=== PATIENT | female | born 1940 | race Caucasian/White ===

== ENCOUNTER → 2022-08-17 | Outpatient (CLI) | payer MEDICARE, OTHER, SELFPAY ==
--- NOTE | 2022-08-17 06:42 | CDU_ITS ---
Reason For Study: Carotid artery bruit Rt. Velocities/BP Lt. Velocities/BP Prox CCA 40/11.6 cm/sec. Prox CCA 50.7/10.2 cm/sec. Mid CCA 31.7/10.7 cm/sec. Mid CCA 56.9/10.2 cm/sec. Dist CCA 36/9.9 cm/sec. Dist CCA 63/11.4 cm/sec. Prox ICA 302.8/61.7 cm/sec. Prox ICA 130.2/38 cm/sec. Mid ICA 103.8/33.6 cm/sec. Mid ICA 101.6/24.8 cm/sec. Dist ICA 88.5/33.6 cm/sec. Dist ICA 79.7/24.8 cm/sec. Rt. ICA/CCA = 8.41. Lt. ICA/CCA = 2.29. Prox ECA 139.4/2.4 cm/sec. Prox ECA 102.3 cm/sec. Rt. Vert. 55.3/11.3 cm/sec. Lt. Vert. 40.4/13.3 cm/sec. Right Extracranial There is intimal thickening but no significant atherosclerotic plaque noted in the right common carotid artery. There is heterogeneous, irregular atherosclerotic plaque noted in the right internal carotid artery. There is heterogeneous, irregular atherosclerotic plaque noted in the right external carotid artery. Antegrade flow is noted in the right vertebral artery. Left Extracranial There is homogeneous, smooth atherosclerotic plaque noted in the left common carotid artery. There is heterogeneous, irregular atherosclerotic plaque noted in the left internal carotid artery. The atherosclerotic plaque causes acoustic shadowing. There is heterogeneous, irregular atherosclerotic plaque noted in the left external carotid artery. Antegrade flow is noted in the left vertebral artery. There is heterogeneous, irregular atherosclerotic plaque noted in the left bulb. Procedure Carotid Duplex 23674. This is a Carotid Duplex examination using B-mode, color flow and specral Doppler. Exam performed in department. 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 Moderate (50-69%) stenosis left extracranial internal carotid. Patent and antegrade vertebrals bilaterally. Calcific shadowing bilateral, additional imaging may be beneficial Ordering Physician: Min Montaño Referring Physician: Meseret Katz Performed By: Sonia Schmitt RVT
--- NOTE | 2022-08-17 08:32 | STRESSREP_ITS ---
Stress Test Report Date: 08-17-2022 Procedure: Pharmacologic stress nuclear imaging study Indications: Cardiac ectopy/PACs/PVCs/PSVT/NSVT; cardiomyopathy; mitral valve regurgitation; shortness of breath/dyspnea on exertion Consent: Per the patient Procedure: The patient underwent pharmacologic (Regadenoson 0.4mg ) evaluation with a peak heart rate of 91 beats per minute (65%predicted maximal heart rate) and a resting blood pressure of 150/84 mmHg and a peak blood pressure of 150/84 mmHg. The baseline ECG demonstrated normal sinus rhythm; nonspecific T wave abnormality. The peak pharmacologic ECG demonstrated no obvious ECG changes. There was an occasional PVC pretest and during recovery and an isolated ventricular couplet in recovery. There was no complaint of chest discomfort during pharmacologic infusion or recovery. The examination was discontinued secondary to completion of protocol. Impression: 1. Pharmacologic (Regadenoson) evaluation 2. Peak pharmacologic ECG with continued nonspecific T wave abnormality with no obvious ECG changes. 3. There was an occasional PVC pretest and during recovery and an isolated ventricular couplet in recovery. 4. Nuclear images pending Myocardial perfusion imaging study: Technique: The patient was injected with 10.6 millicuries of technetium 99m Cardiolite and subsequently rest SPECT Cardiolite nuclear imaging was obtained in the horizontal long, vertical long, and short axis views. The patient underwent pharmacologic (Regadenoson) evaluation with a peak heart rate of 91 beats per minute (65% percent predicted maximal heart rate) and a resting blood pressure of 150/84 mmHg and a peak blood pressure of 150/84 mmHg. The patient was injected with 31.9 millicuries of technetium 99m Cardiolite and subsequently stress SPECT Cardiolite nuclear imaging was obtained in the horizontal long, vertical long, and short axis views. A gated Cardiolite study at peak stress was obtained. Interpretation: Rest and stress SPECT Cardiolite nuclear imaging status post realignment, normalization, and attenuation correction demonstrate. There is end systolic thickening and brightening. The gated Cardiolite study demonstrates myocardial thickening and inward wall motion. The reported LVEF is 55%. Impression: 1. Rest and stress SPECT Cardiolite nuclear imaging demonstrate relative un iform tracer uptake and myocardial perfusion appearing within normal limits. 2. The gated Cardiolite study reports an LVEF of 55%. This note was generated with [employer] software. It may contain incorrect words, spelling, and punctuation that were not noted in checking the note before signing.
== END | disposition home or self-care (01) ==
LOC: CVS 06:40
PROVIDERS: PCP Internal Medicine; Visit Provider Internal Medicine Cardiovascular Disease
DX: I47.29 Other ventricular tachycardia (principal); I65.23 Occlusion and stenosis of bilateral carotid arteries; R06.00 Dyspnea, unspecified; I34.0 Nonrheumatic mitral (valve) insufficiency
CPT/HCPCS: 78452; 93017; 93880; A9500; A4216; J2785

== ENCOUNTER → 2022-08-19 | Outpatient (CLI) | payer MEDICARE, OTHER, SELFPAY ==
--- NOTE | 2022-08-23 06:44 | PFT ---
INTRODUCTION: The patient is a 82-year-old female that presents for pulmonary function studies secondary to a diagnosis of shortness of breath. Respiratory therapy reported good patient effort. Bronchodilators were used during testing. INTERPRETATION: Forced expiration spirometry demonstrates no evidence of a large airways obstructive ventilatory defect. There was no significant response to aerosolized bronchodilators. Spirograms are of good quality and plateau normally. Body plethysmography was performed and reveals lung volumes to be within normal limits. Diffusing capacity by single breath CO is also within normal limits. IMPRESSION: Grossly normal pulmonary function studies.
== END | disposition home or self-care (01) ==
LOC: PSN 10:32
PROVIDERS: PCP Internal Medicine; Referring Provider Internal Medicine Cardiovascular Disease; Visit Provider Internal Medicine Cardiovascular Disease
DX: I47.29 Other ventricular tachycardia (principal); I42.9 Cardiomyopathy, unspecified; I47.1 Supraventricular tachycardia; N18.30 Chronic kidney disease, stage 3 unspecified; I12.9 Hypertensive chronic kidney disease with stage 1 through stage 4 chronic kidney disease, or unspecified chronic kidney disease; I49.49 Other premature depolarization; I34.0 Nonrheumatic mitral (valve) insufficiency; E78.2 Mixed hyperlipidemia; R00.2 Palpitations; R06.09 Other forms of dyspnea
CPT/HCPCS: 94060; 94726; 94729

== ENCOUNTER → 2022-09-08 | Outpatient (CLI) | payer MEDICARE, OTHER, SELFPAY ==
[2022-09-08 14:10] LABS: Creatinine, Serum 1.81 mg/dL (0.55-1.02); EST Glomerular Filtration Rate 29 mL/min (>60); Est Glom Filt Rate - Afr Amer 35 mL/min (>60)
== END | disposition home or self-care (01) ==
PROVIDERS: PCP Internal Medicine; Visit Provider Physician Assistant
DX: N18.30 Chronic kidney disease, stage 3 unspecified (principal)
CPT/HCPCS: 36415; 82565

== ENCOUNTER → 2023-01-10 | Outpatient (CLI) | payer MEDICARE, OTHER, SELFPAY ==
[2023-01-10 17:39] LABS: Anion Gap 7 (5-15); BUN 50 mg/dL (7-18); BUN/Creat Ratio 28.1 RATIO (10-20); Calcium,Total 8.7 mg/dL (8.5-10.1); Chloride 117 mmol/L (98-107); Creatinine, Serum 1.78 mg/dL (0.55-1.02); EST Glomerular Filtration Rate 29 mL/min (>60); Est Glom Filt Rate - Afr Amer 35 mL/min (>60); Glucose 113 mg/dL (74-106); Potassium 4.9 mmol/L (3.5-5.1); Sodium Level 143 mmol/L (136-145)
== END | disposition home or self-care (01) ==
LOC: POLAB3 13:57
PROVIDERS: PCP Nurse Practitioner; Visit Provider Internal Medicine Nephrology
DX: E87.5 Hyperkalemia (principal)
CPT/HCPCS: 36415; 80048

== ENCOUNTER → 2023-05-31 | Outpatient (CLI) | payer MEDICARE, OTHER, SELFPAY ==
[2023-05-31 17:35] LABS: Albumin, Serum 3.9 g/dL (3.2-5.0); BUN 46 mg/dL (7-18); Calcium,Total 8.8 mg/dL (8.5-10.1); Chloride 115 mmol/L (98-107); EST Glomerular Filtration Rate 25 mL/min (>60); Est Glom Filt Rate - Afr Amer 31 mL/min (>60); Glucose 103 mg/dL (74-106); Phosphorus 3.9 mg/dL (2.5-4.9); Potassium 4.8 mmol/L (3.5-5.1); Sodium Level 143 mmol/L (136-145)
== END | disposition home or self-care (01) ==
LOC: LAB 15:59
PROVIDERS: PCP Nurse Practitioner; Visit Provider Internal Medicine Nephrology
DX: N17.9 Acute kidney failure, unspecified (principal)
CPT/HCPCS: 36415; 80069

== ENCOUNTER → 2023-06-05 | Outpatient (CLI) | payer MEDICARE, OTHER, SELFPAY | END | disposition home or self-care (01) | LOC: LAB 16:04 | PROVIDERS: PCP Nurse Practitioner; Referring Provider Nurse Practitioner Gerontology; Visit Provider Nurse Practitioner Gerontology | DX: R06.09 Other forms of dyspnea (principal); I42.9 Cardiomyopathy, unspecified | CPT/HCPCS: 36415; 83880 ==

== ENCOUNTER → 2023-06-15 | Outpatient (CLI) | payer MEDICARE, OTHER, SELFPAY ==
[2023-06-15 16:21] LABS: Anion Gap 8 (5-15); BUN 72 mg/dL (7-18); BUN/Creat Ratio 31.9 RATIO (10-20); Chloride 112 mmol/L (98-107); Creatinine, Serum 2.26 mg/dL (0.55-1.02); EST Glomerular Filtration Rate 22 mL/min (>60); Est Glom Filt Rate - Afr Amer 27 mL/min (>60); Glucose 117 mg/dL (74-106); Potassium 4.7 mmol/L (3.5-5.1); Sodium Level 141 mmol/L (136-145)
== END | disposition home or self-care (01) ==
LOC: LAB 15:06
PROVIDERS: PCP Nurse Practitioner; Referring Provider Nurse Practitioner Gerontology; Visit Provider Nurse Practitioner Gerontology
DX: R06.09 Other forms of dyspnea (principal)
CPT/HCPCS: 36415; 80048

== ENCOUNTER → 2023-07-06 | Outpatient (CLI) | payer MEDICARE, OTHER, SELFPAY ==
[2023-07-06 14:22] LABS: BUN 46 mg/dL (7-18); BUN/Creat Ratio 26.4 RATIO (10-20); Calcium,Total 9.2 mg/dL (8.5-10.1); Chloride 115 mmol/L (98-107); Creatinine, Serum 1.74 mg/dL (0.55-1.02); EST Glomerular Filtration Rate 30 mL/min (>60); Est Glom Filt Rate - Afr Amer 36 mL/min (>60); Glucose 116 mg/dL (74-106); Phosphorus 3.3 mg/dL (2.5-4.9); Potassium 5.2 mmol/L (3.5-5.1); Sodium Level 143 mmol/L (136-145)
== END | disposition home or self-care (01) ==
LOC: LAB.FUTURE 12:29 → LAB 13:22
PROVIDERS: PCP Nurse Practitioner; Referring Provider Internal Medicine Nephrology; Visit Provider Internal Medicine Nephrology
DX: N18.32 Chronic kidney disease, stage 3b (principal); N17.9 Acute kidney failure, unspecified
CPT/HCPCS: 36415; 80069

== ENCOUNTER → 2023-08-03 | Outpatient (CLI) | payer MEDICARE, OTHER, SELFPAY ==
--- NOTE | 2023-08-03 13:53 | ECHOD_ITS ---
Reason For Study: AMEZCUA Procedure This was a 2D Doppler, Color Flow transthoracic echocardiogram. Exam performed in department. Left Ventricle Normal LV size. The estimated ejection fraction is 50-55 %. Unable to assess diastolic dysfunction. No regional wall motion abnormalities noted. Right Ventricle Normal RV size. Normal systolic function. Atria The left atrium is mildly enlarged. Normal right atrium. No doppler evidence for ASD. Mitral Valve There is moderate mitral annular calcification. There is no mitral valve stenosis. Trivial mitral valve insufficiency. Tricuspid Valve There is no tricuspid stenosis. Trivial tricuspid valve insufficiency. Pulmonary artery systolic pressure is 30 mmHg. Aortic Valve Trisinus/trileaflet aortic valve. Aortic sclerosis, no stenosis. There is no aortic stenosis. Trivial aortic valve insufficiency. Pulmonic Valve There is no pulmonic valvular stenosis. No pulmonic valve insufficiency. Great Vessels Normal aortic root. Pericardium/Pleural No pericardial effusion. MMode/2D Measurements & Calculations LVIDd: 4.3 cm IVSd: 1.3 cm Ao root diam: 3.6 cm LVIDs: 3.5 cm LVPWd: 1.4 cm FS: 19.5 % LAV(MOD-sp4): 86.1 ml LVAd ap4: 28.8 cm2 SV(MOD-sp4): 38.0 ml LVLd ap4: 7.7 cm EDV(MOD-sp4): 89.4 ml EDV(sp4-el): 91.8 ml LVAs ap4: 20.2 cm2 LVLs ap4: 6.6 cm ESV(MOD-sp4): 51.5 ml ESV(sp4-el): 52.6 ml EF(MOD-sp4): 42.5 % EF(sp4-el): 42.7 % SV(sp4-el): 39.2 ml LA A4 area: 25.6 cm2 LA dimension(2D): 4.1 cm RA A4 area: 21.0 cm2 TAPSE: 2.5 cm Time Measurements MV dec time: 0.13 sec Doppler Measurements & Calculations MV E max beau: 70.3 cm/sec Lat Peak E' Beau: 6.6 cm/sec Med Peak E' Beau: 3.4 cm/sec MV A max beau: 91.1 cm/sec E/E' lat: 10.7 E/E' med: 20.9 MV E/A: 0.77 MV V2 max: 83.0 cm/sec Ao V2 max: 145.4 cm/sec MV max P.8 mmHg MV dec slope: 653.2 cm/sec2 Ao max P.5 mmHg MV V2 mean: 55.9 cm/sec Ao V2 mean: 101.8 cm/sec MV mean P.4 mmHg Ao mean P.8 mmHg MV V2 VTI: 27.0 cm Ao V2 VTI: 29.9 cm AV (velocity ratio): 0.57 LV V1 max: 77.5 cm/sec PA V2 max: 89.5 cm/sec TR max beau: 263.5 cm/sec LV V1 max P.4 mmHg PA V2 mean: 69.0 cm/sec TR max P.8 mmHg LV V1 mean P.4 mmHg LV V1 mean: 55.2 cm/sec LV V1 VTI: 16.9 cm ECHO/Echo Complete Interpretation Summary The estimated ejection fraction is 50-55 %. Unable to assess diastolic dysfunction. The left atrium is mildly enlarged. Trivial mitral valve insufficiency. Trivial aortic valve insufficiency. Ordering Physician: Patricia Cruz Referring Physician: Patricia Cruz Performed By: Marie Leslie RCS
== END | disposition home or self-care (01) ==
LOC: CVS 13:51
PROVIDERS: PCP Nurse Practitioner; Referring Provider Nurse Practitioner Gerontology; Visit Provider Nurse Practitioner Gerontology
DX: R06.09 Other forms of dyspnea (principal)
CPT/HCPCS: 93306

== ENCOUNTER → 2023-09-04 | Outpatient (CLI) | payer MEDICARE, OTHER, SELFPAY ==
--- OUTSIDE RECORDS SUMMARY | 2023-09-04 12:36 | XMS RPT_ITS | CCD ---
Author Name Unknown Address [id number] [place] [address] Organization [facility] Care Team Providers Care Relay Operator Name Role Phone Sylvie Katz MD Primary Care Provider GANTA, SYLVIE Primary Care Unavailable PREBISH, TABBY Attending Unavailable GANTA, SYLVIE Primary Care Unavailable CROWE, LIDIA Attending Unavailable CROWE, LIDIA Referring Unavailable GANTA, SYLVIE Primary Care Unavailable CROWE, LIDIA Attending Unavailable OLDER, ARPITA Referring Unavailable PREBISH, TABBY Attending Unavailable GANTA, SYLVIE Primary Care Unavailable PREBISH, TABBY Attending Unavailable GANTA, SYLVIE Primary Care Unavailable CROWE, LIDIA Attending Unavailable CROWE, LIDIA Referring Unavailable GANTA, SYLVIE Primary Care Unavailable Sylvie Katz MD Primary Care Provider [phone] GANTA, SYLVIE Primary Care Unavailable OLDER, ARPITA Referring Unavailable GANTA, SYLVIE Primary Care Unavailable OLDER, ARPITA Referring Unavailable GANTA, SYLVIE Primary Care Unavailable OLDER, ARPITA Attending Unavailable GANTA, SYLVIE Primary Care Unavailable OLDER, ARPITA Referring Unavailable GANTA, SYLVIE Primary Care Unavailable OLDER, ARPITA Attending Unavailable GANTA, SYLVIE Primary Care Unavailable GANTA, SYLVIE Primary Care Unavailable MOER, SHAILEY Referring Unavailable GANTA, SYLVIE Primary Care Unavailable GROEVR BANKS Attending Unavailable OLDER, ARPITA Referring Unavailable GANTA, SYLVIE Primary Care Unavailable OLDER, ARPITA Referring Unavailable GANTA, SYLVIE Primary Care Unavailable OMER, SHAILEY Referring Unavailable GANTA, SYLVIE Primary Care Unavailable CHERRI ESPINAL Attending Unavailable GANTA, SYLVIE Primary Care Unavailable OLDER, ARPITA Referring Unavailable GANTA, SYLVIE Primary Care Unavailable OLDER, ARPITA Referring Unavailable GANTA, SYLVIE Primary Care Unavailable DEVAN DOBSON Referring Unavailable GANTA, SYLVIE Primary Care Unavailable OMER, SHAILEY Referring Unavailable GANTA, SYLVIE Primary Care Unavailable OLDER, ARPITA Attending Unavailable GANTA, SYLVIE Primary Care Unavailable OLDER, ARPITA Referring Unavailable GANTA, SYLVIE Primary Care Unavailable GANTA, SYLVIE Primary Care Unavailable DOBSON, DEVAN Attending Unavailable GANTA, SYLVIE Primary Care Unavailable OLDER, ARPITA Attending Unavailable GANTA, SYLVIE Primary Care Unavailable DOBSON, DEVAN Referring Unavailable GANTA, SYLVIE Primary Care Unavailable DOBSONMILADN Referring Unavailable GANTA, SYLVIE Primary Care Unavailable GANTA, SYLVIE Primary Care Unavailable OLDER, ARPITA Attending Unavailable GANTA, SYLVIE Primary Care Unavailable OLDER, ARPITA Referring Unavailable GANTA, SYLVIE Primary Care Unavailable OLDER, ARPITA Attending Unavailable GANTA, SYLVIE Primary Care Unavailable OLDER, ARPITA Referring Unavailable GANTA, SYLVIE Primary Care Unavailable GANTA, SYLVIE Primary Care Unavailable DESTINIDENIS Referring Unavailable GANTA, SYLVIE Primary Care Unavailable OLDER, ARPITA Attending Unavailable GANTA, SYLVIE Primary Care Unavailable OLDER, ARPITA Referring Unavailable GANTA, SYLVIE Primary Care Unavailable OMER, ANDRZEJILEY Attending Unavailable GANTA, SYLVIE Primary Care Unavailable OLDER, ARPITA Referring Unavailable GANTA, SYLVIE Primary Care Unavailable OLDER, ARPITA Referring Unavailable GANTA, SYLVIE Primary Care Unavailable Allergies Allergy Classification Reported Allergen(s) Allergy Type Date of Onset Reaction(s) Facility (20 sources) Famotidine; Translations: [FAMOTIDINE (PF)] Drug Allergy 11-26-2012 Diarrhea [facility] (20 sources) guaiFENesin; Translations: [GUAIFENESIN] Drug Allergy 09-16-2013 Diarrhea [facility] Work Phone: (20 sources) meloxicam; Translations: [MELOXICAM] Drug Allergy 11-26-2012 GI Upset [facility] (20 sources) pantoprazole; Translations: [PANTOPRAZOLE] Drug Allergy 05-14-2012 Diarrhea [facility] (20 sources) Sucralfate; Translations: [SUCRALFATE] Drug Allergy 04-08-2013 Diarrhea [facility] Medications Current Medications Medication Drug Class(es) Dates Sig (Normalized) Sig (Original) ALPRAZolam 0.5 mg disintegrating oral tablet (10 sources) Benzodiazepine Start: 04-13-2023 End: 04-24-2023 ALPRAZolam 0.5 mg dissolvable tablet Indications: Lumbar spondylosis Bring to office for procedure. Do not take until instructed by clinical staff 2 tablet 0 04/13/2023 04/24/2023 Active Completed/Discontinued Medications Medication Drug Class(es) Dates Sig (Normalized) Sig (Original) 8 hr acetaminophen 650 mg extended release oral tablet (20 sources) take 1 tablet by mouth every eight hours as needed acetaminophen 650 mg CR tablet Indications: Age-related osteoporosis without current pathological fracture , Idiopathic chronic gout of multiple sites with tophus , Primary osteoarthritis involving multiple joints , Medication monitoring encounter , Psoriasis Take 650 mg by mouth every 8 hours as needed. 0 Active Problems Active Problems Problem Classification Problem Date Documented Da te Episodic/Chronic Abdominal hernia (1 source) Hiatal hernia; Translations: [Diaphragmatic hernia without obstruction or gangrene] Episodic Cardiac dysrhythmias (20 sources) Cardiac arrhythmia; Translations: [Cardiac arrhythmia, unspecified] Onset: 3 Chronic Cardiac dysrhythmias (1 source) Palpitations; Translations: [Palpitations] Episodic Chronic kidney disease (20 sources) Chronic kidney disease; Translations: [Chronic kidney disease, unspecified] Onset: 6 08-31-2015 Chronic Chronic kidney disease (1 source) Chronic kidney disease; Translations: [Stage 3b chronic kidney disease (HCC)] Onset: 6 Disorders of lipid metabolism (2 sources) Hyperlipidemia; Translations: [Hyperlipidemia, unspecified] Onset: 3 04-27-2023 Chronic Esophageal disorders (20 sources) Gastroesophageal reflux disease; Translations: [Gastro-esophageal reflux disease without esophagitis] Onset: 2 05-14-2012 Chronic Essential hypertension (20 sources) Hypertensive disorder; Translations: [Essential (primary) hypertension] Onset: 3 12-28-2015 Chronic Fluid and electrolyte disorders (1 source) Hyperkalemia; Translations: [Hyperkalemia] Onset: 3 Episodic Genitourinary symptoms and ill-defined conditions (3 sources) Urinary incontinence; Translations: [Unspecified urinary incontinence] Onset: 3 Chronic Genitourinary symptoms and ill-defined conditions (14 sources) Dysuria; Translations: [Dysuria] Onset: 3 Episodic Glaucoma (20 sources) Glaucoma; Translations: [Unspecified glaucoma] 2015 Chronic Gout and other crystal arthropathies (20 sources) Chronic primary gouty arthritis; Translations: [Idiopathic chronic gout, multiple sites, with tophus (tophi)] Onset: 8 Chronic Nausea and vomiting (2 sources) Nausea and vomiting; Translations: [Nausea with vomiting, unspecified] Episodic Nonmalignant breast conditions (9 sources) Breast tenderness; Translations: [Mastodynia] Episodic Osteoarthritis (20 sources) Degenerative joint disease involving multiple joints; Translations: [Polyosteoarthritis, unspecified] Onset: 8 12-11-2017 Chronic Osteoporosis (20 sources) Osteoporosis; Translations: [Age-related osteoporosis without current pathological fracture] Onset: 4 01-27-2014 Chronic Other aftercare (9 sources) Patient encounter status; Translations: [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] Episodic Other and ill-defined heart disease (1 source) Diastolic dysfunction; Translations: [Other ill-defined heart diseases] Chronic Other circulatory disease (20 sources) Disorder of carotid artery; Translations: [Disorder of arteries and arterioles, unspecified] Onset: 3 01-11-2023 Chronic Other circulatory disease (1 source) Disorder of arteries and arterioles, unspecified; Translations: [Disorder of carotid artery (HCC)] Onset: 3 Chronic Other connective tissue disease (1 source) Cramp; Translations: [Cramp and spasm] 07-27-2023 Episodic Other connective tissue disease (1 source) Cramp and spasm; Translations: [Muscle cramping] Onset: 3 Episodic Other diseases of kidney and ureters (4 sources) Abnormal renal function; Translations: [Disorder of kidney and ureter, unspecified] Episodic Other gastrointestinal disorders (1 source) Diarrhea; Translations: [Diarrhea, unspecified] Episodic Other lower respiratory disease (2 sources) Dyspnea on exertion; Translations: [Other forms of dyspnea] Episodic Other lower respiratory disease (3 sources) Dyspnea; Translations: [Shortness of breath] Episodic Other lower respiratory disease (1 source) Cough; Translations: [Acute cough] Episodic Other lower respiratory disease (1 source) Wheezing; Translations: [Wheezing] Episodic Other nervous system disorders (2 sources) Other chronic pain; Translations: [Chronic midline low back pain without sciatica] Onset: 3 Chronic Other nutritional; endocrine; and metabolic disorders (20 sources) Hypercalcemia; Translations: [Hypercalcemia] Onset: 4 02-15-2014 Chronic Other nutritional; endocrine; and metabolic disorders (20 sources) Hypocalciuria; Translations: [Other disorders of calcium metabolism] Onset: 5 09-23-2014 Chronic Other nutritional; endocrine; and metabolic disorders (2 sources) Hypomagnesemia; Translations: [Hypomagnesemia] Chronic Other nutritional; endocrine; and metabolic disorders (1 source) Hypervitaminosis D; Translations: [Hypervitaminosis D] Chronic Other nutritional; endocrine; and metabolic disorders (1 source) Hypomagnesemia; Translations: [Hypomagnesemia] Onset: 3 Chronic Other nutritional; endocrine; and metabolic disorders (1 source) Hypervitaminosis D; Translations: [High vitamin D level] Onset: 3 Chronic Other screening for suspected conditions (not mental disorders or infectious disease) (3 sources) Electrocardiogram abnormal; Translations: [Abnormal electrocardiogram [ECG] [EKG]] Onset: 3 Episodic Other upper respiratory infections (1 source) Acute sinusitis; Translations: [Acute sinusitis, unspecified] Episodic Namita-; endo-; and myocarditis; cardiomyopathy (except that caused by tuberculosis or sexually transmitted disease) (20 sources) Cardiomyopathy; Translations: [Cardiomyopathy, unspecified] Onset: 3 01-11-2023 Chronic Residual codes; unclassified (1 source) Colon cancer screening declined; Translations: [Procedure and treatment not carried out because of patient's decision for unspecified reasons] Episodic Residual codes; unclassified (1 source) Generally unwell; Translations: [Other general symptoms and signs] 04-27-2023 Episodic Spondylosis; intervertebral disc disorders; other back problems (20 sources) Degeneration of lumbar intervertebral disc; Translations: [Other intervertebral disc degeneration, lumbar region] Onset: 3 05-06-2013 Chronic Unclassified (2 sources) Chronic midline low back pain without sciatica; Translations: [Chronic midline low back pain without sciatica] Onset: 3 Unclassified (1 source) Other ventricular tachycardia (HCC); Translations: [Other ventricular tachycardia (HCC)] Onset: 3 Unclassified (1 source) Acute cough; Translations: [Acute cough] Onset: 3 Urinary tract infections (10 sources) Urinary tract infectious disease; Translations: [Urinary tract infection, site not specified] Onset: 3 Episodic Viral infection (1 source) Disease caused by 2019-nCoV; Translations: [COVID-19] Episodic Past or Other Problems Problem Classification Problem Date Documented Da te Episodic/Chronic Abdominal pain (20 sources) Indigestion; Translations: [Epigastric pain] Onset: 09-23-2014 09-23-2014 Episodic Acute and unspecified renal failure (1 source) Acute kidney failure, unspecified; Translations: [Acute renal failure, unspecified acute renal failure type (HCC)] Onset: 01-02-2023 Episodic Allergic reactions (20 sources) Eczema; Translations: [Dermatitis, unspecified] Onset: 05-14-2012 05-14-2012 Episodic Malaise and fatigue (3 sources) Fatigue; Translations: [Other fatigue] Onset: 05-04-2023 Episodic Other aftercare (1 source) Other mcc (current) drug therapy; Translations: [Encounter for long-term (current) use of medications] Onset: 03-22-2023 Episodic Other circulatory disease (20 sources) Elevated blood-pressure reading without diagnosis of hypertension; Translations: [Elevated blood-pressure reading, without diagnosis of hypertension] Onset: 04-15-2019 04-15-2019 Episodic Other diseases of kidney and ureters (1 source) Disorder of kidney and ureter, unspecified; Translations: [Function kidney decreased] Onset: 10-20-2022 Episodic Other gastrointestinal disorders (20 sources) Diarrhea due to drug; Translations: [Toxic gastroenteritis and colitis] Onset: 11-26-2012 11-26-2012 Episodic Other gastrointestinal disorders (1 source) Diarrhea, unspecified; Translations: [Diarrhea, unspecified type] Onset: 10-13-2022 Episodic Other lower respiratory disease (1 source) Shortness of breath; Translations: [Shortness of breath] Onset: 05-04-2023 Episodic Other lower respiratory disease (1 source) Wheezing; Translations: [Wheezing] Onset: 09-29-2022 Episodic Residual codes; unclassified (20 sources) Insomnia; Translations: [Insomnia, unspecified] Onset: 07-02-2013 07-02-2013 Episodic Residual codes; unclassified (1 source) Other general symptoms and signs; Translations: [Generally unwell] Onset: 05-04-2023 Episodic Spondylosis; intervertebral disc disorders; other back problems (20 sources) Spinal stenosis of lumbar region; Translations: [Spinal stenosis, lumbar region with neurogenic claudication] Onset: 03-11-2015 03-11-2015 Episodic Results Test Name Value Interpretation Reference Range Facil ity Vital Signs Date Time Vital Sign Value Performing Clinician Yousuf gupta 07-27-2023 11:06-0500 Body weight 82.56 kg PILOT PLANT OPERATOR.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 Work Phone: [facility] 07-27-2023 11:06-0500 Diastolic blood pressure 60 mm[Hg] PILOT PLANT OPERATOR.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 Work Phone: [facility] 07-27-2023 11:06-0500 Heart rate 72 /min PILOT PLANT OPERATOR.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 Work Phone: [facility] 07-27-2023 11:06-0500 Respiratory rate 16 /min PILOT PLANT OPERATOR.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 Work Phone: [facility] 07-27-2023 11:06-0500 Systolic blood pressure 132 mm[Hg] PILOT PLANT OPERATOR.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 Work Phone: [facility] 07-20-2023 10:37-0500 Heart rate 84 /min Tabby Prebish PILOT PLANT OPERATOR.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 Work Phone: [facility] 07-20-2023 10:37-0500 Respiratory rate 14 /min Tabby Prebish PILOT PLANT OPERATOR.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 Work Phone: [facility] 07-20-2023 10:37-0500 SaO2% (BldA) [Mass fraction] 98 % Tabby Prebish PILOT PLANT OPERATOR.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 Work Phone: [facility] 06-12-2023 12:58-0400 Body height 160 cm Grover Banks PILOT PLANT OPERATOR.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, DNP Work Phone: [facility] 06-12-2023 12:58-0400 Body temperature 97 [degF] Grover Banks PILOT PLANT OPERATOR.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, DNP Work Phone: [facility] 06-12-2023 12:58-0400 Body weight 82.19 kg Grover Banks APRN.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, DNP Work Phone: [facility] 06-12-2023 12:58-0400 Diastolic blood pressure 60 mm[Hg] Grover Banks PILOT PLANT OPERATOR.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, DNP Work Phone: [facility] 06-12-2023 12:58-0400 Heart rate 74 /min Grover Banks PILOT PLANT OPERATOR.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, DNP Work Phone: [facility] 06-12-2023 12:58-0400 Respiratory rate 14 /min Grover Banks PILOT PLANT OPERATOR.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, DNP Work Phone: [facility] 06-12-2023 12:58-0400 SaO2% (BldA) [Mass fraction] 98 % Grover Banks PILOT PLANT OPERATOR.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, DNP Work Phone: [facility] 06-12-2023 12:58-0400 Systolic blood pressure 104 mm[Hg] Grover Banks PILOT PLANT OPERATOR.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, DNP Work Phone: [facility] 04-27-2023 11:02-0400 Body temperature 97.7 [degF] Arpita Older PILOT PLANT OPERATOR.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 Work Phone: [facility] 04-27-2023 11:02-0400 Body weight 80.74 kg Arpita Older PILOT PLANT OPERATOR.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 Work Phone: [facility] 04-27-2023 11:02-0400 Diastolic blood pressure 70 mm[Hg] Arpita Older PILOT PLANT OPERATOR.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 Work Phone: [facility] 04-27-2023 11:02-0400 Heart rate 94 /min Arpita Older PILOT PLANT OPERATOR.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 Work Phone: [facility] 04-27-2023 11:02-0400 Respiratory rate 16 /min Arpita Older PILOT PLANT OPERATOR.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 Work Phone: [facility] 04-27-2023 11:02-0400 SaO2% (BldA) [Mass fraction] 100 % Arpita Connelly PILOT PLANT OPERATOR.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 Work Phone: [facility] 04-27-2023 11:02-0400 Systolic blood pressure 122 mm[Hg] Arpita Connelly PILOT PLANT OPERATOR.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 Work Phone: [facility] 04-21-2023 15:07-0400 Body height 160 cm Devan Dobson PILOT PLANT OPERATOR.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 Work Phone: [facility] 04-21-2023 15:07-0400 Body temperature 97.3 [degF] Devan Dobson PILOT PLANT OPERATOR.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 Work Phone: [facility] 04-21-2023 15:07-0400 Body weight 80.74 kg Devan Dobson PILOT PLANT OPERATOR.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 Work Phone: [facility] 04-21-2023 15:07-0400 Diastolic blood pressure 72 mm[Hg] Devan Dobson PILOT PLANT OPERATOR.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 Work Phone: [facility] 04-21-2023 15:07-0400 Heart rate 85 /min Dvean Dobson PILOT PLANT OPERATOR.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 Work Phone: [facility] 04-21-2023 15:07-0400 SaO2% (BldA) [Mass fraction] 100 % Devan Dobsno PILOT PLANT OPERATOR.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 Work Phone: [facility] 04-21-2023 15:07-0400 Systolic blood pressure 142 mm[Hg] Devan Dobson PILOT PLANT OPERATOR.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 Work Phone: [facility] 04-10-2023 14:40-0400 Diastolic blood pressure 67 mm[Hg] Lidia Crowe MD Work Phone: [facility] 04-10-2023 14:40-0400 Heart rate 91 /min Lidia Crowe MD Work Phone: [facility] 04-10-2023 14:40-0400 Respiratory rate 18 /min Lidia Crowe MD Work Phone: [facility] 04-10-2023 14:40-0400 SaO2% (BldA) [Mass fraction] 96 % Lidia Crowe MD Work Phone: [facility] 04-10-2023 14:40-0400 Systolic blood pressure 119 mm[Hg] Lidia Crowe MD Work Phone: [facility] 04-01-2023 10:31-0400 Body temperature 97.59 [degF] Sadaf Andino PILOT PLANT OPERATOR.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 Work Phone: [facility] 04-01-2023 10:31-0400 Body weight 81.47 kg Sadaf Andino PILOT PLANT OPERATOR.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 Work Phone: [facility] 04-01-2023 10:31-0400 Diastolic blood pressure 93 mm[Hg] Sadaf Andino PILOT PLANT OPERATOR.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 Work Phone: [facility] 04-01-2023 10:31-0400 Heart rate 101 /min Sadaf Andino PILOT PLANT OPERATOR.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 Work Phone: [facility] 04-01-2023 10:31-0400 Respiratory rate 18 /min Sadaf Andino PILOT PLANT OPERATOR.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 Work Phone: [facility] 04-01-2023 10:31-0400 SaO2% (BldA) [Mass fraction] 96 % Sadaf Andino PILOT PLANT OPERATOR.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 Work Phone: [facility] 04-01-2023 10:31-0400 Systolic blood pressure 163 mm[Hg] Sadaf Andino PILOT PLANT OPERATOR.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 Work Phone: [facility] 03-27-2023 16:00-0400 Diastolic blood pressure 67 mm[Hg] Lidia Crowe MD Work Phone: [facility] 03-27-2023 16:00-0400 Heart rate 70 /min Lidia Crowe MD Work Phone: [facility] 03-27-2023 16:00-0400 Respiratory rate 18 /min Lidia Crowe MD Work Phone: [facility] 03-27-2023 16:00-0400 SaO2% (BldA) [Mass fraction] 100 % Lidia Corwe MD Work Phone: [facility] 03-27-2023 16:00-0400 Systolic blood pressure 136 mm[Hg] Lidia Crowe MD Work Phone: [facility] 03-04-2023 12:42-0400 Body temperature 98.29 [degF] [facility] P[facility] [facility]ANT OPERATOR.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 Work Phone: [facility] 03-04-2023 12:42-0400 Body weight 80.74 kg [facility] PILOT PLANT OPERATOR.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 Work Phone: [facility] 03-04-2023 12:42-0400 Diastolic blood pressure 90 mm[Hg] [facility] PILOT PLANT OPERATOR.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 Work Phone: [facility] 03-04-2023 12:42-0400 Heart rate 81 /min [facility] PILOT PLANT OPERATOR.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 Work Phone: [facility] 03-04-2023 12:42-0400 Respiratory rate 16 /min [facility] PILOT PLANT OPERATOR.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 Work Phone: [facility] 03-04-2023 12:42-0400 SaO2% (BldA) [Mass fraction] 97 % [facility] PILOT PLANT OPERATOR.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 Work Phone: [facility] 03-04-2023 12:42-0400 Systolic blood pressure 128 mm[Hg] [facility] PILOT PLANT OPERATOR.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 Work Phone: [facility] 02-09-2023 13:49-0400 Heart rate 82 /min Lidia Crowe MD Work Phone: [facility] 02-09-2023 13:49-0400 Respiratory rate 16 /min Lidia Crowe MD Work Phone: [facility] 02-09-2023 13:49-0400 SaO2% (BldA) [Mass fraction] 98 % Lidia Crowe MD Work Phone: [facility] 01-25-2023 11:34-0400 Body weight 82.1 kg Arpita Older PILOT PLANT OPERATOR.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 Work Phone: [facility] 01-25-2023 11:34-0400 Diastolic blood pressure 82 mm[Hg] Arpita Older PILOT PLANT OPERATOR.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 Work Phone: [facility] 01-25-2023 11:34-0400 Heart rate 84 /min Arpita Older PILOT PLANT OPERATOR.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 Work Phone: [facility] 01-25-2023 11:34-0400 Respiratory rate 16 /min Arpita Older PILOT PLANT OPERATOR.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 Work Phone: [facility] 01-25-2023 11:34-0400 Systolic blood pressure 138 mm[Hg] Arpita Older PILOT PLANT OPERATOR.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 Work Phone: [facility] 11-11-2022 13:35-0400 Body temperature 97.3 [degF] Arpita Older PILOT PLANT OPERATOR.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 Work Phone: [facility] 11-11-2022 13:35-0400 Body weight 80.29 kg Arpita Older PILOT PLANT OPERATOR.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 Work Phone: [facility] 11-11-2022 13:35-0400 Diastolic blood pressure 84 mm[Hg] Arpita Older PILOT PLANT OPERATOR.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 Work Phone: [facility] 11-11-2022 13:35-0400 Heart rate 90 /min Arpita Older PILOT PLANT OPERATOR.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 Work Phone: [facility] 11-11-2022 13:35-0400 Respiratory rate 16 /min Arpita Older PILOT PLANT OPERATOR.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 Work Phone: [facility] 11-11-2022 13:35-0400 SaO2% (BldA) [Mass fraction] 99 % Arpita Older PILOT PLANT OPERATOR.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 Work Phone: [facility] 11-11-2022 13:35-0400 Systolic blood pressure 136 mm[Hg] Arpita Older PILOT PLANT OPERATOR.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 Work Phone: [facility] 10-19-2022 14:04-0500 Diastolic blood pressure 86 mm[Hg] Dionisio Omer MD Work Phone: [facility] 10-19-2022 14:04-0500 Heart rate 88 /min Dionisio Omer MD Work Phone: [facility] 10-19-2022 14:04-0500 Systolic blood pressure 159 mm[Hg] Dionisio Omer MD Work Phone: [facility] 10-19-2022 13:53-0500 Body height 160 cm Dionisio Omer MD Work Phone: [facility] 10-19-2022 13:53-0500 Body temperature 97.5 [degF] Dionisio Omer MD Work Phone: [facility] 10-19-2022 13:53-0500 Body weight 78.47 kg Dionisio Omer MD Work Phone: [facility] 10-13-2022 12:54-0500 Body temperature 97.39 [degF] Arpita Older PILOT PLANT OPERATOR.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 Work Phone: [facility] 10-13-2022 12:54-0500 Body weight 79.38 kg Arpita Older PILOT PLANT OPERATOR.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 Work Phone: [facility] 10-13-2022 12:54-0500 Diastolic blood pressure 78 mm[Hg] Arpita Older PILOT PLANT OPERATOR.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 Work Phone: [facility] 10-13-2022 12:54-0500 Heart rate 56 /min Arpita Older PILOT PLANT OPERATOR.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 Work Phone: [facility] 10-13-2022 12:54-0500 Respiratory rate 16 /min Arpita Older PILOT PLANT OPERATOR.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 Work Phone: [facility] 10-13-2022 12:54-0500 SaO2% (BldA) [Mass fraction] 97 % Arpita Older PILOT PLANT OPERATOR.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 Work Phone: [facility] 10-13-2022 12:54-0500 Systolic blood pressure 122 mm[Hg] Arpita Older PILOT PLANT OPERATOR.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 Work Phone: [facility] 09-29-2022 13:09-0500 Body temperature 96.91 [degF] Arpita Older PILOT PLANT OPERATOR.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 Work Phone: [facility] 09-29-2022 13:09-0500 Body weight 79.38 kg Arpita Older PILOT PLANT OPERATOR.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 Work Phone: [facility] 09-29-2022 13:09-0500 Diastolic blood pressure 82 mm[Hg] Arpita Older PILOT PLANT OPERATOR.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 Work Phone: [facility] 09-29-2022 13:09-0500 Heart rate 91 /min Arpita Older PILOT PLANT OPERATOR.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 Work Phone: [facility] 09-29-2022 13:09-0500 Respiratory rate 16 /min Arpita Older PILOT PLANT OPERATOR.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 Work Phone: [facility] 09-29-2022 13:09-0500 SaO2% (BldA) [Mass fraction] 97 % Arpita Older PILOT PLANT OPERATOR.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 Work Phone: [facility] 09-29-2022 13:09-0500 Systolic blood pressure 138 mm[Hg] Arpita Older PILOT PLANT OPERATOR.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 Work Phone: [facility] 08-08-2022 13:25-0500 Body height 160 cm Arpita Older PILOT PLANT OPERATOR.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 Work Phone: [facility] 08-08-2022 13:25-0500 Body temperature 97.81 [degF] Arpita Older PILOT PLANT OPERATOR.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 Work Phone: [facility] 08-08-2022 13:25-0500 Body weight 81.65 kg Arpita Older PILOT PLANT OPERATOR.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 Work Phone: [facility] 08-08-2022 13:25-0500 Diastolic blood pressure 90 mm[Hg] Arpita Older PILOT PLANT OPERATOR.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 Work Phone: [facility] 08-08-2022 13:25-0500 Heart rate 77 /min Arpita Older PILOT PLANT OPERATOR.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 Work Phone: [facility] 08-08-2022 13:25-0500 Respiratory rate 16 /min Arpita Older PILOT PLANT OPERATOR.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 Work Phone: [facility] 08-08-2022 13:25-0500 SaO2% (BldA) [Mass fraction] 98 % Arpita Older PILOT PLANT OPERATOR.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 Work Phone: [facility] 08-08-2022 13:25-0500 Systolic blood pressure 140 mm[Hg] Arpita Older PILOT PLANT OPERATOR.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 Work Phone: [facility] 2022 14:41-0400 Body weight 82.56 kg Arpita Older PILOT PLANT OPERATOR.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 Work Phone: [facility] 2022 14:41-0400 Diastolic blood pressure 80 mm[Hg] Arpita Older PILOT PLANT OPERATOR.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 Work Phone: [facility] 2022 14:41-0400 Heart rate 88 /min Arpita Older PILOT PLANT OPERATOR.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 Work Phone: [facility] 2022 14:41-0400 Respiratory rate 16 /min Arpita Older PILOT PLANT OPERATOR.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 Work Phone: [facility] 2022 14:41-0400 Systolic blood pressure 138 mm[Hg] Arpita Older PILOT PLANT OPERATOR.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 Work Phone: [facility] 05-05-2022 12:39-0400 Diastolic blood pressure 80 mm[Hg] Arpita Older PILOT PLANT OPERATOR.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 Work Phone: [facility] 05-05-2022 12:39-0400 Heart rate 88 /min Arpita Older PILOT PLANT OPERATOR.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 Work Phone: [facility] 05-05-2022 12:39-0400 Systolic blood pressure 130 mm[Hg] Arpita Older PILOT PLANT OPERATOR.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 Work Phone: [facility] 05-05-2022 11:48-0400 Body weight 82.1 kg Arpita Older PILOT PLANT OPERATOR.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 Work Phone: [facility] 05-05-2022 11:48-0400 Respiratory rate 16 /min Arpita Older PILOT PLANT OPERATOR.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 Work Phone: [facility] 05-05-2022 11:48-0400 SaO2% (BldA) [Mass fraction] 98 % Arpita Older PILOT PLANT OPERATOR.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 Work Phone: [facility] 04-20-2022 12:38-0400 Body weight 83.01 kg Arpita Older PILOT PLANT OPERATOR.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 Work Phone: [facility] 04-20-2022 12:38-0400 Diastolic blood pressure 72 mm[Hg] Arpita Older PILOT PLANT OPERATOR.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 Work Phone: [facility] 04-20-2022 12:38-0400 Heart rate 87 /min Arpita Older PILOT PLANT OPERATOR.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 Work Phone: [facility] 04-20-2022 12:38-0400 Respiratory rate 16 /min Arpita Older PILOT PLANT OPERATOR.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 Work Phone: [facility] 04-20-2022 12:38-0400 SaO2% (BldA) [Mass fraction] 98 % Arpita Older PILOT PLANT OPERATOR.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 Work Phone: [facility] 04-20-2022 12:38-0400 Systolic blood pressure 144 mm[Hg] Arpita Older PILOT PLANT OPERATOR.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 Work Phone: [facility] 04-18-2022 12:57-0400 Diastolic blood pressure 77 mm[Hg] Devan Dobson PILOT PLANT OPERATOR.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 Work Phone: [facility] 04-18-2022 12:57-0400 Heart rate 83 /min Devan Dobson PILOT PLANT OPERATOR.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 Work Phone: [facility] 04-18-2022 12:57-0400 Systolic blood pressure 148 mm[Hg] Devan Dobson PILOT PLANT OPERATOR.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 Work Phone: [facility] 04-18-2022 12:40-0400 Body height 160 cm Devan Dobson PILOT PLANT OPERATOR.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 Work Phone: [facility] 04-18-2022 12:40-0400 Body temperature 97.81 [degF] Devan Dobson PILOT PLANT OPERATOR.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 Work Phone: [facility] 04-18-2022 12:40-0400 Body weight 83.01 kg Devan Dobson PILOT PLANT OPERATOR.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 Work Phone: [facility] Encounters Encounter Date Encounter Type Care Provider Facility Start: 09-03-2023 Telephone encounter Cindy jones PA-C Work Phone: [facility] Procedures Date Procedure Procedure Detail Performing Clinician Start: 07-27-2023 Urnls dip stick/tabl et rgnt auto w/o microscopy Arpita Older PILOT PLANT OPERATOR.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 Work Phone: Start: 06-12-2023 Urnls dip stick/tabl et rgnt auto w/o microscopy Grover Traci PILOT PLANT OPERATOR.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, DNP Work Phone: Start: 04-01-2023 Urnls dip stick/tabl et rgnt auto w/o microscopy Valentina Manzanaresk PILOT PLANT OPERATOR.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 Work Phone: Start: 03-04-2023 Urnls dip stick/tabl et rgnt auto w/o microscopy Andrea BA Work Phone: Start: 11-11-2022 Urnls dip stick/tabl et rgnt auto w/o microscopy Arpita Older PILOT PLANT OPERATOR.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 Work Phone: Start: 10-31-2022 Dxa bone density simeon dy 1/> sites axial katlyn Dobson PILOT PLANT OPERATOR.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 Work Phone: Start: 10-27-2022 Us retroperitoneal r eal time w/image complete Arpita Older PILOT PLANT OPERATOR.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 Work Phone: Start: 2022 Urnls dip stick/tabl et rgnt auto w/o microscopy Arpita Older PILOT PLANT OPERATOR.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 Work Phone: Start: 05-17-2022 Us breast uni real t jackie with image limited Arpita Older PILOT PLANT OPERATOR.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 Work Phone: Start: 05-17-2022 Diagnostic mammograp hy computer-aided detcj bi Arpita Older PILOT PLANT OPERATOR.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 Work Phone: Start: 05-05-2022 INFLUENZA SEASONAL QUADRIVALENT HIGH DOSE AGE 65+ Arpita Older PILOT PLANT OPERATOR.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 Work Phone: Start: 04-13-2022 Adult depression scr eening assessment Devan Dobson PILOT PLANT OPERATOR.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 Work Phone: Start: 10-12-2020 Adult depression scr eening assessment Dionisio Omer MD Work Phone: Plan of Treatment Date Care Activity Detail Author Start: 08-17-2026 Diabetes Screening Diabetes Screenin [facility] Start: 05-03-2026 Diabetes Screening Diabetes Screenin [facility] Start: 10-13-2025 DIABETES SCREEN DIABETES SCREEN [facility] Start: 10-13-2025 Diabetes Screening Diabetes Screenin [facility] Start: 04-21-2025 DIABETES SCREEN DIABETES SCREEN [facility] Start: 10-01-2024 DIABETES SCREEN DIABETES SCREEN [facility] Start: 07-27-2024 RSV Vaccine (1 - 1-d ose 60+ series) RSV Vaccine (1 - 1-dose 60+ series) [facility] Immunizations Immunization Date Immunization Notes Care Provider Fa luis a 06-24-2023 influenza (HD-IIV4) vaccine, age 65+ yr, high dose, quadrivalent, PF (FLUZONE HIGH-DOSE) Screen [facility]str [facility] 06-24-2023 influenza virus vacc ine, unspecified formulation [facility] Work Phone: [facility] 05-05-2022 influenza, high-dose , quadrivalent vaccine (FLUZONE HIGH DOSE QUADRIVALENT) Arpita Connelly PILOT PLANT OPERATOR.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 Work Phone: [facility] 05-05-2022 influenza virus vacc ine, unspecified formulation Arpita Connelly PILOT PLANT OPERATOR.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 Work Phone: [facility] 06-22-2021 influenza virus vacc ine, unspecified formulation Dionisio Omer MD Work Phone: [facility] 10-14-2020 COVID-19 vaccine, fu ll dose (MODERNA) Dionisio Omer MD Work Phone: [facility] Work Phone: 09-11-2020 COVID-19 vaccine, fu ll dose (MODERNA) Dionisio Omer MD Work Phone: [facility] Work Phone: 06-13-2020 influenza, high-dose , quadrivalent vaccine (FLUZONE HIGH DOSE QUADRIVALENT) Dionisio Omer MD Work Phone: [facility] Work Phone: 06-17-2019 influenza, high dose seasonal, preservative-free Dionisio Omer MD Work Phone: [facility] Work Phone: 07-23-2018 influenza, high dose seasonal, preservative-free Dionisio Omer MD Work Phone: [facility] Work Phone: 06-26-2017 influenza, high dose seasonal, preservative-free Dionisio Omer MD Work Phone: [facility] Work Phone: 06-06-2016 influenza, high dose seasonal, preservative-free Dionisio Omer MD Work Phone: [facility] 06-15-2015 influenza, high dose seasonal, preservative-free Dionisio Omer MD Work Phone: [facility] Work Phone: 09-23-2014 pneumococcal conjuga te vaccine, 13 valent Dionisio Omer MD Work Phone: [facility] 06-23-2014 influenza, seasonal, injectable Dionisio Omer MD Work Phone: [facility] 07-22-2013 influenza virus vacc ine, unspecified formulation Dionisio Omer MD Work Phone: [facility] 07-24-2012 influenza virus vacc ine, unspecified formulation Dionisio Omer MD Work Phone: [facility] 08-26-2009 tetanus and diphther ia toxoids, adsorbed, preservative free, for adult use (2 Lf of tetanus toxoid and 2 Lf of diphtheria toxoid) Dionisio Omer MD Work Phone: [facility] Work Phone: 08-19-2008 pneumococcal polysaccharide vaccine, 23 valent Dionisio Omer MD Work Phone: [facility] Work Phone: Payers Date Payer Category Payer Private Health Insurance [employer]IC[employer] SUPPLEMENT [id number] 2019-Present [phone] [address] [place] [address] Indemnity [id number] 2007 Medicare [id number] 2007 Private Health Insurance [id number] 2007 Medicare MEDICARE MEDICAR E A AND B [id number] 2007-Present [phone] [address] [address] [place] [address] Medicare [id number] 2007 Medicare MEDICARE MEDICAR E A AND B [id number] 2007-Present [phone] [place] [address] Medicare [id number] 2007 Medicare [id number] Social History Date Type Detail Facility Start: 09-04-2017 End: 08-08-2022 Tobacco smoking status NHIS Ex-smoker [facility] End: 08-21-1997 History of tobacco use Current smoker [facility] End: 08-21-1997 History of tobacco use Cigarette Smoker [facility] Start: 10-11-2021 Alcohol intake Current drinke r of alcohol (finding) [facility] Start: 10-08-2021 End: 08-07-2022 History SDOH Alcohol Frequency 1 [facility] Start: 09-28-2019 End: 08-07-2022 History SDOH Alcohol Std Drinks 98 [facility] Start: 05-18-2015 History SDOH Alcohol Comment rarely [facility] Start: 10-08-2021 End: 08-07-2022 History SDOH Social Connections Phone 5 [facility] Start: 10-08-2021 History SDOH Social Connections Membership 2 [facility] Start: 10-08-2021 End: 08-07-2022 History SDOH Social Connections Living 3 [facility] Start: 05-25-2020 Education 9 [facility] Start: 1940 Sex Assigned At Female C [facility] Start: 09-04-2017 End: 01-11-2023 Cigarettes smoked current (pack per day) - Reported 0.5 [facility] Start: 09-04-2017 End: 08-08-2022 Tobacco use and exposure Smokeless tobacco non-user [facility] Work Phone: Start: 04-08-2022 End: 05-05-2022 Exposure to SARS-CoV-2 (event) Not sure [facility] Start: 04-10-2022 End: 04-20-2022 Exposure to SARS-CoV-2 (event) Unable to assess [facility] Start: 08-08-2022 End: 09-01-2023 Alcohol intake Ex-drinker (finding) [facility] Start: 08-07-2022 History [facility] Alcohol Std Drinks 0 [facility] Start: 08-08-2022 Alcohol Comment pt has not had ETOH in years [facility] Start: 08-06-2022 End: 01-11-2023 Social connection and isolation panel [facility] How often do you get together with friends or relatives? Patient refused [facility] Are you now , , , , never or living with a partner? [facility] How often to you hav e a drink containing alcohol? Never [facility] (I/We) worried yaima er (my/our) food would run out before (I/we) got money to buy more. DK or Refused [facility] Start: 01-02-2022 Gender identity Identifies as female gender (finding) [facility] Start: 01-02-2022 Sexual orientation Heterosexual (sue brown) [facility] Clinical Notes 05-06-2013 to 09-03-2023 Telephone Encounter - Yareli Madrigal LPN - 09/03/2023 1:03 PM ESTTelephone Encounter - Millie Cheung - 09/03/2023 11:51 AM ESTTelephone Encounter - Cindy Liang PA-C - 09/03/2023 11:08 AM EST Note Date & Type Note Facility 09-03-2023 Miscellaneous Notes Patient calling with return call/Message from office: Patient called back and given message from office note dated 09/03/22. Pt verbalized understanding of message given. . Patient denies any new or worsening symptoms of which a provider is not aware:Yes. Yareli Madrigal LPN Left message for patient to return call. Millie Cheung Please call and let patient know her urine culture showed that she was resistant to the Keflex that she is taking. Cipro was sent in to treat the infection. Did stop the Keflex and start Cipro. ( Epic had calculated her creatinine clearance at 24 so recommended dose was once daily. Cipro was sent 500 mg daily for 5 days.) documented in this encounter [facility] 09-01-2023 Note [facility] 08-24-2023 Note HNO ID: [id number] Author: TABBY CAREY APRN.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 Service: ? Author Type: Nurse Practitioner Type: Progress Notes Filed: 08/24/2023 15:08 Note Text: [facility] Today's Date: 08/24/2023 Last Visit: 05/19/2023 Name: Kailee Sam : 1940 Purpose: Follow-up Patient Evaluation - This is an established patient, returning today for continued evaluation and management of the chief complaint noted below Chief complaint: low back pain Pertinent Past Medical History: HTN, Cardiomyopathy, GERD, CKD Stage 4, Hypercalcemia, Glaucoma, Plan at last visit: Will cancel MBNB as the pt has not had PT for at least 2-3 years Ordered PT to eval and treat for axial back pain Follow up in 2 months after PT Interval History: Overall pain and functional disability since last visit: Unchanged New Complaints since last visit: No Pain Description: Timing: constant Character: aching Primary Location: axial low back Radiation: none Exacerbating factors: armature varnisher, standing and walking Relieving factors: sitting and lying down Interferes with: physical activity and walking The patient denies difficulty with bowel or bladder control, unintentional weight loss, and fevers, chills, or night sweats. Patient states she finished physical therapy with not little or no relief from the therapy. States if anything she feels stronger than she did but the pain is still there. Patient had 2 medial branch new nerve blocks with 80% relief with and above with both of them for therapeutic amount of time. Patient states her insurance did not pay for an RFA until after she had physical therapy done. She did complete the therapy we do have the notes from an outside provider these were reviewed and patient did not receive the relief that she was hoping for. Patient is here today to schedule for a radiofrequency ablation of the lumbar spine. Current Pain Medications: Neuropathics: NSAIDS:pt can not take nsaids due to kidney disease Muscle Relaxants: Topicals: lidocaine patches Other Prescription or OTC Pain Medications: tylenol Opioids (when applicable): Tolerating Medication: Yes Medications helping improve ADL's and Self-care: Yes Current Therapies Attended: Physical TherapyTreatment dates: Between 05/24/2023 and 06/30/2023. Twice weekly, pt states certain aspects helped for a little while is continuing a HEP directed PT Studies Obtained (when obtained, relevant findings reported below): None Notable Events During Course of Treatment: 02/09/2023 - Initial HPI: Referred by Arpita Connelly, for evaluation AND management of low back pain Duration: years Sudden onset? no, Trauma? no Prior Treatments: Medications (See below), Injections (See below), Modalities (eg. Heat, Ice), Physical Therapy , Home Exercise Program , and Activity Modification Dr. Perez did left SI Joint injection in 2014, made pain worse Dr. Gary did an L4-5 Epidural Steroid Injection in 2015, worked briefly Data Reviewed: PAIN PROCEDURES: DATE PROCEDURE IMPROVEMENT 04/10/23 B/L MBB L4-S1 >80% 03/27/23 B/L MBB L4-S1 >80% MEDICATIONS Taken TO DATE (for the chief complaint(s)): Membrane Stabilizers: none NSAIDS: Naprosyn (Naproxen) and Mobic (Meloxicam) - Stage 4 Kidney Disease Opioids: none Muscle Relaxants: Flexeril (Cyclobenzaprine) and Zanaflex (Tizanidine) Topicals: Lidoderm Patch Other Prescription or OTC Pain Medications: Tylenol (Acetaminophen) - helps a little bit Anti-depressants: Lexapro and Prozac Non-Pain Meds of Note: none SOCIAL HISTORY No social history on file. Allergies: ALLERGIES Allergen Reactions Carafate [Sucralfat* Diarrhea Meloxicam GI Upset Cri w rise creatinine, flare reflux dyspepsia Mucinex [Guaifenesi* Diarrhea Pantoprazole Diarrhea Pepcid [Famotidine * Diarrhea INTAKE PAIN ASSESSMENT 07/27/2023 08/22/2023 Are you having pain associated with your visit today? No Yes, Provider notified Pain Scales - - Pain Level - 10 Pain Location - - Description - Aching;Burning;Radiating;Sharp;So re;Stabbing;Stabbing/Not Incision;Stiffness;Tightness Duration Amount of Time - - Duration Units - Months Frequency - Continuous Intervention/Comfort measure - Medication;Relaxation;Exercise;He at;Other: See comment Comments - Because of stage, four kidney level cannot take any pain medication other than Tylenol Pain Assessment - - AG SPINE PAIN OSWESTRY QUESTIONAIRE Pain Intensity 4 - The pain is very severe at the moment Personal Care (Washing/Dressing) 3 - I need some help but manage most of my personal care L (more content not included)... [facility] 08-24-2023 Note HNO ID: [id number] Author: MARCK LIMA LPN Service: ? Author Type: LICENSED NURSE Type: Progress Notes Filed: 08/24/2023 15:08 Note Text: Review of Systems Constitutional: Positive for activity change. Negative for chills, fever and unexpected weight change. Gastrointestinal: Negative for bowel retention or incontinence Genitourinary: Negative for difficulty urinating. Negative for bladder retention or incontinence Musculoskeletal: Positive for arthralgias, back pain and joint swelling. Negative for gait problem, myalgias, neck pain and neck stiffness. Neurological: Positive for weakness and numbness. Negative for headaches. Psychiatric/Behavioral: Positive for sleep disturbance. Negative for dysphoric mood and suicidal ideas. The patient is not nervous/anxious. [facility] 08-08-2023 Note HNO ID: [id number] Author: Lidia Crowe MD Service: Pain Management Author Type: Physician Type: Operative Report Filed: 08/23/2023 11:45 AM Note Text: Procedure cancelled or rescheduled. [facility] 08-08-2023 Note HNO ID: [id number] Author: Lidia Crowe MD Service: Pain Management Author Type: Physician Type: HANDP Filed: 08/23/2023 11:45 AM Note Text: Procedure cancelled or rescheduled. [facility] 07-27-2023 Note [facility] 07-27-2023 History of Present illness Narrative CC: Patient presents with: 3 month follow up HPI Kailee Sam is a 83 year old female who presents today for routine follow up but has a few concerns. Recent UTI and was treated. Has low backpain still but has chronic back pain as well and sees pain mgmt for so unsure if its new or different pain. Has had multiple recurrent UTIs over the past year and sees urology. No other change in her urination, fever, chills, or abdominal pain. HTN/Cardiomyopathy: Sees [facility] and has upcoming echocardiogram scheduled. Has chronic shortness of breath so getting an updated ECHO. Sees technology officer in August. Patient denies headache, chest pain, palpitations, dyspnea, and peripheral edema. Patient denies any side effects of her medication(s) and is compliant with their regimen. She does not check BP's generally. Kailee works out regularly 7 times per week with seated exercises and stretches. She watches her diet for sodium, low fat and low cholesterol some of the time. Last 3 Encounter BP Readings: Date: BP: 07/27/2023 132/60 06/12/2023 104/60 04/27/2023 122/70 Also concerned that with the past few months she has noticed her hands cramping and will appear deformed when holding the newspaper for a while. When she sets down the paper they relax and go back to normal and then can read the paper without issue. Has also noticed her right ring finger will look purple as well. Does not always occur. REVIEW OF SYSTEMS General: no fevers, no chills, no night sweats, no recurrent infections, no change in appetite, no change in energy, and no significant changes in weight Respiratory: no cough, no wheezing, no hemoptysis Cardiovascular: no chest pain, no chest pressure, no palpitations, and no swelling Neurologic: No headache, weakness, dizziness, memory loss, syncope. PAST MEDICAL HISTORY Diagnosis Date Disorder of bone and cartilage 06/16/2008 Glaucoma Unspecified essential hypertension Unspecified glaucoma(365.9) Glaucoma PAST SURGICAL HISTORY Procedure Laterality Date LIG/TRNSXJ FLP TUBE ABDL/VAG APPR UNI/BI Tubal ligation PAST SURGICAL HISTORY OF Left 03/13/2023 xen shunt RMVL SEC MEMBRANOUS CTRC CORNEO-SCLL SCTJ 08/21/2005 Cataract removal b/l ALLERGIES Carafate [Sucralfate], Meloxicam, Mucinex [Guaifenesin], Pantoprazole, and Pepcid [Famotidine (Pf)] MEDICATIONS CRANBERRY Bifidobacterium infantis (ALIGN ORAL) Take by mouth. cholecalciferol (VITAMIN D-3) 50 mcg (2,000 unit) tablet Take 2,000 Units by mouth once daily. estradiol (ESTRACE) 0.01 % (0.1 mg/gram) vaginal cream Use 1 g vaginally two times a week. losartan (COZAAR) 50 mg tablet Take 1 tablet by mouth once daily. allopurinol (ZYLOPRIM) 100 mg tablet Take 2.5 tablets by mouth once daily. omeprazole (PRILOSEC) 20 mg capsule Take 1 capsule by mouth daily before breakfast. 1/2 hr before meal. atorvastatin (LIPITOR) 80 mg tablet Take 80 mg by mouth once daily. metoprolol succinate ER (TOPROL XL) 100 mg Take 1 tablet by mouth once daily. Ascorbic Acid 1,000 mg tablet Take 1 tablet by mouth once daily. aspirin, enteric coated (ASPIRIN, ENTERIC COATED) 81 mg EC tablet Take 1 tablet by mouth once daily. Magnesium Gluconate 30 mg (550 mg) tab Take 550 tablets by mouth once daily. MSM-Aloe Lzzu-Hbmewo52-Hul Oil gel Apply 1 application to affected area once daily. acetaminophen 650 mg CR tablet Take 650 mg by mouth every 8 hours as needed. Czqqtcpkv-Jje-CT-Lut-Zeaxanth (ICAPS MV) 100-1.66-0.83 mcg-mg-mg TbEC Take 2 tablets by mouth once daily. COMPOUNDED PRESCRIPTION Green Neri Tea one half tablet twice daily prednisoLONE acetate (PRED MILD) 0.12 % ophthalmic suspension Use 1 Drop in both eyes four times daily. prednisoLONE acetate (PRED FORTE) 1 % ophthalmic suspension USE 1 DROP IN THE LEFT EYE 4 TIMES A DAY START AFTER SURGERY lidocaine (LIDODERM) 5 % Apply 1 Patch as directed every [address]. [address] patch to lower back for 12 hours. Remove for 12 hours prior to placing a new patch. TIMOLOL OPHTHALMIC Use in eyes. latanoprost, PF, 0.005 % drop Use in eyes. dorzolamide-timolol, PF, (COSOPT) 2-0.5 % ophthalmic drops 1 Drop every 12 hours. FAMILY HISTORY Problem Relation Age of Onset Heart Mother Asthma Father Cervical Cancer Sister Colon Cancer Daughter Adenocarcinoma Breast Cancer Daughter Social History Tobacco Use Smoking status: Former Packs/day: 0.50 Years: 15.00 Additional pack years: 0.00 Total pack years: 7.50 Types: Cigarettes Quit date: 08/21/1997 Years since quittin.9 Smokeless tobacco: Never Vaping Use Vaping Use: Never used Substance Use Topics Alcohol use: Not Currently Comment: pt has not had ETOH in years Drug use: Never PHYSICAL EXAM BP 132/60 Pulse 72 Resp 16 Wt 82.6 kg (182 lb) BMI 32.24 kg/m General Appearance: well appearing, in no acute distress, alert Pysch: mood and affect broad and appropriate Head: normocephalic, atraumatic Eyes: conjunctiva pink and moist, no icterus, sclera white, non-injected Lungs: Lungs clear to auscultation. No wheezing, rhonchi, rales. Heart: RRR without murmur, gallop, or rubs. No ectopy Abdomen: Abdomen soft, non-tender. Bowel sounds normal. No masses, organomegaly BUE Extremities: No edema, skin discoloration, clubbing or cyanosis. Good capillary refill. Pulses palpable. Strength 5/5 and full ROM. Arthritic changes noted to Pips and Dips. Health maintenance reviewed with patient: Shingrix Vaccine(1 of 2) Never done RSV Vaccine(1 - 1-dose 60+ series) Never done DTaP,Tdap,Td Vaccine(1 - Tdap) due on 08/27/2009 Diabetes Screening due on 05/03/2026 Bone Density Screening Completed Influenza Vaccine Completed Advance Directive Discussion Completed Depression Assessment Completed Covid-19 Vaccine Completed Pneumococcal Vaccine: 65+ Completed Colorectal Cancer Screening Discontinued DATA REVIEWED: Outside chart from [facility] labs reviewed. ASSESSMENT/PLAN: 1. Hypertension, unspecified type - ICD9: 401.9, ICD10: I10 (primary diagnosis) - Controlled - Continue current medications - Recommend home blood pressure monitoring, to bring results to next visit - Encouraged sodium restriction, DASH or Mediterranean diet - Recommend regular aerobic exercise 2. Cardiomyopathy, unspecified type (HCC) - ICD9: 425.4, ICD10: I42.9 Stable - continue with current medications and recommendations by cardiology. 3. Muscle cramping - ICD9: 729.82, ICD10: R25.2 - assessment over negative outside of arthritic changes, only occurs with a specific activity and not every time - discussed hand stretching and exercises. - if no improvement can xrays. - COMP METABOLIC PANEL - MAGNESIUM BLD - CBC + DIFF 4. Recent urinary tract infection - ICD9: V13.02, ICD10: Z87.440 - small amount of Leuks. Not enough to send for culture so order placed for patient to come back for urine culture. Will treat with antibiotic if indicated - UA DIP, URINE (POC) - COMP METABOLIC PANEL - CBC + DIFF - URINE CULTURE 5. Chronic kidney disease, stage 4, severely decreased GFR (HCC) - ICD9: 585.4, ICD10: N18.4 - eGFR: 36 Stable - Counseled on avoiding NSAIDs, adequate hydration - Follow up with kidney medicine - COMP METABOLIC PANEL - CBC + DIFF 6. Recurrent UTI - ICD9: 599.0, ICD10: N39.0 See #4 - URINE CULTURE Prescription instructions reviewed with patient as applicable. Potential red flag symptoms discussed with the patient. Reviewed appropriate action plan to take if red flag symptoms occur. Patient agreeable to treatment plan. Arpita Connelly APRN.DORENE documented in this encounter [facility] 07-20-2023 Note HNO ID: [id number] Author: Tabby Carey APRN.DORENE Service: ? Author Type: Nurse Practitioner Type: Progress Notes Filed: 07/20/2023 12:55 PM Note Text: [facility] Today's Date: 07/20/2023 Last Visit: 05/19/2023 Name: Kailee Mclaughlin Cecy : 1940 Purpose: Follow-up Patient Evaluation - This is an established patient, returning today for continued evaluation and management of the chief complaint noted below Chief complaint: low back pain Pertinent Past Medical History: HTN, Cardiomyopathy, GERD, CKD Stage 4, Hypercalcemia, Glaucoma, Plan at last visit: Will cancel MBNB as the pt has not had PT for at least 2-3 years Ordered PT to eval and treat for axial back pain Follow up in 2 months after PT Interval History: Overall pain and functional disability since last visit: Unchanged New Complaints since last visit: No Pain Description: Timing: constant Character: aching Primary Location: axial low back Radiation: none Exacerbating factors: armature varnisher, standing and walking Relieving factors: sitting and lying down Interferes with: physical activity and walking The patient denies difficulty with bowel or bladder control, unintentional weight loss, and fevers, chills, or night sweats. Patient states she finished physical therapy with not little or no relief from the therapy. States if anything she feels stronger than she did but the pain is still there. Patient had 2 medial branch new nerve blocks with 80% relief with and above with both of them for therapeutic amount of time. Patient states her insurance did not pay for an RFA until after she had physical therapy done. She did complete the therapy we do have the notes from an outside provider these were reviewed and patient did not receive the relief that she was hoping for. Patient is here today to schedule for a radiofrequency ablation of the lumbar spine. Current Pain Medications: Neuropathics: NSAIDS:pt can not take nsaids due to kidney disease Muscle Relaxants: Topicals: lidocaine patches Other Prescription or OTC Pain Medications: tylenol Opioids (when applicable): Tolerating Medication: Yes Medications helping improve ADL's and Self-care: Yes Current Therapies Attended: Physical TherapyTreatment dates: Between 05/24/2023 and 06/30/2023. Twice weekly, pt states certain aspects helped for a little while is continuing a HEP directed PT Studies Obtained (when obtained, relevant findings reported below): None Notable Events During Course of Treatment: 02/09/2023 - Initial HPI: Referred by Arpita Connelly, for evaluation AND management of low back pain Duration: years Sudden onset? no, Trauma? no Prior Treatments: Medications (See below), Injections (See below), Modalities (eg. Heat, Ice), Physical Therapy , Home Exercise Program , and Activity Modification Dr. Perez did left SI Joint injection in 2014, made pain worse Dr. Gary did an L4-5 Epidural Steroid Injection in 2016, worked briefly Data Reviewed: PAIN PROCEDURES: DATE PROCEDURE IMPROVEMENT 04/10/23 B/L MBB L4-S1 >80% 03/27/23 B/L MBB L4-S1 >80% MEDICATIONS Taken TO DATE (for the chief complaint(s)): Membrane Stabilizers: none NSAIDS: Naprosyn (Naproxen) and Mobic (Meloxicam) - Stage 4 Kidney Disease Opioids: none Muscle Relaxants: Flexeril (Cyclobenzaprine) and Zanaflex (Tizanidine) Topicals: Lidoderm Patch Other Prescription or OTC Pain Medications: Tylenol (Acetaminophen) - helps a little bit Anti-depressants: Lexapro and Prozac Non-Pain Meds of Note: none SOCIAL HISTORY No social history on file. Allergies: ALLERGIES Allergen Reactions Carafate [Sucralfat* Diarrhea Meloxicam GI Upset Cri w rise creatinine, flare reflux dyspepsia Mucinex [Guaifenesi* Diarrhea Pantoprazole Diarrhea Pepcid [Famotidine * Diarrhea INTAKE PAIN ASSESSMENT 07/16/2023 07/20/2023 Are you having pain associated with your visit today? Yes, Provider notified Yes, Provider notified Pain Scales - Verbal (Numeric Rating or Visual Analog Scale) Pain Level 8 8 Pain Location Back-Lower Back-Lower Description Aching;Sharp;Sore;Stiffness;Throb amanda;Tightness - Duration Amount of Time - - Duration Units Months Years Frequency Continuous Continuous Intervention/Comfort measure Medication;Relaxation;Exercise;He at - Comments - - Pain Assessment - - AG SPINE PAIN OSWESTRY QUESTIONAIRE Pain Intensity 4 - The pain is very severe at the moment Personal Care (Washing/Dressing) 3 - I need some help but manage most of my personal care Lifting 1 - I can lift heavy weights but it g (more content not included)... [facility] 07-20-2023 Note HNO ID: [id number] Author: Leona Joyce MA Service: ? Author Type: Filler Block Inserter Remover Type: Progress Notes Filed: 07/20/2023 12:55 PM Note Text: Review of Systems Constitutional: Negative for activity change, chills, fever and unexpected weight change. Gastrointestinal: Negative for bowel retention or incontinence Genitourinary: Negative for difficulty urinating. Negative for bladder retention or incontinence Musculoskeletal: Positive for back pain, joint swelling and myalgias. Negative for arthralgias, gait problem, neck pain and neck stiffness. Neurological: Negative for weakness, numbness and headaches. Psychiatric/Behavioral: Positive for sleep disturbance. Negative for dysphoric mood and suicidal ideas. The patient is not nervous/anxious. [facility] 07-20-2023 Miscellaneous Notes Procedure(s) being scheduled: 1.Are you diabetic No 2. Are you on any blood thinners? No If yes, does it require a hold? No If yes, was approval letter sent? No 3. Are you taking any aspirin? Yes. Please list the current medications being prescribed 81mg. 4. Are you currently taking any antibiotics? No If yes, is it prophylactic or for treatment of an infection? NA 5. Do you have any allergies to latex? No 6. Do you have any allergies to seafood or shellfish? No 7. Do you have any allergies to x-ray dye? Yes - contrast 8. Did the physician instruct you to take any medication prior to your procedure? No 9. Does this procedure require a emergency detail driver? Yes If yes, has patient been notified that a emergency detail driver is needed and must be present at check in? Yes 10. Were the pre-procedure instructions explained and provided to the patient? Yes 11. Do you have a pacemaker? No 12. Do you have an internal stimulator of any kind? No If yes, please bring the remote with you to your procedure visit. 13. Have you received the COVID-19 Vaccine? Yes. If yes, date(s) received: 05/2023 (Patient should not receive a procedure including steroids 14 days prior to their first dose of the COVID vaccine. They should not receive any procedure containing steroids in the time frame between their 1st and 2nd doses of the COVID vaccine. They should not receive a procedure containing steroids 14 days after their 2nd dose of the COVID vaccine.) Sirena Izquierdo documented in this encounter [facility] 07-20-2023 History of Present illness Narrative [facility] Today's Date: 07/20/2023 Last Visit: 05/19/2023 Name: Kailee Sam : 1940 Purpose: Follow-up Patient Evaluation - This is an established patient, returning today for continued evaluation and management of the chief complaint noted below Chief complaint: low back pain Pertinent Past Medical History: HTN, Cardiomyopathy, GERD, CKD Stage 4, Hypercalcemia, Glaucoma, Plan at last visit: Will cancel MBNB as the pt has not had PT for at least 2-3 years Ordered PT to eval and treat for axial back pain Follow up in 2 months after PT Interval History: Overall pain and functional disability since last visit: Unchanged New Complaints since last visit: No Pain Description: Timing: constant Character: aching Primary Location: axial low back Radiation: none Exacerbating factors: armature varnisher, standing and walking Relieving factors: sitting and lying down Interferes with: physical activity and walking The patient denies difficulty with bowel or bladder control, unintentional weight loss, and fevers, chills, or night sweats. Patient states she finished physical therapy with not little or no relief from the therapy. States if anything she feels stronger than she did but the pain is still there. Patient had 2 medial branch new nerve blocks with 80% relief with and above with both of them for therapeutic amount of time. Patient states her insurance did not pay for an RFA until after she had physical therapy done. She did complete the therapy we do have the notes from an outside provider these were reviewed and patient did not receive the relief that she was hoping for. Patient is here today to schedule for a radiofrequency ablation of the lumbar spine. Current Pain Medications: Neuropathics: NSAIDS:pt can not take nsaids due to kidney disease Muscle Relaxants: Topicals: lidocaine patches Other Prescription or OTC Pain Medications: tylenol Opioids (when applicable): Tolerating Medication: Yes Medications helping improve ADL's and Self-care: Yes Current Therapies Attended: Physical TherapyTreatment dates: Between 05/24/2023 and 06/30/2023. Twice weekly, pt states certain aspects helped for a little while is continuing a HEP directed PT Studies Obtained (when obtained, relevant findings reported below): None Notable Events During Course of Treatment: 02/09/2023 - Initial HPI: Referred by Arpita Connelly, for evaluation & management of low back pain Duration: years Sudden onset? no, Trauma? no Prior Treatments: Medications (See below), Injections (See below), Modalities (eg. Heat, Ice), Physical Therapy , Home Exercise Program , and Activity Modification Dr. Perez did left SI Joint injection in 2014, made pain worse Dr. Gary did an L4-5 Epidural Steroid Injection in 2016, worked briefly Data Reviewed: PAIN PROCEDURES: DATE PROCEDURE IMPROVEMENT 04/10/23 B/L MBB L4-S1 >80% 03/27/23 B/L MBB L4-S1 >80% MEDICATIONS Taken TO DATE (for the chief complaint(s)): Membrane Stabilizers: none NSAIDS: Naprosyn (Naproxen) and Mobic (Meloxicam) - Stage 4 Kidney Disease Opioids: none Muscle Relaxants: Flexeril (Cyclobenzaprine) and Zanaflex (Tizanidine) Topicals: Lidoderm Patch Other Prescription or OTC Pain Medications: Tylenol (Acetaminophen) - helps a little bit Anti-depressants: Lexapro and Prozac Non-Pain Meds of Note: none SOCIAL HISTORY No social history on file. Allergies: ALLERGIES Allergen Reactions Carafate [Sucralfat* Diarrhea Meloxicam GI Upset Cri w rise creatinine, flare reflux dyspepsia Mucinex [Guaifenesi* Diarrhea Pantoprazole Diarrhea Pepcid [Famotidine * Diarrhea INTAKE PAIN ASSESSMENT 07/16/2023 07/20/2023 Are you having pain associated with your visit today? Yes, Provider notified Yes, Provider notified Pain Scales - Verbal (Numeric Rating or Visual Analog Scale) Pain Level 8 8 Pain Location Back-Lower Back-Lower Description Aching;Sharp;Sore;Stiffness;Throb amanda;Tightness - Duration Amount of Time - - Duration Units Months Years Frequency Continuous Continuous Intervention/Comfort measure Medication;Relaxation;Exercise;He at - Comments - - Pain Assessment - - AG SPINE PAIN OSWESTRY QUESTIONAIRE Pain Intensity 4 - The pain is very severe at the moment Personal Care (Washing/Dressing) 3 - I need some help but manage most of my personal care Lifting 1 - I can lift heavy weights but it gives extra pain Walking 4 - Pain prevents me from walking more than 100 yards Sitting 1 - I can sit in my favorite chair as long as I like Standing 4 - Pain prevents me from standing more than 10 minutes Sleeping 4 - Even when I take medciation I have less than 2 hours of sleep Sex Life 5 - Pain prevents any sex life at all Social Life 4 - Pain has restricted my social life to home Traveling 3 - Pain restricts me to journeys of less than 1 hour Total Score 33 Interpretation 61% - 80% - crippled Compliance: PDMP website checked and validated on 07/20/2023 by Tabby Carey APRN.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 All prescriptions have been APPROPRIATELY filled. No suspicious activity was identified. Recent Drug screens: AG SPINE COMBINATION 02/09/2023 Questionnaire GREENLIGHT Completed Date 02/09/2023 Questionnaire Opiod Risk Tool Completed Date 02/09/2023 Comments 0 Pain Intensity 4 - The pain is very severe at the moment Personal Care (Washing/Dressing) 3 - I need some help but manage most of my personal care Lifting 1 - I can lift heavy weights but it gives extra pain Walking 4 - Pain prevents me from walking more than 100 yards Sitting 1 - I can sit in my favorite chair as long as I like Standing 4 - Pain prevents me from standing more than 10 minutes Sleeping 4 - Even when I take medciation I have less than 2 hours of sleep Sex Life 5 - Pain prevents any sex life at all Social Life 4 - Pain has restricted my social life to home Traveling 3 - Pain restricts me to journeys of less than 1 hour Total Score 33 Interpretation 61% - 80% - crippled (All drug screens are appropriate unless indicated otherwise) Risk Assessment: OPAL-7: OPAL - 7 SCORES 10/29/2018 02/09/2023 OPAL-7 Score 12 7 (0-4) minimal anxiety, (5-9) mild anxiety, (10-14) moderate anxiety, (15-21) severe anxiety PHQ-9: PHQ-9 02/23/2015 03/21/2016 02/09/2023 Score 15 4 8 (0-4) minimal depression, (5-9) mild depression, (10-14) moderate depression, (15-19) moderately severe depression, (20-27) severe depression Diagnostic Studies: Relevant Imaging: MRI Spine Report MRI LUMBAR SPINE WO CONTRAST Collected: 03/09/2015 2:34 PM (Final result) Narrative: * * *Final Report* * * DATE OF EXAM: Mar 09 2015 2:34PM [facility] [id number] - MRI LUMBAR SPINE WO CONTRAST / PROCEDURE REASON: Lumbosacral spondylosis without myelopathy * * * * Physician Interpretation * * * * MRI LUMBAR SPINE WO CONTRAST HISTORY: Lumbosacral spondylosis. COMPARISON: Lumbosacral radiographs 05/06/13 TECHNIQUE: Routine noncontrast lumbosacral spine MR protocol without gadolinium. RESULT: MR LUMBAR: Counting reference: Lumbosacral junction. For the purposes of this report, L4-5 is considered the level of the iliac crest. Alignment: Curvature convex right centered at L1 and convex left centered at L4-5. Bone marrow signal/fracture: Stable chronic T11 compression fracture. T2/STIR hyperintense and T1 hypointense signal associated with the endplates L1-L4 is likely degenerative in nature. No evidence for acute fracture. Intervertebral disc height is reduced from T11-L5 consistent with degenerative disc disease. There is preserved disc height at L5-S1 with patchy desiccation Conus: The conus is within normal limits of signal intensity and morphology. Paraspinal soft tissues: Fatty replacement of the paraspinal muscles, predominantly on the right, is noted. Lower thoracic spine: Visualized lower thoracic canal and foramina are patent. T10-T11: Prominent posterior superior endplate osteophyte contours the ventral thecal sac. There is a small disc bulge without associated stenosis. T11-T12: Small disc bulge without stenosis. T12-L1: Disc bulge and endplate osteophytes contouring the ventral thecal sac without associated stenosis. L1-L2: Disc bulge contouring the ventral thecal sac, ligamentum flavum thickening, and left-sided hypertrophic facet change contribute to mild to moderate central spinal stenosis. The bilateral neural foramen are patent. L2-L3: Disc bulge, ligamentum flavum thickening, and bilateral hypertrophic facet changes contribute to mild to moderate central spinal stenosis and mild bilateral neural foraminal stenosis. L3-L4: Disc bulge, ligamentum flavum thickening, and hypertrophic facet changes bilaterally contribute to severe central spinal stenosis and moderate bilateral, right greater than left, neural foraminal stenosis. L4-L5: Disc bulge and hypertrophic facet changes cause minimal central spinal stenosis. There is mild to moderate right neural foraminal stenosis. The left neural foramen is patent. L5-S1: No significant disc pathology or stenosis. There are hypertrophic facet changes bilaterally. Sacrum and iliac wings: The visualized sacrum and iliac wings are within normal limits. 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 T11 COMPRESSION FRACTURE UNCHANGED COMPARED TO PRIOR RADIOGRAPHS. Web Marketing Intern: LY Transcribe Date/Time: Mar 09 2015 3:10P Dictated by : NU GEE MD This examination was interpreted and the report reviewed and electronically signed by: GROVER BARAJAS MD On Mar 09 2015 3:48PM Electrodiagnostic Study (EMG): None Recent Labs: Creatinine Date Value Ref Range Status 05/03/2023 1.48 (H) 0.58 - 0.96 mg/dL Final No results found for: EGFR No results found for: PCGLUCOSE WBC Date Value Ref Range Status 05/03/2023 8.32 3.70 - 11.00 k/uL Final Hemoglobin Date Value Ref Range Status 05/03/2023 11.5 11.5 - 15.5 g/dL Final Hematocrit Date Value Ref Range Status 05/03/2023 38.5 36.0 - 46.0 % Final Platelet Count Date Value Ref Range Status 05/03/2023 221 150 - 400 k/uL Final Current Medications, Past Medical History, Past Surgical History, Family History, Social History and Review of Systems: On today's date, noted above, I have confirmed and edited as necessary, the PFSH and ROS obtained by others. Physical Exam: 07/20/23 1037 Pulse: 84 Resp: 14 SpO2: 98% Physical Exam Vitals reviewed. Constitutional: General: She is not in acute distress. Appearance: She is not ill-appearing. HENT: Head: Normocephalic and atraumatic. Eyes: Conjunctiva/sclera: Conjunctivae normal. Cardiovascular: Pulses: Normal pulses. Pulmonary: Effort: Pulmonary effort is normal. No respiratory distress. Musculoskeletal: Thoracic back: No tenderness or bony tenderness. No scoliosis. Lumbar back: Spasms (bilateral lumbar paraspinal regions) and tenderness present. Decreased range of motion. Positive right straight leg raise test and positive left straight leg raise test. No scoliosis. Comments: Special Tests- Facet Loading: Right-Positive; Left Positive SI Compression:Negative CAT:Right-Negative; Left Negative Skin: General: Skin is warm and dry. Neurological: Mental Status: She is alert and oriented to person, place, and time. Gait: Abnormal gait: antalic. Deep Tendon Reflexes: Reflex Scores: Patellar reflexes are 1+ on the right side and 1+ on the left side. Comments: Psychiatric: Mood and Affect: Mood and affect normal. Behavior: Behavior normal. Behavior is cooperative. IMPRESSION: 83 year old female presents with complaint(s) of low back pain. Pain is axial in presentation. Will proceed with the RFA as the pt did not receive pain from conservative measures including PT and medications. Pt also received excellent relief from a MBNB series of 2. Diagnoses: (M47.816) Lumbar spondylosis (primary encounter diagnosis) (M51.36) DDD (degenerative disc disease), lumbar (M47.9) Spondylosis PLAN: Kailee Sam would benefit from the following to reach personal goals for decreasing pain, improving function and work participation, and/or improving quality of life: Medications: Requested Prescriptions No prescriptions requested or ordered in this encounter Interventional Procedures: Radiofrequency Ablation (Thermal RFA) - Lumbar Medial Branches under fluoroscopic guidance BILATERAL SIDES at N/A Anticoagulants: None Relevant Allergies: Contrast (Remote - use as little contrast as possible) Studies: None Functional Methodist: NONE Referrals: No additional considerations at present Follow-up: 3 weeks with Physician or JEANNE Virtual Visit Depending on response to the above plan, consider: TBD Patient Education, Compliance and Clinic Policies Reviewed and/or Discussed Today: None Attribution: In addition to reviewing the information noted above, some elements copied from my most recent clinical note(s), including the physical exam (completed in entirety today), and the impression and plan sections, have been updated where appropriate. All reflect current medical decision making from today's date. Tabby Carey APRN.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 Pain [facility] Review of Systems Constitutional: Negative for activity change, chills, fever and unexpected weight change. Gastrointestinal: Negative for bowel retention or incontinence Genitourinary: Negative for difficulty urinating. Negative for bladder retention or incontinence Musculoskeletal: Positive for back pain, joint swelling and myalgias. Negative for arthralgias, gait problem, neck pain and neck stiffness. Neurological: Negative for weakness, numbness and headaches. Psychiatric/Behavioral: Positive for sleep disturbance. Negative for dysphoric mood and suicidal ideas. The patient is not nervous/anxious. documented in this encounter [facility] 07-04-2023 Miscellaneous Notes Patient is asking for refill of Atorvastatin (lipitor), advised it was last written by [facility], she will need to call their office for a refill. Patient verbalized understanding. Kalpana Bardales LPN documented in this encounter [facility] 07-04-2023 Miscellaneous Notes July 05, 2023 PID: [id number] Kailee Sam [address] [id number] Dear Ms. Sam, We are pleased to inform you that the results of your recent breast imaging exam on 07/03/2023 are normal. Early detection of cancer is very important. We also understand recommendations regarding breast cancer screening are controversial. Please discuss with your primary care provider which strategy is best for you and whether a mammogram is right for you. Your imaging studies and report will be kept on file at [facility] as part of your permanent medical record and are available for your continuing care. Thank you for allowing us to help in meeting your health care needs. Sincerely, Dr. Dailey Interpreting Radiologist [facility] (Normal over 40) documented in this encounter [facility] 07-03-2023 Note [facility] 07-03-2023 History of Present illness Narrative Radiology Service Progress Note PATIENT NAME: Kailee Sam DATE OF SERVICE: July 03, 2023 TIME: 1:27 PM PATIENT IDENTITY VERIFICATION COMPLETED USING TWO (2) IDENTIFIERS: Name and Date of confirmed by patient verbally. FALL SCREENING: Has the patient had 2 falls in the last year or 1 fall with injury or currently using an Ambulatory Assistive Device (Walker, Cane, Wheelchair, Crutches, etc.)? Yes, Patient High Risk for Falls What interventions were put in place to prevent falls during this visit? Increased Observations by Caregivers PATIENT GENDER DATA: Female. status: : No status: NO. PATIENT RELEVANT IMPLANT DATA REVIEWED: Not Applicable RADIOLOGY DEPARTMENT: Mammography PERIPHERAL IV DATA: Not applicable SIGNED BY: Travis Rios July 03, 2023 1:27 PM documented in this encounter [facility] 06-16-2023 Miscellaneous Notes Patient left a voicemail as well about this. I have called and spoke with patient and let her know that she needed to complete 6 weeks of PT prior to her insurance approving of the RFA. I have scheduled her for an appointment with Tabby in [place] to follow up from PT. I have also asked that she have her records faxed from PT to [facility] for us to be able to submit for the authorization for the procedure. Mercedes Aponte documented in this encounter [facility] 06-12-2023 Miscellaneous Notes Called patient. Verified name and date of . Patient requesting follow up- according to Grover Banks APRN, DORENE, RAJNI follow up in three months. Scheduled. Preeti Mendez LPN documented in this encounter [facility] 06-12-2023 Note [facility] 06-12-2023 Instructions Grover Banks APRN.RAJNI CATHERINE - 06/12/2023 1:24 PM EDT Recurrent UTI Step Prevention Program: Takes 6 months before it is fully in effect! This is not a treatment program for each time you may get a breakthrough infection in the future or while you are waiting for the prevention program to take effect over the next 6 months. Your primary care team will treat any breakthrough infections. The following is the recommended treatment to PREVENT recurrent urinary tract infections. 1) Topical estrogen cream for atrophic vaginitis: estrace cream fingertip application every other night - indicated in patients even with a history of breast cancer 2) Probiotics: take any brand once daily: Try the brand Align but change brands every 6 months - probiotics not only prevent constipation but replace multi-drug resistant bacteria residing in the Gut that lead to bladder infection! 3) A good bowel regimen to promote a BM each day or by every 3rd day - your medical team may be of help here 4) For break through infections over the next 6 months, use a 3-5 day course of Macrobid in which you use 1 pill 2 x a day. If symptoms persists and you think you have a UTI, contact your PCP provider. 5) Start a daily cranberry extract (Over the counter) 6) Drink at least 64oz water per day. 7) Toilet every 2 hours to keep bladder empty Patient Information: Topical estrogen cream is recommended to restore the vaginal epithelium to its pre menopausal state. With a decrease in estrogen after menopause, the vaginal environment changes. This can lead to increased itchiness, dryness, and irritation. The environment becomes more basic/alkaline to a pH of 6.0 to 7.5. Normally the pH level is around 3.5 to 4.5. A different bacterial addison then begins to colonize the vagina which can lead to increased urinary tract infections. In order to re-establish the good bacteria addison, it is important to get the vaginal epithelium back to its pre menopausal state. This can be done with topical estrogen cream. A pea sized amount on the tip of the finger used every other night can do this. It takes about six months for the environment to become hospitable to good bacteria. During this time your doctor may or may not also prescribe a low dose daily antibiotic to decrease your chance of infections. Side effects of topical estrogen use include breast tenderness, vaginal bleeding or spotting, nonphysiologic discharge, vaginal irritation, burning and itching. If you have a history of deep vein thrombosis, pulmonary embolism, uterine cancer or estrogen receptor positive breast cancer, you may want to discuss this with your doctor prior to starting topical estrogen use Chronic UTI Plan: Plan: -Continue on Macrobid 100mg by mouth daily to prevent UTI's documented in this encounter [facility] 06-12-2023 History of Present illness Narrative [facility] Urology - [facility] Referring provider: Sylvie Katz MD New patient to Urology 06/12/2023 Chief Complaint Patient presents with: Consult UTI: Recurrent HPI Kailee Sam is a 83 year old female who presents here today for recurrent UTI. This is an established patient of Dr. Sylvie Katz MD. Hx sig for: HTN, GERD, Vit D def, CKD4, Gout, DDD, Osteoporosis, Over the past several years has has a documented 6 UTIs in the past 2 years. Mostly E Coli or Klebsiella pneumoniae. Most recent UTI in Sep. Reports: No blood in the urine. No fever or chills. Denies suprapubic pain or flank pain. Has hx of freq/urgency and NTF. LUTS: Obstructive: Hesitancy: No Intermittency: No Double voiding No Post-void dribbling: No Incomplete emptying: Yes Irritative: Nocturnal Frequency: Yes Urgency: Yes Frequency: Yes Dysuria: Yes Incontinence: No Microscopic Hematuria: No Gross Hematuria: No Past medical history, appointments, medications, allergies reviewed 06/12/2023 Previous Medical History PAST MEDICAL HISTORY Diagnosis Date Disorder of bone and cartilage 06/16/2008 Glaucoma Unspecified essential hypertension Unspecified glaucoma(365.9) Glaucoma Previous Surgical History PAST SURGICAL HISTORY Procedure Laterality Date LIG/TRNSXJ FLP TUBE ABDL/VAG APPR UNI/BI Tubal ligation PAST SURGICAL HISTORY OF Left 03/13/2023 xen shunt RMVL SEC MEMBRANOUS CTRC CORNEO-SCLL SCTJ 08/21/2005 Cataract removal b/l Family History FAMILY HISTORY Problem Relation Age of Onset Heart Mother Asthma Father Cervical Cancer Sister Colon Cancer Daughter Adenocarcinoma Breast Cancer Daughter Patient Allergies ALLERGIES Allergen Reactions Carafate [Sucralfat* Diarrhea Meloxicam GI Upset Cri w rise creatinine, flare reflux dyspepsia Mucinex [Guaifenesi* Diarrhea Pantoprazole Diarrhea Pepcid [Famotidine * Diarrhea Current Medications Current Outpatient Medications on File Prior to Visit Medication Sig losartan (COZAAR) 50 mg tablet Take 1 tablet by mouth once daily. prednisoLONE acetate (PRED MILD) 0.12 % ophthalmic suspension Use 1 Drop in both eyes four times daily. prednisoLONE acetate (PRED FORTE) 1 % ophthalmic suspension USE 1 DROP IN THE LEFT EYE 4 TIMES A DAY START AFTER SURGERY lidocaine (LIDODERM) 5 % Apply 1 Patch as directed every [address] patch to lower back for 12 hours. Remove for 12 hours prior to placing a new patch. allopurinol (ZYLOPRIM) 100 mg tablet Take 2.5 tablets by mouth once daily. omeprazole (PRILOSEC) 20 mg capsule Take 1 capsule by mouth daily before breakfast. 1/2 hr before meal. TIMOLOL OPHTHALMIC Use in eyes. latanoprost, PF, 0.005 % drop Use in eyes. atorvastatin (LIPITOR) 80 mg tablet Take by mouth. metoprolol succinate ER (TOPROL XL) 100 mg Take 1 tablet by mouth once daily. Ascorbic Acid 1,000 mg tablet Take 1 tablet by mouth once daily. aspirin, enteric coated (ASPIRIN, ENTERIC COATED) 81 mg EC tablet Take 1 tablet by mouth once daily. Magnesium Gluconate 30 mg (550 mg) tab Take 550 tablets by mouth. dorzolamide-timolol, PF, (COSOPT) 2-0.5 % ophthalmic drops 1 Drop every 12 hours. MSM-Aloe Zoti-Froyvi23-Ktt Oil gel Apply 1 application to affected area once daily. acetaminophen 650 mg CR tablet Take 650 mg by mouth every 8 hours as needed. Kkovqxqam-Rup-TO-Lut-Zeaxanth (ICAPS MV) 100-1.66-0.83 mcg-mg-mg TbEC Take 2 tablets by mouth once daily. COMPOUNDED PRESCRIPTION Green Neri Tea one half tablet twice daily Current Facility-Administered Medications on File Prior to Visit Medication perflutren lipid microspheres 1.3 mL in NaCl (PF) 0.9% 10 mL injection (DEFINITY) sodium chloride 0.9 % (flush) 10 mL (BD POSIFLUSH) Social History Social History Tobacco Use Smoking status: Former Packs/day: 0.50 Years: 15.00 Additional pack years: 0.00 Total pack years: 7.50 Types: Cigarettes Quit date: 08/21/1997 Years since quittin.8 Smokeless tobacco: Never Vaping Use Vaping Use: Never used Substance Use Topics Alcohol use: Not Currently Comment: pt has not had ETOH in years Drug use: Never LABS: Component Latest Ref Rng & Units 06/12/2023 GLUCOSE UA (POCT) Negative mg/dL Negative BILIRUBIN UA (POCT) Negative Negative KETONE UA (POCT) Negative mg/dL Negative SPECIFIC GRAVITY UA (POCT) 1.005 - 1.030 1.020 HEMOGLOBIN/BLOOD UA (POCT) Negative Negative PH UA (POCT) 4.5 - 8.0 6.0 PROTEIN UA (POCT) Negative mg/dL 30 (A) UROBILINOGEN UA (POCT) Normal E.U./dL 0.2 NITRITE UA (POCT) Negative Negative LEUKOCYTES UA (POCT) Negative Moderate (A) COLOR UA (POCT) Dark yellow CLARITY UA (POCT) Cloudy Component Urine Culture Culture Latest Ref Rng & Units 04/14/2008 [id number] GLENDY: 04/14/08 17:25 REC: 04/15/08 16:39 PHYS: STACY CANO . 05/06/2008 [id number] GLENDY: 05/06/08 15:44 REC: 05/07/08 07:48 PHYS: KRUPA CEDEÑO . . . 2022 >=100,000 CFU/ml Escherichia coli (A) 10/20/2022 >=100,000 CFU/ml Mixed microbiota (A) 11/11/2022 >=100,000 CFU/ml Klebsiella pneumoniae (A) 01/11/2023 >=100,000 CFU/ml Klebsiella pneumoniae (A) 03/04/2023 >=100,000 CFU/ml Klebsiella pneumoniae (A) 04/01/2023 >=100,000 CFU/ml Escherichia coli (A) Component Latest Ref Rng & Units 05/03/2023 Culture >=100,000 CFU/ml Klebsiella pneumoniae (A) Component Latest Ref Rng & Units 2022 10/01/2022 10/20/2022 11/11/2022 12/05/2022 01/30/2023 05/03/2023 Color Yellow Yellow Yellow Light Yellow Light Yellow Light Yellow Light Yellow Yellow Clarity Clear Slightly Cloudy (A) Clear Clear Clear Clear Clear Clear Glucose, Urine Trace, Negative Negative Negative Negative Negative Negative Negative Negative Bilirubin, Urine Negative Negative Negative Negative Negative Negative Negative Negative Ketones, Urine Trace, Negative Negative Negative Negative Negative Negative Negative Negative Specific [place], Ur 1.005 - 1.030 1.020 1.028 1.018 1.021 1.022 1.025 1.028 Hemoglobin/Blood,Ur Negative, Trace Negative Negative Negative Negative Negative Negative Negative pH, Urine 5.0 - 8.0 5.0 6.0 6.0 6.0 6.0 6.0 5.5 Protein, Urine Trace, Negative 1+ (A) 1+ (A) Negative 1+ (A) Trace Trace 1+ (A) Urobilinogen Negative Negative Negative Negative Negative Negative Negative Negative Nitrites Negative Negative Negative Negative Negative Negative Negative Negative Leukest Negative, 25 John Paul/uL 3+ (A) 250 John Paul/uL (A) Negative 250 John Paul/uL (A) Negative Negative 500 John Paul/uL (A) WBC, Urine 0-5 /HPF >25 /HPF (A) 11-25 /HPF (A) 0-5 /HPF >25 /HPF (A) 0-5 /HPF 0-5 /HPF >25 /HPF (A) RBC, Urine 0-3 /HPF 3-5 /HPF (A) 0-3 /HPF 0-3 /HPF 0-3 /HPF 0-3 /HPF 0-3 /HPF 0-3 /HPF Bacteria None Seen /HPF Rare (A) Few (A) Few (A) Epithelial Cells /HPF Few Few Few Few Few Few Few IMAGING: Review of Symptoms GENERAL: No weight loss, malaise fatigue or fevers. GI: No nausea, vomiting, or diarrhea. No abdominal pain : + for burning. No blood in urine MUSCULOSKELETAL: Generalized joint pain or bodyaches - mainly back SKIN: Negative for rash EXAM: BP 104/60 (BP Site: Left Arm, BP Position: Sitting, BP Cuff Size: Regular Adult) Pulse 74 Temp 36.1 C (97 F) (Temporal) Resp 14 Ht 160 cm (5' 3 ) Wt 82.2 kg (181 lb 3.2 oz) SpO2 98% BMI 32.10 kg/m General Appearance: Well appearing, alert, in no acute distress, well-hydrated, well nourished. Obese Skin: Skin color, texture, turgor normal, no suspicious rashes or lesions. Head: Normocephalic, no masses, lesions, or abnormalities. GI: Soft and round. Nontender in epigastric region. No lower quadrant abdominal tenderness. No rebound tenderness. No suprapubic tenderness. No CVA tenderness. Extremities: No deformities, edema, skin discoloration Psych: Attitude - cooperative, easily engaged in conversation Appearance - normal hygiene and grooming appropriate Affect - euthymic, normal mood Mental status: Alert, attentive. Gait/Stance: Posture is normal. Gait is steady Health Maintenance List Shingrix Vaccine(1 of 2) Never done RSV Vaccine(1 - 1-dose 60+ series) Never done DTaP,Tdap,Td Vaccine(1 - Tdap) due on 08/27/2009 Influenza Vaccine(1) due on 02/18/2024 Diabetes Screening due on 05/03/2026 Bone Density Screening Completed Advance Directive Discussion Completed Depression Assessment Completed Covid-19 Vaccine Completed Pneumococcal Vaccine: 65+ Completed Colorectal Cancer Screening Discontinued Data reviewed Last 5 Encounter BP Readings: Date: BP: 04/27/2023 122/70 04/21/2023 142/72 04/10/2023 119/67 04/01/2023 163/93 03/27/2023 136/67 BMI Readings from Last 5 Encounters: 06/12/23 : 32.10 kg/m 04/27/23 : 31.53 kg/m 04/21/23 : 31.53 kg/m 04/01/23 : 31.81 kg/m 03/04/23 : 31.53 kg/m Last 5 Encounter Wt Readings: Date: Wt: 04/27/2023 80.7 kg (178 lb) 04/21/2023 80.7 kg (178 lb) 04/19/2023 80.7 kg (178 lb) 04/01/2023 81.5 kg (179 lb 9.6 oz) 03/04/2023 80.7 kg (178 lb) Medication and allergy list reviewed, reconciled and updated 06/12/2023 ASSESSMENT/PLAN: 1. Recurrent UTI - ICD9: 599.0, ICD10: N39.0 (primary diagnosis) MDM: Chronic - not well controlled. >6 UTIs over the past 18 months. Recently treated last month for UTI. Plan: Trial estrogen topical UC - will call with results. Start preventative regimen below. follow up in 3 months. The following is the recommended treatment to PREVENT recurrent urinary tract infections. 1) Topical estrogen cream for atrophic vaginitis: estrace cream fingertip application every other night - indicated in patients even with a history of breast cancer 2) Probiotics: take any brand once daily: Try the brand Align but change brands every 6 months - probiotics not only prevent constipation but replace multi-drug resistant bacteria residing in the Gut that lead to bladder infection! 3) A good bowel regimen to promote a BM each day or by every 3rd day - your medical team may be of help here 4) For break through infections over the next 6 months, use a 3-5 day course of Macrobid in which you use 1 pill 2 x a day. If symptoms persists and you think you have a UTI, contact your PCP provider. 5) Start a daily cranberry extract (Over the counter) 6) Drink at least 64oz water per day. 7) Toilet every 2 hours to keep bladder empty - UA DIP, URINE (POC) - URINE CULTURE - ESTRADIOL 0.01% (0.1 MG/GRAM) VAGINAL CREAM 2. Screening for genitourinary condition - ICD9: V81.6, ICD10: Z13.89 UA - + LE. Send for UC - UA DIP, URINE (POC) I spent a total of 42 minutes on the date of the service which included preparing to see the patient, [id number] patient care, completing clinical documentation, performing a medically appropriate examination, counseling and educating the patient/family/caregiver and ordering medications, tests, or procedures. Consultation requested by Arpita Connelly NP for an opinion regarding chronic uti and my final recommendations will be communicated back to the requesting physician by way of shared Medical Record or letter via US mail. Grover Banks documented in this encounter [facility] 05-19-2023 Note HNO ID: [id number] Author: Tabby Carey APRN.DORENE Service: ? Author Type: Nurse Practitioner Type: Progress Notes Filed: 05/19/2023 12:15 PM Note Text: VIRTUAL VISIT PROGRESS NOTE This is a virtual visit using Audio Only Visit. It required patient-provider interaction for the medical decision making as documented below. I have communicated my name and active licensure. The patient's identity and physical location were verified at the time of this visit. Either the patient or their legal business services representative has been informed of the risks and benefits of -- and alternatives to -- treatment through a remote evaluation and consents to proceed with the evaluation remotely. Kailee Sam is a 82 year old female seen for low back pain. 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 Pt states her low back pain is interfering with all of her activities at times. Pt states she is calling today as her injection was not approved by her insurance. Pt continues to complain of only axial low back pain. Pt has not has PT in 2-3 years. Pt can not take nsaids due to kidney disease. Pt has had xrays in the last 12 months. HISTORY REVIEWED (electronic chart updated): PAST MEDICAL HISTORY Diagnosis Date Disorder of bone and cartilage 06/16/2008 Glaucoma Unspecified essential hypertension Unspecified glaucoma(365.9) Glaucoma PAST SURGICAL HISTORY Procedure Laterality Date LIG/TRNSXJ FLP TUBE ABDL/VAG APPR UNI/BI Tubal ligation PAST SURGICAL HISTORY OF Left 03/13/2023 xen shunt RMVL SEC MEMBRANOUS CTRC CORNEO-SCLL SCTJ 08/21/2005 Cataract removal b/l FAMILY HISTORY Problem Relation Age of Onset Heart Mother Asthma Father Cervical Cancer Sister Colon Cancer Daughter Adenocarcinoma Breast Cancer Daughter Social History Tobacco Use Smoking status: Former Packs/day: 0.50 Years: 15.00 Additional pack years: 0.00 Total pack years: 7.50 Types: Cigarettes Quit date: 08/21/1997 Years since quittin.7 Smokeless tobacco: Never Vaping Use Vaping Use: Never used Substance Use Topics Alcohol use: Not Currently Comment: pt has not had ETOH in years Drug use: No Current Outpatient Medications Medication Sig betamethasone dipropionate, augmented (DIPROLENE) 0.05 % cream Apply to affected area twice daily. losartan (COZAAR) 50 mg tablet Take 1 tablet by mouth once daily. prednisoLONE acetate (PRED MILD) 0.12 % ophthalmic suspension Use 1 Drop in both eyes four times daily. prednisoLONE acetate (PRED FORTE) 1 % ophthalmic suspension USE 1 DROP IN THE LEFT EYE 4 TIMES A DAY START AFTER SURGERY lidocaine (LIDODERM) 5 % Apply 1 Patch as directed every [address] patch to lower back for 12 hours. Remove for 12 hours prior to placing a new patch. allopurinol (ZYLOPRIM) 100 mg tablet Take 2.5 tablets by mouth once daily. omeprazole (PRILOSEC) 20 mg capsule Take 1 capsule by mouth daily before breakfast. 1/2 hr before meal. TIMOLOL OPHTHALMIC Use in eyes. latanoprost, PF, 0.005 % drop Use in eyes. atorvastatin (LIPITOR) 80 mg tablet Take by mouth. metoprolol succinate ER (TOPROL XL) 100 mg Take 1 tablet by mouth once daily. Ascorbic Acid 1,000 mg tablet Take 1 tablet by mouth once daily. aspirin, enteric coated (ASPIRIN, ENTERIC COATED) 81 mg EC tablet Take 1 tablet by mouth once daily. Magnesium Gluconate 30 mg (550 mg) tab Take 550 tablets by mouth. dorzolamide-timolol, PF, (COSOPT) 2-0.5 % ophthalmic drops 1 Drop every 12 hours. MSM-Aloe Erfr-Lgjxqn27-Xjs Oil gel Apply 1 application to affected area once daily. acetaminophen 650 mg CR tablet Take 650 mg by mouth every 8 hours as needed. Whgpgfepk-Xdh-WZ-Lut-Zeaxanth (ICAPS MV) 100-1.66-0.83 mcg-mg-mg TbEC Take 2 tablets by mouth once daily. COMPOUNDED PRESCRIPTION Green Neri Tea one half tablet twice daily Current Facility-Administered Medications Medication Dose Route Frequency perflutren lipid microspheres 1.3 mL in NaCl (PF) 0.9% 10 mL injection (DEFINITY) INTRAVENOUS DIRECTED PRN sodium chloride 0.9 % (flush) 10 mL (BD POSIFLUSH) 10 mL INTRAVENOUS DIRECTED PRN ALLERGIES Allergen Reactions Carafate [Sucralfat* Diarrhea Meloxicam GI Upset Cri w rise creatinine, flare reflux dyspepsia Mucinex [Guaifenesi* Diarrhea Pantoprazole Diarrhea Pepcid [Famotidine * Diarrhea REVIEW OF SYSTEMS: GENERAL: feeling well without fatigue, increase weight HEENT: denies GRIMM, change in hearing or vision, no other ENT complaints NECK: denies swelling or pain in neck RESPIRATORY: no cough, no wheezing Shortness of breath with walking CARD (more content not included)... [facility] 05-16-2023 Miscellaneous Notes Called and left a detailed voicemail notifying patient of providers message. Hospital phone number was left in case patient had any questions. Radha Nevarez, RN Some types of supplements can increase with usage of antibiotics. I did not see any I'm too concerned with but obviously the pharmacist did so hold supplements until done with antibiotic therapy. Thank you Arpita Connelly APRN.DORENE Patient asking why she is asked to hold supplements? Pharmacist told she should hold supplements while on AIB but patient asking why and if all should be held? Ok to hold supplements while on antibiotic. Thank you Arpita Connelly APRN.CNP I'm not familiar with what they're talking about regarding taking it with supplements? Are you familiar with this Arpita? Aurora Santoro PA-C Patient was routed to mechanism inspector for urology consult patient declined to schedule at this time , however when trying to schedule questionnaire lead this consult to a MD in urology and closest location was [facility] Pt is calling to ask what supplements she needs to stop. Pt reports she is going to stop her vitamins and start atb but would still like to know why [facility] and also the pharmacist had advised not to take supplements while taking atb. What does that involve. Please review and advise. Ingrid Dorsey LPN Patient notified, states [facility] told her to hold supplements she is taking while on AIB, patient asking if she should continue to hold? Please advise. Please start medication as previously prescribed and with how many UTIs she has had this year, needs to see urology. Thank you Arpita Connelly APRN.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 Spoke with patient, she does not have a Urologist, only sees Nephrology. Patient picked up the medication you gave her but never started medication. Spoke with pt and information listed below given. Pt verbalizes understanding. Pt picked up the prescription you prescribed on 04/07/23, but did not take them. She had a procedure and was not allowed to take any medication. She though she was getting better. She had completed the medication given earlier from [facility]. Do you want pt to start on medication? The prescription says to hold supplements, does this mean to hold sodium bicarbonante, magnesium, Arebs, Ascorbic Acid and green tea. Please advise pt. Deana Anthony LPN Please let patient know she does still have a urinary tract infecton. When does she see urology again? Also did she take all the cipro that she had ordered last time? Thank you Arpita Connelly APRN.DORENE documented in this encounter [facility] 05-03-2023 Miscellaneous Notes Patient called in and wanted me to notify you that she was to have a calcium drawn. She did have a CMP drawn today that was ordered by Arpita Connelly. documented in this encounter [facility] 04-27-2023 Note [facility] 04-27-2023 History of Present illness Narrative CC: Patient presents with: Recheck: 3 month follow up HPI Kailee Sam is a 82 year old female who presents today for routine follow up. Glaucoma: Had a xen gel stent placed in left eye 02/22/23 and then right eye 06/2022. Is still on steroid drops. Chronic back pain. Upcoming procedure for nerve burning by pain mgmt next month. Hoping that this will continue to improve her pain and increase her quality of life. Reports over the last month intermittently just not feeling well and is nauseated. Also has recently noticed she gets motion sickness on long drives. Vomited once with the motion sickness. Just feels tired. Has had this since recent back study with needles and a small amount of contrast and is worried this affected her kidneys decreasing the function even more. Does have a history of recurrent UTIs with most recent in March. Denies any falls, fever, chills, abdominal pain, decrease in urination, difficulty urinating, or dark/foul smelling urine. HTN and HLD: Ms. Sam denies any symptoms referable to elevated blood pressure. Specifically denies headache, chest pain, palpitations, and peripheral edema. Patient denies any side effects of her medication(s) and is compliant with their regimen. She does not check BP's generally. Kailee denies regular aerobic exercise. She watches her diet for sodium, low fat and low cholesterol most of the time. Last 3 Encounter BP Readings: Date: BP: 04/27/2023 122/70 04/21/2023 142/72 04/10/2023 119/67 Shortness of breath with exertion is still occurring. Not as bad as before. Has cardiology follow up soon. Had extensive cardiac workup and PFTs done last year. Cardiology wanted CT of carotids completed as they feel this may be part of the SOB, but with patient's kidney function it has never been completed. REVIEW OF SYSTEMS General: no fevers, no chills, no night sweats, no recurrent infections, no change in appetite, and no significant changes in weight Respiratory: no cough, no wheezing, no hemoptysis Cardiovascular: no chest pain, no chest pressure, no palpitations, and no swelling Neurologic: No headache, weakness, syncope. PAST MEDICAL HISTORY Diagnosis Date Disorder of bone and cartilage 06/16/2008 Glaucoma Unspecified essential hypertension Unspecified glaucoma(365.9) Glaucoma PAST SURGICAL HISTORY Procedure Laterality Date LIG/TRNSXJ FLP TUBE ABDL/VAG APPR UNI/BI Tubal ligation PAST SURGICAL HISTORY OF Left 03/13/2023 xen shunt RMVL SEC MEMBRANOUS CTRC CORNEO-SCLL SCTJ 08/21/2005 Cataract removal b/l ALLERGIES Carafate [Sucralfate], Meloxicam, Mucinex [Guaifenesin], Pantoprazole, and Pepcid [Famotidine (Pf)] MEDICATIONS prednisoLONE acetate (PRED MILD) 0.12 % ophthalmic suspension^Use 1 Drop in both eyes four times daily.^Disp: ^Rfl: prednisoLONE acetate (PRED FORTE) 1 % ophthalmic suspension^USE 1 DROP IN THE LEFT EYE 4 TIMES A DAY START AFTER SURGERY^Disp: ^Rfl: lidocaine (LIDODERM) 5 %^Apply 1 Patch as directed every [address] patch to lower back for 12 hours. Remove for 12 hours prior to placing a new patch.^Disp: 14 Patch^Rfl: 0 allopurinol (ZYLOPRIM) 100 mg tablet^Take 2.5 tablets by mouth once daily.^Disp: 225 tablet^Rfl: 3 losartan (COZAAR) 50 mg tablet^Take 1 tablet by mouth once daily.^Disp: 90 tablet^Rfl: 1 omeprazole (PRILOSEC) 20 mg capsule^Take 1 capsule by mouth daily before breakfast. 1/2 hr before meal.^Disp: 90 capsule^Rfl: 3 TIMOLOL OPHTHALMIC^Use in eyes.^Disp: ^Rfl: latanoprost, PF, 0.005 % drop^Use in eyes.^Disp: ^Rfl: atorvastatin (LIPITOR) 80 mg tablet^Take by mouth.^Disp: ^Rfl: metoprolol succinate ER (TOPROL XL) 100 mg^Take 1 tablet by mouth once daily.^Disp: 90 tablet^Rfl: 3 Ascorbic Acid 1,000 mg tablet^Take 1 tablet by mouth once daily.^Disp: ^Rfl: aspirin, enteric coated (ASPIRIN, ENTERIC COATED) 81 mg EC tablet^Take 1 tablet by mouth once daily.^Disp: ^Rfl: Magnesium Gluconate 30 mg (550 mg) tab^Take 550 tablets by mouth.^Disp: ^Rfl: dorzolamide-timolol, PF, (COSOPT) 2-0.5 % ophthalmic drops^1 Drop every 12 hours.^Disp: ^Rfl: MSM-Aloe Kiwf-Dszsbw78-Vpx Oil gel^Apply 1 application to affected area once daily.^Disp: ^Rfl: acetaminophen 650 mg CR tablet^Take 650 mg by mouth every 8 hours as needed.^Disp: ^Rfl: Dzlaqjnwz-Gcw-AZ-Lut-Zeaxanth (ICAPS MV) 100-1.66-0.83 mcg-mg-mg TbEC^Take 2 tablets by mouth once daily.^Disp: ^Rfl: COMPOUNDED PRESCRIPTION^Green Neri Tea one half tablet twice daily^Disp: ^Rfl: 0 FAMILY HISTORY Problem Relation Age of Onset Heart Mother Asthma Father Cervical Cancer Sister Colon Cancer Daughter Adenocarcinoma Breast Cancer Daughter Social History Tobacco Use Smoking status: Former Packs/day: 0.50 Years: 15.00 Additional pack years: 0.00 Total pack years: 7.50 Types: Cigarettes Quit date: 08/21/1997 Years since quittin.6 Smokeless tobacco: Never Vaping Use Vaping Use: Never used Substance Use Topics Alcohol use: Not Currently Comment: pt has not had ETOH in years Drug use: No PHYSICAL EXAM BP 122/70 Pulse 94 Temp 36.5 C (97.7 F) (Temporal) Resp 16 Wt 80.7 kg (178 lb) SpO2 100% BMI 31.53 kg/m General Appearance: well appearing, in no acute distress, alert Skin: Skin color, texture, turgor normal for age; Eyes: conjunctiva pink and moist, no icterus, sclera white, non-injected Neck: Thyroid normal size and symmetric without palpable nodules, No adenopathy Lymph nodes: No cervical lymphadenopathy and No supraclavicular lymphadenopathy Lungs: Lungs clear to auscultation. No wheezing, rhonchi, rales. Heart: RRR without murmur, gallop, or rubs. No ectopy Abdomen: Abdomen soft, non-tender. Bowel sounds normal. No masses, organomegaly Health maintenance reviewed with patient: ADVANCE DIRECTIVE DISCUSSION due on 08/21/2022 COVID-19 VACCINE(5 - Moderna series) due on 10/18/2022 INFLUENZA(1) due on 04/21/2023 DTAP,TDAP,TD(1 - Tdap) due on 05/05/2023 SHINGRIX VACCINE(1 of 2) due on 05/05/2023 HEMOGLOBIN/HEMATOCRIT due on 10/13/2023 SERUM CREATININE due on 03/22/2024 ANNUAL PCP TEAM CHRONIC DISEASE VISIT due on 04/27/2024 BP CONTROLLED (<130/80) due on 04/27/2024 DIABETES SCREEN due on 10/13/2025 BONE DENSITY Completed DEPRESSION ASSESSMENT Completed PNEUMOCOCCAL: 65+ Completed COLORECTAL CANCER SCREENING Discontinued DATA REVIEWED: No new labs ASSESSMENT/PLAN: 1. Hypertension goal BP (blood pressure) < 140/90 - ICD9: 401.9, ICD10: I10 (primary diagnosis) - Controlled - Continue current medications - Recommend home blood pressure monitoring, to bring results to next visit - Encouraged sodium restriction, DASH or Mediterranean diet - Recommend regular aerobic exercise - LOSARTAN 50 MG TABLET - COMP METABOLIC PANEL - CBC 2. Hyperlipidemia, unspecified hyperlipidemia type - ICD9: 272.4, ICD10: E78.5 - Control undetermined, due for labs - Continue current medications - Counseled on healthy diet and regular exercise - Discussed need for and benefit of weight loss. BMI 31.53 kg/(m^2) - LIPID PANEL BASIC - COMP METABOLIC PANEL 3. Chronic kidney disease, stage 4, severely decreased GFR (HCC) - ICD9: 585.4, ICD10: N18.4 - eGFR: 29 Stable - Counseled on avoiding NSAIDs, adequate hydration - Follow up with kidney medicine 4. Shortness of breath - ICD9: 786.05, ICD10: R06.02 - chronic, continue with recommendations by cardiology - TSH BLD - VITAMIN B12 BLOOD 5. Other fatigue - ICD9: 780.79, ICD10: R53.83 - concern is for another UTI causing fatigue, not feeling well and making SOB more pronounced. Wanted to get dip urine in office to evaluate for this but patient declines at this time. States she will get it done with the lab work. - URINALYSIS WITH MICROSCOPIC, REFLEX CULTURE - COMP METABOLIC PANEL - CBC - TSH BLD - VITAMIN B12 BLOOD 6. Generally unwell - ICD9: 780.99, ICD10: R68.89 As above - URINALYSIS WITH MICROSCOPIC, REFLEX CULTURE - COMP METABOLIC PANEL - CBC - TSH BLD - VITAMIN B12 BLOOD 7. Recurrent urinary tract infection - ICD9: 599.0, ICD10: N39.0 See #5 - URINALYSIS WITH MICROSCOPIC, REFLEX CULTURE 8. Breast cancer screening by mammogram - ICD9: V76.12, ICD10: Z12.31 - GAUDENCIO SCREENING Prescription instructions reviewed with patient as applicable. Potential red flag symptoms discussed with the patient. Reviewed appropriate action plan to take if red flag symptoms occur. Patient agreeable to treatment plan. Arpita Connelly APRN.CNP documented in this encounter [facility] 04-21-2023 Note [facility] 04-21-2023 History of Present illness Narrative Follow-up of osteoporosis and tophaceous gout. HPI: To review, Kailee Sam is a 82 year old female - In Jun, received one dose of reclast 5mg IV. - In Jul, presented with pain and swelling of the hands and knees. 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 Started on allopurinol. - On 09/24/18, started prolia. Has received in Sep, Mar, Sep, Mar, Sep and Mar (04/18) - In Mar, reported she was unable to afford otezla with the assistance program. Did not wish to start arava given c/f immunosuppression - Interim covid - at [facility], reports no interim fracture, infection, jaw pain or recent/plans for any invasive dental procedures (has upper/lower dentures) - Was advised last month to hold vit D given high level 100. PAST MEDICAL HISTORY Diagnosis Date Disorder of bone and cartilage 06/16/2008 Glaucoma Unspecified essential hypertension Unspecified glaucoma(365.9) Glaucoma Stage 3 CKD PAST SURGICAL HISTORY Procedure Laterality Date LIG/TRNSXJ FLP TUBE ABDL/VAG APPR UNI/BI Tubal ligation PAST SURGICAL HISTORY OF Left 03/13/2023 xen shunt RMVL SEC MEMBRANOUS CTRC CORNEO-SCLL SCTJ 08/21/2005 Cataract removal b/l ALLERGIES Allergen Reactions Carafate [Sucralfat* Diarrhea Meloxicam GI Upset Cri w rise creatinine, flare reflux dyspepsia Mucinex [Guaifenesi* Diarrhea Pantoprazole Diarrhea Pepcid [Famotidine * Diarrhea INTERVAL HISTORY She is here for follow up and prolia. Last prolia was 10/19/2022, which she tolerated well. No falls or fractures since [facility]. No invasive dental work in the last three months and none planned for the next three months. She wears full dentures. No jaw or thigh pain. She reports recent UTI, s/p antibiotics. She denies any current urinary symptoms. She is not taking Calcium. She is Vitamin D 2,000 units daily. Caffeine: none Alcohol: none Exercise: no routine exercise She denies any gout flares since the [facility]. Sites of pain: low back, pain rated 8/10 Joint swelling: R knee, fingers Tolerating meds. Answers submitted by the patient for this visit: Review of Systems Rheumatology (Submitted on 04/17/2023) Fever : No Recent Unintentional Weight Change: Yes Eye Pain: No Vision Disturbance: Yes Eye Dryness: Yes Nose Bleeds: No Sores in your Mouth: No Trouble Swallowing: No Dry Mouth: No Chest Pain: No A Cough: No Shortness of Breath: Yes Pain with Breathing: No Heartburn: No Abdominal Pain: No Diarrhea: Yes Black Tarry Stools: No Blood in Urine: No Pain or Burning with Urination: No Joint Pain or Stiffness: Yes Muscle Weakness: Yes Muscle Aches: Yes Joint Swelling: Yes Morning Stiffness in Joints: Yes A Rash: No Skin Color Changes: No Hair Loss: No Nail Changes: No Headaches: Yes Numbness: No Memory Loss: No Swollen Glands: No Current Outpatient Medications Medication Sig ALPRAZolam 0.5 mg dissolvable tablet Bring to office for procedure. Do not take until instructed by clinical staff prednisoLONE acetate (PRED MILD) 0.12 % ophthalmic suspension Use 1 Drop in both eyes four times daily. prednisoLONE acetate (PRED FORTE) 1 % ophthalmic suspension USE 1 DROP IN THE LEFT EYE 4 TIMES A DAY START AFTER SURGERY lidocaine (LIDODERM) 5 % Apply 1 Patch as directed every [address] patch to lower back for 12 hours. Remove for 12 hours prior to placing a new patch. allopurinol (ZYLOPRIM) 100 mg tablet Take 2.5 tablets by mouth once daily. losartan (COZAAR) 50 mg tablet Take 1 tablet by mouth once daily. omeprazole (PRILOSEC) 20 mg capsule Take 1 capsule by mouth daily before breakfast. 1/2 hr before meal. TIMOLOL OPHTHALMIC Use in eyes. latanoprost, PF, 0.005 % drop Use in eyes. atorvastatin (LIPITOR) 80 mg tablet Take by mouth. metoprolol succinate ER (TOPROL XL) 100 mg Take 1 tablet by mouth once daily. Ascorbic Acid 1,000 mg tablet Take 1 tablet by mouth once daily. aspirin, enteric coated (ASPIRIN, ENTERIC COATED) 81 mg EC tablet Take 1 tablet by mouth once daily. Magnesium Gluconate 30 mg (550 mg) tab Take 550 tablets by mouth. dorzolamide-timolol, PF, (COSOPT) 2-0.5 % ophthalmic drops 1 Drop every 12 hours. MSM-Aloe Elxt-Enkgrf12-Ebi Oil gel Apply 1 application to affected area once daily. acetaminophen 650 mg CR tablet Take 650 mg by mouth every 8 hours as needed. Xwtucuzfl-Img-WY-Lut-Zeaxanth (ICAPS MV) 100-1.66-0.83 mcg-mg-mg TbEC Take 2 tablets by mouth once daily. COMPOUNDED PRESCRIPTION Green Neri Tea one half tablet twice daily Current Facility-Administered Medications Medication Dose Route Frequency perflutren lipid microspheres 1.3 mL in NaCl (PF) 0.9% 10 mL injection (DEFINITY) INTRAVENOUS DIRECTED PRN sodium chloride 0.9 % (flush) 10 mL (BD POSIFLUSH) 10 mL INTRAVENOUS DIRECTED PRN FAMILY HISTORY Problem Relation Age of Onset Heart Mother Asthma Father Cervical Cancer Sister Colon Cancer Daughter Adenocarcinoma Breast Cancer Daughter M-arthritis SOCIAL HISTORY: Lives in [place] with spouse Tobacco use: None Alcohol use: None PHYSICAL EXAM: BP 142/72 (BP Site: Right Arm, BP Position: Sitting, BP Cuff Size: Regular Adult) Pulse 85 Temp 36.3 C (97.3 F) Ht 160 cm (5' 3 ) Wt 80.7 kg (178 lb) SpO2 100% BMI 31.53 kg/m CONSTITUTIONAL: Well-appearing, in NAD. SKIN: No rash. No alopecia. No sclerodactyly, calcinosis, telangiectasias, digital ulcers, or skin thickening. EYES: No scleral icterus or conjunctivitis ENT and Mouth: External ears normal. Nares normal. RESPIRATORY: Normal breath sounds, clear to auscultation. CARDIOVASCULAR: Regular rate and rhythm, no murmurs or rubs EXTREMITIES/LYMPH: No edema bilaterally NEURO: Awake, alert and oriented MUSCULOSKELETAL: JOINT APPEARANCE: Heberden's and Janae's nodes present bilaterally. No erythema or warmth of any upper or lower extremity joint. RANGE OF MOTION: Able to fully fists bilaterally. SWOLLEN JOINTS/SYNOVITIS: No synovitis of any joint. TENDER JOINTS: None Labs reviewed and discussed with the patient: Component Latest Ref Rng & Units 03/22/2023 Creatinine 0.58 - 0.96 mg/dL 1.78 (H) eGFR >=60 mL/min/1.73m 29 (L) Vitamin D 25 Hydroxy 31.0 - 80.0 ng/mL 41.0 Calcium 8.5 - 10.2 mg/dL 9.4 Component Latest Ref Rng & Units 09/28/2022 09/29/2022 10/13/2022 WBC 3.70 - 11.00 k/uL 8.04 RBC 3.90 - 5.20 m/uL 3.78 (L) Hemoglobin 11.5 - 15.5 g/dL 11.2 (L) Platelet Count 150 - 400 k/uL 219 Creatinine 0.58 - 0.96 mg/dL 1.94 (H) Sodium 136 - 144 mmol/L 140 Potassium 3.7 - 5.1 mmol/L 5.0 Chloride 97 - 105 mmol/L 111 (H) CO2 22 - 30 mmol/L 18 (L) Anion Gap 9 - 18 mmol/L 11 Calcium 8.5 - 10.2 mg/dL 9.5 eGFR >=60 mL/min/1.73m 26 (L) Vitamin D 25 Hydroxy 31.0 - 80.0 ng/mL 100.0 (H) Uric Acid 2.5 - 6.6 mg/dL 5.4 Cross-Link N-telopeptide 5.0 - 65.0 nM BCE/mM Creatinine 14.3 Creatinine, Ur Random (UCRR) 20.0 - 300.0 mg/dL 169.3 STUDIES: 10/2022 DEXA: IMPRESSION: Osteopenia in the right hip and bilateral femoral necks. LUMBAR SPINE: The bone mineral density from L1 through L4 is 1.291 grams per square centimeter which yields a T-score of 2.2. There has been an 11% statistically significant interval increase in bone mineral density. LEFT HIP: The bone mineral density of the total region of the hip is 0.883 grams per square centimeter which yields a T-score of -0.5. There has been a 1.1% interval decrease in bone mineral density. LEFT FEMORAL NECK: The bone mineral density of the femoral neck is 0.729 grams per square centimeter which yields a T-score of -1.1. There has been a 2.1% interval increase in bone mineral density. RIGHT HIP: The bone mineral density of the total region of the hip is 0.807 grams per square centimeter which yields a T-score of -1.1. There has been a 0.9% interval increase in bone mineral density. RIGHT FEMORAL NECK: The bone mineral density of the femoral neck is 0.605 grams per square centimeter which yields a T-score of -2.2. There has been a 1.9% interval increase in bone mineral density. *October DEXA- IMPRESSION: Significant improvement in all areas Osteopenia in the right hip and bilateral femoral necks. LUMBAR SPINE: The bone mineral density from L1 through L4 is 1.163 grams per square centimeter which yields a T-score of 1.1. There has been a statistically significant interval increase in bone mineral density by 5.9%. LEFT HIP: The bone mineral density of the total region of the hip is 0.893 grams per square centimeter which yields a T-score of -0.4. There has been a statistically significant interval increase in bone mineral density of 7.9%. LEFT FEMORAL NECK: The bone mineral density of the femoral neck is 0.714 grams per square centimeter which yields a T-score of -1.2. There has been a statistically significant interval increase in bone mineral density of 9.1%. RIGHT HIP: The bone mineral density of the total region of the hip is 0.799 grams per square centimeter which yields a T-score of -1.2. There has been a statistically significant interval increase in bone mineral density by 6.4%. RIGHT FEMORAL NECK: The bone mineral density of the femoral neck is 0.594 grams per square centimeter which yields a T-score of -2.3. There has been a statistically significant interval increase in bone mineral density by 9%. *Jun DEXA- IMPRESSION: Osteoporosis in the right hip, demonstrating interval worsening. *Aug xray R shoulder- IMPRESSION: Degenerative changes with possible rotator cuff pathology IMPRESSION and PLAN: 1. Osteoporosis: February MRI L-spine with T11 compression fracture. Jun, had one dose of reclast. Bisphosphonates avoided due to CKD. Jun DEXA with significant decline. In Sep, started prolia; has received in Sep, Mar, Sep, Mar, Sep and Mar. October DEXA stable with significant improvement in all areas. 10/2022 DEXA: lowest T-score -2.2, with decrease to L hip and increase to all other areas. - Continue prolia, given by me in office today. No PA needed given Medicare A/B. - Check Ca in 2 weeks post prolia. Verbal reminder provided. Notify of results via [employer] - Check full labs in 5 months. Notify of results via [employer] Verbal and written reminders provided. -next DEXA due in 10/2024. Notify of results via [employer]. 2. Tophaceous gout: Stable - Continue allopurinol 250mg/day for goal UA<5 - Avoid NSAIDs given CKD 3. Previously diagnosed psoriasis: High suspicion for PsA given SI joint pain, inflammatory back pain per history and significant improvement with oral steroids. Unable to use MTX given CKD and otezla due to cost. Declined arava given c/f immunsuppression - Continue monitoring 4. Renal dysfunction: Acute on chronic - Advised further evaluation per PCP - Renally dose medications 5. Generalized osteoarthritis: Shoulders, hands, knees - Tylenol prn 6. General health maintenance: - Completed the covid vaccination series in Sep, Jul moderna - Advised to continue follow-up with PCP for routine health maintenance and malignancy screening Follow-up in 6 months or sooner if needed. Patient was instructed to call if any questions or concerns. Thank you for allowing me to participate in the care of your patient. I spent a total of 10 minutes on the date of the service which included preparing to see the patient, [id number] patient care, completing clinical documentation, performing a medically appropriate examination, ordering medications, tests, or procedures, and communicating results to the patient/family/caregiver. Devan Dobson APRN.DORENE documented in this encounter [facility] 04-19-2023 Instructions Devan Dobson APRN.CNP - 04/19/2023 1:27 PM EDT Please have labs done to check a calcium level around 05/03/2023 Please have labs done around 09/21/2023 documented in this encounter [facility] 04-18-2023 Miscellaneous Notes LVM for patient to call and schedule RFA nad follow up. Sadaf Leonard documented in this encounter [facility] 04-17-2023 Miscellaneous Notes I have attempted to contact this patient by phone, Left brief message on cell voicemail stating to give me a call back at [phone] [phone]. Mercedes Fadi I have attempted to contact this patient by phone, Left brief message on cell voicemail stating to give me a call back at [phone] to get scheduled for the RFA. Mercedes Fadi documented in this encounter [facility] 04-13-2023 Miscellaneous Notes Addended by: TABBY CAREY on: 04/13/2023 03:28 PM Modules accepted: Orders I sent the script to the [facility] in [place]. Can you please cancel the order to the [facility] [facility] in [place]? Thanks Patient called in stating that her insurance will not cover the Xanax that was sent to her pharmacy and she would like it sent to [facility] in [place], [place] , as she will have to pay for this out of pocket. Mercedes Fadi documented in this encounter [facility] 04-13-2023 Note HNO ID: [id number] Author: Tabby Carey APRN.DORENE Service: ? Author Type: Nurse Practitioner Type: Progress Notes Filed: 04/13/2023 12:35 PM Note Text: VIRTUAL VISIT PROGRESS NOTE This is a virtual visit using Audio only. It required patient-provider interaction for the medical decision making as documented below. I have communicated my name and active licensure. The patient's identity and physical location were verified at the time of this visit. Either the patient or their legal business services representative has been informed of the risks and benefits of -- and alternatives to -- treatment through a remote evaluation and consents to proceed with the evaluation remotely. Kailee Sam is a 82 year old female seen for evaluation after second in a series of 2 MBNB reporting 80% relief. Patient reporting she did well after the injection was able to move better and was able to manage her pain better. Patient states at this time the pain level is back to what it was prior to the procedure. States the pain is in the low back and radiating outward. Patient is wanting to move on to do the radiofrequency ablation. Date Procedure Relief 04/10/23 B/L MBB L4-S1 >80% 03/27/23 B/L MBB L4-S1 >80% HISTORY REVIEWED (electronic chart updated): PAST MEDICAL HISTORY Diagnosis Date Disorder of bone and cartilage 06/16/2008 Glaucoma Unspecified essential hypertension Unspecified glaucoma(365.9) Glaucoma PAST SURGICAL HISTORY Procedure Laterality Date LIG/TRNSXJ FLP TUBE ABDL/VAG APPR UNI/BI Tubal ligation PAST SURGICAL HISTORY OF Left 03/13/2023 xen shunt RMVL SEC MEMBRANOUS CTRC CORNEO-SCLL SCTJ 08/21/2005 Cataract removal b/l FAMILY HISTORY Problem Relation Age of Onset Heart Mother Asthma Father Cervical Cancer Sister Colon Cancer Daughter Adenocarcinoma Breast Cancer Daughter Social History Tobacco Use Smoking status: Former Packs/day: 0.50 Years: 15.00 Additional pack years: 0.00 Total pack years: 7.50 Types: Cigarettes Quit date: 08/21/1997 Years since quittin.6 Smokeless tobacco: Never Vaping Use Vaping Use: Never used Substance Use Topics Alcohol use: Not Currently Comment: pt has not had ETOH in years Drug use: No Current Outpatient Medications Medication Sig ALPRAZolam 0.5 mg dissolvable tablet Bring to office for procedure. Do not take until instructed by clinical staff prednisoLONE acetate (PRED MILD) 0.12 % ophthalmic suspension Use 1 Drop in both eyes four times daily. prednisoLONE acetate (PRED FORTE) 1 % ophthalmic suspension USE 1 DROP IN THE LEFT EYE 4 TIMES A DAY START AFTER SURGERY lidocaine (LIDODERM) 5 % Apply 1 Patch as directed every [address] patch to lower back for 12 hours. Remove for 12 hours prior to placing a new patch. allopurinol (ZYLOPRIM) 100 mg tablet Take 2.5 tablets by mouth once daily. losartan (COZAAR) 50 mg tablet Take 1 tablet by mouth once daily. omeprazole (PRILOSEC) 20 mg capsule Take 1 capsule by mouth daily before breakfast. 1/2 hr before meal. TIMOLOL OPHTHALMIC Use in eyes. latanoprost, PF, 0.005 % drop Use in eyes. atorvastatin (LIPITOR) 80 mg tablet Take by mouth. metoprolol succinate ER (TOPROL XL) 100 mg Take 1 tablet by mouth once daily. Ascorbic Acid 1,000 mg tablet Take 1 tablet by mouth once daily. aspirin, enteric coated (ASPIRIN, ENTERIC COATED) 81 mg EC tablet Take 1 tablet by mouth once daily. Magnesium Gluconate 30 mg (550 mg) tab Take 550 tablets by mouth. dorzolamide-timolol, PF, (COSOPT) 2-0.5 % ophthalmic drops 1 Drop every 12 hours. MSM-Aloe Vygb-Geugww55-Pnp Oil gel Apply 1 application to affected area once daily. acetaminophen 650 mg CR tablet Take 650 mg by mouth every 8 hours as needed. Xvdsneyul-Nnu-MI-Lut-Zeaxanth (ICAPS MV) 100-1.66-0.83 mcg-mg-mg TbEC Take 2 tablets by mouth once daily. COMPOUNDED PRESCRIPTION Green Neri Tea one half tablet twice daily Current Facility-Administered Medications Medication Dose Route Frequency perflutren lipid microspheres 1.3 mL in NaCl (PF) 0.9% 10 mL injection (DEFINITY) INTRAVENOUS DIRECTED PRN sodium chloride 0.9 % (flush) 10 mL (BD POSIFLUSH) 10 mL INTRAVENOUS DIRECTED PRN ALLERGIES Allergen Reactions Carafate [Sucralfat* Diarrhea Meloxicam GI Upset Cri w rise creatinine, flare reflux dyspepsia Mucinex [Guaifenesi* Diarrhea Pantoprazole Diarrhea Pepcid [Famotidine * Diarrhea REVIEW OF SYSTEMS: GENERAL: feeling well without fatigue, no recent change in weight HEENT: denies GRIMM, change in hearing or vision, no other ENT complaints NECK: denies swelling or pain in neck RESPIRATORY: no cough, no wheezing or shortness of breath CARDIOVASCULAR: no chest pain, no palpitations MUSCULOSKELETAL: low back pain as noted above SKIN: no rash PSYCH: denies depressed or anxious mood, sleep is normal PHYSICAL EXAMINATION: VIDEO EXAM: (if completed, performed via video enabled technology) (more content not included)... [facility] 04-13-2023 Instructions Tabby Carey APRN.CNP - 04/13/2023 12:28 PM EDT Ice and heat as tolerated Activity as tolerated documented in this encounter [facility] 04-13-2023 History of Present illness Narrative VIRTUAL VISIT PROGRESS NOTE This is a virtual visit using Audio only. It required patient-provider interaction for the medical decision making as documented below. I have communicated my name and active licensure. The patient's identity and physical location were verified at the time of this visit. Either the patient or their legal business services representative has been informed of the risks and benefits of -- and alternatives to -- treatment through a remote evaluation and consents to proceed with the evaluation remotely. Kailee Sam is a 82 year old female seen for evaluation after second in a series of 2 MBNB reporting 80% relief. Patient reporting she did well after the injection was able to move better and was able to manage her pain better. Patient states at this time the pain level is back to what it was prior to the procedure. States the pain is in the low back and radiating outward. Patient is wanting to move on to do the radiofrequency ablation. Date Procedure Relief 04/10/23 B/L MBB L4-S1 >80% 03/27/23 B/L MBB L4-S1 >80% HISTORY REVIEWED (electronic chart updated): PAST MEDICAL HISTORY Diagnosis Date Disorder of bone and cartilage 06/16/2008 Glaucoma Unspecified essential hypertension Unspecified glaucoma(365.9) Glaucoma PAST SURGICAL HISTORY Procedure Laterality Date LIG/TRNSXJ FLP TUBE ABDL/VAG APPR UNI/BI Tubal ligation PAST SURGICAL HISTORY OF Left 03/13/2023 xen shunt RMVL SEC MEMBRANOUS CTRC CORNEO-SCLL SCTJ 08/21/2005 Cataract removal b/l FAMILY HISTORY Problem Relation Age of Onset Heart Mother Asthma Father Cervical Cancer Sister Colon Cancer Daughter Adenocarcinoma Breast Cancer Daughter Social History Tobacco Use Smoking status: Former Packs/day: 0.50 Years: 15.00 Additional pack years: 0.00 Total pack years: 7.50 Types: Cigarettes Quit date: 08/21/1997 Years since quittin.6 Smokeless tobacco: Never Vaping Use Vaping Use: Never used Substance Use Topics Alcohol use: Not Currently Comment: pt has not had ETOH in years Drug use: No Current Outpatient Medications Medication Sig ALPRAZolam 0.5 mg dissolvable tablet Bring to office for procedure. Do not take until instructed by clinical staff prednisoLONE acetate (PRED MILD) 0.12 % ophthalmic suspension Use 1 Drop in both eyes four times daily. prednisoLONE acetate (PRED FORTE) 1 % ophthalmic suspension USE 1 DROP IN THE LEFT EYE 4 TIMES A DAY START AFTER SURGERY lidocaine (LIDODERM) 5 % Apply 1 Patch as directed every [address] patch to lower back for 12 hours. Remove for 12 hours prior to placing a new patch. allopurinol (ZYLOPRIM) 100 mg tablet Take 2.5 tablets by mouth once daily. losartan (COZAAR) 50 mg tablet Take 1 tablet by mouth once daily. omeprazole (PRILOSEC) 20 mg capsule Take 1 capsule by mouth daily before breakfast. 1/2 hr before meal. TIMOLOL OPHTHALMIC Use in eyes. latanoprost, PF, 0.005 % drop Use in eyes. atorvastatin (LIPITOR) 80 mg tablet Take by mouth. metoprolol succinate ER (TOPROL XL) 100 mg Take 1 tablet by mouth once daily. Ascorbic Acid 1,000 mg tablet Take 1 tablet by mouth once daily. aspirin, enteric coated (ASPIRIN, ENTERIC COATED) 81 mg EC tablet Take 1 tablet by mouth once daily. Magnesium Gluconate 30 mg (550 mg) tab Take 550 tablets by mouth. dorzolamide-timolol, PF, (COSOPT) 2-0.5 % ophthalmic drops 1 Drop every 12 hours. MSM-Aloe Mfva-Ipcrqh39-Xml Oil gel Apply 1 application to affected area once daily. acetaminophen 650 mg CR tablet Take 650 mg by mouth every 8 hours as needed. Cnerqhgyy-Vdf-VT-Lut-Zeaxanth (ICAPS MV) 100-1.66-0.83 mcg-mg-mg TbEC Take 2 tablets by mouth once daily. COMPOUNDED PRESCRIPTION Green Neri Tea one half tablet twice daily Current Facility-Administered Medications Medication Dose Route Frequency perflutren lipid microspheres 1.3 mL in NaCl (PF) 0.9% 10 mL injection (DEFINITY) INTRAVENOUS DIRECTED PRN sodium chloride 0.9 % (flush) 10 mL (BD POSIFLUSH) 10 mL INTRAVENOUS DIRECTED PRN ALLERGIES Allergen Reactions Carafate [Sucralfat* Diarrhea Meloxicam GI Upset Cri w rise creatinine, flare reflux dyspepsia Mucinex [Guaifenesi* Diarrhea Pantoprazole Diarrhea Pepcid [Famotidine * Diarrhea REVIEW OF SYSTEMS: GENERAL: feeling well without fatigue, no recent change in weight HEENT: denies GRIMM, change in hearing or vision, no other ENT complaints NECK: denies swelling or pain in neck RESPIRATORY: no cough, no wheezing or shortness of breath CARDIOVASCULAR: no chest pain, no palpitations MUSCULOSKELETAL: low back pain as noted above SKIN: no rash PSYCH: denies depressed or anxious mood, sleep is normal PHYSICAL EXAMINATION: VIDEO EXAM: (if completed, performed via video enabled technology) No exam performed ASSESSMENT: (M47.816) Lumbar spondylosis PLAN: We will schedule the patient for radiofrequency ablation of the lumbar spine L4-L5 L5-S1 under fluoroscopy as the patient did well with the series of 2 medial branch nerve blocks, reporting greater than 80% relief with the both injections. Oral Xanax will be provided to help with anxiety during procedure. This was ordered and the prescription was sent to her pharmacy. Patient is to follow-up in office 3 weeks after the injection to discuss the relief. Patient Instructions Ice and heat as tolerated Activity as tolerated I spent a total of 30 minutes on the date of the service which included preparing to see the patient, completing clinical documentation, and counseling and educating the patient/family/caregiver It was necessary to convert the virtual visit to a telephone encounter due to technical difficulties. Tabby Carey APRN.CNP I have communicated my name and active licensure. The patient's identity and physical location were verified at the time of this visit. Either the patient or their legal business services representative has been informed of the risks and benefits of -- and alternatives to -- treatment through a remote evaluation and consents to proceed with the evaluation remotely. documented in this encounter [facility] 04-12-2023 Miscellaneous Notes Called patient to follow up from procedure, patient stated it went well. Leona Joyce MA documented in this encounter [facility] 04-10-2023 Note HNO ID: [id number] Author: Lidia Crowe MD Service: ? Author Type: Physician Type: Progress Notes Filed: 04/10/2023 3:15 PM Note Text: [facility] Date: 04/10/2023 Patient name: Kailee Sam Physician performing procedure: Lidia Crowe M.D., M.B.A. Procedure: Facets Medial Branch (aka Facet Joint Nerve) Blocks under fluoroscopic guidance Levels Treated: Bilateral Lumbar L4-L5 and L5-S1 Facet Joint Nerves, aka Medial Branch(es) Approach: Bilateral Oblique Injectate: A total of 3cc, consisting of 3cc of 0.75% Bupivacaine Improvement after today's procedure: as per nursing report Diagnosis: (M47.816) Lumbar spondylosis (primary encounter diagnosis) Comments: Dr. Shubham Oliveira assisted in this procedure., HPI: Kailee Sam is an 82 year old FEMALE who presents today, in pain, for the procedure noted above. Review of Systems: Pertinent Positives: MSK: pain in the region being treated Neuro: no weakness or numbness in the region being treated Skin: Negative (No itching) Eyes: Negative (No blurred or double vision) Respiratory: Negative (No Cough, Jdnxriobo-jc-dywrtj, Dyspnea on exertion, wheezing) Cardiovascular: Negative (No Chest Pain, Tightness, Pressure, Palpitations) Gastrointestinal: Negative (No Abdominal pain, Nausea, Vomiting, Constipation, Diarrhea) Genitourinary: Negative (No dysuria) Hematologic: Negative (No bleeding, bruising) OB: is Denied or Not Applicable Endocrine: Negative (No hot/cold intolerance) Psychiatric: Negative (No depression, anxiety or suicidal ideation) PAST MEDICAL HISTORY Diagnosis Date Disorder of bone and cartilage 06/16/2008 Glaucoma Unspecified essential hypertension Unspecified glaucoma(365.9) Glaucoma PAST SURGICAL HISTORY Procedure Laterality Date LIG/TRNSXJ FLP TUBE ABDL/VAG APPR UNI/BI Tubal ligation PAST SURGICAL HISTORY OF Left 03/13/2023 xen shunt RMVL SEC MEMBRANOUS CTRC CORNEO-SCLL SCTJ 08/21/2005 Cataract removal b/l FAMILY HISTORY Problem Relation Age of Onset Heart Mother Asthma Father Cervical Cancer Sister Colon Cancer Daughter Adenocarcinoma Breast Cancer Daughter Social History Tobacco Use Smoking status: Former Packs/day: 0.50 Years: 15.00 Additional pack years: 0.00 Total pack years: 7.50 Types: Cigarettes Quit date: 08/21/1997 Years since quittin.6 Smokeless tobacco: Never Vaping Use Vaping Use: Never used Substance Use Topics Alcohol use: Not Currently Comment: pt has not had ETOH in years Drug use: No Current Outpatient Medications on File Prior to Visit Medication Sig prednisoLONE acetate (PRED MILD) 0.12 % ophthalmic suspension Use 1 Drop in both eyes four times daily. prednisoLONE acetate (PRED FORTE) 1 % ophthalmic suspension USE 1 DROP IN THE LEFT EYE 4 TIMES A DAY START AFTER SURGERY lidocaine (LIDODERM) 5 % Apply 1 Patch as directed every [address] patch to lower back for 12 hours. Remove for 12 hours prior to placing a new patch. allopurinol (ZYLOPRIM) 100 mg tablet Take 2.5 tablets by mouth once daily. losartan (COZAAR) 50 mg tablet Take 1 tablet by mouth once daily. omeprazole (PRILOSEC) 20 mg capsule Take 1 capsule by mouth daily before breakfast. 1/2 hr before meal. TIMOLOL OPHTHALMIC Use in eyes. latanoprost, PF, 0.005 % drop Use in eyes. atorvastatin (LIPITOR) 80 mg tablet Take by mouth. metoprolol succinate ER (TOPROL XL) 100 mg Take 1 tablet by mouth once daily. Ascorbic Acid 1,000 mg tablet Take 1 tablet by mouth once daily. aspirin, enteric coated (ASPIRIN, ENTERIC COATED) 81 mg EC tablet Take 1 tablet by mouth once daily. Magnesium Gluconate 30 mg (550 mg) tab Take 550 tablets by mouth. dorzolamide-timolol, PF, (COSOPT) 2-0.5 % ophthalmic drops 1 Drop every 12 hours. MSM-Aloe Vtkx-Jpikuo88-Ozg Oil gel Apply 1 application to affected area once daily. acetaminophen 650 mg CR tablet Take 650 mg by mouth every 8 hours as needed. Qahzvinei-Efm-XP-Lut-Zeaxanth (ICAPS MV) 100-1.66-0.83 mcg-mg-mg TbEC Take 2 tablets by mouth once daily. COMPOUNDED PRESCRIPTION Green Neri Tea one half tablet twice daily ciprofloxacin HCl (CIPRO) 250 mg tablet Take 1 tablet by mouth twice daily for 4 days. (Patient not taking: Reported on 04/10/2023) ALPRAZolam 0.5 mg dissolvable tablet Bring to office for procedure. Do not take until instructed by clinical staff Current Facility-Administered Medications on File Prior to Visit Medication perflutren lipid microspheres 1.3 mL in NaCl (PF) 0.9% 10 mL injection (DEFINITY) sodium chloride 0.9 % (flush) 10 mL (BD POSIFLUSH) Objective Exam: Vitals: As per nursing documentation Constitutional: Normal Appearance, Oriented to Time, Place and Person Head: No lacerations, no external signs of trauma Eyes: Conjunctiva clear. No discharge from the eyes Cardiovascular: (more content not included)... [facility] 04-10-2023 Note HNO ID: [id number] Author: Leon Ibarra LPN Service: ? Author Type: LICENSED NURSE Type: Progress Notes Filed: 04/10/2023 3:15 PM Note Text: Review of Systems Constitutional: Negative for activity change, chills, fever and unexpected weight change. Genitourinary: Negative for difficulty urinating. Musculoskeletal: Positive for arthralgias, back pain, gait problem, joint swelling and myalgias. Negative for neck pain and neck stiffness. Neurological: Negative for weakness, numbness and headaches. Psychiatric/Behavioral: Positive for dysphoric mood and sleep disturbance. Negative for suicidal ideas. The patient is nervous/anxious. [facility] 04-10-2023 Instructions Marck Lima LPN - 04/10/2023 2:39 PM EDT PROCEDURE DISCHARGE INSTRUCTIONS 04/10/2023 aKilee Sam 1940 Physician: Lidia Crowe MD Procedure: Facet Joint Injection/Medial Branch Block Post Procedure Instructions: Perform activities that typically make you have pain and monitor your pain level during these activities for the next 3-4 hours., Apply cold compresses to injection site if needed., If medically acceptable, take over the counter anti-inflammatories such as ibuprofen or Aleve if needed for post procedure discomfort., No hot baths, hot tubs or hot compresses for 24 hours., and Increased pain the day after the procedure may occur. If you have any of the following signs or symptoms, please call our office at Fever and/or chills Swelling and/or drainage from injection site New pain that is different than your normal pain (other than soreness at the site of the procedure) Stiff neck Shortness of breath Severe increase in pain Motor dysfunctions, such as difficulty walking, bowel or bladder dysfunction and/or incontinence Headache that is severe, light sensitive or develops when changing positions (positional headache) Nausea and/or vomiting accompanied by headache that started 24-48 hours after the procedure If you have any emergent concerns, please call 911 or go to your local emergency room. Please also contact our office to let us know you will be seeking emergency care and why. documented in this encounter [facility] 04-10-2023 Nurse Note Order has been placed in the patient's chart with the following parameters for discharge from the physician: Patient is alert and oriented Vitals: Diastolic/Systolic +/- 20mmHg Respirations: 12-18 Pulse: 60-100 SpO2 is greater than or equal to 90% Patient has no nausea or vomiting Patient has no dizziness Pain level is +/- 2 from initial evaluation Dressing, dry and intact with no evidence of bleeding Criteria has been met, patient is okay to be discharged per the physician. Physician has gone in and evaluated the patient. Dressing dry and intact. No drainage noted. The patient denies nausea, numbness, tingling, weakness, shortness of breath, dizziness, or headache. Pain level 0/10. Vital signs within normal limits. Patient denied needing walked out by clinical staff and denied needing a wheelchair. Patient given discharge instructions and sent to transportation via ambulatory method. Patient left in good condition. Procedure to be performed: L4/5 -L5/S1 Bilateral Medial Branch Block without steroid Patient was wheeled on stretcher from pre op bay to procedure room and assisted onto the procedure tablePatient s procedure was performed in an [facility] Procedure room. Pause completed at each level by provider to verify correct level and laterality placement Pressure was applied to patient s injection site(s) and bleeding was minimal. Patient had no complaint of shortness of breath, dizziness, headache, numbness, tingling, weakness or complications from procedure. Patient was assisted from the procedure table onto the stretcher and wheeled into a post op bay. Patient was advised a clinician will be to obtain another set of vitals. Time Out: 1416 Confirmed patient name, date of , procedure site, laterality, and allergies Procedure Start: 1418 Procedure End: 1431 Cable Wirer's Name: CRYSTAL Are you on a blood thinner: N If yes, is a hold required: N Last dose of blood thinner: N INR Result today: N Do you require a Lovenox bridge:N Are you a diabetic:N Are you/or could you be : N Are you taking Xanax for the procedure: N Are you currently on a steroid? N Are you currently on an antibiotic: N Have you had a COVID-19 vaccine in the last 14 days Or are you scheduled to receive one? N documented in this encounter [facility] 04-10-2023 History of Present illness Narrative [facility] Date: 04/10/2023 Patient name: Kailee Sam Physician performing procedure: Lidia Crowe M.D., M.B.A. Procedure: Facets Medial Branch (aka Facet Joint Nerve) Blocks under fluoroscopic guidance Levels Treated: Bilateral Lumbar L4-L5 and L5-S1 Facet Joint Nerves, aka Medial Branch(es) Approach: Bilateral Oblique Injectate: A total of 3cc, consisting of 3cc of 0.75% Bupivacaine Improvement after today's procedure: as per nursing report Diagnosis: (M47.816) Lumbar spondylosis (primary encounter diagnosis) Comments: Dr. Shubham Oliveira assisted in this procedure., HPI: Kailee Sam is an 82 year old FEMALE who presents today, in pain, for the procedure noted above. Review of Systems: Pertinent Positives: MSK: pain in the region being treated Neuro: no weakness or numbness in the region being treated Skin: Negative (No itching) Eyes: Negative (No blurred or double vision) Respiratory: Negative (No Cough, Mkphyelwz-ng-tvcadh, Dyspnea on exertion, wheezing) Cardiovascular: Negative (No Chest Pain, Tightness, Pressure, Palpitations) Gastrointestinal: Negative (No Abdominal pain, Nausea, Vomiting, Constipation, Diarrhea) Genitourinary: Negative (No dysuria) Hematologic: Negative (No bleeding, bruising) OB: is Denied or Not Applicable Endocrine: Negative (No hot/cold intolerance) Psychiatric: Negative (No depression, anxiety or suicidal ideation) PAST MEDICAL HISTORY Diagnosis Date Disorder of bone and cartilage 06/16/2008 Glaucoma Unspecified essential hypertension Unspecified glaucoma(365.9) Glaucoma PAST SURGICAL HISTORY Procedure Laterality Date LIG/TRNSXJ FLP TUBE ABDL/VAG APPR UNI/BI Tubal ligation PAST SURGICAL HISTORY OF Left 03/13/2023 xen shunt RMVL SEC MEMBRANOUS CTRC CORNEO-SCLL SCTJ 08/21/2005 Cataract removal b/l FAMILY HISTORY Problem Relation Age of Onset Heart Mother Asthma Father Cervical Cancer Sister Colon Cancer Daughter Adenocarcinoma Breast Cancer Daughter Social History Tobacco Use Smoking status: Former Packs/day: 0.50 Years: 15.00 Additional pack years: 0.00 Total pack years: 7.50 Types: Cigarettes Quit date: 08/21/1997 Years since quittin.6 Smokeless tobacco: Never Vaping Use Vaping Use: Never used Substance Use Topics Alcohol use: Not Currently Comment: pt has not had ETOH in years Drug use: No Current Outpatient Medications on File Prior to Visit Medication Sig prednisoLONE acetate (PRED MILD) 0.12 % ophthalmic suspension Use 1 Drop in both eyes four times daily. prednisoLONE acetate (PRED FORTE) 1 % ophthalmic suspension USE 1 DROP IN THE LEFT EYE 4 TIMES A DAY START AFTER SURGERY lidocaine (LIDODERM) 5 % Apply 1 Patch as directed every [address] patch to lower back for 12 hours. Remove for 12 hours prior to placing a new patch. allopurinol (ZYLOPRIM) 100 mg tablet Take 2.5 tablets by mouth once daily. losartan (COZAAR) 50 mg tablet Take 1 tablet by mouth once daily. omeprazole (PRILOSEC) 20 mg capsule Take 1 capsule by mouth daily before breakfast. 1/2 hr before meal. TIMOLOL OPHTHALMIC Use in eyes. latanoprost, PF, 0.005 % drop Use in eyes. atorvastatin (LIPITOR) 80 mg tablet Take by mouth. metoprolol succinate ER (TOPROL XL) 100 mg Take 1 tablet by mouth once daily. Ascorbic Acid 1,000 mg tablet Take 1 tablet by mouth once daily. aspirin, enteric coated (ASPIRIN, ENTERIC COATED) 81 mg EC tablet Take 1 tablet by mouth once daily. Magnesium Gluconate 30 mg (550 mg) tab Take 550 tablets by mouth. dorzolamide-timolol, PF, (COSOPT) 2-0.5 % ophthalmic drops 1 Drop every 12 hours. MSM-Aloe Nzkm-Jsvnrb54-Iaj Oil gel Apply 1 application to affected area once daily. acetaminophen 650 mg CR tablet Take 650 mg by mouth every 8 hours as needed. Theystvrn-Esx-YH-Lut-Zeaxanth (ICAPS MV) 100-1.66-0.83 mcg-mg-mg TbEC Take 2 tablets by mouth once daily. COMPOUNDED PRESCRIPTION Green Neri Tea one half tablet twice daily ciprofloxacin HCl (CIPRO) 250 mg tablet Take 1 tablet by mouth twice daily for 4 days. (Patient not taking: Reported on 04/10/2023) ALPRAZolam 0.5 mg dissolvable tablet Bring to office for procedure. Do not take until instructed by clinical staff Current Facility-Administered Medications on File Prior to Visit Medication perflutren lipid microspheres 1.3 mL in NaCl (PF) 0.9% 10 mL injection (DEFINITY) sodium chloride 0.9 % (flush) 10 mL (BD POSIFLUSH) Objective Exam: Vitals: As per nursing documentation Constitutional: Normal Appearance, Oriented to Time, Place and Person Head: No lacerations, no external signs of trauma Eyes: Conjunctiva clear. No discharge from the eyes Cardiovascular: Appears well-perfused Pulmonary: Non-labored respirations Abdominal: Non-distended Skin: No visible rashes or ecchymosis Psychiatric: Mood appropriate for given condition Neurological: Gross movements are limited by pain, but otherwise unremarkable Data Reviewed: Nursing note and vitals reviewed. Additional imaging reviewed as appropriate Assessment and Plan: As noted above [facility] protocol documentation / Pre-Procedure Checklist: Consent: Obtained in writing prior to procedure I had a nice discussion with the patient today about their current pain and the pathology that could be causing it We discussed different treatment options, including risks, benefits and alternatives. We agreed to proceed as previously discussed, or the plan was modified in accordance with the comments noted above Unless stated otherwise in the procedure note, the risks include but are not limited to infection, allergic reaction, increased pain, lack of therapeutic benefit, steroid reaction, nerve damage, paralysis, stroke, epidural hematoma, syncope, headache, respiratory or cardiac arrest, pneumothorax, and scar formation Once the plan was agreed upon, the patient gave written consent to proceed and was transported into the procedure room Surgical/Procedure pause or Time Out : Time Out was led by the physician in the procedure room, with the patient and all staff present and participating The following information was verified during the Time Out process: Patient name, patient date of , procedure site (marked), laterality, anticoagulants and allergies Procedure: The patient was prepped and draped in a sterile fashion in the prone position after informed consent was signed and all patient questions were answered including the risks, benefits, alternative treatment options, and prognosis. The risks are as mentioned above, with the exception of Pneumothorax. To block the L5 dorsal rami, a spinal needle of the same dimensions as mentioned below was positioned at the junction of the superior articular process of the sacrum and the ala under biplanar fluoroscopic control. A 22 gauge, 5 inch spinal needle was inserted a few centimeters lateral to the pedicles of the remaining lumbar levels mentioned above and advanced ventral and medial through the muscles to the target point. Once the needle contacted periosteum at the superior-most medial edge of the transverse process, the C-arm was obliqued such that the axis of the lumbar facet joints could be fluoroscopically visualized, and the correct position of the needle confirmed. After contact with periosteum and negative aspirate for blood and CSF, correct placement without intravascular or epidural spread was confirmed by injecting 0.2cc of Omnipaque 300. A spot radiograph was obtained of this image. Next, a 0.5cc volume of the injectate noted above was placed. A needle was similarly directed to the other facet joint nerves mentioned above, with completion of the procedure at each level as described above. Please see the nursing note for exact times (time out, procedure start, procedure end). After careful removal of the needle, there was minimal bleeding. The injection site was covered with appropriate sterile dressing. The patient was noted to have tolerated the procedure well and was discharged after an appropriate period of post-procedure observation. The patient was instructed to contact us if there were any complications. The patient was advised to follow-up with the requesting physician within one to two weeks or as per their requested follow-up plan. Post procedure visit summary with written instructions was offered to the patient. Lidia FRANCISA [facility] Review of Systems Constitutional: Negative for activity change, chills, fever and unexpected weight change. Genitourinary: Negative for difficulty urinating. Musculoskeletal: Positive for arthralgias, back pain, gait problem, joint swelling and myalgias. Negative for neck pain and neck stiffness. Neurological: Negative for weakness, numbness and headaches. Psychiatric/Behavioral: Positive for dysphoric mood and sleep disturbance. Negative for suicidal ideas. The patient is nervous/anxious. documented in this encounter [facility] 04-07-2023 Miscellaneous Notes Left detailed message on secure VM. Prescription sent. With the extended dosing, tell her to hold her supplements and atorvastatin until cipro regimen has completed. Then restart as she usually takes them Thank you Arpita Connelly APRN.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 Patient returned call and states yes, that would be good. Please send extension of Cipro to [facility]. Pended. Thank you. This close to treatment a urine would be inaccurate. I would like her to take 4 mor days of cipro to equal a week of treatment in hopes the symptoms subside. Would that be ok for her to have the procedure, meaning if her symptoms have subsided? Thank you Arpita Connelly APRN.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 Patient asking for Arpita Connelly CNP advise. States she was treated for UTI recently by [facility], with Cipro for 3 days (6 doses). Has finished the abx. Reports sx's have improved overall but still has some urgency and a little burning before she urinates, but none when she urinates. Pt states she is to have a back procedure on Monday in [place] and cannot have this procedure if she has a UTI. Pt asking Arpita Connelly if agreeable to place order for urine testing, or other advise, to see if UTI has resolved? Please call patient with reply. Thank you. documented in this encounter [facility] 04-01-2023 Note [facility] 04-01-2023 Instructions Sadaf Andino APRN.DORENE - 04/01/2023 10:45 AM EDT Images from the original note were not included. Urinary Problem-When to Seek Help? Symptoms of a urinary problem may lead to a bladder infection. Women are at greater risk of a urinary tract infection than are men. Most urinary tract infections in women are caused by bacteria and involve the lower urinary tract including the bladder and urethra. Symptoms: Pain or burning when passing urine, urgency, frequency, blood in the urine, difficult emptying your bladder, and lower abdominal fullness or pressure. Common Causes: Sexual intercourse, menopause, constipation, uncontrolled diabetes, dehydration and feminine products such as tampons, and kidney stones. When to Get Help: Seek medical attention if you get frequent bladder infections, urinary concerns such as leakage, blood in the urine or frequent need to urinate. You may be recommended to get help from a specialist, such as a urologist. Diagnosis & Treatment: Lab testing may include: urinalysis, and urine culture that can be collected in the lab or walk-in clinic. Most bladder infections can easily be treated. A physician, nurse practitioner or physician assistant branch operations manager may treat with a short course of an antibiotic. Delaying treatment can lead to worsening symptoms, like a kidney infection. Self-Care: Avoid a full bladder, bubble baths, bath oils, food and beverages that may irritate the bladder such as caffeine. Avoid spermicide foam and diaphragms Void before and after sexual intercourse Wipe front to back after using the bathroom. Stay hydrated Stop Smoking Follow-up Care: Follow up testing is not needed in healthy young women if symptoms resolve. documented in this encounter [facility] 04-01-2023 History of Present illness Narrative This note was created using [employer]. Subjective Kailee Sam is a 82 year old female. 82 year old female with PMH HTN, GERD, CKD, DDD, and recurrent UTI's presents for complaints of UTI. Acute onset 3 days ago +frequency +urgency + burning Denies abdominal pain. Denies changes in back pain (citing she has back pain at baseline) Denies fever or chills Denies recent coitus Denies vaginal bleeding. Denies vaginal discharge. Endorses she had a UTI last month. Get these quite often in fact The history is provided by the patient. No spanish medical interpreter was used. UTI This is a new problem. The current episode started more than 2 days ago. The problem occurs every urination. The problem has been gradually worsening. The quality of the pain is described as burning. The pain is at a severity of 5/10. The pain is moderate. There has been no fever. She is Not sexually active. There is No history of pyelonephritis. Associated symptoms include frequency and urgency. Pertinent negatives include no chills, no sweats, no nausea, no vomiting, no discharge, no hematuria, no hesitancy, no possible and no flank pain. She has tried nothing for the symptoms. Her past medical history is significant for recurrent UTIs. Her past medical history does not include kidney stones, single kidney, urological procedure, urinary stasis or catheterization. PAST MEDICAL HISTORY Diagnosis Date Disorder of bone and cartilage 06/16/2008 Glaucoma Unspecified essential hypertension Unspecified glaucoma(365.9) Glaucoma PAST SURGICAL HISTORY Procedure Laterality Date LIG/TRNSXJ FLP TUBE ABDL/VAG APPR UNI/BI Tubal ligation PAST SURGICAL HISTORY OF Left 03/13/2023 xen shunt RMVL SEC MEMBRANOUS CTRC CORNEO-SCLL SCTJ 08/21/2005 Cataract removal b/l ALLERGIES Carafate [Sucralfate], Meloxicam, Mucinex [Guaifenesin], Pantoprazole, and Pepcid [Famotidine (Pf)] MEDICATIONS prednisoLONE acetate (PRED MILD) 0.12 % ophthalmic suspension^Use 1 Drop in both eyes four times daily.^Disp: ^Rfl: prednisoLONE acetate (PRED FORTE) 1 % ophthalmic suspension^USE 1 DROP IN THE LEFT EYE 4 TIMES A DAY START AFTER SURGERY^Disp: ^Rfl: lidocaine (LIDODERM) 5 %^Apply 1 Patch as directed every [address] patch to lower back for 12 hours. Remove for 12 hours prior to placing a new patch.^Disp: 14 Patch^Rfl: 0 allopurinol (ZYLOPRIM) 100 mg tablet^Take 2.5 tablets by mouth once daily.^Disp: 225 tablet^Rfl: 3 losartan (COZAAR) 50 mg tablet^Take 1 tablet by mouth once daily.^Disp: 90 tablet^Rfl: 1 omeprazole (PRILOSEC) 20 mg capsule^Take 1 capsule by mouth daily before breakfast. 1/2 hr before meal.^Disp: 90 capsule^Rfl: 3 TIMOLOL OPHTHALMIC^Use in eyes.^Disp: ^Rfl: atorvastatin (LIPITOR) 80 mg tablet^Take by mouth.^Disp: ^Rfl: metoprolol succinate ER (TOPROL XL) 100 mg^Take 1 tablet by mouth once daily.^Disp: 90 tablet^Rfl: 3 Ascorbic Acid 1,000 mg tablet^Take 1 tablet by mouth once daily.^Disp: ^Rfl: aspirin, enteric coated (ASPIRIN, ENTERIC COATED) 81 mg EC tablet^Take 1 tablet by mouth once daily.^Disp: ^Rfl: Magnesium Gluconate 30 mg (550 mg) tab^Take 550 tablets by mouth.^Disp: ^Rfl: MSM-Aloe Hnez-Fvgdpp92-Fjk Oil gel^Apply 1 application to affected area once daily.^Disp: ^Rfl: acetaminophen 650 mg CR tablet^Take 650 mg by mouth every 8 hours as needed.^Disp: ^Rfl: Rgzbfuult-Iwv-XW-Lut-Zeaxanth (ICAPS MV) 100-1.66-0.83 mcg-mg-mg TbEC^Take 2 tablets by mouth once daily.^Disp: ^Rfl: COMPOUNDED PRESCRIPTION^Green Neri Tea one half tablet twice daily^Disp: ^Rfl: 0 ciprofloxacin HCl (CIPRO) 250 mg tablet^Take 1 tablet by mouth twice daily for 3 days.^Disp: 6 tablet^Rfl: 0 ALPRAZolam 0.5 mg dissolvable tablet^Bring to office for procedure. Do not take until instructed by clinical staff^Disp: 2 tablet^Rfl: 0 latanoprost, PF, 0.005 % drop^Use in eyes.^Disp: ^Rfl: (Patient not taking: Reported on 03/27/2023) dorzolamide-timolol, PF, (COSOPT) 2-0.5 % ophthalmic drops^1 Drop every 12 hours.^Disp: ^Rfl: (Patient not taking: Reported on 03/27/2023) FAMILY HISTORY Problem Relation Age of Onset Heart Mother Asthma Father Cervical Cancer Sister Colon Cancer Daughter Adenocarcinoma Breast Cancer Daughter Social History Tobacco Use Smoking status: Former Packs/day: 0.50 Years: 15.00 Additional pack years: 0.00 Total pack years: 7.50 Types: Cigarettes Quit date: 08/21/1997 Years since quittin.6 Smokeless tobacco: Never Vaping Use Vaping Use: Never used Substance Use Topics Alcohol use: Not Currently Comment: pt has not had ETOH in years Drug use: No Review of Systems Constitutional: Negative for chills. Eyes: Negative for pain, discharge and itching. Respiratory: Negative for apnea, choking and chest tightness. Cardiovascular: Negative for chest pain, palpitations and leg swelling. Gastrointestinal: Negative for nausea and vomiting. Genitourinary: Positive for dysuria, frequency and urgency. Negative for flank pain, hematuria and hesitancy. Musculoskeletal: Positive for back pain (chronic). Negative for arthralgias. Skin: Negative for color change, pallor, rash and wound. Allergic/Immunologic: Negative for environmental allergies, food allergies and immunocompromised state. Hematological: Negative for adenopathy. Does not bruise/bleed easily. Psychiatric/Behavioral: Negative for agitation and behavioral problems. Objective BP 163/93 Pulse 101 Temp 36.4 C (97.6 F) Resp 18 Wt 81.5 kg (179 lb 9.6 oz) SpO2 96% BMI 31.81 kg/m Physical Exam Vitals and nursing note reviewed. Constitutional: General: She is not in acute distress. Appearance: Normal appearance. She is normal weight. She is not ill-appearing, toxic-appearing or diaphoretic. HENT: Head: Normocephalic and atraumatic. Right Ear: Ear canal and external ear normal. Left Ear: Ear canal and external ear normal. Nose: Nose normal. No congestion or rhinorrhea. Mouth/Throat: Mouth: Mucous membranes are moist. Pharynx: No oropharyngeal exudate or posterior oropharyngeal erythema. Eyes: General: Right eye: No discharge. Left eye: No discharge. Extraocular Movements: Extraocular movements intact. Conjunctiva/sclera: Conjunctivae normal. Pupils: Pupils are equal, round, and reactive to light. Cardiovascular: Rate and Rhythm: Normal rate and regular rhythm. Pulses: Normal pulses. Heart sounds: Normal heart sounds. No murmur heard. No friction rub. Pulmonary: Effort: Pulmonary effort is normal. No respiratory distress. Breath sounds: Normal breath sounds. No stridor. No wheezing, rhonchi or rales. Chest: Chest wall: No tenderness. Abdominal: General: Abdomen is flat. There is no distension. Palpations: Abdomen is soft. There is no mass. Tenderness: There is no abdominal tenderness. There is no right CVA tenderness, left CVA tenderness, guarding or rebound. Hernia: No hernia is present. Musculoskeletal: General: No swelling, tenderness, deformity or signs of injury. Normal range of motion. Cervical back: Normal range of motion and neck supple. No rigidity. Right lower leg: No edema. Left lower leg: No edema. Lymphadenopathy: Cervical: No cervical adenopathy. Skin: General: Skin is warm and dry. Capillary Refill: Capillary refill takes less than 2 seconds. Coloration: Skin is not jaundiced or pale. Findings: No bruising, erythema, lesion or rash. Neurological: General: No focal deficit present. Mental Status: She is alert and oriented to person, place, and time. Cranial Nerves: No cranial nerve deficit. Sensory: No sensory deficit. Motor: No weakness. Coordination: Coordination normal. Gait: Gait normal. Psychiatric: Mood and Affect: Mood normal. Behavior: Behavior normal. Thought Content: Thought content normal. Judgment: Judgment normal. Assessment and Plan ASSESSMENT/PLAN: 1. Dysuria - ICD9: 788.1, ICD10: R30.0 X 3 days acute - UA positive for john paul esterase, hematuria, and proteinuria - Send urine for culture - Begin treatment with Ciprofloxacin 250 mg BID for 3 days Cipro was chosen based on recent urine cultures and recurrent infections. 03/04/23 +klebsiella 01/11/23 +klebsiella Had been prescribed keflex Discussed that Cipro can cause tendon rupture - Patient education for prevention given - UA DIP, URINE (POC) - URINE CULTURE Sadaf Andino APRN.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 documented in this encounter [facility] 03-30-2023 Note HNO ID: [id number] Author: Tabby Carey APRN.DORENE Service: ? Author Type: Nurse Practitioner Type: Progress Notes Filed: 03/30/2023 11:03 AM Note Text: VIRTUAL VISIT PROGRESS NOTE This is a virtual visit using Audio only. It required patient-provider interaction for the medical decision making as documented below. I have communicated my name and active licensure. The patient's identity and physical location were verified at the time of this visit. Either the patient or their legal business services representative has been informed of the risks and benefits of -- and alternatives to -- treatment through a remote evaluation and consents to proceed with the evaluation remotely. Kailee Sam is a 82 year old female seen for evaluation after the first in a series of 2 MBNB. Patient reporting she had excellent relief after the first medial branch nerve block. Patient reporting she had an hour ride home from the procedure and after she got home she walked around and she did her armature varnisher including cooking and cleaning and she felt that she was able to stand up straighter and the pain was less. Patient states currently her pain in her back is a generalized aching pain. Patient states it is worse as the day goes on and by the end of the evening she has a hard time straightening up. Patient would like to continue with the series as scheduled. Date Procedure Relief 8/7/23 B/L MBB L4-S1 >80% HISTORY REVIEWED (electronic chart updated): PAST MEDICAL HISTORY Diagnosis Date Disorder of bone and cartilage 06/16/2008 Glaucoma Unspecified essential hypertension Unspecified glaucoma(365.9) Glaucoma PAST SURGICAL HISTORY Procedure Laterality Date LIG/TRNSXJ FLP TUBE ABDL/VAG APPR UNI/BI Tubal ligation PAST SURGICAL HISTORY OF Left 03/13/2023 xen shunt RMVL SEC MEMBRANOUS CTRC CORNEO-SCLL SCTJ 08/21/2005 Cataract removal b/l FAMILY HISTORY Problem Relation Age of Onset Heart Mother Asthma Father Cervical Cancer Sister Colon Cancer Daughter Adenocarcinoma Breast Cancer Daughter Social History Tobacco Use Smoking status: Former Packs/day: 0.50 Years: 15.00 Total pack years: 7.50 Types: Cigarettes Quit date: 08/21/1997 Years since quittin.6 Smokeless tobacco: Never Vaping Use Vaping Use: Never used Substance Use Topics Alcohol use: Not Currently Comment: pt has not had ETOH in years Drug use: No Current Outpatient Medications Medication Sig ALPRAZolam 0.5 mg dissolvable tablet Bring to office for procedure. Do not take until instructed by clinical staff prednisoLONE acetate (PRED FORTE) 1 % ophthalmic suspension USE 1 DROP IN THE LEFT EYE 4 TIMES A DAY START AFTER SURGERY lidocaine (LIDODERM) 5 % Apply 1 Patch as directed every [address] patch to lower back for 12 hours. Remove for 12 hours prior to placing a new patch. allopurinol (ZYLOPRIM) 100 mg tablet Take 2.5 tablets by mouth once daily. losartan (COZAAR) 50 mg tablet Take 1 tablet by mouth once daily. omeprazole (PRILOSEC) 20 mg capsule Take 1 capsule by mouth daily before breakfast. 1/2 hr before meal. TIMOLOL OPHTHALMIC Use in eyes. latanoprost, PF, 0.005 % drop Use in eyes. (Patient not taking: Reported on 03/27/2023) atorvastatin (LIPITOR) 80 mg tablet Take by mouth. metoprolol succinate ER (TOPROL XL) 100 mg Take 1 tablet by mouth once daily. Ascorbic Acid 1,000 mg tablet Take 1 tablet by mouth once daily. aspirin, enteric coated (ASPIRIN, ENTERIC COATED) 81 mg EC tablet Take 1 tablet by mouth once daily. Magnesium Gluconate 30 mg (550 mg) tab Take 550 tablets by mouth. dorzolamide-timolol, PF, (COSOPT) 2-0.5 % ophthalmic drops 1 Drop every 12 hours. (Patient not taking: Reported on 03/27/2023) MSM-Aloe Pmxo-Nkjmdd81-Zvt Oil gel Apply 1 application to affected area once daily. acetaminophen 650 mg CR tablet Take 650 mg by mouth every 8 hours as needed. Vqagzfyfc-Fmj-FX-Lut-Zeaxanth (ICAPS MV) 100-1.66-0.83 mcg-mg-mg TbEC Take 2 tablets by mouth once daily. COMPOUNDED PRESCRIPTION Green Neri Tea one half tablet twice daily Current Facility-Administered Medications Medication Dose Route Frequency perflutren lipid microspheres 1.3 mL in NaCl (PF) 0.9% 10 mL injection (DEFINITY) INTRAVENOUS DIRECTED PRN sodium chloride 0.9 % (flush) 10 mL (BD POSIFLUSH) 10 mL INTRAVENOUS DIRECTED PRN ALLERGIES Allergen Reactions Carafate [Sucralfat* Diarrhea Meloxicam GI Upset Cri w rise creatinine, flare reflux dyspepsia Mucinex [Guaifenesi* Diarrhea Pantoprazole Diarrhea Pepcid [Famotidine * Diarrhea REVIEW OF SYSTEMS: GENERAL: feeling well without fatigue, no recent change in weight HEENT: denies GRIMM, change in hearing or vision, no other ENT complaints RESPIRATORY: no cough, no wheezing or shortness of breath CARDIOVASCULAR: no chest pain, no palpitations GI: normal appetite, tolerating PO well, BMs normal, and no abdominal pain MUSCULOSKELETA (more content not included)... [facility] 03-27-2023 Note HNO ID: [id number] Author: Leon Ibarra LPN Service: ? Author Type: LICENSED NURSE Type: Progress Notes Filed: 03/28/2023 7:26 AM Note Text: Review of Systems Constitutional: Negative for activity change, chills, fever and unexpected weight change. Genitourinary: Negative for difficulty urinating. Musculoskeletal: Positive for arthralgias, back pain, gait problem and joint swelling. Negative for myalgias, neck pain and neck stiffness. Neurological: Negative for weakness, numbness and headaches. Psychiatric/Behavioral: Positive for sleep disturbance. Negative for dysphoric mood and suicidal ideas. The patient is not nervous/anxious. [facility] 03-27-2023 Note HNO ID: [id number] Author: Lidia Crowe MD Service: ? Author Type: Physician Type: Progress Notes Filed: 03/28/2023 7:26 AM Note Text: [facility] Date: 03/27/2023 Patient name: Kailee Sam Physician performing procedure: Lidia Crowe M.D., M.B.A. Procedure: Facets Medial Branch (aka Facet Joint Nerve) Blocks under fluoroscopic guidance Levels Treated: Bilateral Lumbar L4-L5 and L5-S1 Facet Joint Nerves, aka Medial Branch(es) Approach: Bilateral Oblique Injectate: A total of 3cc, consisting of 3cc of 0.75% Bupivacaine Improvement after today's procedure: as per nursing report Diagnosis: (M47.816) Lumbar spondylosis (primary encounter diagnosis) Comments: None HPI: Kailee Sam is an 82 year old FEMALE who presents today, in pain, for the procedure noted above. Review of Systems: Pertinent Positives: MSK: pain in the region being treated Neuro: no weakness or numbness in the region being treated Skin: Negative (No itching) Eyes: Negative (No blurred or double vision) Respiratory: Negative (No Cough, Kosgxwdfe-ok-pbkwam, Dyspnea on exertion, wheezing) Cardiovascular: Negative (No Chest Pain, Tightness, Pressure, Palpitations) Gastrointestinal: Negative (No Abdominal pain, Nausea, Vomiting, Constipation, Diarrhea) Genitourinary: Negative (No dysuria) Hematologic: Negative (No bleeding, bruising) OB: is Denied or Not Applicable Endocrine: Negative (No hot/cold intolerance) Psychiatric: Negative (No depression, anxiety or suicidal ideation) PAST MEDICAL HISTORY Diagnosis Date Disorder of bone and cartilage 06/16/2008 Glaucoma Unspecified essential hypertension Unspecified glaucoma(365.9) Glaucoma PAST SURGICAL HISTORY Procedure Laterality Date LIG/TRNSXJ FLP TUBE ABDL/VAG APPR UNI/BI Tubal ligation RMVL SEC MEMBRANOUS CTRC CORNEO-SCLL SCTJ 2006 Cataract removal b/l FAMILY HISTORY Problem Relation Age of Onset Heart Mother Asthma Father Cervical Cancer Sister Colon Cancer Daughter Adenocarcinoma Breast Cancer Daughter Social History Tobacco Use Smoking status: Former Packs/day: 0.50 Years: 15.00 Total pack years: 7.50 Types: Cigarettes Quit date: 08/21/1997 Years since quittin.6 Smokeless tobacco: Never Vaping Use Vaping Use: Never used Substance Use Topics Alcohol use: Not Currently Comment: pt has not had ETOH in years Drug use: No Current Outpatient Medications on File Prior to Visit Medication Sig lidocaine (LIDODERM) 5 % Apply 1 Patch as directed every [address] patch to lower back for 12 hours. Remove for 12 hours prior to placing a new patch. allopurinol (ZYLOPRIM) 100 mg tablet Take 2.5 tablets by mouth once daily. losartan (COZAAR) 50 mg tablet Take 1 tablet by mouth once daily. omeprazole (PRILOSEC) 20 mg capsule Take 1 capsule by mouth daily before breakfast. 1/2 hr before meal. TIMOLOL OPHTHALMIC Use in eyes. latanoprost, PF, 0.005 % drop Use in eyes. atorvastatin (LIPITOR) 80 mg tablet Take by mouth. metoprolol succinate ER (TOPROL XL) 100 mg Take 1 tablet by mouth once daily. Ascorbic Acid 1,000 mg tablet Take 1 tablet by mouth once daily. aspirin, enteric coated (ASPIRIN, ENTERIC COATED) 81 mg EC tablet Take 1 tablet by mouth once daily. Magnesium Gluconate 30 mg (550 mg) tab Take 550 tablets by mouth. dorzolamide-timolol, PF, (COSOPT) 2-0.5 % ophthalmic drops 1 Drop every 12 hours. MSM-Aloe Lrho-Tqoiij78-Jcm Oil gel Apply 1 application to affected area once daily. acetaminophen 650 mg CR tablet Take 650 mg by mouth every 8 hours as needed. Paydivjxx-Bvk-HR-Lut-Zeaxanth (ICAPS MV) 100-1.66-0.83 mcg-mg-mg TbEC Take 2 tablets by mouth once daily. COMPOUNDED PRESCRIPTION Green Neri Tea one half tablet twice daily Current Facility-Administered Medications on File Prior to Visit Medication perflutren lipid microspheres 1.3 mL in NaCl (PF) 0.9% 10 mL injection (DEFINITY) sodium chloride 0.9 % (flush) 10 mL (BD POSIFLUSH) Objective Exam: Vitals: As per nursing documentation Constitutional: Normal Appearance, Oriented to Time, Place and Person Head: No lacerations, no external signs of trauma Eyes: Conjunctiva clear. No discharge from the eyes Cardiovascular: Appears well-perfused Pulmonary: Non-labored respirations Abdominal: Non-distended Skin: No visible rashes or ecchymosis Psychiatric: Mood appropriate for given condition Neurological: Gross movements are limited by pain, but otherwise unremarkable Data Reviewed: Nursing note and vitals reviewed. Additional imaging reviewed as appropriate Assessment and Plan: As noted above [facility] protocol documentation / Pre-Procedure Checklist: Consent: Obtained in writing prior to procedure I had a nice discussion with the patient today about their current pain and the pathology that could be causing i (more content not included)... [facility] 03-27-2023 Instructions Marck Lima LPN - 03/27/2023 4:00 PM EDT PROCEDURE DISCHARGE INSTRUCTIONS 03/27/2023 Kailee Sam 1940 Physician: Lidia Crowe MD Procedure: Facet Joint Injection/Medial Branch Block Post Procedure Instructions: If sedation not given, no driving for 3 hours after the procedure., Perform activities that typically make you have pain and monitor your pain level during these activities for the next 3-4 hours., Apply cold compresses to injection site if needed., If medically acceptable, take over the counter anti-inflammatories such as ibuprofen or Aleve if needed for post procedure discomfort., and No hot baths, hot tubs or hot compresses for 24 hours. If you have any of the following signs or symptoms, please call our office at Fever and/or chills Swelling and/or drainage from injection site New pain that is different than your normal pain (other than soreness at the site of the procedure) Stiff neck Shortness of breath Severe increase in pain Motor dysfunctions, such as difficulty walking, bowel or bladder dysfunction and/or incontinence Headache that is severe, light sensitive or develops when changing positions (positional headache) Nausea and/or vomiting accompanied by headache that started 24-48 hours after the procedure If you have any emergent concerns, please call 911 or go to your local emergency room. Please also contact our office to let us know you will be seeking emergency care and why. documented in this encounter [facility] 03-27-2023 Nurse Note Order has been placed in the patient's chart with the following parameters for discharge from the physician: Patient is alert and oriented Vitals: Diastolic/Systolic +/- 20mmHg Respirations: 12-18 Pulse: 60-100 SpO2 is greater than or equal to 90% Patient has no nausea or vomiting Patient has no dizziness Pain level is +/- 2 from initial evaluation Dressing, dry and intact with no evidence of bleeding Criteria has been met, patient is okay to be discharged per the physician. Physician has gone in and evaluated the patient. Dressing dry and intact. No drainage noted. The patient denies nausea, numbness, tingling, weakness, shortness of breath, dizziness, or headache. Pain level 1/10. Vital signs within normal limits. Patient denied needing walked out by clinical staff and denied needing a wheelchair. Patient given discharge instructions and sent to transportation via ambulatory method. Patient left in good condition. Procedure to be performed: L4/5 -L5/S1 Bilateral Medial Branch Block without steroid Patient was wheeled on stretcher from pre op bay to procedure room and assisted onto the procedure tablePatient s procedure was performed in an [facility] Procedure room. Pause completed at each level by provider to verify correct level and laterality placement Pressure was applied to patient s injection site(s) and bleeding was minimal. Patient had no complaint of shortness of breath, dizziness, headache, numbness, tingling, weakness or complications from procedure. Patient was assisted from the procedure table onto the stretcher and wheeled into a post op bay. Patient was advised a clinician will be to obtain another set of vitals. Time Out: 1535 Confirmed patient name, date of , procedure site, laterality, and allergies Procedure Start: 1538 Procedure End: 1551 Cable Wirer's Name: CRYSTAL Are you on a blood thinner: N If yes, is a hold required: N Last dose of blood thinner: N INR Result today: N Do you require a Lovenox bridge:N Are you a diabetic:N Are you/or could you be : N Are you taking Xanax for the procedure: N Are you currently on a steroid? N Are you currently on an antibiotic: N Have you had a COVID-19 vaccine in the last 14 days Or are you scheduled to receive one? N documented in this encounter [facility] 03-27-2023 History of Present illness Narrative Review of Systems Constitutional: Negative for activity change, chills, fever and unexpected weight change. Genitourinary: Negative for difficulty urinating. Musculoskeletal: Positive for arthralgias, back pain, gait problem and joint swelling. Negative for myalgias, neck pain and neck stiffness. Neurological: Negative for weakness, numbness and headaches. Psychiatric/Behavioral: Positive for sleep disturbance. Negative for dysphoric mood and suicidal ideas. The patient is not nervous/anxious. [facility] Date: 03/27/2023 Patient name: Kailee Sam Physician performing procedure: Lidia Crowe M.D., M.B.A. Procedure: Facets Medial Branch (aka Facet Joint Nerve) Blocks under fluoroscopic guidance Levels Treated: Bilateral Lumbar L4-L5 and L5-S1 Facet Joint Nerves, aka Medial Branch(es) Approach: Bilateral Oblique Injectate: A total of 3cc, consisting of 3cc of 0.75% Bupivacaine Improvement after today's procedure: as per nursing report Diagnosis: (M47.816) Lumbar spondylosis (primary encounter diagnosis) Comments: None HPI: Kailee Sam is an 82 year old FEMALE who presents today, in pain, for the procedure noted above. Review of Systems: Pertinent Positives: MSK: pain in the region being treated Neuro: no weakness or numbness in the region being treated Skin: Negative (No itching) Eyes: Negative (No blurred or double vision) Respiratory: Negative (No Cough, Qaakktgdk-cj-enbuil, Dyspnea on exertion, wheezing) Cardiovascular: Negative (No Chest Pain, Tightness, Pressure, Palpitations) Gastrointestinal: Negative (No Abdominal pain, Nausea, Vomiting, Constipation, Diarrhea) Genitourinary: Negative (No dysuria) Hematologic: Negative (No bleeding, bruising) OB: is Denied or Not Applicable Endocrine: Negative (No hot/cold intolerance) Psychiatric: Negative (No depression, anxiety or suicidal ideation) PAST MEDICAL HISTORY Diagnosis Date Disorder of bone and cartilage 06/16/2008 Glaucoma Unspecified essential hypertension Unspecified glaucoma(365.9) Glaucoma PAST SURGICAL HISTORY Procedure Laterality Date LIG/TRNSXJ FLP TUBE ABDL/VAG APPR UNI/BI Tubal ligation RMVL SEC MEMBRANOUS CTRC CORNEO-SCLL SCTJ 2006 Cataract removal b/l FAMILY HISTORY Problem Relation Age of Onset Heart Mother Asthma Father Cervical Cancer Sister Colon Cancer Daughter Adenocarcinoma Breast Cancer Daughter Social History Tobacco Use Smoking status: Former Packs/day: 0.50 Years: 15.00 Total pack years: 7.50 Types: Cigarettes Quit date: 08/21/1997 Years since quittin.6 Smokeless tobacco: Never Vaping Use Vaping Use: Never used Substance Use Topics Alcohol use: Not Currently Comment: pt has not had ETOH in years Drug use: No Current Outpatient Medications on File Prior to Visit Medication Sig lidocaine (LIDODERM) 5 % Apply 1 Patch as directed every [address] patch to lower back for 12 hours. Remove for 12 hours prior to placing a new patch. allopurinol (ZYLOPRIM) 100 mg tablet Take 2.5 tablets by mouth once daily. losartan (COZAAR) 50 mg tablet Take 1 tablet by mouth once daily. omeprazole (PRILOSEC) 20 mg capsule Take 1 capsule by mouth daily before breakfast. 1/2 hr before meal. TIMOLOL OPHTHALMIC Use in eyes. latanoprost, PF, 0.005 % drop Use in eyes. atorvastatin (LIPITOR) 80 mg tablet Take by mouth. metoprolol succinate ER (TOPROL XL) 100 mg Take 1 tablet by mouth once daily. Ascorbic Acid 1,000 mg tablet Take 1 tablet by mouth once daily. aspirin, enteric coated (ASPIRIN, ENTERIC COATED) 81 mg EC tablet Take 1 tablet by mouth once daily. Magnesium Gluconate 30 mg (550 mg) tab Take 550 tablets by mouth. dorzolamide-timolol, PF, (COSOPT) 2-0.5 % ophthalmic drops 1 Drop every 12 hours. MSM-Aloe Xrek-Xswhta32-Arg Oil gel Apply 1 application to affected area once daily. acetaminophen 650 mg CR tablet Take 650 mg by mouth every 8 hours as needed. Atwlakecu-Sly-NX-Lut-Zeaxanth (ICAPS MV) 100-1.66-0.83 mcg-mg-mg TbEC Take 2 tablets by mouth once daily. COMPOUNDED PRESCRIPTION Green Neri Tea one half tablet twice daily Current Facility-Administered Medications on File Prior to Visit Medication perflutren lipid microspheres 1.3 mL in NaCl (PF) 0.9% 10 mL injection (DEFINITY) sodium chloride 0.9 % (flush) 10 mL (BD POSIFLUSH) Objective Exam: Vitals: As per nursing documentation Constitutional: Normal Appearance, Oriented to Time, Place and Person Head: No lacerations, no external signs of trauma Eyes: Conjunctiva clear. No discharge from the eyes Cardiovascular: Appears well-perfused Pulmonary: Non-labored respirations Abdominal: Non-distended Skin: No visible rashes or ecchymosis Psychiatric: Mood appropriate for given condition Neurological: Gross movements are limited by pain, but otherwise unremarkable Data Reviewed: Nursing note and vitals reviewed. Additional imaging reviewed as appropriate Assessment and Plan: As noted above [facility] protocol documentation / Pre-Procedure Checklist: Consent: Obtained in writing prior to procedure I had a nice discussion with the patient today about their current pain and the pathology that could be causing it We discussed different treatment options, including risks, benefits and alternatives. We agreed to proceed as previously discussed, or the plan was modified in accordance with the comments noted above Unless stated otherwise in the procedure note, the risks include but are not limited to infection, allergic reaction, increased pain, lack of therapeutic benefit, steroid reaction, nerve damage, paralysis, stroke, epidural hematoma, syncope, headache, respiratory or cardiac arrest, pneumothorax, and scar formation Once the plan was agreed upon, the patient gave written consent to proceed and was transported into the procedure room Surgical/Procedure pause or Time Out : Time Out was led by the physician in the procedure room, with the patient and all staff present and participating The following information was verified during the Time Out process: Patient name, patient date of , procedure site (marked), laterality, anticoagulants and allergies Procedure: The patient was prepped and draped in a sterile fashion in the prone position after informed consent was signed and all patient questions were answered including the risks, benefits, alternative treatment options, and prognosis. The risks are as mentioned above, with the exception of Pneumothorax. To block the L5 dorsal rami, a spinal needle of the same dimensions as mentioned below was positioned at the junction of the superior articular process of the sacrum and the ala under biplanar fluoroscopic control. A 22 gauge, 5 inch spinal needle was inserted a few centimeters lateral to the pedicles of the remaining lumbar levels mentioned above and advanced ventral and medial through the muscles to the target point. Once the needle contacted periosteum at the superior-most medial edge of the transverse process, the C-arm was obliqued such that the axis of the lumbar facet joints could be fluoroscopically visualized, and the correct position of the needle confirmed. After contact with periosteum and negative aspirate for blood and CSF, correct placement without intravascular or epidural spread was confirmed by injecting 0.2cc of Omnipaque 300. A spot radiograph was obtained of this image. Next, a 0.5cc volume of the injectate noted above was placed. A needle was similarly directed to the other facet joint nerves mentioned above, with completion of the procedure at each level as described above. Please see the nursing note for exact times (time out, procedure start, procedure end). After careful removal of the needle, there was minimal bleeding. The injection site was covered with appropriate sterile dressing. The patient was noted to have tolerated the procedure well and was discharged after an appropriate period of post-procedure observation. The patient was instructed to contact us if there were any complications. The patient was advised to follow-up with the requesting physician within one to two weeks or as per their requested follow-up plan. Post procedure visit summary with written instructions was offered to the patient. Lidia Crowe MD, MBA Pain Management [facility] documented in this encounter [facility] 03-24-2023 Miscellaneous Notes Labs completed and resulted. Donna Cleaning MA Labs completed and in process. Donna Cleaning MA Follow up appointment with 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 and Prolia injection scheduled for 04/21/2023. Primary insurance Medicare A & B, no prior authorization is required. Lab orders have been placed and pending. Attempted to reach patient. No answer. Message left on patient's voicemail to have labs done JENNIFER. Donna Cleaning MA documented in this encounter [facility] 03-04-2023 Note [facility] 03-04-2023 History of Present illness Narrative Subjective HPI A nontoxic appearing female presents to urgent care with chief complaint of possible UTI. Duration of symptoms 2 days. Associated symptoms dysuria, frequency, and urgency. Patient has history of UTIs in past with similar signs and symptoms. Patient denies the use of any suze-mlo-htkxgjf medications or home remedies for symptom management. Patient states pain is a 4/10. Patient denies any fevers, flank pain, abdominal pain, nausea, vomiting, vaginal discharge. Risk factors chronic kidney disease. Past medical history prescription medication use allergies reviewed. .Patient presents with: UTI: Frequency and burning PAST MEDICAL HISTORY Diagnosis Date Disorder of bone and cartilage 06/16/2008 Glaucoma Unspecified essential hypertension Unspecified glaucoma(365.9) Glaucoma PAST SURGICAL HISTORY Procedure Laterality Date LIG/TRNSXJ FLP TUBE ABDL/VAG APPR UNI/BI Tubal ligation RMVL SEC MEMBRANOUS CTRC CORNEO-SCLL SCTJ 2005 Cataract removal b/l ALLERGIES Carafate [Sucralfate], Meloxicam, Mucinex [Guaifenesin], Pantoprazole, and Pepcid [Famotidine (Pf)] MEDICATIONS lidocaine (LIDODERM) 5 %^Apply 1 Patch as directed every [address] patch to lower back for 12 hours. Remove for 12 hours prior to placing a new patch.^Disp: 14 Patch^Rfl: 0 allopurinol (ZYLOPRIM) 100 mg tablet^Take 2.5 tablets by mouth once daily.^Disp: 225 tablet^Rfl: 3 losartan (COZAAR) 50 mg tablet^Take 1 tablet by mouth once daily.^Disp: 90 tablet^Rfl: 1 omeprazole (PRILOSEC) 20 mg capsule^Take 1 capsule by mouth daily before breakfast. 1/2 hr before meal.^Disp: 90 capsule^Rfl: 3 TIMOLOL OPHTHALMIC^Use in eyes.^Disp: ^Rfl: latanoprost, PF, 0.005 % drop^Use in eyes.^Disp: ^Rfl: atorvastatin (LIPITOR) 80 mg tablet^Take by mouth.^Disp: ^Rfl: metoprolol succinate ER (TOPROL XL) 100 mg^Take 1 tablet by mouth once daily.^Disp: 90 tablet^Rfl: 3 Ascorbic Acid 1,000 mg tablet^Take 1 tablet by mouth once daily.^Disp: ^Rfl: aspirin, enteric coated (ASPIRIN, ENTERIC COATED) 81 mg EC tablet^Take 1 tablet by mouth once daily.^Disp: ^Rfl: Magnesium Gluconate 30 mg (550 mg) tab^Take 550 tablets by mouth.^Disp: ^Rfl: dorzolamide-timolol, PF, (COSOPT) 2-0.5 % ophthalmic drops^1 Drop every 12 hours.^Disp: ^Rfl: MSM-Aloe Xekb-Eobcor84-Jqh Oil gel^Apply 1 application to affected area once daily.^Disp: ^Rfl: acetaminophen 650 mg CR tablet^Take 650 mg by mouth every 8 hours as needed.^Disp: ^Rfl: Efbjbygdi-Cwz-HC-Lut-Zeaxanth (ICAPS MV) 100-1.66-0.83 mcg-mg-mg TbEC^Take 2 tablets by mouth once daily.^Disp: ^Rfl: COMPOUNDED PRESCRIPTION^Green Neri Tea one half tablet twice daily^Disp: ^Rfl: 0 FAMILY HISTORY Problem Relation Age of Onset Heart Mother Asthma Father Cervical Cancer Sister Colon Cancer Daughter Adenocarcinoma Breast Cancer Daughter Social History Tobacco Use Smoking status: Former Packs/day: 0.50 Years: 15.00 Total pack years: 7.50 Types: Cigarettes Quit date: 08/21/1997 Years since quittin.5 Smokeless tobacco: Never Vaping Use Vaping Use: Never used Substance Use Topics Alcohol use: Not Currently Comment: pt has not had ETOH in years Drug use: No BP 128/90 Pulse 81 Temp 36.8 C (98.3 F) Resp 16 Wt 80.7 kg (178 lb) SpO2 97% BMI 31.53 kg/m Review of Systems Constitutional: Negative for chills, fever and malaise/fatigue. HENT: Negative for congestion, ear discharge, ear pain, sinus pain and sore throat. Eyes: Negative for blurred vision, pain, discharge and redness. Respiratory: Negative for cough, hemoptysis, sputum production, shortness of breath, wheezing and stridor. Cardiovascular: Negative for chest pain. Gastrointestinal: Negative for abdominal pain, diarrhea, nausea and vomiting. Genitourinary: Positive for dysuria, frequency and urgency. Negative for flank pain and hematuria. Musculoskeletal: Negative for myalgias. Skin: Negative for itching and rash. Neurological: Negative for dizziness and headaches. Objective Physical Exam Constitutional: General: She is not in acute distress. Appearance: She is not diaphoretic. HENT: Head: Normocephalic. Eyes: Conjunctiva/sclera: Conjunctivae normal. Pupils: Pupils are equal, round, and reactive to light. Cardiovascular: Rate and Rhythm: Normal rate and regular rhythm. Heart sounds: Normal heart sounds. Pulmonary: Effort: Pulmonary effort is normal. No tachypnea, accessory muscle usage or respiratory distress. Breath sounds: Normal breath sounds. No stridor. No wheezing, rhonchi or rales. Abdominal: General: There is no distension. Palpations: Abdomen is soft. Tenderness: There is no abdominal tenderness. There is no guarding or rebound. Musculoskeletal: Cervical back: Normal range of motion and neck supple. No edema, erythema, rigidity or tenderness. No pain with movement. Normal range of motion. Lymphadenopathy: Cervical: No cervical adenopathy. Skin: General: Skin is warm and dry. Neurological: Mental Status: She is alert and oriented to person, place, and time. ASSESSMENT/PLAN: 1. Urine frequency - ICD9: 788.41, ICD10: R35.0 - UA DIP, URINE (POC) - URINE CULTURE Leukocytes noted in urine. Positive urine culture in December of this year. Susceptible to cephalosporins. Placed on Keflex. Patient was educated on supportive therapies. Patient will follow up with primary care provider as needed. Patient was instructed to immediately proceed to emergency room for any new, worsening, or symptoms lasting longer than anticipated. The patient's clinical presentation is otherwise unremarkable at this time. Based on exam and clinical finding, the patient is stable for discharge. Plan of care was discussed with patient. Patient verbalizes understanding and agrees to plan of care. This note was generated using Glowpoint software. It may contain errors in wording, punctuation, or spelling. Ant Bates APRN.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 documented in this encounter [facility] 02-09-2023 Note HNO ID: [id number] Author: Yvonne Avendano MA Service: ? Author Type: Filler Block Inserter Remover Type: Progress Notes Filed: 02/09/2023 2:33 PM Note Text: Review of Systems Constitutional: Negative for activity change, chills, fever and unexpected weight change. Gastrointestinal: Negative for bowel retention or incontinence Genitourinary: Positive for difficulty urinating (Stage 4 Kidney disease). Negative for bladder retention or incontinence Musculoskeletal: Positive for arthralgias, back pain, gait problem, joint swelling and myalgias. Negative for neck pain and neck stiffness. Neurological: Positive for weakness. Negative for numbness and headaches. Psychiatric/Behavioral: Positive for sleep disturbance. Negative for dysphoric mood and suicidal ideas. The patient is nervous/anxious. [facility] 02-09-2023 Miscellaneous Notes Procedure(s) being scheduled: 1.Are you diabetic No 2. Are you on any blood thinners? No If yes, does it require a hold? No If yes, was approval letter sent? No 3. Are you taking any aspirin? Yes. Please list the current medications being prescribed 81 mg . 4. Are you currently taking any antibiotics? No If yes, is it prophylactic or for treatment of an infection? 5. Do you have any allergies to latex? No 6. Do you have any allergies to seafood or shellfish? No 7. Do you have any allergies to x-ray dye? No 8. Did the physician instruct you to take any medication prior to your procedure? No 9. Does this procedure require a emergency detail driver? Yes If yes, has patient been notified that a emergency detail driver is needed and must be present at check in? yes 10. Were the pre-procedure instructions explained and provided to the patient? Yes 11. Do you have a pacemaker? No 12. Do you have an internal stimulator of any kind? No If yes, please bring the remote with you to your procedure visit. 13. Have you received the COVID-19 Vaccine? No. If yes, date(s) received: (Patient should not receive a procedure including steroids 14 days prior to their first dose of the COVID vaccine. They should not receive any procedure containing steroids in the time frame between their 1st and 2nd doses of the COVID vaccine. They should not receive a procedure containing steroids 14 days after their 2nd dose of the COVID vaccine.) Kaela Phelan documented in this encounter [facility] 02-09-2023 Instructions Lidia Crowe MD - 02/09/2023 2:32 PM EDT Radiofrequency Ablation (RFA) for low back arthritis pain Start Prednisone 4 days prior to wedding, take with food documented in this encounter [facility] 02-09-2023 History of Present illness Narrative Review of Systems Constitutional: Negative for activity change, chills, fever and unexpected weight change. Gastrointestinal: Negative for bowel retention or incontinence Genitourinary: Positive for difficulty urinating (Stage 4 Kidney disease). Negative for bladder retention or incontinence Musculoskeletal: Positive for arthralgias, back pain, gait problem, joint swelling and myalgias. Negative for neck pain and neck stiffness. Neurological: Positive for weakness. Negative for numbness and headaches. Psychiatric/Behavioral: Positive for sleep disturbance. Negative for dysphoric mood and suicidal ideas. The patient is nervous/anxious. Images from the original note were not included. [facility] Today's Date: 02/09/2023 Last Visit: N/A Name: Kailee Sam : 1940 Purpose: New Patient Consultation Chief complaint: low back pain Pain Description: Timing: intermittant Character: aching Primary Location: axial low back Radiation: none Exacerbating factors: standing and walking Relieving factors: sitting and lying down Interferes with: physical activity and walking The patient denies difficulty with bowel or bladder control, unintentional weight loss, and fevers, chills, or night sweats. Notable Events During Course of Treatment: 02/09/2023 - Initial HPI: Referred by Arpita Connelly, for evaluation & management of low back pain Duration: years Sudden onset? no, Trauma? no Prior Treatments: Medications (See below), Injections (See below), Modalities (eg. Heat, Ice), Physical Therapy , Home Exercise Program , and Activity Modification Dr. Perez did left SI Joint injection in 2015, made pain worse Dr. Gary did an L4-5 Epidural Steroid Injection in 2016, worked briefly INTAKE PAIN ASSESSMENT 02/08/2023 02/09/2023 Are you having pain associated with your visit today? Yes, Provider notified Yes, Provider notified Pain Scales - Verbal (Numeric Rating or Visual Analog Scale) Pain Level - 8 Pain Location Back-Lower Back-Lower Description Aching;Pressure;Sharp;Sore;Stabbi ng/Not Incision;Stiffness Aching;Sore Duration Amount of Time - - Duration Units Months Years Frequency Intermittent Continuous Intervention/Comfort measure Medication;Relaxation;Positioning Reposition;Relaxation;Positioning Comments Mostly when I stand walk Some relief when I sit or lay down on left side - Pain Assessment - - Medications: CURRENT Pain Medications: Lidoderm Patch - no relief Tylenol 1300mg q8h PRN - no relief Pain Medications Taken TO DATE (for the chief complaint(s)): Membrane Stabilizers: none NSAIDS: Naprosyn (Naproxen) and Mobic (Meloxicam) - Stage 4 Kidney Disease Opioids: none Muscle Relaxants: Flexeril (Cyclobenzaprine) and Zanaflex (Tizanidine) Topicals: Lidoderm Patch Other Prescription or OTC Pain Medications: Tylenol (Acetaminophen) - helps a little bit Anti-depressants: Lexapro and Prozac Non-Pain Meds of Note: none Allergies: ALLERGIES Allergen Reactions Carafate [Sucralfat* Diarrhea Meloxicam GI Upset Cri w rise creatinine, flare reflux dyspepsia Mucinex [Guaifenesi* Diarrhea Pantoprazole Diarrhea Pepcid [Famotidine * Diarrhea Compliance: PDMP website checked and validated. All prescriptions have been APPROPRIATELY filled. No suspicious activity was identified. on 02/09/2023 by Lidia Crowe MD Recent Drug screens: No flowsheet data found. Risk Assessment: OPAL-7: OPAL - 7 SCORES 10/29/2018 02/09/2023 OPAL-7 Score 12 7 (0-4) minimal anxiety, (5-9) mild anxiety, (10-14) moderate anxiety, (15-21) severe anxiety PHQ-9: PHQ-9 02/23/2015 03/21/2016 02/09/2023 Score 15 4 8 (0-4) minimal depression, (5-9) mild depression, (10-14) moderate depression, (15-19) moderately severe depression, (20-27) severe depression Opioid Risk Tool: Family History of Substance Abuse: 0 - No Personal History of Substance Abuse: 0 - No Age between 16-45: 0 - No History of Pre-Adolescence Sexual Abuse: 0 - No Psychological Disease: 0 - No Risk Total: 0 Total Score Risk Category: Low Risk 0-3 (0-3, low risk or no risk; 4-7, moderate risk, 8+, high risk) Diagnostic Studies: Relevant Imaging: Reviewed Personally on today's date, noted above MRI Spine Report MRI LUMBAR SPINE WO CONTRAST Collected: 03/09/2015 2:34 PM (Final result) Narrative: * * *Final Report* * * DATE OF EXAM: Mar 09 2015 2:34PM [facility] 0560 - MRI LUMBAR SPINE WO CONTRAST / PROCEDURE REASON: Lumbosacral spondylosis without myelopathy * * * * Physician Interpretation * * * * MRI LUMBAR SPINE WO CONTRAST HISTORY: Lumbosacral spondylosis. COMPARISON: Lumbosacral radiographs 05/06/13 TECHNIQUE: Routine noncontrast lumbosacral spine MR protocol without gadolinium. RESULT: MR LUMBAR: Counting reference: Lumbosacral junction. For the purposes of this report, L4-5 is considered the level of the iliac crest. Alignment: Curvature convex right centered at L1 and convex left centered at L4-5. Bone marrow signal/fracture: Stable chronic T11 compression fracture. T2/STIR hyperintense and T1 hypointense signal associated with the endplates L1-L4 is likely degenerative in nature. No evidence for acute fracture. Intervertebral disc height is reduced from T11-L5 consistent with degenerative disc disease. There is preserved disc height at L5-S1 with patchy desiccation Conus: The conus is within normal limits of signal intensity and morphology. Paraspinal soft tissues: Fatty replacement of the paraspinal muscles, predominantly on the right, is noted. Lower thoracic spine: Visualized lower thoracic canal and foramina are patent. T10-T11: Prominent posterior superior endplate osteophyte contours the ventral thecal sac. There is a small disc bulge without associated stenosis. T11-T12: Small disc bulge without stenosis. T12-L1: Disc bulge and endplate osteophytes contouring the ventral thecal sac without associated stenosis. L1-L2: Disc bulge contouring the ventral thecal sac, ligamentum flavum thickening, and left-sided hypertrophic facet change contribute to mild to moderate central spinal stenosis. The bilateral neural foramen are patent. L2-L3: Disc bulge, ligamentum flavum thickening, and bilateral hypertrophic facet changes contribute to mild to moderate central spinal stenosis and mild bilateral neural foraminal stenosis. L3-L4: Disc bulge, ligamentum flavum thickening, and hypertrophic facet changes bilaterally contribute to severe central spinal stenosis and moderate bilateral, right greater than left, neural foraminal stenosis. L4-L5: Disc bulge and hypertrophic facet changes cause minimal central spinal stenosis. There is mild to moderate right neural foraminal stenosis. The left neural foramen is patent. L5-S1: No significant disc pathology or stenosis. There are hypertrophic facet changes bilaterally. Sacrum and iliac wings: The visualized sacrum and iliac wings are within normal limits. 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 T11 COMPRESSION FRACTURE UNCHANGED COMPARED TO PRIOR RADIOGRAPHS. Web Marketing Intern: [facility] Transcribe Date/Time: Mar 09 2015 3:10P Dictated by : NU GEE MD This examination was interpreted and the report reviewed and electronically signed by: GROVER BARAJAS MD On Mar 09 2015 3:48PM X-ray Lumbar 01/2023: The lowest lumbar type disc space is considered to be L5-S1. There is dextroscoliotic curvature of the lower thoracic and lumbar spine. Straightening of the normal lumbar lordosis on the lateral view. Normal lumbar vertebral body heights. T11 vertebral body compression fracture deformity appears unchanged. There is disc space narrowing eccentrically on the left at T12-L1, L1-2 and L2-3. Disc space narrowing on the right at L3-4 and L4-5. There are endplate osteophytes at all levels of the lumbar spine. There are multilevel facet degenerative changes. Aortic atherosclerotic calcification. Mild sacroiliac joint degenerative change. Electrodiagnostic Study (EMG): None Recent Labs: Creatinine Date Value Ref Range Status 01/02/2023 1.59 (H) 0.58 - 0.96 mg/dL Final No results found for: GFR No results found for: PCGLUCOSE Pain Procedures: DATE PROCEDURE IMPROVEMENT None to date at this practice Current Medications, Past Medical History, Past Surgical History, Family History, Social History and Review of Systems: On today's date, noted above, I have confirmed and edited as necessary, the PFSH and ROS obtained by others. Physical Exam: 02/09/23 1349 Pulse: 82 Resp: 16 SpO2: 98% Constitutional:obese Eyes: Conjunctiva clear. No discharge from eyes Cardiovascular: Appears well perfused Lymphatic: No visible regional lymphadenopathy Skin: No visible rashes or ecchymosis Psychiatric: Full affect, Alert, Pleasant Neuro-Lower: Neural Tension Signs: Negative slump in Bilateral lower limbs Sensation: intact to light touch in the L2-S2 Bilateral lower limb dermatomes Muscle Tone: Normal and symmetric throughout without clonus Strength: Iliopsoas (L2): 5 Left, 5 Right Quadriceps (L3) 5 Left, 5 Right Anterior Tibialis (L4): 5 Left, 5 Right Extensor Hallucis Longus (L5): 5 Left, 5 Right Gastrocnemius (S1): 5 Left, 5 Right Reflexes: Decreased 1+ and symmetric Patellar, Achilles Musculoskeletal-Lower: Inspection: Symmetric without atrophy Palpation: Lumbar Paraspinal Tenderness: Concordant on Bilateral side(s) Paraspinal Spasms: Mild PSIS Tenderness: None on Bilateral side(s) Greater Trochanter Tenderness: Discordant on Bilateral side(s) Spine Range of Motion: Flexion: Decreased 50% With end range pain Extension: Decreased 50% With end range pain Combination extension and rotation pain: Concordant Hip Range of Motion: Right Hip: Internal Rotation: Normal; Pain at end range: None External Rotation: Normal; Pain at end range: None Left Hip: Internal Rotation: Normal; Pain at end range: None External Rotation: Normal; Pain at end range: None Sacroiliac Maneuvers: Deferred Diagnoses: (M54.16) Lumbar radiculopathy (primary encounter diagnosis) (M51.36) DDD (degenerative disc disease), lumbar (M47.9) Spondylosis (M54.50, G89.29) Chronic midline low back pain without sciatica Pertinent Past Medical History: HTN, Cardiomyopathy, GERD, CKD Stage 4, Hypercalcemia, Glaucoma, Gout Impression: 82 year old female presents with complaint(s) of axial low back pain, facet-mediated, there is spinal stenosis on imaging at L3-4 > L4-5, a component of claudication. Plan: Kailee Sam would benefit from the following to reach personal goals for decreasing pain, improving function and work participation, and/or improving quality of life: -Interventional Procedure: Medial branch blocks bilateral L4-5 and L5-S1 under fluoroscopic guidance x2, RFA if positive x2 The risks, benefits, alternative treatment options and prognosis of the procedure were discussed and all of the patient's questions/concerns were addressed to the patient s satisfaction. Patient was advised that they will need a emergency detail driver for after the procedure and that if no emergency detail driver is available and on site at the time of the procedure, the procedure will be cancelled. For any anticoagulants, the patient was advised on whether to continue or hold for this procedure. The patient expressed understanding and gave verbal consent to proceed. Medication(s): Advised no more than 1000mg Tylenol TID Prednisone 50mg x 7 days (start 4 days prior to wedding) Additional Studies: none Referrals: No additional considerations at present [facility]: No changes-continue current regimen Depending on response to the above plan, consider: Neurontin; epidural steroid injection -Follow-up: 3 months Attribution: In addition to reviewing the information noted above, some elements copied from my most recent clinical note(s), including the physical exam (completed in entirety today), and the impression and plan sections, have been updated where appropriate. All reflect current medical decision making from today's date. Lidia Crowe MD Pain Management [facility] documented in this encounter [facility] 02-09-2023 Note HNO ID: [id number] Author: Lidia Crowe MD Service: ? Author Type: Physician Type: Progress Notes Filed: 02/09/2023 2:33 PM Note Text: [facility] Today's Date: 02/09/2023 Last Visit: N/A Name: Kailee Sam : 1940 Purpose: New Patient Consultation Chief complaint: low back pain Pain Description: Timing: intermittant Character: aching Primary Location: axial low back Radiation: none Exacerbating factors: standing and walking Relieving factors: sitting and lying down Interferes with: physical activity and walking The patient denies difficulty with bowel or bladder control, unintentional weight loss, and fevers, chills, or night sweats. Notable Events During Course of Treatment: 02/09/2023 - Initial HPI: Referred by Arpita Connelly, for evaluation AND management of low back pain Duration: years Sudden onset? no, Trauma? no Prior Treatments: Medications (See below), Injections (See below), Modalities (eg. Heat, Ice), Physical Therapy , Home Exercise Program , and Activity Modification Dr. Perez did left SI Joint injection in 2014, made pain worse Dr. Gary did an L4-5 Epidural Steroid Injection in 2015, worked briefly INTAKE PAIN ASSESSMENT 02/08/2023 02/09/2023 Are you having pain associated with your visit today? Yes, Provider notified Yes, Provider notified Pain Scales - Verbal (Numeric Rating or Visual Analog Scale) Pain Level - 8 Pain Location Back-Lower Back-Lower Description Aching;Pressure;Sharp;Sore;Stabbi ng/Not Incision;Stiffness Aching;Sore Duration Amount of Time - - Duration Units Months Years Frequency Intermittent Continuous Intervention/Comfort measure Medication;Relaxation;Positioning Reposition;Relaxation;Positioning Comments Mostly when I stand walk Some relief when I sit or lay down on left side - Pain Assessment - - Medications: CURRENT Pain Medications: Lidoderm Patch - no relief Tylenol 1300mg q8h PRN - no relief Pain Medications Taken TO DATE (for the chief complaint(s)): Membrane Stabilizers: none NSAIDS: Naprosyn (Naproxen) and Mobic (Meloxicam) - Stage 4 Kidney Disease Opioids: none Muscle Relaxants: Flexeril (Cyclobenzaprine) and Zanaflex (Tizanidine) Topicals: Lidoderm Patch Other Prescription or OTC Pain Medications: Tylenol (Acetaminophen) - helps a little bit Anti-depressants: Lexapro and Prozac Non-Pain Meds of Note: none Allergies: ALLERGIES Allergen Reactions Carafate [Sucralfat* Diarrhea Meloxicam GI Upset Cri w rise creatinine, flare reflux dyspepsia Mucinex [Guaifenesi* Diarrhea Pantoprazole Diarrhea Pepcid [Famotidine * Diarrhea Compliance: PDMP website checked and validated. All prescriptions have been APPROPRIATELY filled. No suspicious activity was identified. on 02/09/2023 by Lidia Crowe MD Recent Drug screens: No flowsheet data found. Risk Assessment: OPAL-7: OPAL - 7 SCORES 10/29/2018 02/09/2023 OPAL-7 Score 12 7 (0-4) minimal anxiety, (5-9) mild anxiety, (10-14) moderate anxiety, (15-21) severe anxiety PHQ-9: PHQ-9 02/23/2015 03/21/2016 02/09/2023 Score 15 4 8 (0-4) minimal depression, (5-9) mild depression, (10-14) moderate depression, (15-19) moderately severe depression, (20-27) severe depression Opioid Risk Tool: Family History of Substance Abuse: 0 - No Personal History of Substance Abuse: 0 - No Age between 16-45: 0 - No History of Pre-Adolescence Sexual Abuse: 0 - No Psychological Disease: 0 - No Risk Total: 0 Total Score Risk Category: Low Risk 0-3 (0-3, low risk or no risk; 4-7, moderate risk, 8+, high risk) Diagnostic Studies: Relevant Imaging: Reviewed Personally on today's date, noted above MRI Spine Report MRI LUMBAR SPINE WO CONTRAST Collected: 03/09/2015 2:34 PM (Final result) Narrative: * * *Final Report* * * DATE OF EXAM: Mar 09 2015 2:34PM [facility] 0560 - MRI LUMBAR SPINE WO CONTRAST / PROCEDURE REASON: Lumbosacral spondylosis without myelopathy * * * * Physician Interpretation * * * * MRI LUMBAR SPINE WO CONTRAST HISTORY: Lumbosacral spondylosis. COMPARISON: Lumbosacral radiographs 05/06/13 TECHNIQUE: Routine noncontrast lumbosacral spine MR protocol without gadolinium. RESULT: MR LUMBAR: Counting reference: Lumbosacral junction. For the purposes of this report, L4-5 is considered the level of the iliac crest. Alignment: Curvature convex right centered at L1 and convex left centered at L4-5. Bone marrow signal/fracture: Stable chronic T11 compression fracture. T2/STIR hyperintense and T1 hypointense signal associated with the endplates L1-L4 is likely degenerative in nature. No evidence for acute fracture. Intervertebral disc height is reduced from T11-L5 consistent with degenerative disc disease. There is preserved disc height at L5-S1 with patchy desiccation Conus: The conus is within normal limits of signal intensity and morphology. (more content not included)... [facility] 01-25-2023 Note [facility] 01-25-2023 Note [facility] 01-25-2023 History of Present illness Narrative CC: Patient presents with: Recheck: Discuss back pain HPI Kailee Sam is a 82 year old female who presents with chronic low back pain Chronic pain to entire lower back. Has history of spinal spondylosis and used to get steroid injections which were helpful but has not had this completed in years. Pain has slowly been worsening over the past few years and granddaughter is getting at the end of February and is concerned of not being able to walk down aisle because of pain. Last xray of back was 6 years ago. Had an MRI in 2014 showing a t11 compression fracture from a fall in the bath tub. Does have osteoporosis and gets prolia injections for this. Pain is worsened with walking and standing. Relieved with sitting and laying on side. Pain is described as an ache without any radiation. Denies any new weakness, numbness, tingling, or loss of bowel/bladder control. Has tried pain medicine and muscle relaxers in the past but does not tolerate them. Is unable to take any anti-inflammatories because of her kidney function. REVIEW OF SYSTEMS General: no fevers, no chills, no night sweats, no recurrent infections, no change in appetite, no change in energy, and no significant changes in weight Respiratory: Negative for Cough; , Wheezing, Shortness of breath Cardiovascular: Negative for: no chest pain, no chest pressure, no palpitations, and no swelling GI: No nausea, vomiting, or diarrhea : no current difficulty or pain urinating, denies dark or foul smelling urine Skin: Negative for lesions, rash, and itching PAST MEDICAL HISTORY Diagnosis Date Disorder of bone and cartilage 06/16/2008 Glaucoma Unspecified essential hypertension Unspecified glaucoma(365.9) Glaucoma PAST SURGICAL HISTORY Procedure Laterality Date LIG/TRNSXJ FLP TUBE ABDL/VAG APPR UNI/BI Tubal ligation RMVL SEC MEMBRANOUS CTRC CORNEO-SCLL SCTJ 2006 Cataract removal b/l ALLERGIES Carafate [Sucralfate], Meloxicam, Mucinex [Guaifenesin], Pantoprazole, and Pepcid [Famotidine (Pf)] MEDICATIONS betamethasone dipropionate, augmented (DIPROLENE) 0.05 % cream^Apply to affected area twice daily.^Disp: 15 g^Rfl: 1 allopurinol (ZYLOPRIM) 100 mg tablet^Take 2.5 tablets by mouth once daily.^Disp: 225 tablet^Rfl: 3 losartan (COZAAR) 50 mg tablet^Take 1 tablet by mouth once daily.^Disp: 90 tablet^Rfl: 1 omeprazole (PRILOSEC) 20 mg capsule^Take 1 capsule by mouth daily before breakfast. 1/2 hr before meal.^Disp: 90 capsule^Rfl: 3 TIMOLOL OPHTHALMIC^Use in eyes.^Disp: ^Rfl: latanoprost, PF, 0.005 % drop^Use in eyes.^Disp: ^Rfl: atorvastatin (LIPITOR) 80 mg tablet^Take by mouth.^Disp: ^Rfl: metoprolol succinate ER (TOPROL XL) 100 mg^Take 1 tablet by mouth once daily.^Disp: 90 tablet^Rfl: 3 Ascorbic Acid (VITAMIN C) 1,000 mg tablet^Take 1 tablet by mouth once daily.^Disp: ^Rfl: aspirin, enteric coated (ASPIRIN, ENTERIC COATED) 81 mg EC tablet^Take 1 tablet by mouth once daily.^Disp: ^Rfl: Magnesium Gluconate 30 mg (550 mg) tab^Take 550 tablets by mouth.^Disp: ^Rfl: dorzolamide-timolol, PF, (COSOPT) 2-0.5 % ophthalmic drops^1 Drop every 12 hours.^Disp: ^Rfl: MSM-Aloe Hhwe-Duhnas07-Aph Oil (DEEP BLUE RELIEF) gel^Apply 1 application to affected area once daily.^Disp: ^Rfl: acetaminophen (TYLENOL ARTHRITIS PAIN) 650 mg CR tablet^Take 650 mg by mouth every 8 hours as needed.^Disp: ^Rfl: Qcqbkzzgw-Eje-CJ-Lut-Zeaxanth (ICAPS MV) 100-1.66-0.83 mcg-mg-mg TbEC^Take 2 tablets by mouth once daily.^Disp: ^Rfl: COMPOUNDED PRESCRIPTION^Green Neri Tea one half tablet twice daily^Disp: ^Rfl: 0 FAMILY HISTORY Problem Relation Age of Onset Heart Mother Asthma Father Cervical Cancer Sister Colon Cancer Daughter Adenocarcinoma Breast Cancer Daughter Social History Tobacco Use Smoking status: Former Packs/day: 0.50 Years: 15.00 Pack years: 7.50 Types: Cigarettes Quit date: 08/21/1997 Years since quittin.4 Smokeless tobacco: Never Substance Use Topics Alcohol use: Not Currently Comment: pt has not had ETOH in years Drug use: No PHYSICAL EXAM BP 138/82 Pulse 84 Resp 16 Wt 82.1 kg (181 lb) BMI 32.06 kg/m General Appearance: well appearing, in no acute distress, alert Skin: Skin color, texture, turgor normal for age; Back: slight s curvature to lower spine as a result of known scoliosis noted on inspection. No tenderness with palpation of spine or with palpation of paraspinal muscles. ROM: limited as ROM is painful. Reflexes:2+. Muscle strength: 5/5 lower, bilaterally.. Lungs: Lungs clear to auscultation. No wheezing, rhonchi, rales. Heart: RRR without murmur, gallop, or rubs. No ectopy Abdomen: Abdomen soft, non-tender. Bowel sounds normal. No masses, organomegaly Extremities: No deformities, edema, skin discoloration, clubbing or cyanosis. Good capillary refill. Musculoskeletal: No joint swelling, deformity, or tenderness DATA REVIEWED: No new labs ASSESSMENT/PLAN: 1. Chronic midline low back pain without sciatica - ICD9: 724.2, 338.29, ICD10: M54.50, G89.29 (primary diagnosis) - no new injury or concerns but as pain has steadily been increasing will get updated imaging - no red flag symptoms noted - lidocaine patches as ordered - CONSULT TO PHYSICAL THERAPY - about to have eye surgery so will schedule once able to be active post surgery - CONSULT TO PAIN MGT - XR LUMBAR GENERAL 3V AP/LAT/L5-S1 Follow up in 3 months - go to ER for increased pain,weakness, numbness, loss of control of bowel or bladder, or any other urgent concerns. 2. DDD (degenerative disc disease), lumbar - ICD9: 722.52, ICD10: M51.36 As above - CONSULT TO PHYSICAL THERAPY - CONSULT TO PAIN MGT - XR LUMBAR GENERAL 3V AP/LAT/L5-S1 3. Spondylosis - ICD9: 721.90, ICD10: M47.9 See #1 - CONSULT TO PHYSICAL THERAPY - CONSULT TO PAIN MGT - XR LUMBAR GENERAL 3V AP/LAT/L5-S1 Prescription instructions reviewed with patient as applicable. Potential red flag symptoms discussed with the patient. Reviewed appropriate action plan to take if red flag symptoms occur. Patient agreeable to treatment plan. Arpita Connelly APRN.CNP documented in this encounter [facility] 01-11-2023 Note [facility] 12-12-2022 Miscellaneous Notes Pt called and she is taking 2.5 tablets daily. Patient has been identified by name and date of : Yes, Provider Gianna Chino Date 12/12/22 Time 9:23 am Patient phones for refill(s): Requested Prescriptions Pending Prescriptions Disp Refills allopurinol (ZYLOPRIM) 100 mg tablet 225 tablet 3 Sig: Take 2.5 tablets by mouth once daily. Date of last office visit in primary care: 11/11/22 next apt 01/11/23 Last 2 Encounter Wt Readings: Date: Wt: 11/11/2022 80.3 kg (177 lb) 10/19/2022 78.5 kg (173 lb) Previous labs/tests for medication: Not applicable Deana Anthony LPN documented in this encounter [facility] 11-15-2022 Miscellaneous Notes Patient calling in, given below results/recommendations, verbalized understanding. Kalpana Bardales LPN documented in this encounter [facility] 11-11-2022 Note [facility] 11-11-2022 History of Present illness Narrative CC: Patient presents with: Recheck: Follow up, review results HPI Kailee Sam is a 82 year old female who presents today to review lab work and US. Has had continued decrease in kidney function with most recent GFR 26. Previous to this GFR was variable in the 30s. Has had multiple infections in the last few months with UTI and COVID, but kidney function is not improving. Patient is on large dose of allopurinol but rheumatology requesting not to decrease dose at this time as her Gout becomes so severe. Is also supposed to be having a CT done to check carotid flow ordered by vascular which patient does not want done until her kidney function improves. Renal US completed showing renal cortical scarring. A few days ago had burning with urination and increased urinary frequency but self resolved. Denies any current dysuria, fever, chills, change in energy, or other concern. Even states she is feeling better and breathing has returned to baseline since having COVID. REVIEW OF SYSTEMS General: no fevers, no chills, no night sweats, no recurrent infections, no change in appetite, no change in energy, and no significant changes in weight Respiratory: no cough, no wheezing, no hemoptysis Cardiovascular: no chest pain, no chest pressure, no palpitations, and no swelling GI: No nausea, vomiting, or diarrhea : See HPI Neurologic: No headache, weakness, numbness, tingling, dizziness, memory loss, syncope. PAST MEDICAL HISTORY Diagnosis Date Disorder of bone and cartilage 06/16/2008 Glaucoma Unspecified essential hypertension Unspecified glaucoma(365.9) Glaucoma PAST SURGICAL HISTORY Procedure Laterality Date LIG/TRNSXJ FLP TUBE ABDL/VAG APPR UNI/BI Tubal ligation RMVL SEC MEMBRANOUS CTRC CORNEO-SCLL SCTJ 2006 Cataract removal b/l ALLERGIES Carafate [Sucralfate], Meloxicam, Mucinex [Guaifenesin], Pantoprazole, and Pepcid [Famotidine (Pf)] MEDICATIONS losartan (COZAAR) 50 mg tablet^Take 1 tablet by mouth once daily.^Disp: 90 tablet^Rfl: 1 omeprazole (PRILOSEC) 20 mg capsule^Take 1 capsule by mouth daily before breakfast. 1/2 hr before meal.^Disp: 90 capsule^Rfl: 3 allopurinol (ZYLOPRIM) 100 mg tablet^Take 1 tablet by mouth once daily.^Disp: 90 tablet^Rfl: 3 TIMOLOL OPHTHALMIC^Use in eyes.^Disp: ^Rfl: latanoprost, PF, 0.005 % drop^Use in eyes.^Disp: ^Rfl: atorvastatin (LIPITOR) 80 mg tablet^Take by mouth.^Disp: ^Rfl: metoprolol succinate ER (TOPROL XL) 100 mg^Take 1 tablet by mouth once daily.^Disp: 90 tablet^Rfl: 3 Ascorbic Acid (VITAMIN C) 1,000 mg tablet^Take 1 tablet by mouth once daily.^Disp: ^Rfl: aspirin, enteric coated (ASPIRIN, ENTERIC COATED) 81 mg EC tablet^Take 1 tablet by mouth once daily.^Disp: ^Rfl: Magnesium Gluconate 30 mg (550 mg) tab^Take 550 tablets by mouth.^Disp: ^Rfl: dorzolamide-timolol, PF, (COSOPT) 2-0.5 % ophthalmic drops^1 Drop every 12 hours.^Disp: ^Rfl: MSM-Aloe Cvgo-Xqattx36-Oxb Oil (DEEP BLUE RELIEF) gel^Apply 1 application to affected area once daily.^Disp: ^Rfl: acetaminophen (TYLENOL ARTHRITIS PAIN) 650 mg CR tablet^Take 650 mg by mouth every 8 hours as needed.^Disp: ^Rfl: Gdirrnbas-Wpp-OI-Lut-Zeaxanth (ICAPS MV) 100-1.66-0.83 mcg-mg-mg TbEC^Take 2 tablets by mouth once daily.^Disp: ^Rfl: COMPOUNDED PRESCRIPTION^Green Neri Tea one half tablet twice daily^Disp: ^Rfl: 0 FAMILY HISTORY Problem Relation Age of Onset Heart Mother Asthma Father Cervical Cancer Sister Colon Cancer Daughter Adenocarcinoma Breast Cancer Daughter Social History Tobacco Use Smoking status: Former Packs/day: 0.50 Years: 15.00 Pack years: 7.50 Types: Cigarettes Quit date: 08/21/1997 Years since quittin.2 Smokeless tobacco: Never Substance Use Topics Alcohol use: Not Currently Comment: pt has not had ETOH in years Drug use: No PHYSICAL EXAM BP 136/84 Pulse 90 Temp 36.3 C (97.3 F) (Temporal) Resp 16 Wt 80.3 kg (177 lb) SpO2 99% BMI 31.35 kg/m General Appearance: well appearing, in no acute distress, alert Skin: Skin color, texture, turgor normal for age; Eyes: conjunctiva pink and moist, no icterus, sclera white, non-injected Lungs: Lungs clear to auscultation. No wheezing, rhonchi, rales. Heart: RRR without murmur, gallop, or rubs. No ectopy Abdomen: Abdomen soft, non-tender. Bowel sounds normal. No masses, organomegaly BUE Extremities: No deformities, edema, skin discoloration, clubbing or cyanosis. Good capillary refill. Health maintenance reviewed with patient: BP CONTROLLED (<130/80) Never done ADVANCE DIRECTIVE DISCUSSION due on 08/21/2022 DEPRESSION ASSESSMENT due on 08/21/2022 DTAP,TDAP,TD(1 - Tdap) due on 05/05/2023 SHINGRIX VACCINE(1 of 2) due on 05/05/2023 FECAL OCCULT BLOOD due on 08/08/2023 ANNUAL PCP TEAM CHRONIC DISEASE VISIT due on 10/13/2023 SERUM CREATININE due on 10/13/2023 HEMOGLOBIN/HEMATOCRIT due on 10/13/2023 DIABETES SCREEN due on 10/13/2025 BONE DENSITY Completed INFLUENZA Completed COVID-19 VACCINE Completed PNEUMOCOCCAL: 65+ Completed DATA REVIEWED: Most recent labs and imaging results. ASSESSMENT/PLAN: 1. Function kidney decreased - ICD9: 593.9, ICD10: N28.9 (primary diagnosis) - will have patient see nephrology for further evaluation. Discussed importance of CT scan and discussed that with decreased kidney function, people are typically given fluids before and after contrast to prevent danger to her kidneys. - CONSULT TO NEPHROLOGY 2. Abnormal urine - ICD9: 791.9, ICD10: R82.90 - if patient continues with urinary tract infections, she will need to see urology for further evaluation. Will treat if indicated. - UA positive for small amount of leukocytes and protein will evaluate further. - URINALYSIS, WITH MICROSCOPIC - URINE CULTURE 3. Dysuria - ICD9: 788.1, ICD10: R30.0 As above - UA DIP, URINE (POC) - URINALYSIS, WITH MICROSCOPIC - URINE CULTURE Prescription instructions reviewed with patient as applicable. Potential red flag symptoms discussed with the patient. Reviewed appropriate action plan to take if red flag symptoms occur. Patient agreeable to treatment plan. Arpita Connelly APRN.CNP documented in this encounter [facility] 11-07-2022 Miscellaneous Notes Last seen [facility] 10/13/22. Next appt is 11/11/22. Patient is asking for 90 day supplies of both medications. Patient has been identified by name and date of : Yes Requested Prescriptions Pending Prescriptions Disp Refills losartan (COZAAR) 50 mg tablet Sig: Take 1 tablet by mouth once daily. omeprazole (PRILOSEC) 20 mg capsule 90 capsule 1 Sig: Take 1 capsule by mouth daily before breakfast. 1/2 hr before meal. RX INSTRUCTIONS: Patient aware RX will be sent to pharmacy. No need to notify patient. Leona Patten Pss documented in this encounter [facility] 11-04-2022 Miscellaneous Notes Patient notified of results, verbalizes understanding of instructions. Donna Cleaning MA ----- Message from Dionisio Omer MD sent at 11/03/2022 5:09 PM EDT ----- Please let her know the vitamin D level remains borderline higher than normal. I'd like her to continue holding any extra vitamin D supplementation for now. I'd like that level to be lower before we resume any vit D supplementation. Please have a repeat blood test in 4 weeks to recheck the level, the order is in. No need to be fasting. Thanks. documented in this encounter [facility] 10-31-2022 Note [facility] 10-31-2022 History of Present illness Narrative Radiology Service Progress Note PATIENT NAME: Kailee Sam DATE OF SERVICE: October 31, 2022 TIME: 11:24 AM PATIENT IDENTITY VERIFICATION COMPLETED USING TWO (2) IDENTIFIERS: Name and Date of confirmed by patient verbally. FALL SCREENING: Has the patient had 2 falls in the last year or 1 fall with injury or currently using an Ambulatory Assistive Device (Walker, Cane, Wheelchair, Crutches, etc.)? No PATIENT GENDER DATA: Female. status: : No status: NO. PATIENT RELEVANT IMPLANT DATA REVIEWED: Not Applicable RADIOLOGY DEPARTMENT: Bone Density PERIPHERAL IV DATA: Not applicable SIGNED BY: RT Lizy(R) October 31, 2022 11:24 AM documented in this encounter [facility] 10-27-2022 Miscellaneous Notes Patient has been notified of message below and verbalized understanding. Evita Posada MA Please let her know Dr. Katz agrees with continuing the allopurinol dose 250mg/day unchanged. Thanks. I agree, with Dr Delcid recommendations Regards, Sylvie Katz MD Good Afternoon, Patient returned phone call and relayed message back to patient. She verbalized understanding. Thank You Attempted to reach patient. No answer. LMTCB. It is okay for PSR to relay message as written below. Thanks, Donna Cleaning MA Please let her know that I had sent my 10/19 note with a message to Riana Connelly, but hadn't heard back. Will copy her primary care on to this message to try again. Will update her with what we hear back Dr. Katz or Godwin Hi, I saw her in rheum on 10/19 and read your phone note to her about the results per her inquiry about the renal fcn. I think it would be ok to continue the original dose of allopurinol 200mg/day in this setting rather than reduce the dose. If you still would like to reduce the dose, let me know and we can let her know to do so (I had advise holding off for now until touching base w/you). We typically continue allopurinol unchanged with renal dysfcn. Dionisio Wall Good Morning, Patient was calling in that her Primary Provider Arpita Connelly was telling her to stop the medication Allopurinol, but Dr. Goddard wanted her to stay on. She is taking 2 1/2 tablets a day 100mg. Patient is asking if Dr. Omer can call her Primary that she still wants her to stay on the medication. Can someone please contact Patient once the Provider has been contacted? Thank You documented in this encounter [facility] 10-27-2022 Note [facility] 10-27-2022 History of Present illness Narrative Radiology Service Progress Note PATIENT NAME: Kailee Sam DATE OF SERVICE: October 27, 2022 TIME: 11:53 AM PATIENT IDENTITY VERIFICATION COMPLETED USING TWO (2) IDENTIFIERS: Name and Date of confirmed by patient verbally. FALL SCREENING: Has the patient had 2 falls in the last year or 1 fall with injury or currently using an Ambulatory Assistive Device (Walker, Cane, Wheelchair, Crutches, etc.)? No PATIENT GENDER DATA: Female. status: : No status: NO. PATIENT RELEVANT IMPLANT DATA REVIEWED: Not Applicable RADIOLOGY DEPARTMENT: Ultrasound PERIPHERAL IV DATA: Not applicable SIGNED BY: Sadaf Benson RDMS RVT October 27, 2022 11:53 AM documented in this encounter [facility] 10-20-2022 Miscellaneous Notes Orders Placed. Arpita Connelly APRN.CNP Patient in lobby here to give another urine sample due to not able to give enough urine last time in. Order needs placed again. Please review and advise. documented in this encounter [facility] 10-19-2022 Miscellaneous Notes Noted. Arpita Connelly APRN.CNP Patient notified, was seeing Dr Omer when results came in and Dr Omer does not want her to cut back on Allopurinol at this time. Patient states Dr will be messaging you. Please let patient know there has not been any improvement to her kidney function. This may still be from her recent COVID, UTI, and sinus infection, but I am ordering an US of her kidneys, and would like her to get the urine samples completed to further look into this. I am decreasing her allopurinol to 1 tablet a day until this improves. She needs to stay hydrated and void and anitinflammatory medications. Thank you Arpita Connelly APRN.CNP Pt calling to get results of blood work. Please advise. She is going to get a prolia injection and wanted to know what her results are. Please advise pt. Deana Anthony LPN documented in this encounter [facility] 10-19-2022 Note [facility] 10-19-2022 Instructions Dionisio Omer MD - 10/19/2022 1:55 PM EST Your next set of labs are due around March 2023 in preparation for the April 2023 prolia injection. Lab orders are in the system so please have the blood draw done then. If we don't have the lab results of the blood draw in time, this may affect your ability to receive the prolia injection at the next appointment. You do not need to be fasting for the blood draw. documented in this encounter [facility] 10-19-2022 History of Present illness Narrative On 10/19/2022, I had the pleasure of seeing Kailee Sam at the [facility] for follow-up of osteoporosis and tophaceous gout. HPI: To review, Kailee Sam is a 82 year old female - In Jun, received one dose of reclast 5mg IV. - In Jul, presented with pain and swelling of the hands and knees. 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 Started on allopurinol. - On 09/24/18, started prolia. Has received in Sep, Mar, Sep, Mar, Sep and Mar (04/18) - In Mar, reported she was unable to afford otezla with the assistance program. Did not wish to start arava given c/f immunosuppression - Interim covid - Today, reports no interim fracture, infection, jaw pain or recent/plans for any invasive dental procedures (has upper/lower dentures) - Was advised last month to hold vit D given high level 100. PAST MEDICAL HISTORY Diagnosis Date Disorder of bone and cartilage 06/16/2008 Glaucoma Unspecified essential hypertension Unspecified glaucoma(365.9) Glaucoma Stage 3 CKD PAST SURGICAL HISTORY Procedure Laterality Date LIG/TRNSXJ FLP TUBE ABDL/VAG APPR UNI/BI Tubal ligation RMVL SEC MEMBRANOUS CTRC CORNEO-SCLL SCTJ 2006 Cataract removal b/l ALLERGIES Allergen Reactions Carafate [Sucralfat* Diarrhea Meloxicam GI Upset Cri w rise creatinine, flare reflux dyspepsia Mucinex [Guaifenesi* Diarrhea Pantoprazole Diarrhea Pepcid [Famotidine * Diarrhea MEDICATIONS: Current Outpatient Medications Medication Sig atorvastatin (LIPITOR) 80 mg tablet Take by mouth. metoprolol succinate ER (TOPROL XL) 100 mg Take 1 tablet by mouth once daily. Ascorbic Acid (VITAMIN C) 1,000 mg tablet Take 1 tablet by mouth once daily. aspirin, enteric coated (ASPIRIN, ENTERIC COATED) 81 mg EC tablet Take 1 tablet by mouth once daily. Magnesium Gluconate 30 mg (550 mg) tab Take 550 tablets by mouth. losartan (COZAAR) 50 mg tablet Take 1 tablet by mouth once daily. omeprazole (PRILOSEC) 20 mg capsule Take 1 capsule by mouth daily before breakfast. 1/2 hr before meal. allopurinol (ZYLOPRIM) 100 mg tablet TAKE 2 & 1/2 TABLETS BY MOUTH EVERY DAY dorzolamide-timolol, PF, (COSOPT) 2-0.5 % ophthalmic drops 1 Drop every 12 hours. MSM-Aloe Fids-Olytza48-Ucz Oil (DEEP BLUE RELIEF) gel Apply 1 application to affected area once daily. acetaminophen (TYLENOL ARTHRITIS PAIN) 650 mg CR tablet Take 650 mg by mouth every 8 hours as needed. [place]-Pim-SJ-Lut-Zeaxanth (ICAPS MV) 100-1.66-0.83 mcg-mg-mg TbEC Take 2 tablets by mouth once daily. COMPOUNDED PRESCRIPTION Green Neri Tea one half tablet twice daily Current Facility-Administered Medications Medication Dose Route Frequency perflutren lipid microspheres 1.3 mL in NaCl (PF) 0.9% 10 mL injection (DEFINITY) INTRAVENOUS DIRECTED PRN sodium chloride 0.9 % (flush) 10 mL (BD POSIFLUSH) 10 mL INTRAVENOUS DIRECTED PRN FAMILY HISTORY Problem Relation Age of Onset Heart Mother Asthma Father Cervical Cancer Sister Colon Cancer Daughter Adenocarcinoma Breast Cancer Daughter M-arthritis SOCIAL HISTORY: Lives in [place] with spouse Tobacco use: None Alcohol use: None REVIEW OF SYSTEMS: reviewed 06/03 systems, as above PHYSICAL EXAM: VITALS: Blood pressure 159/86, pulse 88, temperature 36.4 C (97.5 F), temperature source Temporal, height 160 cm (5' 3 ), weight 78.5 kg (173 lb). CONSTITUTIONAL: Well-appearing, in NAD. SKIN: No rash. No alopecia. No sclerodactyly, calcinosis, telangiectasias, digital ulcers, or skin thickening. EYES: No scleral icterus or conjunctivitis ENT and Mouth: External ears normal. Nares normal. RESPIRATORY: Normal breath sounds, clear to auscultation. CARDIOVASCULAR: Regular rate and rhythm, no murmurs or rubs EXTREMITIES/LYMPH: No edema bilaterally NEURO: Awake, alert and oriented MUSCULOSKELETAL: JOINT APPEARANCE: Heberden's and Janae's nodes present bilaterally. No erythema or warmth of any upper or lower extremity joint. RANGE OF MOTION: Able to fully fists bilaterally. SWOLLEN JOINTS/SYNOVITIS: No synovitis of any joint. TENDER JOINTS: None LABORATORY: Component Latest Ref Rng & Units 09/28/2022 09/29/2022 10/13/2022 WBC 3.70 - 11.00 k/uL 8.04 RBC 3.90 - 5.20 m/uL 3.78 (L) Hemoglobin 11.5 - 15.5 g/dL 11.2 (L) Platelet Count 150 - 400 k/uL 219 Creatinine 0.58 - 0.96 mg/dL 1.94 (H) Sodium 136 - 144 mmol/L 140 Potassium 3.7 - 5.1 mmol/L 5.0 Chloride 97 - 105 mmol/L 111 (H) CO2 22 - 30 mmol/L 18 (L) Anion Gap 9 - 18 mmol/L 11 Calcium 8.5 - 10.2 mg/dL 9.5 eGFR >=60 mL/min/1.73m 26 (L) Vitamin D 25 Hydroxy 31.0 - 80.0 ng/mL 100.0 (H) Uric Acid 2.5 - 6.6 mg/dL 5.4 Cross-Link N-telopeptide 5.0 - 65.0 nM BCE/mM Creatinine 14.3 Creatinine, Ur Random (UCRR) 20.0 - 300.0 mg/dL 169.3 STUDIES: *October DEXA- IMPRESSION: Significant improvement in all areas Osteopenia in the right hip and bilateral femoral necks. LUMBAR SPINE: The bone mineral density from L1 through L4 is 1.163 grams per square centimeter which yields a T-score of 1.1. There has been a statistically significant interval increase in bone mineral density by 5.9%. LEFT HIP: The bone mineral density of the total region of the hip is 0.893 grams per square centimeter which yields a T-score of -0.4. There has been a statistically significant interval increase in bone mineral density of 7.9%. LEFT FEMORAL NECK: The bone mineral density of the femoral neck is 0.714 grams per square centimeter which yields a T-score of -1.2. There has been a statistically significant interval increase in bone mineral density of 9.1%. RIGHT HIP: The bone mineral density of the total region of the hip is 0.799 grams per square centimeter which yields a T-score of -1.2. There has been a statistically significant interval increase in bone mineral density by 6.4%. RIGHT FEMORAL NECK: The bone mineral density of the femoral neck is 0.594 grams per square centimeter which yields a T-score of -2.3. There has been a statistically significant interval increase in bone mineral density by 9%. *Jun DEXA- IMPRESSION: Osteoporosis in the right hip, demonstrating interval worsening. *Aug xray R shoulder- IMPRESSION: Degenerative changes with possible rotator cuff pathology IMPRESSION and PLAN: 1. Osteoporosis: February MRI L-spine with T11 compression fracture. Jun, had one dose of reclast. Bisphosphonates avoided due to CKD. Jun DEXA with significant decline. In Sep, started prolia; has received in Sep, Mar, Sep, Mar, Sep and Mar. October DEXA stable with significant improvement in all areas. - Continue prolia, given by me in office today (Lot [id number]/Exp [id number]). No PA needed given Medicare A/B. - Check Ca/vit D in 2 weeks post prolia dose especially in the setting of worsened renal fcn. Verbal reminder provided. Notify of results via [employer] - Check labs in Mar 2023 in preparation for the Apr 2023 prolia dose. Notify of results via [employer] Verbal and written reminders provided. - Continue holding vitamin D supplementation for now given high level, will recheck in 2 weeks - Check DEXA in October. Notify of results via [employer] 2. Tophaceous gout: Stable - Continue allopurinol 250mg/day for goal UA<5 - Avoid NSAIDs given CKD 3. Previously diagnosed psoriasis: High suspicion for PsA given SI joint pain, inflammatory back pain per history and significant improvement with oral steroids. Unable to use MTX given CKD and otezla due to cost. Declined arava given c/f immunsuppression - Continue monitoring 4. Renal dysfunction: Acute on chronic - Advised further evaluation per PCP - Renally dose medications 5. Generalized osteoarthritis: Shoulders, hands, knees - Tylenol prn 6. General health maintenance: - Completed the covid vaccination series in Sep, Jul moderna - Advised to continue follow-up with PCP for routine health maintenance and malignancy screening Follow-up in 6 months with Devan for prolia and 12 months with me for prolia or sooner if needed. Patient was instructed to call if any questions or concerns. Thank you for allowing me to participate in the care of your patient. Dionisio Omer MD documented in this encounter [facility] 10-13-2022 Note [facility] 10-13-2022 History of Present illness Narrative CC: Patient presents with: Recheck: 2 week diarrhea follow up HPI Kailee Sam is a 82 year old female who presents today for follow up. Was seen 2 weeks ago with diarrhea, UTI, and sinusitis post COVID. Recent UTI. Finished cephalexin. Symptoms mostly have resolved but still with a small amount of lower abdominal pain. States she ate a large greasy meal so unsure if this is related to this. Denies pain with urination, fever, chills, dark colored or foul smelling urine. Sinusitis post COVID: Took augmentin and symtpoms have resolved. Denies sinus congestion, fatigue, cough wheezing, chest pain, fever, or increase in chronic shortness of breath. Chronic diarrhea: Had increased with having COVID but had stopped colestipol at the same time. Reports much improvement. Last episode of diarrhea was almost 2 weeks ago. Typically has a soft formed to nonformed every other day. Did have one that was loose this morning but states that is typical for her after she eats greasy fried chicken like she did the evening before. REVIEW OF SYSTEMS General: no fevers, no chills, no night sweats, no recurrent infections, no change in appetite, no change in energy, and no significant changes in weight Respiratory: no cough, no wheezing, no hemoptysis Cardiovascular: no chest pain, no chest pressure, no palpitations, and no swelling GI: No nausea, vomiting, or diarrhea : See HPI Neurologic: No headache, weakness, numbness, tingling, dizziness, memory loss, syncope. PAST MEDICAL HISTORY Diagnosis Date Disorder of bone and cartilage 06/16/2008 Glaucoma Unspecified essential hypertension Unspecified glaucoma(365.9) Glaucoma PAST SURGICAL HISTORY Procedure Laterality Date LIG/TRNSXJ FLP TUBE ABDL/VAG APPR UNI/BI Tubal ligation RMVL SEC MEMBRANOUS CTRC CORNEO-SCLL SCTJ 2006 Cataract removal b/l ALLERGIES Carafate [Sucralfate], Meloxicam, Mucinex [Guaifenesin], Pantoprazole, and Pepcid [Famotidine (Pf)] MEDICATIONS atorvastatin (LIPITOR) 80 mg tablet^Take by mouth.^Disp: ^Rfl: metoprolol succinate ER (TOPROL XL) 100 mg^Take 1 tablet by mouth once daily.^Disp: 90 tablet^Rfl: 3 Ascorbic Acid (VITAMIN C) 1,000 mg tablet^Take 1 tablet by mouth once daily.^Disp: ^Rfl: aspirin, enteric coated (ASPIRIN, ENTERIC COATED) 81 mg EC tablet^Take 1 tablet by mouth once daily.^Disp: ^Rfl: Magnesium Gluconate 30 mg (550 mg) tab^Take 550 tablets by mouth.^Disp: ^Rfl: losartan (COZAAR) 50 mg tablet^Take 1 tablet by mouth once daily.^Disp: 30 tablet^Rfl: 5 omeprazole (PRILOSEC) 20 mg capsule^Take 1 capsule by mouth daily before breakfast. 1/2 hr before meal.^Disp: 90 capsule^Rfl: 1 allopurinol (ZYLOPRIM) 100 mg tablet^TAKE 2 & 1/2 TABLETS BY MOUTH EVERY DAY^Disp: 225 tablet^Rfl: 3 dorzolamide-timolol, PF, (COSOPT) 2-0.5 % ophthalmic drops^1 Drop every 12 hours.^Disp: ^Rfl: MSM-Aloe Zhlb-Zrypzh68-Zyn Oil (DEEP BLUE RELIEF) gel^Apply 1 application to affected area once daily.^Disp: ^Rfl: acetaminophen (TYLENOL ARTHRITIS PAIN) 650 mg CR tablet^Take 650 mg by mouth every 8 hours as needed.^Disp: ^Rfl: Vzqnaojtg-Nhl-SW-Lut-Zeaxanth (ICAPS MV) 100-1.66-0.83 mcg-mg-mg TbEC^Take 2 tablets by mouth once daily.^Disp: ^Rfl: COMPOUNDED PRESCRIPTION^Green Neri Tea one half tablet twice daily^Disp: ^Rfl: 0 FAMILY HISTORY Problem Relation Age of Onset Heart Mother Asthma Father Cervical Cancer Sister Colon Cancer Daughter Adenocarcinoma Breast Cancer Daughter Social History Tobacco Use Smoking status: Former Packs/day: 0.50 Years: 15.00 Pack years: 7.50 Types: Cigarettes Quit date: 08/21/1997 Years since quittin.1 Smokeless tobacco: Never Substance Use Topics Alcohol use: Not Currently Comment: pt has not had ETOH in years Drug use: No PHYSICAL EXAM BP 122/78 Pulse (!) 56 Temp 36.3 C (97.4 F) (Temporal) Resp 16 Wt 79.4 kg (175 lb) SpO2 97% BMI 31.00 kg/m General Appearance: well appearing, in no acute distress, alert Skin: Skin color, texture, turgor normal for age; Eyes: conjunctiva pink and moist, no icterus, sclera white, non-injected Lungs: Lungs clear to auscultation. No wheezing, rhonchi, rales. Heart: RRR without murmur, gallop, or rubs. No ectopy Abdomen: Abdomen soft, non-tender. Bowel sounds normal. No masses, organomegaly Health maintenance reviewed with patient: BP CONTROLLED (<130/80) Never done ADVANCE DIRECTIVE DISCUSSION due on 08/21/2022 DEPRESSION ASSESSMENT due on 08/21/2022 DTAP,TDAP,TD(1 - Tdap) due on 05/05/2023 SHINGRIX VACCINE(1 of 2) due on 05/05/2023 FECAL OCCULT BLOOD due on 08/08/2023 HEMOGLOBIN/HEMATOCRIT due on 04/21/2023 SERUM CREATININE due on 09/28/2023 ANNUAL PCP TEAM CHRONIC DISEASE VISIT due on 09/29/2023 DIABETES SCREEN due on 04/21/2025 BONE DENSITY Completed INFLUENZA Completed COVID-19 VACCINE Completed PNEUMOCOCCAL: 65+ Completed DATA REVIEWED: Most recent labs ASSESSMENT/PLAN: 1. Urinary tract infection without hematuria, site unspecified - ICD9: 599.0, ICD10: N39.0 (primary diagnosis) - symptoms resolved. Will have patient recheck in 2 weeks - URINE CULTURE - URINALYSIS, WITH MICROSCOPIC - follow up for any return of symptoms. 2. Diarrhea, unspecified type - ICD9: 787.91, ICD10: R19.7 Resolved at this time. Probable result of COVID infection. No need to consider restarting colestipol at this time. - follow up for any return of symptoms 3. Stage 3b chronic kidney disease (HCC) - ICD9: 585.3, ICD10: N18.32 - GFR in low 30s consistently over the last 8 years or so. Discussed avoiding any ibuprofen, Advil, aleve, or other anti-inflammatory. - BASIC METABOLIC PNL - CBC + DIFF Prescription instructions reviewed with patient as applicable. Potential red flag symptoms discussed with the patient. Reviewed appropriate action plan to take if red flag symptoms occur. Patient agreeable to treatment plan. Arpita Connelly APRN.CNP documented in this encounter [facility] 10-05-2022 Miscellaneous Notes Detailed message left on an identified voicemail. Yes, these antibiotics are treating 2 different kinds of bacteria. Patient should take an over the counter probiotic to help with diarrhea and we may restart her colestipol at follow up appointment. Thank you Arpita Connelly APRN.CNP Patient phoned to clarify with Jean Palm, if you really want her to take 2 AB's? Reports you prescribed doxycycline for sinus infection and cephalexin for UTI, and she already has problems with diarrhea. Patient agreeable to take the 2 AB's, just wants to be sure this is what you want her to do. Please advise patient. documented in this encounter [facility] 10-05-2022 Miscellaneous Notes Patient calling back and received entire message below. Patient expressed full understanding with no further questions. Thank you Attempted to reach patient. No answer. LMTCB. It is okay for PSR to relay message as written below. Thanks, Donna Cleaning MA Please call and inform the patient that her vit d level is high. Please ask her to stop all vitamin d supplements for now. She can discuss things further at her upcoming visit with Dr. Omer. Her creatinine (measure of kidney function) remains elevated. She should continue to f/u with her pcp for this. The remaining lab results are within acceptable limits. Thanks Devan Dobson APRN.CNP documented in this encounter [facility] 10-05-2022 Miscellaneous Notes Left detailed message on secure VM. Please let patient know her urine does indicate another urinary infection. I have ordered an antibiotic to be taken 1 tablet twice a day for 7 days. I would like to recheck a urine 2 weeks after completion of the antibiotic. We can discuss this further at your follow up appointment. Thank you Arpita Connelly APRN.CNP documented in this encounter [facility] 09-30-2022 Miscellaneous Notes Urine sample not able to be used. Patient needs to have test repeated. Patient called by Mariam Saucedo and message left. Thank you Arpita Connelly APRN.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 documented in this encounter [facility] 09-29-2022 Note [facility] 09-29-2022 Note [facility] 09-29-2022 History of Present illness Narrative CC: Patient presents with: Recheck: Covid 09/12, still coughing, loss of voice HPI Kailee Sam is a 82 year old female who presents today for concerns of coughing and loss of voice since Covid in August. Patient reports persistent cough of yellow or green sputum, wheezing at night, nonproductive cough, voice is hoarse, fatigue, sinus congestion, increase in chronic diarrhea which she is using immodium for. Unsure if her shortness of breath she has chronically is increased or at baseline. Is not taking anything over the counter except for imodium. Has also had an increase in urinary frequency and incontinence. Had Colestipol stopped prior to COVID and put on atorvastatin prior to COVID by vascular. Is seeing vascular for carotid plaque and stenosis. Denies further fever or chills, ear pain, headaches, nausea, vomiting, abdominal pain, pain with urination, dark or foul smelling urine, vision changes, or weakness. REVIEW OF SYSTEMS General: no fevers, no chills, no night sweats, no recurrent infections, and no significant changes in weight HEENT: no frequent or significant headaches, no changes in hearing, no visual changes, no nose bleeds Respiratory: See HPI Cardiovascular: no chest pain, no chest pressure, no palpitations, and no swelling GI: See HPI : See HPI Endocrine: no weight gain, no weight loss, no polyuria, no polyphagia, and no polydipsia Neurologic: No numbness, tingling, neck stiffness, dizziness, memory loss, syncope. PAST MEDICAL HISTORY Diagnosis Date Disorder of bone and cartilage 06/16/2008 Glaucoma Unspecified essential hypertension Unspecified glaucoma(365.9) Glaucoma PAST SURGICAL HISTORY Procedure Laterality Date LIG/TRNSXJ FLP TUBE ABDL/VAG APPR UNI/BI Tubal ligation RMVL SEC MEMBRANOUS CTRC CORNEO-SCLL SCTJ 2006 Cataract removal b/l ALLERGIES Carafate [Sucralfate], Meloxicam, Mucinex [Guaifenesin], Pantoprazole, and Pepcid [Famotidine (Pf)] MEDICATIONS metoprolol succinate ER (TOPROL XL) 100 mg^Take 1 tablet by mouth once daily.^Disp: 90 tablet^Rfl: 3 betamethasone dipropionate, augmented (DIPROLENE) 0.05 % cream^Apply to affected area twice daily.^Disp: 15 g^Rfl: 1 Ascorbic Acid (VITAMIN C) 1,000 mg tablet^Take 1 tablet by mouth once daily.^Disp: ^Rfl: aspirin, enteric coated (ASPIRIN, ENTERIC COATED) 81 mg EC tablet^Take 1 tablet by mouth once daily.^Disp: ^Rfl: Magnesium Gluconate 30 mg (550 mg) tab^Take 550 tablets by mouth.^Disp: ^Rfl: colestipol (COLESTID) 1 gram tablet^Take 1 tablet by mouth twice daily.^Disp: 180 tablet^Rfl: 3 losartan (COZAAR) 50 mg tablet^Take 1 tablet by mouth once daily.^Disp: 30 tablet^Rfl: 5 omeprazole (PRILOSEC) 20 mg capsule^Take 1 capsule by mouth daily before breakfast. 1/2 hr before meal.^Disp: 90 capsule^Rfl: 1 allopurinol (ZYLOPRIM) 100 mg tablet^TAKE 2 & 1/2 TABLETS BY MOUTH EVERY DAY^Disp: 225 tablet^Rfl: 3 dorzolamide-timolol, PF, (COSOPT) 2-0.5 % ophthalmic drops^1 Drop every 12 hours.^Disp: ^Rfl: MSM-Aloe Eusq-Fanckm29-Hws Oil (DEEP BLUE RELIEF) gel^Apply 1 application to affected area once daily.^Disp: ^Rfl: acetaminophen (TYLENOL ARTHRITIS PAIN) 650 mg CR tablet^Take 650 mg by mouth every 8 hours as needed.^Disp: ^Rfl: Tsfadpbst-Wjg-TJ-Lut-Zeaxanth (ICAPS MV) 100-1.66-0.83 mcg-mg-mg TbEC^Take 2 tablets by mouth once daily.^Disp: ^Rfl: COMPOUNDED PRESCRIPTION^Green Neri Tea one half tablet twice daily^Disp: ^Rfl: 0 FAMILY HISTORY Problem Relation Age of Onset Heart Mother Asthma Father Cervical Cancer Sister Colon Cancer Daughter Adenocarcinoma Breast Cancer Daughter Social History Tobacco Use Smoking status: Former Packs/day: 0.50 Years: 15.00 Pack years: 7.50 Types: Cigarettes Quit date: 08/21/1997 Years since quittin.1 Smokeless tobacco: Never Substance Use Topics Alcohol use: Not Currently Comment: pt has not had ETOH in years Drug use: No PHYSICAL EXAM BP 138/82 Pulse 91 Temp 36.1 C (96.9 F) (Temporal) Resp 16 Wt 79.4 kg (175 lb) SpO2 97% BMI 31.00 kg/m General Appearance: well appearing, in no acute distress, alert Skin: Skin color, texture, turgor normal for age; Eyes: PERRLA, EOM's intact, conjunctiva pink and moist, no icterus, sclera white, non-injected Ears: external ears normal to inspection and palpation, canals clear, Left tympanic membrane normal. , Right tympanic membrane normal Nose/sinus: Nares normal. Septum midline. Mucosa normal. No drainage. Positive for sinus tenderness Neck: Thyroid normal size and symmetric without palpable nodules, Neck supple, No adenopathy Oropharynx: tongue midline and normal, soft palate, uvula, and tonsils normal, palpation of salivary glands negative Lymph nodes: No cervical lymphadenopathy, No supraclavicular lymphadenopathy, No axillary lymphadenopathy., and No inguinal lymphadenopathy. Lungs: Lungs clear to auscultation. No wheezing, rhonchi, rales. Heart: RRR without murmur, gallop, or rubs. No ectopy Abdomen: Abdomen soft, non-tender. Bowel sounds normal. No masses, organomegaly Extremities: No deformities, edema, skin discoloration, clubbing or cyanosis. Good capillary refill. Neurological: Gait normal. speech normal, mental status intact Health maintenance reviewed with patient: BP CONTROLLED (<130/80) Never done ADVANCE DIRECTIVE DISCUSSION due on 08/21/2022 DEPRESSION ASSESSMENT due on 08/21/2022 DTAP,TDAP,TD(1 - Tdap) due on 05/05/2023 SHINGRIX VACCINE(1 of 2) due on 05/05/2023 FECAL OCCULT BLOOD due on 08/08/2023 SERUM CREATININE due on 04/21/2023 HEMOGLOBIN/HEMATOCRIT due on 04/21/2023 ANNUAL PCP TEAM CHRONIC DISEASE VISIT due on 09/16/2023 DIABETES SCREEN due on 04/21/2025 BONE DENSITY Completed INFLUENZA Completed COVID-19 VACCINE Completed PNEUMOCOCCAL: 65+ Completed DATA REVIEWED: Most recent labs ASSESSMENT/PLAN: 1. Acute non-recurrent sinusitis, unspecified location - ICD9: 461.9, ICD10: J01.90 (primary diagnosis) - probable secondary infection from recent COVID infection - Will begin treatment with as per antibiotic as written, see orders - Supportive care with plenty of fluids, rest, and analgesia prn. - Follow up in 3-5 days if symptoms persist or worsen. 2. Acute cough - ICD9: 786.2, ICD10: R05.1 - possibly form sinusitis but with the reported wheezing and uncertainty of increase in chronic shortness of breath will do xray for further evaluation - XR CHEST 2V FRONTAL/LAT 3. Wheezing - ICD9: 786.07, ICD10: R06.2 As above - lungs clear on exam, possibly result of sinusitis but will do xray to further evaluate - XR CHEST 2V FRONTAL/LAT 4. Increased urinary frequency - ICD9: 788.41, ICD10: R35.0 - UA and culture in process - will treat if positive 5. Urinary incontinence, unspecified type - ICD9: 788.30, ICD10: R32 As above Will have patient come in for a routine follow up in 2 weeks to review her chronic conditions and medications Prescription instructions reviewed with patient as applicable. Potential red flag symptoms discussed with the patient. Reviewed appropriate action plan to take if red flag symptoms occur. Patient agreeable to treatment plan. Arpita Connelly APRN.CNP documented in this encounter [facility] 09-26-2022 Miscellaneous Notes Last OV: 08/08/22 - Next scheduled appt: 09/29/22 Patient has been identified by name and date of : Yes Requested Prescriptions Pending Prescriptions Disp Refills metoprolol succinate ER (TOPROL XL) 100 mg 90 tablet 3 Sig: Take 1 tablet by mouth once daily. RX INSTRUCTIONS: Patient aware RX will be sent to pharmacy. No need to notify patient. Ingrid Dorsey LPN documented in this encounter [facility] 09-21-2022 Miscellaneous Notes Relayed message to patient Attempted to reach patient. No answer. LMTCB. It is okay for PSR to relay message as written below. Thanks, Donna Cleaning MA Would wait 2 weeks after to get labs. Hope she feels better quickly! Pt has appt on 10/19 and had an appt today to get labs done but she has Covid. She is asking how long should she wait after Covid to get labs done. Please call to let her know. It is okay to leave a message. Thank you! documented in this encounter [facility] 09-16-2022 Note [facility] 09-16-2022 Instructions Cherri Espinal APRN.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 - 09/16/2022 1:49 PM EST FACT SHEET FOR PATIENTS, PARENTS, AND CAREGIVERS EMERGENCY USE AUTHORIZATION (EUA) OF PAXLOVID FOR CORONAVIRUS DISEASE 2019 (COVID-19) You are being given this Fact Sheet because your healthcare provider believes it is necessary to provide you with PAXLOVID for the treatment of wnuw-us-qokpdjrk coronavirus disease (COVID-19) caused by the SARS-CoV-2 virus. This Fact Sheet contains information to help you understand the risks and benefits of taking the PAXLOVID you have received or may receive. The [place]. Food and Drug Administration (FDA) has issued an Emergency Use Authorization (EUA) to make PAXLOVID available during the COVID-19 pandemic (for more details about an EUA please see What is an Emergency Use Authorization? at the end of this document). PAXLOVID is not an FDA-approved medicine in the [place]. Read this Fact Sheet for information about PAXLOVID. Talk to your healthcare provider about your options or if you have any questions. It is your choice to take PAXLOVID. What is COVID-19? COVID-19 is caused by a virus called a coronavirus. You can get COVID-19 through close contact with another person who has the virus. COVID-19 illnesses have ranged from very uutu-gx-cmbnxf, including illness resulting in . While information so far suggests that most COVID-19 illness is mild, serious illness can happen and may cause some of your other medical conditions to become worse. Older people and people of all ages with severe, long lasting (chronic) medical conditions like heart disease, lung disease, and diabetes, for example seem to be at higher risk of being hospitalized for COVID-19. What is PAXLOVID? PAXLOVID is an investigational medicine used to treat vduk-sf-admcezil COVID-19 in adults and children [12 years of age and older weighing at least 88 pounds (40 kg)] with positive results of direct SARS-CoV-2 viral testing, and who are at high risk for progression to severe COVID-19, including hospitalization or . PAXLOVID is investigational because it is still being studied. There is limited information about the safety and effectiveness of using PAXLOVID to treat people with bynt-en-qnvzfnfp COVID-19. The FDA has authorized the emergency use of PAXLOVID for the treatment of cxts-qv-ngctcdkg COVID-19 in adults and children [12 years of age and older weighing at least 88 pounds (40 kg)] with a positive test for the virus that causes COVID-19, and who are at high risk for progression to severe COVID-19, including hospitalization or , under an EUA. 1 Revised: 05 November 2021 What should I tell my healthcare provider before I take PAXLOVID? Tell your healthcare provider if you: Have any allergies Have liver or kidney disease Are or plan to become Are a child Have any serious illnesses Tell your healthcare provider about all the medicines you take, including prescription and xsim-xfy-jdxfjku medicines, vitamins, and herbal supplements. Some medicines may interact with PAXLOVID and may cause serious side effects. Keep a list of your medicines to show your healthcare provider and pharmacist when you get a new medicine. You can ask your healthcare provider or pharmacist for a list of medicines that interact with PAXLOVID. Do not start taking a new medicine without telling your healthcare provider. Your healthcare provider can tell you if it is safe to take PAXLOVID with other medicines. Tell your healthcare provider if you are taking combined hormonal contraceptive. PAXLOVID may affect how your control pills work. Females who are able to become should use another effective alternative form of contraception or an additional barrier method of contraception. Talk to your healthcare provider if you have any questions about contraceptive methods that might be right for you. How do I take PAXLOVID? PAXLOVID consists of 2 medicines: nirmatrelvir and ritonavir. Take 2 pink tablets of nirmatrelvir with 1 white tablet of ritonavir by mouth 2 times each day (in the morning and in the evening) for 5 days. For each dose, take all 3 tablets at the same time. If you have kidney disease, talk to your healthcare provider. You may need a different dose. Swallow the tablets whole. Do not chew, break, or crush the tablets. Take PAXLOVID with or without food. Do not stop taking PAXLOVID without talking to your healthcare provider, even if you feel better. If you miss a dose of PAXLOVID within 8 hours of the time it is usually taken, take it as soon as you remember. If you miss a dose by more than 8 hours, skip the missed dose and take the next dose at your regular time. Do not take 2 doses of PAXLOVID at the same time. If you take too much PAXLOVID, call your healthcare provider or go to the nearest hospital emergency room right away. If you are taking a ritonavir-or cobicistat-containing medicine to treat hepatitis C or Human Immunodeficiency Virus (HIV), you should continue to take your medicine as prescribed by your healthcare provider. Talk to your healthcare provider if you do not feel better or if you feel worse after 5 days. Who should generally not take PAXLOVID? Do not take PAXLOVID if: You are allergic to nirmatrelvir, ritonavir, or any of the ingredients in PAXLOVID You are taking any of the following medicines: Alfuzosin Pethidine, propoxyphene Ranolazine Amiodarone, dronedarone, flecainide, propafenone, quinidine Colchicine Lurasidone, pimozide, clozapine Dihydroergotamine, ergotamine, methylergonovine Lovastatin, simvastatin Sildenafil (Revatio ) for pulmonary arterial hypertension (PAH) Triazolam, oral midazolam Apalutamide Carbamazepine, phenobarbital, phenytoin Rifampin Riccardo s Wort (hypericum perforatum) Taking PAXLOVID with these medicines may cause serious or life-threatening side effects or affect how PAXLOVID works. These are not the only medicines that may cause serious side effects if taken with PAXLOVID. PAXLOVID may increase or decrease the levels of multiple other medicines. It is very important to tell your healthcare provider about all of the medicines you are taking because additional laboratory tests or changes in the dose of your other medicines may be necessary while you are taking PAXLOVID. Your healthcare provider may also tell you about specific symptoms to watch out for that may indicate that you need to stop or decrease the dose of some of your other medicines. What are the important possible side effects of PAXLOVID? Possible side effects of PAXLOVID are: Allergic Reactions. Allergic reactions can happen in people taking PAXLOVID, even after only 1 dose. Stop taking PAXLOVID and call your healthcare provider right away if you get any of the following symptoms of an allergic reaction: hives trouble swallowing or breathing swelling of the mouth, lips, or face throat tightness hoarseness skin rash Liver Problems. Tell your healthcare provider right away if you have any of these signs and symptoms of liver problems: loss of appetite, yellowing of your skin and the whites of eyes (jaundice), dark-colored urine, pale colored stools and itchy skin, stomach area (abdominal) pain. Resistance to HIV Medicines. If you have untreated HIV infection, PAXLOVID may lead to some HIV medicines not working as well in the future. Other possible side effects include: altered sense of taste diarrhea high blood pressure muscle aches These are not all the possible side effects of PAXLOVID. Not many people have taken PAXLOVID. Serious and unexpected side effects may happen. PAXLOVID is still being studied, so it is possible that all of the risks are not known at this time. What other treatment choices are there? Veklury (remdesivir) is FDA-approved for the treatment of lryl-ku-kdrhiibo COVID-19 in certain adults and children. Talk with your doctor to see if Veklury is appropriate for you. Like PAXLOVID, FDA may also allow for the emergency use of other medicines to treat people with COVID-19. Go to https://www.fda.gov/emergency-pre paredness-andresponse/mcm-legal-r ljrohways-srn-gqmxsv-framework/em xuebbke-qjt-rcohzyxmrodwt for information on the emergency use of other medicines that are authorized by FDA to treat people with COVID-19. Your healthcare provider may talk with you about clinical trials for which you may be eligible. It is your choice to be treated or not to be treated with PAXLOVID. Should you decide not to receive it or for your child not to receive it, it will not change your standard medical care. What if I am or ? There is lab technologist treating women or mothers with PAXLOVID. For a mother and unborn baby, the benefit of taking PAXLOVID may be greater than the risk from the treatment. If you are , discuss your options and specific situation with your healthcare provider. It is recommended that you use effective barrier contraception or do not have sexual activity while taking PAXLOVID. If you are , discuss your options and specific situation with your healthcare provider. How do I report side effects with PAXLOVID? Contact your healthcare provider if you have any side effects that bother you or do not go away. Report side effects to FDA MedWatch at www.fda.gov/medwatch or call 0-217-NYI6653 or you can report side effects to [employer]. at the contact information provided below. Website Fax number Telephone number [email or web address] How should I store PAXLOVID? Store PAXLOVID tablets at room temperature, between 68?F to 77?F (20?C to 25?C). How can I learn more about COVID-19? Ask your healthcare provider. Visit https://www.cdc.gov/COVID19. Contact your local or state public health department. What is an Emergency Use Authorization (EUA)? The [place] FDA has made PAXLOVID available under an emergency access mechanism called an Emergency Use Authorization (EUA). The EUA is supported by a Floor Mechanic of Health and Human Service (HHS) declaration that circumstances exist to justify the emergency use of drugs and biological products during the COVID-19 pandemic. PAXLOVID for the treatment of gewd-jt-lhuufegh COVID-19 in adults and children [12 years of age and older weighing at least 88 pounds (40 kg)] with positive results of direct SARS-CoV-2 viral testing, and who are at high risk for progression to severe COVID-19, including hospitalization or , has not undergone the same type of review as an FDA-approved product. In issuing an EUA under the COVID-19 public health emergency, the FDA has determined, among other things, that based on the total amount of scientific evidence available including data from adequate and well-controlled clinical trials, if available, it is reasonable to believe that the product may be effective for diagnosing, treating, or preventing COVID-19, or a serious or life-threatening disease or condition caused by COVID-19; that the known and potential benefits of the product, when used to diagnose, treat, or prevent such disease or condition, outweigh the known and potential risks of such product; and that there are no adequate, approved, and available alternatives. All of these criteria must be met to allow for the product to be used in the treatment of patients during the COVID-19 pandemic. The EUA for PAXLOVID is in effect for the duration of the COVID-19 declaration justifying emergency use of this product, unless terminated or revoked (after which the products may no longer be used under the EUA). Additional Information For general questions, visit the website or call the telephone number provided below. Website Telephone number www.UserZoom (5-516-V15-QLNI) You can also go to [email or web address].AdRocket or call for more information. [employer] Distributed by [employer] [place] [address] [id number] Revised: 05 November 2021 documented in this encounter [facility] 09-16-2022 History of Present illness Narrative AMBULATORY TELEPHONE VISIT Kailee Sam has consented to this telephone encounter. Persons Present: patient Chief Complaint/Reason: Positive covid test HPI: Patient presents for positive covid test at home. Patient reports symptoms started 09/12/2022 and include fever, cough, fatigue, malaise, sneezing, rhinorrhea. Patient states she had diarrhea yesterday and took immodium which helped. Data Reviewed: No new labs ASSESSMENT/PLAN: 1. COVID-19 - ICD9: 079.89, ICD10: U07.1 - NIRMATRELVIR 150 MG-RITONAVIR 100 MG TABLETS IN A DOSE PACK (EUA) Total Time Spent: 12 minutes Nirmatrelvir/Ritonavir (Paxlovid) Eligibility and Patient Discussion [facility] Formulary Restriction Criteria: Adult outpatients 18 years and older with ALL of the following: [x] Patient has positive SARS-COV-2 viral test (PCR or antigen test) during current illness [x] Patient has symptoms for 5 days or less [x] Not requiring hospitalization at any time for management of COVID-19 [x] Not requiring supplemental oxygen or a change in baseline supplemental oxygen [x] Not utilized for pre-exposure or post-exposure prophylaxis for prevention of COVID-19 [x] Patient does not have severe renal impairment (eGFR < 30 mL/min) or severe hepatic impairment (Child-White Class C) [x] Meeting at least one of the criteria for high risk of progression to severe COVID-19: [x] Age over 65 years [] Cancer [] Chronic kidney disease [] Chronic liver disease [] Chronic lung diseases, including cystic fibrosis [] Dementia or other neurological conditions [] Diabetes (type 1 or type 2) [] Disabilities, including Down syndrome and neurodevelopmental disorders [x] Heart conditions [] HIV infection [] Immunocompromised state [] Mental health conditions [] Medical related technological dependence (tracheostomy, gastrostomy, or positive pressure ventilation (not related to COVID) [] Overweight and obesity (BMI greater or equal to 25 for adults) [] Physical inactivity [] [] Sickle cell disease or thalassemia [] Smoking, current or former [] Solid organ or blood stem cell transplant [] Stroke or cerebrovascular disease [] Substance use disorders [] Tuberculosis [] People from racial and ethnic minority groups Criteria above are met: Yes Date of Positive Test:09/16/2022 Date of Symptom Onset: 09/12/2022 Patient received COVID vaccine: Yes Drug-Drug interactions reviewed: Yes. Drug interactions were identified and the following actions were taken weak interactions were noted with metoprolol and omeprazole. I have discussed the use of the investigational therapeutic, nirmatrelvir/ritonavir, for the treatment of mild to moderate COVID-19 and its use under Emergency Use Authorization with the patient. The patient was informed that nirmatrelvir/ritonavir is not an FDA approved drug and that it is authorized for use under this Emergency Use Authorization. The patient was also informed of the significant known benefits and potential risks of nirmatrelvir/ritonavir, and the extent to which such potential risks and benefits are unknown. The patient was informed that there is mandatory reporting of all medication errors and serious adverse events potentially related to nirmatrelvir/ritonavir treatment within 7 calendar days from the onset of the event and that events up to 28 days after completion of therapy need to be reported. The discussion included alternatives to receiving nirmatrelvir/ritonavir, including clinical trials, and potential the risks and benefits of those alternatives. The patient was provided electronically with the Fact Sheet for Patients, Parents and Caregivers . The patient was also instructed that in addition to the treatment with nirmatrelvir/ritonavir, he/she should continue to self-isolate and use infection control measures (e.g., wear mask, isolate, social distance, avoid sharing personal items, clean and disinfect high touch surfaces, and frequent handwashing) according to CDC guidelines. The patient stated understanding and gave verbal consent to proceeding with nirmatrelvir/ritonavir treatment. Cherri Espinal APRN.CNP September 16, 2022 1:43 PM documented in this encounter [facility] 09-14-2022 Miscellaneous Notes left message to notify patient. Indu Colon LPN Urine orders placed. Arpita Connelly APRN.CNP Patient calling asking for lab orders to check her urine, she has appt on 09/19 at 11 am to other labs for Machine Sprayer. Patient has appt scheduled to see WEBBING TACKER on 09/22. Patient is incontinent of urine and wants to do something about it. She wants to have the urine done ahead of her appt with WEBBING TACKER. Pending orders needs diagnosis. Please advise documented in this encounter [facility] 09-08-2022 Miscellaneous Notes Patient has been identified by name and date of : Yes Requested Prescriptions Pending Prescriptions Disp Refills betamethasone dipropionate, augmented (DIPROLENE) 0.05 % cream 15 g 1 Sig: Apply to affected area twice daily. KELLEY-08/08/22 Labs-08/08/22 NOV-11/17/22 med filled 06/08/22 RX INSTRUCTIONS: Patient aware RX will be sent to pharmacy. No need to notify patient. Sloane Kern [facility] documented in this encounter [facility] 08-08-2022 History of Present illness Narrative CC: Patient presents with: F/U HTN 3 Month HPI Kailee Sam is a 82 year old female who presents today for follow up on hypertension HTN: Ms. Sam indicates that she is feeling well and denies any symptoms referable to elevated blood pressure. Specifically denies headache, chest pain, palpitations, and peripheral edema. Patient denies any side effects of her medication(s) and is compliant with their regimen. She does not check BP's generally and states hers is high today because she has not taken her medications yet. Has been seeing cardiology and had recent eye surgery all of which showing a normal or low BP. Kailee denies regular aerobic exercise. She watches her diet for sodium, low fat and low cholesterol most of the time. Last 3 Encounter BP Readings: Date: BP: 08/08/2022 140/90 06/27/2022 132/68 2022 138/[address] Montaño at [facility] for dyspnea. EF is 45% and heart monitor showed bouts of SVT. Is scheduled for PFTs, carotid US, and a stress test. No increase in her chronic shortness of breath and feels it may have slightly improved. Low magnesium level this past April. Taking magensium gluconate over the counter. Level last checked in April. Denies any muscle aches, dizziness, or fatigue. REVIEW OF SYSTEMS General: no fevers, no chills, no night sweats, no recurrent infections, no change in appetite, no change in energy, and no significant changes in weight Respiratory: no cough, no wheezing, no hemoptysis Cardiovascular: no chest pain, no chest pressure, no palpitations, and no swelling Neurologic: No headache, weakness, numbness, dizziness, memory loss, syncope. PAST MEDICAL HISTORY Diagnosis Date Disorder of bone and cartilage 06/16/2008 Glaucoma Unspecified essential hypertension Unspecified glaucoma(365.9) Glaucoma PAST SURGICAL HISTORY Procedure Laterality Date LIG/TRNSXJ FLP TUBE ABDL/VAG APPR UNI/BI Tubal ligation RMVL SEC MEMBRANOUS CTRC CORNEO-SCLL SCTJ 2005 Cataract removal b/l ALLERGIES Carafate [Sucralfate], Meloxicam, Mucinex [Guaifenesin], Pantoprazole, and Pepcid [Famotidine (Pf)] MEDICATIONS Ascorbic Acid (VITAMIN C) 1,000 mg tablet^Take 1 tablet by mouth once daily.^Disp: ^Rfl: aspirin, enteric coated (ASPIRIN, ENTERIC COATED) 81 mg EC tablet^Take 1 tablet by mouth once daily.^Disp: ^Rfl: betamethasone dipropionate, augmented (DIPROLENE) 0.05 % cream^Apply to affected area twice daily.^Disp: 15 g^Rfl: 0 colestipol (COLESTID) 1 gram tablet^Take 1 tablet by mouth twice daily.^Disp: 180 tablet^Rfl: 3 losartan (COZAAR) 50 mg tablet^Take 1 tablet by mouth once daily.^Disp: 30 tablet^Rfl: 5 omeprazole (PRILOSEC) 20 mg capsule^Take 1 capsule by mouth daily before breakfast. 1/2 hr before meal.^Disp: 90 capsule^Rfl: 1 magnesium oxide (MAG-OX) 400 mg (241.3 mg magnesium) tablet^Take 1 tablet by mouth once daily.^Disp: 90 tablet^Rfl: 3 allopurinol (ZYLOPRIM) 100 mg tablet^TAKE 2 & 1/2 TABLETS BY MOUTH EVERY DAY^Disp: 225 tablet^Rfl: 3 dorzolamide-timolol, PF, (COSOPT) 2-0.5 % ophthalmic drops^1 Drop every 12 hours.^Disp: ^Rfl: metoprolol succinate ER (TOPROL XL) 100 mg^Take 1 tablet by mouth once daily.^Disp: 90 tablet^Rfl: 3 cholecalciferol, vitamin D3, (VITAMIN D3 ORAL)^Take 6,000 mg by mouth. Once a day ^Disp: ^Rfl: MSM-Aloe Twlo-Lemczf82-Sdf Oil (DEEP BLUE RELIEF) gel^Apply 1 application to affected area once daily.^Disp: ^Rfl: acetaminophen (TYLENOL ARTHRITIS PAIN) 650 mg CR tablet^Take 650 mg by mouth every 8 hours as needed.^Disp: ^Rfl: Tnmwilgit-Buj-PD-Lut-Zeaxanth (ICAPS MV) 100-1.66-0.83 mcg-mg-mg TbEC^Take 2 tablets by mouth once daily.^Disp: ^Rfl: COMPOUNDED PRESCRIPTION^Green Neri Tea one half tablet twice daily^Disp: ^Rfl: 0 FAMILY HISTORY Problem Relation Age of Onset Heart Mother Asthma Father Cervical Cancer Sister Colon Cancer Daughter Adenocarcinoma Breast Cancer Daughter Social History Tobacco Use Smoking status: Former Packs/day: 0.50 Years: 15.00 Pack years: 7.50 Types: Cigarettes Quit date: 08/21/1997 Years since quittin.9 Smokeless tobacco: Never Substance Use Topics Alcohol use: Not Currently Comment: pt has not had ETOH in years Drug use: No PHYSICAL EXAM BP 140/90 (BP Site: Left Arm, BP Position: Sitting, BP Cuff Size: Large Adult) Pulse 77 Temp 36.6 C (97.8 F) Resp 16 Ht 160 cm (5' 3 ) Wt 81.6 kg (180 lb) SpO2 98% BMI 31.89 kg/m General Appearance: well appearing, in no acute distress, alert Skin: Skin color, texture, turgor normal for age; Eyes: conjunctiva pink and moist, no icterus, sclera white, non-injected Neck: Thyroid normal size and symmetric without palpable nodules, No adenopathy Lymph nodes: No cervical lymphadenopathy and No supraclavicular lymphadenopathy Lungs: Lungs clear to auscultation. No wheezing, rhonchi, rales. Heart: RRR without murmur, gallop, or rubs. No ectopy Health maintenance reviewed with patient: BP CONTROLLED (<130/80) Never done FECAL OCCULT BLOOD due on 12/04/2017 DEPRESSION ASSESSMENT Never done DTAP,TDAP,TD(1 - Tdap) due on 05/05/2023 SHINGRIX VACCINE(1 of 2) due on 05/05/2023 SERUM CREATININE due on 04/21/2023 HEMOGLOBIN/HEMATOCRIT due on 04/21/2023 ANNUAL PCP TEAM CHRONIC DISEASE VISIT due on 06/27/2023 DIABETES SCREEN due on 04/21/2025 BONE DENSITY Completed INFLUENZA Completed ADVANCE DIRECTIVE DISCUSSION Completed COVID-19 VACCINE Completed PNEUMOCOCCAL: 65+ Completed DATA REVIEWED: No new labs ASSESSMENT/PLAN: 1. Primary hypertension - ICD9: 401.9, ICD10: I10 (primary diagnosis) - good control, slightly elevated today because of not taking her BP medications - Continue current medication(s) - Encouraged dietary sodium restriction/DASH diet - Recommended regular aerobic exercise. - Recommend home blood pressure monitoring, to bring results in on next visit - Goal of BP <130/80 2. Shortness of breath - ICD9: 786.05, ICD10: R06.02 Improving but exact cause unknown. Continue with plans for PFT and stress test. 3. Hypomagnesemia - ICD9: 275.2, ICD10: E83.42 - needs re-evaluated to make sure current OTC supplement is therapeutic. - MAGNESIUM BLD Prescription instructions reviewed with patient as applicable. Potential red flag symptoms discussed with the patient. Reviewed appropriate action plan to take if red flag symptoms occur. Patient agreeable to treatment plan. Arpita Connelly APRN.CNP documented in this encounter [facility] 07-25-2022 Miscellaneous Notes Patient is notified of message below and verbalized understanding of instructions. Donna Cleaning MA She's due around 09/19/22, per 04/18/22 lab orders placed by Devan Patient phoned would like to confirm when lab work is needed prior to Prolia 10/19/2022 Please advise patient documented in this encounter [facility] 07-01-2022 Miscellaneous Notes Patient notified. Please let patient know that I spoke with eye office and they are not putting her under so she is ok at this time to have procedure completed, but still needs to see cardiology as planned in July. Thank you Arpita Connelly APRN.CNP ] Pt calling to see if you have found anything out from her eye surgeon Dr. Rai. Pt states she had a preop exam on 06-27-22. Everything was okay but you wanted her to see a technology officer. She has an apt for 08-04-[address] Montaño. Her surgery is 07-19-22. Pt states you were going to call pt's Surgeon to see if she was going to be put under and if so would need to see cardiology sooner. If not going to be put under you were going to okay to have the surgery done. Pt also asking if you were given the exact name of the surgery she is going to have done. Please advise. Deana Anthony LPN documented in this encounter [facility] 06-10-2022 Miscellaneous Notes Order faxed to [facility] as requested. Daughter Mercedes notified. Tricia Arteaga RN Please fax as requested and update patient. Thank you Arpita Connelly APRN.DORENE Patient's daughter Mercedes calling and requesting 3 in 1 commode be ordered for her mother. She states this was discussed at OV yesterday, if provider would be agreeable to sending order. Please fax to [facility] at FAX [phone]. Please call daughter Mercedes with update. PH: [phone]. Thank you. documented in this encounter [facility] 06-10-2022 Miscellaneous Notes Pt called and is notified of providers results and instructions. Pt voices understanding. Radha Nevarez RN Please let patient know I have ordered macrobid to be taken twice daily for 5 days. If the culture indicates this may not be effective, I will update her and switch antibiotics. Thank you Arpita Connelly APRN.DORENE Spoke with pt and information listed below given. Pt verbalizes understanding. Pt states she is having burning and back pain. Please call medication in. Pharmacy updated. Deana Anthony LPN Left message for return call. Please let patient know her urine has white blood cells which may indicate a urinary tract infection. Has she had any further back pain or symptoms of possibly UTI? If so, I will order an antibiotic now prior to getting culture results. If she has no symptoms, I will wait for culture results to verify there is bacterial growth. Thank you Arpita Connelly APRN.DORENE documented in this encounter [facility] 2022 History of Present illness Narrative CC: Patient presents with: Rash: Rash on L elbow comes and goes x 2 weeks HPI Kailee Sam is a 82 year old female who presents today for rash. Duration: 2 weeks. Location: Left elbow and left ear Itching or Pain: YES., itching Ever had a rash like this before: YES. History of skin problems such as psoriasis, eczema, hives: YES. Changes in soaps or detergents: No. New medications or foods: No. Exposure to others with rash: No. Environmental exposures: No Environmental/seasonal allergies: YES Fever, chills, fatigue, joint pain/swelling: YES, some back pain. Treatments: over the counter hydricortisone cream which helped and a prescription medication from dermatology Started very red 2 weeks ago and noticed it when she woke up. States it got scaly and very itchy. Used to see dany abraham for her aug betamethasone cream but has not been there in over a year and requesting a refill. States she has pain on and off with urinating. Currently is not a problem but has been. Does have some incontinence but has had this for years without issue. Denies fever, chills, abdominal pain, change in chronic pain, or any other current concerns. Also woke up her left ear lobe bleeding a small amount. She has had psoriatic patches to ear before and would like it examined. PAST MEDICAL HISTORY Diagnosis Date Disorder of bone and cartilage 06/16/2008 Glaucoma Unspecified essential hypertension Unspecified glaucoma(365.9) Glaucoma PAST SURGICAL HISTORY Procedure Laterality Date LIG/TRNSXJ FLP TUBE ABDL/VAG APPR UNI/BI Tubal ligation RMVL SEC MEMBRANOUS CTRC CORNEO-SCLL SCTJ 2006 Cataract removal b/l ALLERGIES Carafate [Sucralfate], Meloxicam, Mucinex [Guaifenesin], Pantoprazole, and Pepcid [Famotidine (Pf)] MEDICATIONS colestipol (COLESTID) 1 gram tablet^Take 1 tablet by mouth twice daily.^Disp: 180 tablet^Rfl: 3 losartan (COZAAR) 50 mg tablet^Take 1 tablet by mouth once daily.^Disp: 30 tablet^Rfl: 5 omeprazole (PRILOSEC) 20 mg capsule^Take 1 capsule by mouth daily before breakfast. 1/2 hr before meal.^Disp: 90 capsule^Rfl: 1 magnesium oxide (MAG-OX) 400 mg (241.3 mg magnesium) tablet^Take 1 tablet by mouth once daily.^Disp: 90 tablet^Rfl: 3 allopurinol (ZYLOPRIM) 100 mg tablet^TAKE 2 & 1/2 TABLETS BY MOUTH EVERY DAY^Disp: 225 tablet^Rfl: 3 dorzolamide-timolol, PF, (COSOPT) 2-0.5 % ophthalmic drops^1 Drop every 12 hours.^Disp: ^Rfl: metoprolol succinate ER (TOPROL XL) 100 mg^Take 1 tablet by mouth once daily.^Disp: 90 tablet^Rfl: 3 cholecalciferol, vitamin D3, (VITAMIN D3 ORAL)^Take 6,000 mg by mouth. Once a day ^Disp: ^Rfl: MSM-Aloe Mhgi-Fjmvhe82-Tze Oil (DEEP BLUE RELIEF) gel^Apply 1 application to affected area once daily.^Disp: ^Rfl: acetaminophen (TYLENOL ARTHRITIS PAIN) 650 mg CR tablet^Take 650 mg by mouth every 8 hours as needed.^Disp: ^Rfl: Oyjegeusn-Jue-QP-Lut-Zeaxanth (ICAPS MV) 100-1.66-0.83 mcg-mg-mg TbEC^Take 2 tablets by mouth once daily.^Disp: ^Rfl: COMPOUNDED PRESCRIPTION^Green Neri Tea one half tablet twice daily^Disp: ^Rfl: 0 FAMILY HISTORY Problem Relation Age of Onset Heart Mother Asthma Father Cervical Cancer Sister Colon Cancer Daughter Adenocarcinoma Breast Cancer Daughter Social History Tobacco Use Smoking status: Former Packs/day: 0.50 Years: 15.00 Pack years: 7.50 Types: Cigarettes Quit date: 08/21/1997 Years since quittin.8 Smokeless tobacco: Never Substance Use Topics Alcohol use: Yes Comment: rarely Drug use: No REVIEW OF SYSTEMS General: no fevers, no chills, no night sweats, no recurrent infections, no change in appetite, no change in energy, and no significant changes in weight Respiratory: no cough, no wheezing, no new shortness of breath, no hemoptysis Cardiovascular: no chest pain, no chest pressure, no palpitations, and no swelling GI: No nausea, vomiting, or diarrhea : See HPI Skin: See HPI PHYSICAL EXAM BP 138/80 Pulse 88 Resp 16 Wt 82.6 kg (182 lb) BMI 32.24 kg/m General Appearance: well appearing, in no acute distress, alert Eyes: conjunctiva pink and moist, no icterus, sclera white, non-injected Lungs: Lungs clear to auscultation. No wheezing, rhonchi, rales. Heart: RRR without murmur, gallop, or rubs. No ectopy Abdomen: Abdomen soft, non-tender. Bowel sounds normal. No masses, organomegaly Skin: pinkness with small amount of dryness to left elbow flexor . No open areas, tenderness, edema, redness, or increased warmth Left ear lob - tender with scab. No rash redness drainage or increased warmth. DATA REVIEWED: No new labs ASSESSMENT/PLAN: 1. Dysuria - ICD9: 788.1, ICD10: R30.0 (primary diagnosis) - UA with small amount of leukocytes, will send for further evaluation - UA DIP, URINE (POC) - URINALYSIS, WITH MICROSCOPIC - URINE CULTURE 2. Dermatitis - ICD9: 692.9, ICD10: L30.9 - atopical dermatitis versus psoriasis. - difficult to diagnose what is cause as this is healing. - ordering the betamethasone cream for psoriatic patches - ear looking like it was scratched open. No sign of psoriasis or possible atopic dermatitis at this time. - keep area clean and dry - follow up if this changes and does not continue to heal Prescription instructions reviewed with patient as applicable. Potential red flag symptoms discussed with the patient. Reviewed appropriate action plan to take if red flag symptoms occur. Patient agreeable to treatment plan. Arpita Connelly APRN.CNP documented in this encounter [facility] 2022 Miscellaneous Notes Addressed in OV. Please let patient know her heart monitor does show her heart rate increasing a few times but only for short moments along with a few early beats which is probable cause of palpitations but unsure if this is causing her shortness of breath. She needs to continue with plan to see cardiology. I am ordering to have her magnesium level rechecked that it is back in a normal range as well. Thank you Arpita Connelly APRN.CNP documented in this encounter [facility] 06-01-2022 Miscellaneous Notes Noted. Arpita Connelly APRN.CNP Patient calls back to let provider know that she was able to get into [facility] but first available appointment was August 04. Rescheduled 3 month follow up appointment with provider for August 08 which was originally scheduled on the . Gauri Rice RN Patient calling for results of Zio Monitor. She says she has not heard from [facility] regarding scheduling appointment. She states she has tried to contact their office several times and has not received a return call. She is asking if referral has been sent? Linda Hatch RN documented in this encounter [facility] 05-17-2022 History of Present illness Narrative Radiology Service Progress Note PATIENT NAME: Kailee Sam DATE OF SERVICE: May 17, 2022 TIME: 2:30 PM PATIENT IDENTITY VERIFICATION COMPLETED USING TWO (2) IDENTIFIERS: Name and Date of confirmed by patient verbally. FALL SCREENING: Has the patient had 2 falls in the last year or 1 fall with injury or currently using an Ambulatory Assistive Device (Walker, Cane, Wheelchair, Crutches, etc.)? No PATIENT GENDER DATA: Female. status: : No status: NO. PATIENT RELEVANT IMPLANT DATA REVIEWED: Not Applicable RADIOLOGY DEPARTMENT: Ultrasound PERIPHERAL IV DATA: Not applicable SIGNED BY: RT Alison(R) May 17, 2022 2:30 PM documented in this encounter [facility] 05-17-2022 History of Present illness Narrative Radiology Service Progress Note PATIENT NAME: Kailee Sam DATE OF SERVICE: May 17, 2022 TIME: 1:30 PM PATIENT IDENTITY VERIFICATION COMPLETED USING TWO (2) IDENTIFIERS: Name and Date of confirmed by patient verbally. FALL SCREENING: Has the patient had 2 falls in the last year or 1 fall with injury or currently using an Ambulatory Assistive Device (Walker, Cane, Wheelchair, Crutches, etc.)? No PATIENT GENDER DATA: Female. status: : No status: NO. PATIENT RELEVANT IMPLANT DATA REVIEWED: Not Applicable RADIOLOGY DEPARTMENT: Mammography PERIPHERAL IV DATA: Not applicable SIGNED BY: RT Emmanuelle(R) May 17, 2022 1:30 PM documented in this encounter [facility] 05-11-2022 Miscellaneous Notes Orders placed. Thank you Arpita Connelly APRN.CNP May we please have right and left breast ultrasound orders placed. US Breast LTD RT US Breast LTD LT Thank you very much! Natalie Taylor RDMS documented in this encounter [facility] 05-05-2022 History of Present illness Narrative CC: Patient presents with: Recheck: 2 week follow up HPI Kailee Sam is a 81 year old female who presents today for follow up on nausea, shortness of breath, and hypertension. Daughter on facetime for appointment as well. HTN: Ms. Sam indicates that she is feeling well and denies any symptoms referable to elevated blood pressure. Specifically denies headache, chest pain, and peripheral edema. Patient denies any side effects of her medication(s) and is compliant with their regimen. She does check BP's away from this office with average BP's variable ranging from SBP 109-162/70s - 80s range. Last 3 Encounter BP Readings: Date: BP: 05/05/2022 162/94 True BP 130/80 04/20/2022 144/72 04/18/2022 148/77 Shortness of breath without change since last visit. Last visit description; Has had shortness of breath with minimal exertion for the past year. Even working around her house makes her short of breath. Will sometimes get dizzy with this as well especially if walking quickly. States she is very fatigued all the time as well. No difficulty breathing when laying flat, palpitations, or edema. Does now report that she was incorrect and she has palpitations every time she walks and feels her heart is racing. Has to sit down which will eventually relieve her shortness of breath and palpitations. These are not new and only occur with the shortness of breath. Denies chest pain, edema, fever, or any other accompanying symptoms. Lab work not too concerning. Magnesium low so now taking a supplement. Echo showing EF 45% with Grade 1 diastolic dysfunction with mod dilated left atrium and 2+ MVR. Nausea and vomiting with taking all of her over the counter supplements at the same time. Did not want to stop any so started to space them out throughout the morning. This has resolved her nausea and vomiting. Denies any abdominal pain, diarrhea from mag supplement has stopped, and last BM was soft and formed this AM. Family history of colon cancer but has never had a colonoscopy completed. Discussed the importance of this, but patient unsure if she wants to have it done at this time. Discussed with her hiatal hernia these would be the people I would consult her too. Patient to notify us if she changes her mind. REVIEW OF SYSTEMS General: no fevers, no chills, no night sweats, no recurrent infections, no change in appetite, no change in energy, and no significant changes in weight Respiratory: no cough, no wheezing, no hemoptysis Cardiovascular: no chest pain, no chest pressure, and no swelling GI: See HPI PAST MEDICAL HISTORY Diagnosis Date Disorder of bone and cartilage 06/16/2008 Glaucoma Unspecified essential hypertension Unspecified glaucoma(365.9) Glaucoma PAST SURGICAL HISTORY Procedure Laterality Date LIG/TRNSXJ FLP TUBE ABDL/VAG APPR UNI/BI Tubal ligation RMVL SEC MEMBRANOUS CTRC CORNEO-SCLL SCTJ 2006 Cataract removal b/l ALLERGIES Carafate [Sucralfate], Meloxicam, Mucinex [Guaifenesin], Pantoprazole, and Pepcid [Famotidine (Pf)] MEDICATIONS colestipol (COLESTID) 1 gram tablet^Take 1 tablet by mouth twice daily.^Disp: 180 tablet^Rfl: 3 losartan (COZAAR) 50 mg tablet^Take 1 tablet by mouth once daily.^Disp: 30 tablet^Rfl: 5 omeprazole (PRILOSEC) 20 mg capsule^Take 1 capsule by mouth daily before breakfast. 1/2 hr before meal.^Disp: 90 capsule^Rfl: 1 magnesium oxide (MAG-OX) 400 mg (241.3 mg magnesium) tablet^Take 1 tablet by mouth once daily.^Disp: 90 tablet^Rfl: 3 allopurinol (ZYLOPRIM) 100 mg tablet^TAKE 2 & 1/2 TABLETS BY MOUTH EVERY DAY^Disp: 225 tablet^Rfl: 3 dorzolamide-timolol, PF, (COSOPT) 2-0.5 % ophthalmic drops^1 Drop every 12 hours.^Disp: ^Rfl: metoprolol succinate ER (TOPROL XL) 100 mg^Take 1 tablet by mouth once daily.^Disp: 90 tablet^Rfl: 3 cholecalciferol, vitamin D3, (VITAMIN D3 ORAL)^Take 6,000 mg by mouth. Once a day ^Disp: ^Rfl: MSM-Aloe Evgn-Mtilfg37-Mtu Oil (DEEP BLUE RELIEF) gel^Apply 1 application to affected area once daily.^Disp: ^Rfl: acetaminophen (TYLENOL ARTHRITIS PAIN) 650 mg CR tablet^Take 650 mg by mouth every 8 hours as needed.^Disp: ^Rfl: Wkxtahoyo-Cyb-MB-Lut-Zeaxanth (ICAPS MV) 100-1.66-0.83 mcg-mg-mg TbEC^Take 2 tablets by mouth once daily.^Disp: ^Rfl: COMPOUNDED PRESCRIPTION^Green Neri Tea one half tablet twice daily^Disp: ^Rfl: 0 FAMILY HISTORY Problem Relation Age of Onset Heart Mother Asthma Father Cervical Cancer Sister Colon Cancer Daughter Adenocarcinoma Breast Cancer Daughter Social History Tobacco Use Smoking status: Former Packs/day: 0.50 Years: 15.00 Pack years: 7.50 Types: Cigarettes Quit date: 08/21/1997 Years since quittin.7 Smokeless tobacco: Never Substance Use Topics Alcohol use: Yes Comment: rarely Drug use: No PHYSICAL EXAM BP 130/80 Pulse 88 Resp 16 Wt 82.1 kg (181 lb) SpO2 98% BMI 32.06 kg/m General Appearance: well appearing, in no acute distress, alert Skin: Skin color, texture, turgor normal for age; Eyes: conjunctiva pink and moist, no icterus, sclera white, non-injected Lungs: Lungs clear to auscultation. No wheezing, rhonchi, rales. Heart: RRR without murmur, gallop, or rubs. No ectopy BUE Extremities: No deformities, edema, skin discoloration, clubbing or cyanosis. Good capillary refill. Health maintenance reviewed with patient: BP CONTROLLED (<130/80) Never done SHINGRIX VACCINE(1 of 2) Never done DTAP,TDAP,TD(1 - Tdap) due on 08/27/2009 FECAL OCCULT BLOOD due on 12/04/2017 ADVANCE DIRECTIVE DISCUSSION Never done COVID-19 VACCINE(4 - Booster for Moderna series) due on 11/25/2021 INFLUENZA(1) due on 04/21/2022 DEPRESSION SCREENING due on 04/13/2023 ANNUAL PCP TEAM CHRONIC DISEASE VISIT due on 04/20/2023 SERUM CREATININE due on 04/21/2023 HEMOGLOBIN/HEMATOCRIT due on 04/21/2023 DIABETES SCREEN due on 04/21/2025 BONE DENSITY Completed PNEUMOCOCCAL: 65+ Completed DATA REVIEWED: Most recent labs and imaging results. ASSESSMENT/PLAN: 1. Shortness of breath - ICD9: 786.05, ICD10: R06.02 (primary diagnosis) - with abnormal echo results palpitations and shortness of breath with exertion, will need to see cardiology - CONSULT TO CARDIOLOGY - go to ER with increased shortness of breath, palpitations, chest pain, confusion, or any other urgent concern. 2. Palpitations - ICD9: 785.1, ICD10: R00.2 - CONSULT TO CARDIOLOGY - OUTSIDE VENDOR CARDIAC OUTPATIENT EXTENDED RHYTHM RECORDING (WITHOUT TELEMETRY) 3. Diastolic dysfunction - ICD9: 429.9, ICD10: I51.89 - CONSULT TO CARDIOLOGY 4. Encounter for immunization - ICD9: V03.89, ICD10: Z23 - INFLUENZA SEASONAL QUADRIVALENT HIGH DOSE AGE 65+ 5. Colon cancer screening declined - ICD9: V64.2, ICD10: Z53.20 - with family history of colon cancer other screenings are not appropriate and needs a colonoscopy 6. Nausea and vomiting, unspecified vomiting type - ICD9: 787.01, ICD10: R11.2 Resolved with supplement regimen changes 7. Hiatal hernia - ICD9: 553.3, ICD10: K44.9 - eat multiple small meals throughout the day versus large ones. - losing weight would help improve this - avoid tight fitting clothes, Prescription instructions reviewed with patient as applicable. Potential red flag symptoms discussed with the patient. Reviewed appropriate action plan to take if red flag symptoms occur. Patient agreeable to treatment plan. Arpita Connelly APRN.CNP I spent 40 minutes in the visit, with more than 50% of the total jrqr-ee-latl time of the visit in counseling / coordination of care. documented in this encounter [facility] 05-03-2022 Miscellaneous Notes Patient has been identified by name and date of : Yes Patient phones for refill(s): Requested Prescriptions Pending Prescriptions Disp Refills losartan (COZAAR) 50 mg tablet 30 tablet 5 Sig: Take 1 tablet by mouth once daily. omeprazole (PRILOSEC) 20 mg capsule 90 capsule 1 Sig: Take 1 capsule by mouth daily before breakfast. 1/2 hr before meal. Date of last office visit in primary care: 04/20/2022 2 week follow-up: 05/05/2022 Last 2 Encounter Wt Readings: Date: Wt: 04/20/2022 83 kg (183 lb) 04/18/2022 83 kg (183 lb) Previous labs/tests for medication: Blood Pressure: BUN (mg/dL) Date Value 04/21/2022 39 10/01/2021 40 Sodium (mmol/L) Date Value 04/21/2022 140 10/01/2021 141 Last 1 Encounter BP Readings: Date: BP: 04/20/2022 144/72 Please advise. Thank you. Kalpana Bardales LPN Pharmacy verified in [facility] Patient has been identified by name and date of : Yes Patient aware RX will be sent to pharmacy. No need to notify patient. Patient phones for refill(s): Requested Prescriptions Pending Prescriptions Disp Refills losartan (COZAAR) 50 mg tablet 30 tablet 5 Sig: Take 1 tablet by mouth once daily. omeprazole (PRILOSEC) 20 mg capsule 90 capsule 1 Sig: Take 1 capsule by mouth daily before breakfast. 1/2 hr before meal. Date of last office visit : 04/20/2022 Date of next office visit : 05/05/2022 Last 2 Encounter Wt Readings: Date: Wt: 04/20/2022 83 kg (183 lb) 04/18/2022 83 kg (183 lb) Please advise. Cynthia Bae Pss documented in this encounter [facility] 04-27-2022 Miscellaneous Notes Pt will discuss seeing a technology officer with provider at her next apt on 05-05-22. Deana Anthony LPN Patient calling since she received text from Pharmacy about a rx. Went over results, notes from Arpita Connelly WEBBING TACKER with understanding. Aware rx to pharmacy. Please let patient her echo showed some mild valvular changes so I am consulting her to cardiology for further evaluation since she has the shortness of breath. Also chest xray did show a hiatal hernia. Continue with omeprazole and eat small meals throughout the day. Magnesium level was slightly low so magnesium supplement sent to pharmacy. Also cholesterol levels are elevated so diet should be low in fat, healthy portions, and minimal processed foods Thank you Arpita Connelly APRN.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 documented in this encounter [facility] 04-20-2022 History of Present illness Narrative CC: Patient presents with: Recheck: BP follow up HPI Kailee Sam is a 81 year old female who presents today for BP follow up but has multiple concerns as well. HTN: Ms. Sam indicates that she is feeling well and denies any symptoms referable to elevated blood pressure. Specifically denies headache, chest pain, palpitations, and peripheral edema. Patient denies any side effects of her medication(s) and is compliant with their regimen. She does not check BP's generally. Kailee denies regular aerobic exercise. She watches her diet for sodium, low fat and low cholesterol generally not very much. Last 3 Encounter BP Readings: Date: BP: 04/20/2022 144/72 04/18/2022 148/77 10/18/2021 172/84 Has had shortness of breath with minimal exertion for the past year. Even working around her house makes her short of breath. Will sometimes get dizzy with this as well especially if walking quickly. States she is very fatigued all the time as well. No difficulty breathing when laying flat, palpitations, or edema. Gets nauseated. Vomits every day an hour after taking 6 supplemental over the counter medications. Emesis is liquid and sometimes colored from pill colors. No pills noted. Improves if she lays down after taking her medication. Does not occur after eating food or with other medications. 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 Denies constipation, or abdominal pain. Has never had a colonoscopy. Also reports that left breast is larger than the right. Has always been this way but the difference in size is more noticeable over the last few months. Has not had a mammogram since 2017. Denies any breast pain, nipple discharge, or change in skin. REVIEW OF SYSTEMS General: no fevers, no chills, no night sweats, no recurrent infections, no change in appetite, no change in energy, and no significant changes in weight Respiratory: no cough, no wheezing, no hemoptysis Cardiovascular: no chest pain, no chest pressure, no palpitations, and no swelling GI: No nausea, vomiting, or diarrhea Skin: Negative for lesions, rash, and itching Endocrine: no fatigue, no cold intolerance, no heat intolerance, no polyuria, no polyphagia, and no polydipsia Neurologic: No headache, weakness, numbness, tingling, dizziness, syncope. PAST MEDICAL HISTORY Diagnosis Date Disorder of bone and cartilage 06/16/2008 Glaucoma Unspecified essential hypertension Unspecified glaucoma(365.9) Glaucoma PAST SURGICAL HISTORY Procedure Laterality Date LIG/TRNSXJ FLP TUBE ABDL/VAG APPR UNI/BI Tubal ligation RMVL SEC MEMBRANOUS CTRC CORNEO-SCLL SCTJ 2005 Cataract removal b/l ALLERGIES Carafate [Sucralfate], Meloxicam, Mucinex [Guaifenesin], Pantoprazole, and Pepcid [Famotidine (Pf)] MEDICATIONS allopurinol (ZYLOPRIM) 100 mg tablet TAKE 2 & 1/2 TABLETS BY MOUTH EVERY DAY omeprazole (PRILOSEC) 20 mg capsule Take 1 capsule by mouth daily before breakfast. 1/2 hr before meal. dorzolamide-timolol, PF, (COSOPT) 2-0.5 % ophthalmic drops 1 Drop every 12 hours. losartan (COZAAR) 50 mg tablet Take 1 tablet by mouth once daily. metoprolol succinate ER (TOPROL XL) 100 mg Take 1 tablet by mouth once daily. colestipol (COLESTID) 1 gram tablet Take 1 tablet by mouth twice daily. cholecalciferol, vitamin D3, (VITAMIN D3 ORAL) Take 6,000 mg by mouth. Once a day MSM-Aloe Kgbd-Fzyyze34-Qwv Oil (DEEP BLUE RELIEF) gel Apply 1 application to affected area once daily. acetaminophen (TYLENOL ARTHRITIS PAIN) 650 mg CR tablet Take 650 mg by mouth every 8 hours as needed. FISH OIL/BORAGE/FLAX/OM3,6,9#1 (OMEGA 3-6-9 COMPLEX ORAL) Take by mouth. latanaprost (XALATAN) 0.005 % ophthalmic solution Use 1 Drop in both eyes daily at bedtime. TO AFFECTED EYE(S) Blnnkoykm-Mkx-YI-Lut-Zeaxanth (ICAPS MV) 100-1.66-0.83 mcg-mg-mg TbEC Take 2 tablets by mouth once daily. COMPOUNDED PRESCRIPTION Green Neri Tea one half tablet twice daily FAMILY HISTORY Problem Relation Age of Onset Heart Mother Asthma Father Cervical Cancer Sister Colon Cancer Daughter Adenocarcinoma Breast Cancer Daughter Social History Tobacco Use Smoking status: Former Packs/day: 0.50 Years: 15.00 Pack years: 7.50 Types: Cigarettes Quit date: 08/21/1997 Years since quittin.6 Smokeless tobacco: Never Substance Use Topics Alcohol use: Yes Comment: rarely Drug use: No PHYSICAL EXAM BP 144/72 Pulse 87 Resp 16 Wt 83 kg (183 lb) SpO2 98% BMI 32.42 kg/m General Appearance: well appearing, in no acute distress, alert Pysch: mood and affect broad and appropriate Skin: Skin color, texture, turgor normal for age; Eyes: conjunctiva pink and moist, no icterus, sclera white, non-injected Neck: Thyroid normal size and symmetric without palpable nodules, No adenopathy Lymph nodes: No cervical lymphadenopathy and No supraclavicular lymphadenopathy, no axillary lymphadenopathy Lungs: Lungs clear to auscultation. No wheezing, rhonchi, rales. Heart: apical slightly irregular, without murmur, gallop, or rubs. Abdomen: Abdomen soft, non-tender. Bowel sounds normal. No masses, organomegaly Extremities: No deformities, edema, skin discoloration, clubbing or cyanosis. Good capillary refill. Breasts: No lumps or masses noted, left breast larger than right breast. Reported tenderness with palpation of right breast specifically to upper inner area. Health maintenance reviewed with patient: BP CONTROLLED (<130/80) Never done SHINGRIX VACCINE(1 of 2) Never done DTAP,TDAP,TD(1 - Tdap) due on 08/27/2009 FECAL OCCULT BLOOD due on 12/04/2017 ADVANCE DIRECTIVE DISCUSSION Never done COVID-19 VACCINE(4 - Booster for Moderna series) due on 11/25/2021 INFLUENZA(1) due on 04/21/2022 HEMOGLOBIN/HEMATOCRIT due on 09/16/2022 ANNUAL PCP TEAM CHRONIC DISEASE VISIT due on 10/11/2022 SERUM CREATININE due on 03/05/2023 DEPRESSION SCREENING due on 04/13/2023 DIABETES SCREEN due on 10/01/2024 BONE DENSITY Completed PNEUMOCOCCAL: 65+ Completed DATA REVIEWED: No new labs EKG Interpretation: RHYTHM: Normal sinus rhythm at 85 beats per minute and PVCs and PACs INTERVALS: Normal DC interval QRS COMPLEX: Normal ST SEGMENT: Nonspecific ST-T changes QT INTERVAL: Normal COMPARED WITH PRIOR: changed with possible left atrial enlargement and nonspecific St abnormality ASSESSMENT/PLAN: 1. Dyspnea on exertion - ICD9: 786.09, ICD10: R06.09 (primary diagnosis) - unsure on cause - ECG COMPLETE - CBC + DIFF - COMP METABOLIC PANEL - XR CHEST 2V FRONTAL/LAT - ECHO - PERFLUTREN LIPID MICROSPHERES 1.1 MG/ML INJECTION IN NS 10 ML - SODIUM CHLORIDE 0.9 % (FLUSH) INJECTION SYRINGE 2. Abnormal EKG - ICD9: 794.31, ICD10: R94.31 - MAGNESIUM BLD - ECHO - PERFLUTREN LIPID MICROSPHERES 1.1 MG/ML INJECTION IN NS 10 ML - SODIUM CHLORIDE 0.9 % (FLUSH) INJECTION SYRINGE - T3 BLD - T4 FREE/FREE THYROX 3. Cardiac arrhythmia, unspecified cardiac arrhythmia type - ICD9: 427.9, ICD10: I49.9 - the irregular rhythm was due to PACs and PVCs - ECG COMPLETE 4. Fatigue, unspecified type - ICD9: 780.79, ICD10: R53.83-- - - TSH and CBC - T3 BLD - T4 FREE/FREE THYROX 5. Breast tenderness - ICD9: 611.71, ICD10: N64.4 - GAUDENCIO DIAGNOSTIC BILAT 6. Decrease in breast size - ICD9: 611.4, ICD10: N64.2 - GAUDENCIO DIAGNOSTIC BILAT 7. Acute breast pain - ICD9: 611.71, 338.19, ICD10: N64.4 - GAUDENCIO DIAGNOSTIC BILAT 8. Hypertension goal BP (blood pressure) < 140/90 - ICD9: 401.9, ICD10: I10 - suboptimal control - Continue current medication(s) - Recommended regular aerobic exercise. - Recommend home blood pressure monitoring, to bring results in on next visit - Goal of BP <130/80 - follow up in 2 weeks 9. Nausea and vomiting, unspecified vomiting type - ICD9: 787.01, ICD10: R11.2 - Patient does not want to stop any supplements at this time. Discussed spacing them out and not taking all at once to see if a specific supplement is causing the nausea and vomiting. 10. Lipid screening - ICD9: V77.91, ICD10: Z13.220 - COMP METABOLIC PANEL - LIPID PANEL BASIC 11. Idiopathic chronic gout of multiple sites with tophus - ICD9: 274.03, ICD10: M1A.09X1 - ALLOPURINOL 100 MG TABLET - URIC ACID BLOOD Prescription instructions reviewed with patient as applicable. Potential red flag symptoms discussed with the patient. Reviewed appropriate action plan to take if red flag symptoms occur. Patient agreeable to treatment plan. Arpita Connelly APRN.CNP documented in this encounter [facility] 04-18-2022 History of Present illness Narrative Follow-up of osteoporosis and tophaceous gout. HPI: To review, Kailee Sam is a 81 year old female - In Jun, received one dose of reclast 5mg IV. - In Jul, presented with pain and swelling of the hands and knees. 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 Started on allopurinol. - On 09/24/18, started prolia. Has received in Sep, Mar, Sep and Mar - In Mar, reported she was unable to afford otezla with the assistance program. Did not wish to start arava given c/f immunosuppression -at [facility], reports no interim fracture, infection, jaw pain or recent/plans for any invasive dental procedures (has upper/lower dentures) PAST MEDICAL HISTORY Diagnosis Date Disorder of bone and cartilage 06/16/2008 Glaucoma Unspecified essential hypertension Unspecified glaucoma(365.9) Glaucoma Stage 3 CKD PAST SURGICAL HISTORY Procedure Laterality Date LIG/TRNSXJ FLP TUBE ABDL/VAG APPR UNI/BI Tubal ligation RMVL SEC MEMBRANOUS CTRC CORNEO-SCLL SCTJ 2006 Cataract removal b/l ALLERGIES Allergen Reactions Carafate [Sucralfat* Diarrhea Meloxicam GI Upset Cri w rise creatinine, flare reflux dyspepsia Mucinex [Guaifenesi* Diarrhea Pantoprazole Diarrhea Pepcid [Famotidine * Diarrhea INTERVAL HISTORY She is here for follow up and prolia. Last prolia was 10/18/2021, which she tolerated well. No falls or fractures since [facility]. No invasive dental work in the last three months and none planned for the next three months. She wears full dentures. No jaw or thigh pain. No recent infections She is talking Vitamin D, but no calcium. Caffeine: none Alcohol: none Smoking: former smoker, quit years ago (not sure when) Exercise: no routine exercise. She denies any gout flares since the [facility]. Sites of pain: low back with walking, pain rated 10/10 Joint swelling: R knee Answers submitted by the patient for this visit: Review of Systems Rheumatology (Submitted on 04/13/2022) Fever : No Recent Unintentional Weight Change: No Eye Pain: No Eye Redness: No Vision Disturbance: Yes Eye Dryness: Yes Nose Bleeds: Yes Sores in your Mouth: No Trouble Swallowing: Yes Dry Mouth: No Chest Pain: No Leg Swelling: Yes A Cough: No Shortness of Breath: Yes Pain with Breathing: No Diarrhea: Yes Black Tarry Stools: No Blood in Urine: No Joint Pain or Stiffness: Yes Muscle Weakness: Yes Muscle Aches: Yes Joint Swelling: Yes Morning Stiffness in Joints: Yes Skin Color Changes: No Hair Loss: No Nail Changes: No Headaches: No Numbness: Yes Swollen Glands: No Current Outpatient Medications Medication Sig allopurinol (ZYLOPRIM) 100 mg tablet TAKE 2 & 1/2 TABLETS BY MOUTH EVERY DAY omeprazole (PRILOSEC) 20 mg capsule Take 1 capsule by mouth daily before breakfast. 1/2 hr before meal. dorzolamide-timolol, PF, (COSOPT) 2-0.5 % ophthalmic drops 1 Drop every 12 hours. losartan (COZAAR) 50 mg tablet Take 1 tablet by mouth once daily. metoprolol succinate ER (TOPROL XL) 100 mg Take 1 tablet by mouth once daily. colestipol (COLESTID) 1 gram tablet Take 1 tablet by mouth twice daily. cholecalciferol, vitamin D3, (VITAMIN D3 ORAL) Take 6,000 mg by mouth. Once a day MSM-Aloe Zxpw-Nfkxow81-Kzk Oil (DEEP BLUE RELIEF) gel Apply 1 application to affected area once daily. acetaminophen (TYLENOL ARTHRITIS PAIN) 650 mg CR tablet Take 650 mg by mouth every 8 hours as needed. FISH OIL/BORAGE/FLAX/OM3,6,9#1 (OMEGA 3-6-9 COMPLEX ORAL) Take by mouth. latanaprost (XALATAN) 0.005 % ophthalmic solution Use 1 Drop in both eyes daily at bedtime. TO AFFECTED EYE(S) Mopgmgtwx-Igg-LY-Lut-Zeaxanth (ICAPS MV) 100-1.66-0.83 mcg-mg-mg TbEC Take 2 tablets by mouth once daily. COMPOUNDED PRESCRIPTION Green Neri Tea one half tablet twice daily No current facility-administered medications for this visit. FAMILY HISTORY Problem Relation Age of Onset Heart Mother Asthma Father Cervical Cancer Sister Colon Cancer Daughter Adenocarcinoma Breast Cancer Daughter M-arthritis SOCIAL HISTORY: Lives in [place] with spouse Tobacco use: None Alcohol use: None PHYSICAL EXAM: BP 172/85 Pulse 83 Temp 36.6 C (97.8 F) (Temporal) Ht 160 cm (5' 3 ) Wt 83 kg (183 lb) BMI 32.42 kg/m Repeat BP 148/77 HR 83 CONSTITUTIONAL: Well-appearing, in NAD. SKIN: No rash. No alopecia. No sclerodactyly, calcinosis, telangiectasias, digital ulcers, or skin thickening. EYES: No scleral icterus or conjunctivitis ENT and Mouth: External ears normal. Oral exam wnl. RESPIRATORY: Normal breath sounds, clear to auscultation. CARDIOVASCULAR: Regular rate and rhythm, no murmurs or rubs GASTROENTEROLOGY: Normal bowel sounds. Abdomen is soft and non-tender. EXTREMITIES/LYMPH: No edema bilaterally NEURO: Awake, alert and oriented, normal gait MUSCULOSKELETAL: JOINT APPEARANCE: Heberden's and Janae's nodes present bilaterally. No erythema or warmth of any upper or lower extremity joint. RANGE OF MOTION: Able to fully fists bilaterally. SWOLLEN JOINTS/SYNOVITIS: No synovitis of any joint. TENDER JOINTS: None No tenderness to spine or SI joints Labs reviewed and discussed with the patient: Component Latest Ref Rng & Units 03/05/2022 Creatinine 0.58 - 0.96 mg/dL 1.45 (H) eGFR >=60 mL/min/1.73m 37 (L) Vitamin D 25 Hydroxy 31.0 - 80.0 ng/mL 57.4 Calcium 8.5 - 10.2 mg/dL 9.8 STUDIES: *October DEXA- IMPRESSION: Significant improvement in all areas Osteopenia in the right hip and bilateral femoral necks. LUMBAR SPINE: The bone mineral density from L1 through L4 is 1.163 grams per square centimeter which yields a T-score of 1.1. There has been a statistically significant interval increase in bone mineral density by 5.9%. LEFT HIP: The bone mineral density of the total region of the hip is 0.893 grams per square centimeter which yields a T-score of -0.4. There has been a statistically significant interval increase in bone mineral density of 7.9%. LEFT FEMORAL NECK: The bone mineral density of the femoral neck is 0.714 grams per square centimeter which yields a T-score of -1.2. There has been a statistically significant interval increase in bone mineral density of 9.1%. RIGHT HIP: The bone mineral density of the total region of the hip is 0.799 grams per square centimeter which yields a T-score of -1.2. There has been a statistically significant interval increase in bone mineral density by 6.4%. RIGHT FEMORAL NECK: The bone mineral density of the femoral neck is 0.594 grams per square centimeter which yields a T-score of -2.3. There has been a statistically significant interval increase in bone mineral density by 9%. *Jun DEXA- IMPRESSION: Osteoporosis in the right hip, demonstrating interval worsening. *Aug xray R shoulder- IMPRESSION: Degenerative changes with possible rotator cuff pathology IMPRESSION and PLAN: 1. Osteoporosis: February MRI L-spine with T11 compression fracture. Jun, had one dose of reclast. Bisphosphonates avoided due to CKD. Jun DEXA with significant decline. In Sep, started prolia; has received in Sep, Mar, Sep, Mar, Sep. October DEXA stable with significant improvement in all areas. - Continue prolia, given by me in office today. No PA needed given Medicare A/B. - Check labs in 5 months. Notify of results via [email or web address] Verbal and written reminders provided. - Continue vitamin D supplementation, not on extra calcium - Check DEXA in October-order placed and patient was reminded to schedule on the same machine as prior - Reviewed October DEXA results 2. Tophaceous gout: Stable - Continue allopurinol 250mg/day for goal UA<5 -check labs in 5 months - Avoid NSAIDs given CKD 3. Previously diagnosed psoriasis: High suspicion for PsA given SI joint pain, inflammatory back pain per history and significant improvement with oral steroids. Unable to use MTX given CKD and otezla due to cost. Declined arava given c/f immunosuppression. - Continue monitoring 4. Stage 3 CKD: - Renally dose medications 5. Generalized osteoarthritis: Shoulders, hands, knees - Tylenol prn 6. Low back pain -she declined consult to spine. She would like to discuss with her pcp. 7.General health maintenance: - Completed the covid vaccination series in Sep, Jul moderna - Advised to continue follow-up with PCP for routine health maintenance and malignancy screening -she was advised to f/u with her pcp for elevated BP. She denies headaches. Follow-up in [address] Omer for prolia or sooner if needed. Patient was instructed to call if any questions or concerns. Thank you for allowing me to participate in the care of your patient. I spent a total of 15 minutes on the date of the service which included preparing to see the patient, [id number] patient care, completing clinical documentation, performing a medically appropriate examination, ordering medications, tests, or procedures, and communicating results to the patient/family/caregiver. Devan Dobson APRN.DORENE documented in this encounter [facility] 04-15-2022 Instructions Devan Dobson APRN.CNP - 04/15/2022 11:36 AM EDT Please have labs done around 09/19/2022 Please schedule bone density test on the same machine as prior after 10/21/2022 documented in this encounter [facility] 02-03-2022 Miscellaneous Notes The following approved medication requests have been transmitted electronically. Signed Prescriptions Disp Refills allopurinol (ZYLOPRIM) 100 mg tablet 225 tablet 0 Sig: TAKE 2 & 1/2 TABLETS BY MOUTH EVERY DAY OBI: No Authorizing Provider: DEVAN DOBSON APRN.CNP Patient has been identified by name and date of : Yes RX INSTRUCTIONS: Patient aware RX will be sent to pharmacy. No need to notify patient. LAST APPOINTMENT: 10/18/2021 UPCOMING APPOINTMENT: 04/18/2022 LABS: Hemoglobin (g/dL) Date Value 09/16/2021 11.7 Hematocrit (%) Date Value 09/16/2021 39.2 WBC (k/uL) Date Value 09/16/2021 6.50 Platelet Count (k/uL) Date Value 09/16/2021 249 AST Date Value Ref Range Status 09/16/2021 17 13 - 35 U/L Final ALT Date Value Ref Range Status 09/16/2021 14 7 - 38 U/L Final Creatinine Date Value Ref Range Status 10/01/2021 1.58 (H) 0.58 - 0.96 mg/dL Final Uric Acid Date Value Ref Range Status 09/16/2021 5.7 2.5 - 6.6 mg/dL Final Donna Cleaning MA documented in this encounter [facility] documented as of this encounter (statuses as of 02/03/2022) [facility] History of Past illness Narrative* Problem Noted Date Resolved Date Lumbar spondylosis 05/06/2013 03/04/2015 Lumbar scoliosis 05/06/2013 05/02/2016 Osteoarthritis of hand 11/26/2012 8 Overview: Severe OA of the small joints of the hands. 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 Low back pain 04/18/2011 05/02/2016 Lumbar stenosis 04/18/2011 05/02/2016 documented as of this encounter (statuses as of 04/18/2022) [facility] History of Past illness Narrative* Problem Noted Date Resolved Date Lumbar spondylosis 05/06/2013 03/04/2015 Lumbar scoliosis 05/06/2013 05/02/2016 Osteoarthritis of hand 11/26/2012 8 Overview: Severe OA of the small joints of the hands. 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 Low back pain 04/18/2011 05/02/2016 Lumbar stenosis 04/18/2011 05/02/2016 documented as of this encounter (statuses as of 04/20/2022) [facility] History of Past illness Narrative* Problem Noted Date Resolved Date Lumbar spondylosis 05/06/2013 03/04/2015 Lumbar scoliosis 05/06/2013 05/02/2016 Osteoarthritis of hand 11/26/2012 8 Overview: Severe OA of the small joints of the hands. 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 Low back pain 04/18/2011 05/02/2016 Lumbar stenosis 04/18/2011 05/02/2016 documented as of this encounter (statuses as of 04/27/2022) [facility] History of Past illness Narrative* Problem Noted Date Resolved Date Lumbar spondylosis 05/06/2013 03/04/2015 Lumbar scoliosis 05/06/2013 05/02/2016 Osteoarthritis of hand 11/26/2012 8 Overview: Severe OA of the small joints of the hands. 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 Low back pain 04/18/2011 05/02/2016 Lumbar stenosis 04/18/2011 05/02/2016 documented as of this encounter (statuses as of 05/04/2022) [facility] History of Past illness Narrative* Problem Noted Date Resolved Date Lumbar spondylosis 05/06/2013 03/04/2015 Lumbar scoliosis 05/06/2013 05/02/2016 Osteoarthritis of hand 11/26/2012 8 Overview: Severe OA of the small joints of the hands. 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 Low back pain 04/18/2011 05/02/2016 Lumbar stenosis 04/18/2011 05/02/2016 documented as of this encounter (statuses as of 05/05/2022) [facility] History of Past illness Narrative* Problem Noted Date Resolved Date Lumbar spondylosis 05/06/2013 03/04/2015 Lumbar scoliosis 05/06/2013 05/02/2016 Osteoarthritis of hand 11/26/2012 8 Overview: Severe OA of the small joints of the hands. 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 Low back pain 04/18/2011 05/02/2016 Lumbar stenosis 04/18/2011 05/02/2016 documented as of this encounter (statuses as of 05/18/2022) [facility] of Past illness Narrative* Problem Noted Date Resolved Date Lumbar spondylosis 05/06/2013 03/04/2015 Lumbar scoliosis 05/06/2013 05/02/2016 Osteoarthritis of hand 11/26/2012 8 Overview: Severe OA of the small joints of the hands. 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 Low back pain 04/18/2011 05/02/2016 Lumbar stenosis 04/18/2011 05/02/2016 documented as of this encounter (statuses as of 05/18/2022) [facility] History of Past illness Narrative* Problem Noted Date Resolved Date Lumbar spondylosis 05/06/2013 03/04/2015 Lumbar scoliosis 05/06/2013 05/02/2016 Osteoarthritis of hand 11/26/2012 8 Overview: Severe OA of the small joints of the hands. 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 Low back pain 04/18/2011 05/02/2016 Lumbar stenosis 04/18/2011 05/02/2016 documented as of this encounter (statuses as of 06/01/2022) [facility] History of Past illness Narrative* Problem Noted Date Resolved Date Lumbar spondylosis 05/06/2013 03/04/2015 Lumbar scoliosis 05/06/2013 05/02/2016 Osteoarthritis of hand 11/26/2012 8 Overview: Severe OA of the small joints of the hands. 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 Low back pain 04/18/2011 05/02/2016 Lumbar stenosis 04/18/2011 05/02/2016 documented as of this encounter (statuses as of 06/06/2022) [facility] History of Past illness Narrative* Problem Noted Date Resolved Date Lumbar spondylosis 05/06/2013 03/04/2015 Lumbar scoliosis 05/06/2013 05/02/2016 Osteoarthritis of hand 11/26/2012 8 Overview: Severe OA of the small joints of the hands. 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 Eczema 05/14/2012 09/29/2022 Low back pain 04/18/2011 05/02/2016 Lumbar stenosis 04/18/2011 05/02/2016 documented as of this encounter (statuses as of 02/10/2023) [facility] of Past illness Narrative* Problem Noted Date Diagnosed Date Resolved Date Lumbar spondylosis 05/06/2013 5 Lumbar scoliosis 05/06/2013 05/02/2016 Osteoarthritis of hand 11/26/201212/11 Overview: Severe OA of the small joints of the hands. 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 Eczema 05/14/2012 09/29/2022 Low back pain 04/18/2011 05/02/2016 Lumbar stenosis 04/18/2011 05/02/2016 documented as of this encounter (statuses as of 03/04/2023) [facility] of Past illness Narrative* Problem Noted Date Diagnosed Date Resolved Date Lumbar spondylosis 05/06/2013 5 Lumbar scoliosis 05/06/2013 05/02/2016 Osteoarthritis of hand 11/26/201212/11 Overview: Severe OA of the small joints of the hands. 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 Eczema 05/14/2012 09/29/2022 Low back pain 04/18/2011 05/02/2016 Lumbar stenosis 04/18/2011 05/02/2016 documented as of this encounter (statuses as of 03/24/2023) [facility] History of Past illness Narrative* Problem Noted Date Diagnosed Date Resolved Date Lumbar spondylosis 05/06/2013 5 Lumbar scoliosis 05/06/2013 05/02/2016 Osteoarthritis of hand 11/26/201212/11 Overview: Severe OA of the small joints of the hands. 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 Eczema 05/14/2012 09/29/2022 Low back pain 04/18/2011 05/02/2016 Lumbar stenosis 04/18/2011 05/02/2016 documented as of this encounter (statuses as of 03/28/2023) [facility] History of Past illness Narrative* Problem Noted Date Diagnosed Date Resolved Date Lumbar spondylosis 05/06/2013 5 Lumbar scoliosis 05/06/2013 05/02/2016 Osteoarthritis of hand 11/26/201212/11 Overview: Severe OA of the small joints of the hands. 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 Eczema 05/14/2012 09/29/2022 Low back pain 04/18/2011 05/02/2016 Lumbar stenosis 04/18/2011 05/02/2016 documented as of this encounter (statuses as of 04/01/2023) [facility] History of Past illness Narrative* Problem Noted Date Diagnosed Date Resolved Date Lumbar spondylosis 05/06/2013 5 Lumbar scoliosis 05/06/2013 05/02/2016 Osteoarthritis of hand 11/26/201212/11 Overview: Severe OA of the small joints of the hands. 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 Eczema 05/14/2012 09/29/2022 Low back pain 04/18/2011 05/02/2016 Lumbar stenosis 04/18/2011 05/02/2016 documented as of this encounter (statuses as of 04/07/2023) [facility] History of Past illness Narrative* Problem Noted Date Diagnosed Date Resolved Date Lumbar spondylosis 05/06/2013 5 Lumbar scoliosis 05/06/2013 05/02/2016 Osteoarthritis of hand 11/26/201212/11 Overview: Severe OA of the small joints of the hands. 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 Eczema 05/14/2012 09/29/2022 Low back pain 04/18/2011 05/02/2016 Lumbar stenosis 04/18/2011 05/02/2016 documented as of this encounter (statuses as of 04/11/2023) [facility] History of Past illness Narrative* Problem Noted Date Diagnosed Date Resolved Date Lumbar spondylosis 05/06/2013 5 Lumbar scoliosis 05/06/2013 05/02/2016 Osteoarthritis of hand 11/26/201212/11 Overview: Severe OA of the small joints of the hands. 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 Eczema 05/14/2012 09/29/2022 Low back pain 04/18/2011 05/02/2016 Lumbar stenosis 04/18/2011 05/02/2016 documented as of this encounter (statuses as of 04/13/2023) [facility] History of Past illness Narrative* Problem Noted Date Diagnosed Date Resolved Date Lumbar spondylosis 05/06/2013 5 Lumbar scoliosis 05/06/2013 05/02/2016 Osteoarthritis of hand 11/26/201212/11 Overview: Severe OA of the small joints of the hands. 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 Eczema 05/14/2012 09/29/2022 Low back pain 04/18/2011 05/02/2016 Lumbar stenosis 04/18/2011 05/02/2016 documented as of this encounter (statuses as of 04/13/2023) [facility] History of Past illness Narrative* Problem Noted Date Diagnosed Date Resolved Date Lumbar spondylosis 05/06/2013 5 Lumbar scoliosis 05/06/2013 05/02/2016 Osteoarthritis of hand 11/26/201212/11 Overview: Severe OA of the small joints of the hands. 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 Eczema 05/14/2012 09/29/2022 Low back pain 04/18/2011 05/02/2016 Lumbar stenosis 04/18/2011 05/02/2016 documented as of this encounter (statuses as of 04/13/2023) [facility] History of Past illness Narrative* Problem Noted Date Diagnosed Date Resolved Date Lumbar spondylosis 05/06/2013 5 Lumbar scoliosis 05/06/2013 05/02/2016 Osteoarthritis of hand 11/26/201212/11 Overview: Severe OA of the small joints of the hands. 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 Eczema 05/14/2012 09/29/2022 Low back pain 04/18/2011 05/02/2016 Lumbar stenosis 04/18/2011 05/02/2016 documented as of this encounter (statuses as of 04/17/2023) [facility] History of Past illness Narrative* Problem Noted Date Diagnosed Date Resolved Date Lumbar spondylosis 05/06/2013 5 Lumbar scoliosis 05/06/2013 05/02/2016 Osteoarthritis of hand 11/26/201212/11 Overview: Severe OA of the small joints of the hands. 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 Eczema 05/14/2012 09/29/2022 Low back pain 04/18/2011 05/02/2016 Lumbar stenosis 04/18/2011 05/02/2016 documented as of this encounter (statuses as of 04/17/2023) [facility] History of Past illness Narrative* Problem Noted Date Diagnosed Date Resolved Date Lumbar spondylosis 05/06/2013 5 Lumbar scoliosis 05/06/2013 05/02/2016 Osteoarthritis of hand 11/26/201212/11 Overview: Severe OA of the small joints of the hands. 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 Eczema 05/14/2012 09/29/2022 Low back pain 04/18/2011 05/02/2016 Lumbar stenosis 04/18/2011 05/02/2016 documented as of this encounter (statuses as of 04/18/2023) [facility] History of Past illness Narrative* Problem Noted Date Diagnosed Date Resolved Date Lumbar spondylosis 05/06/2013 5 Lumbar scoliosis 05/06/2013 05/02/2016 Osteoarthritis of hand 11/26/201212/11 Overview: Severe OA of the small joints of the hands. 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 Eczema 05/14/2012 09/29/2022 Low back pain 04/18/2011 05/02/2016 Lumbar stenosis 04/18/2011 05/02/2016 documented as of this encounter (statuses as of 04/21/2023) [facility] History of Past illness Narrative* Problem Noted Date Diagnosed Date Resolved Date Lumbar spondylosis 05/06/2013 5 Lumbar scoliosis 05/06/2013 05/02/2016 Osteoarthritis of hand 11/26/201212/11 Overview: Severe OA of the small joints of the hands. 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 Eczema 05/14/2012 09/29/2022 Low back pain 04/18/2011 05/02/2016 Lumbar stenosis 04/18/2011 05/02/2016 documented as of this encounter (statuses as of 05/03/2023) [facility] History of Past illness Narrative* Problem Noted Date Diagnosed Date Resolved Date Lumbar spondylosis 05/06/2013 5 Lumbar scoliosis 05/06/2013 05/02/2016 Osteoarthritis of hand 11/26/201212/11 Overview: Severe OA of the small joints of the hands. 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 Eczema 05/14/2012 09/29/2022 Low back pain 04/18/2011 05/02/2016 Lumbar stenosis 04/18/2011 05/02/2016 documented as of this encounter (statuses as of 05/04/2023) [facility] History of Past illness Narrative* Problem Noted Date Diagnosed Date Resolved Date Lumbar spondylosis 05/06/2013 5 Lumbar scoliosis 05/06/2013 05/02/2016 Osteoarthritis of hand 11/26/201212/11 Overview: Severe OA of the small joints of the hands. 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 Eczema 05/14/2012 09/29/2022 Low back pain 04/18/2011 05/02/2016 Lumbar stenosis 04/18/2011 05/02/2016 documented as of this encounter (statuses as of 05/04/2023) [facility] History of Past illness Narrative* Problem Noted Date Diagnosed Date Resolved Date Lumbar spondylosis 05/06/2013 5 Lumbar scoliosis 05/06/2013 05/02/2016 Osteoarthritis of hand 11/26/201212/11 Overview: Severe OA of the small joints of the hands. 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 Eczema 05/14/2012 09/29/2022 Low back pain 04/18/2011 05/02/2016 Lumbar stenosis 04/18/2011 05/02/2016 documented as of this encounter (statuses as of 05/17/2023) [facility] History of Past illness Narrative* Problem Noted Date Diagnosed Date Resolved Date Lumbar spondylosis 05/06/2013 5 Lumbar scoliosis 05/06/2013 05/02/2016 Osteoarthritis of hand 11/26/201212/11 Overview: Severe OA of the small joints of the hands. 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 Eczema 05/14/2012 09/29/2022 Low back pain 04/18/2011 05/02/2016 Lumbar stenosis 04/18/2011 05/02/2016 documented as of this encounter (statuses as of 06/13/2023) [facility] History of Past illness Narrative* Problem Noted Date Diagnosed Date Resolved Date Lumbar spondylosis 05/06/2013 5 Lumbar scoliosis 05/06/2013 05/02/2016 Osteoarthritis of hand 11/26/201212/11 Overview: Severe OA of the small joints of the hands. 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 Eczema 05/14/2012 09/29/2022 Low back pain 04/18/2011 05/02/2016 Lumbar stenosis 04/18/2011 05/02/2016 documented as of this encounter (statuses as of 06/13/2023) [facility] History of Past illness Narrative* Problem Noted Date Diagnosed Date Resolved Date Lumbar spondylosis 05/06/2013 5 Lumbar scoliosis 05/06/2013 05/02/2016 Osteoarthritis of hand 11/26/201212/11 Overview: Severe OA of the small joints of the hands. 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 Eczema 05/14/2012 09/29/2022 Low back pain 04/18/2011 05/02/2016 Lumbar stenosis 04/18/2011 05/02/2016 documented as of this encounter (statuses as of 06/16/2023) [facility] History of Past illness Narrative* Problem Noted Date Diagnosed Date Resolved Date Lumbar spondylosis 05/06/2013 5 Lumbar scoliosis 05/06/2013 05/02/2016 Osteoarthritis of hand 11/26/201212/11 Overview: Severe OA of the small joints of the hands. 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 Eczema 05/14/2012 09/29/2022 Low back pain 04/18/2011 05/02/2016 Lumbar stenosis 04/18/2011 05/02/2016 documented as of this encounter (statuses as of 06/25/2023) [facility] History of Past illness Narrative* Problem Noted Date Diagnosed Date Resolved Date Lumbar spondylosis 05/06/2013 5 Lumbar scoliosis 05/06/2013 05/02/2016 Osteoarthritis of hand 11/26/201212/11 Overview: Severe OA of the small joints of the hands. 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 Eczema 05/14/2012 09/29/2022 Low back pain 04/18/2011 05/02/2016 Lumbar stenosis 04/18/2011 05/02/2016 documented as of this encounter (statuses as of 06/25/2023) [facility] History of Past illness Narrative* Problem Noted Date Diagnosed Date Resolved Date Lumbar spondylosis 05/06/2013 5 Lumbar scoliosis 05/06/2013 05/02/2016 Osteoarthritis of hand 11/26/201212/11 Overview: Severe OA of the small joints of the hands. 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 Eczema 05/14/2012 09/29/2022 Low back pain 04/18/2011 05/02/2016 Lumbar stenosis 04/18/2011 05/02/2016 documented as of this encounter (statuses as of 07/04/2023) [facility] History of Past illness Narrative* Problem Noted Date Diagnosed Date Resolved Date Lumbar spondylosis 05/06/2013 5 Lumbar scoliosis 05/06/2013 05/02/2016 Osteoarthritis of hand 11/26/201212/11 Overview: Severe OA of the small joints of the hands. 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 Eczema 05/14/2012 09/29/2022 Low back pain 04/18/2011 05/02/2016 Lumbar stenosis 04/18/2011 05/02/2016 documented as of this encounter (statuses as of 07/04/2023) [facility] History of Past illness Narrative* Problem Noted Date Diagnosed Date Resolved Date Lumbar spondylosis 05/06/2013 5 Lumbar scoliosis 05/06/2013 05/02/2016 Osteoarthritis of hand 11/26/201212/11 Overview: Severe OA of the small joints of the hands. 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 Eczema 05/14/2012 09/29/2022 Low back pain 04/18/2011 05/02/2016 Lumbar stenosis 04/18/2011 05/02/2016 documented as of this encounter (statuses as of 07/06/2023) [facility] History of Past illness Narrative* Problem Noted Date Diagnosed Date Resolved Date Lumbar spondylosis 05/06/2013 5 Lumbar scoliosis 05/06/2013 05/02/2016 Osteoarthritis of hand 11/26/201212/11 Overview: Severe OA of the small joints of the hands. 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 Eczema 05/14/2012 09/29/2022 Low back pain 04/18/2011 05/02/2016 Lumbar stenosis 04/18/2011 05/02/2016 documented as of this encounter (statuses as of 07/20/2023) [facility] History of Past illness Narrative* Problem Noted Date Diagnosed Date Resolved Date Lumbar spondylosis 05/06/2013 5 Lumbar scoliosis 05/06/2013 05/02/2016 Osteoarthritis of hand 11/26/201212/11 Overview: Severe OA of the small joints of the hands. 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 Eczema 05/14/2012 09/29/2022 Low back pain 04/18/2011 05/02/2016 Lumbar stenosis 04/18/2011 05/02/2016 documented as of this encounter (statuses as of 07/20/2023) [facility] History of Past illness Narrative* Problem Noted Date Diagnosed Date Resolved Date Lumbar spondylosis 05/06/2013 5 Lumbar scoliosis 05/06/2013 05/02/2016 Osteoarthritis of hand 11/26/201212/11 Overview: Severe OA of the small joints of the hands. 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 Eczema 05/14/2012 09/29/2022 Low back pain 04/18/2011 05/02/2016 Lumbar stenosis 04/18/2011 05/02/2016 documented as of this encounter (statuses as of 07/21/2023) [facility] History of Past illness Narrative* Problem Noted Date Diagnosed Date Resolved Date Lumbar spondylosis 05/06/2013 5 Lumbar scoliosis 05/06/2013 05/02/2016 Osteoarthritis of hand 11/26/201212/11 Overview: Severe OA of the small joints of the hands. 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 Eczema 05/14/2012 09/29/2022 Low back pain 04/18/2011 05/02/2016 Lumbar stenosis 04/18/2011 05/02/2016 documented as of this encounter (statuses as of 07/28/2023) [facility] History of Past illness Narrative* Problem Noted Date Diagnosed Date Resolved Date Lumbar spondylosis 05/06/2013 5 Lumbar scoliosis 05/06/2013 05/02/2016 Osteoarthritis of hand 11/26/201212/11 Overview: Severe OA of the small joints of the hands. 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) Stage 3b chronic kidney disease (HCC) [facility] Diagnosis Dyspnea on exertion- Primary Other dyspnea and respiratory abnormality Abnormal EKG Nonspecific abnormal electrocardiogram (ECG) (EKG) Cardiac arrhythmia, unspecified cardiac arrhythmia type Fatigue, unspecified type Breast tenderness Mastodynia Decrease in breast size Atrophy of breast Acute breast pain Hypertension goal BP (blood pressure) < 140/90 Unspecified essential hypertension Nausea and vomiting, unspecified vomiting type Lipid screening Screening for lipoid disorders 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) [facility] Diagnosis Dyspnea on exertion- Primary Other dyspnea and respiratory abnormality Abnormal echocardiogram Nonspecific (abnormal) findings on radiological and other examination of other intrathoracic organs [facility] Diagnosis Hypertension goal BP (blood pressure) < 140/90 Unspecified essential hypertension Gastroesophageal reflux disease with esophagitis and hemorrhage [facility] Shortness of breath- Primary Palpitations Diastolic dysfunction Heart disease, unspecified Encounter for immunization Need for other specified prophylactic vaccination against single bacterial disease Colon cancer screening declined Nausea and vomiting, unspecified vomiting type Hiatal hernia Diaphragmatic hernia without mention of obstruction or gangrene [facility] Diagnosis Breast tenderness Mastodynia Decrease in breast size Atrophy of breast Acute breast pain [facility] Diagnosis Breast tenderness- Primary Mastodynia Decrease in breast size Atrophy of breast Acute breast pain [facility] Diagnosis Hypomagnesemia- Primary Disorders of magnesium metabolism [facility] Diagnosis Dysuria- Primary Dermatitis Contact dermatitis and other eczema, due to unspecified cause [facility] Diagnosis DDD (degenerative disc disease), lumbar- Primary Degeneration of lumbar or lumbosacral intervertebral disc Generalized osteoarthrosis, involving multiple sites [facility] Diagnosis Primary hypertension- Primary Unspecified essential hypertension Shortness of breath Hypomagnesemia Disorders of magnesium metabolism [facility] Diagnosis Urinary incontinence, unspecified type- Primary Urinary frequency [facility] Diagnosis COVID-19- Primary [facility] Diagnosis Acute non-recurrent sinusitis, unspecified location- Primary Acute cough Wheezing Increased urinary frequency Urinary frequency Urinary incontinence, unspecified type [facility] Diagnosis Dysuria- Primary [facility] Diagnosis Urinary tract infection without hematuria, site unspecified- Primary Diarrhea, unspecified type Stage 3b chronic kidney disease (HCC) [facility] Diagnosis Osteoporosis, post menopausal- Primary Encounter for long-term (current) use of medications Encounter for long-term (current) use of other medications 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) Stage 3b chronic kidney disease (HCC) Generalized osteoarthritis Generalized osteoarthrosis, unspecified site High vitamin D level Hypervitaminosis D [facility] Diagnosis Function kidney decreased- Primary Unspecified disorder of kidney and ureter 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) [facility] Diagnosis Urinary tract infection without hematuria, site unspecified- Primary Function kidney decreased Unspecified disorder of kidney and ureter [facility] Diagnosis Hypertension goal BP (blood pressure) < 140/90 Unspecified essential hypertension Gastroesophageal reflux disease with esophagitis and hemorrhage [facility] Diagnosis Function kidney decreased- Primary Unspecified disorder of kidney and ureter Abnormal urine Other nonspecific finding on examination of urine Dysuria [facility] Diagnosis Recurrent UTI- Primary Urinary tract infection, site not specified [facility] Diagnosis 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) [facility] Diagnosis Chronic midline low back pain without sciatica- Primary DDD (degenerative disc disease), lumbar Degeneration of lumbar or lumbosacral intervertebral disc Spondylosis Spondylosis of unspecified site without mention of myelopathy [facility] Diagnosis Lumbar radiculopathy- Primary Thoracic or lumbosacral neuritis or radiculitis, unspecified DDD (degenerative disc disease), lumbar Degeneration of lumbar or lumbosacral intervertebral disc Spondylosis Spondylosis of unspecified site without mention of myelopathy Chronic midline low back pain without sciatica [facility] Diagnosis Urine frequency- Primary Urinary frequency [facility] Diagnosis Lumbar spondylosis- Primary Lumbosacral spondylosis without myelopathy [facility] Diagnosis Dysuria- Primary [facility] Diagnosis Lumbar spondylosis- Primary Lumbosacral spondylosis without myelopathy [facility] Diagnosis Lumbar spondylosis Lumbosacral spondylosis without myelopathy [facility] Diagnosis Lumbar spondylosis Lumbosacral spondylosis without myelopathy [facility] Diagnosis Osteoporosis, post menopausal Encounter for long-term (current) use of medications Encounter for long-term (current) use of other medications 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) Lumbar spondylosis Lumbosacral spondylosis without myelopathy [facility] Diagnosis Hypertension goal BP (blood pressure) < 140/90- Primary Unspecified essential hypertension Hyperlipidemia, unspecified hyperlipidemia type Chronic kidney disease, stage 4, severely decreased GFR (HCC) Chronic kidney disease, Stage IV (severe) Shortness of breath Other fatigue Generally unwell Other ill-defined conditions Recurrent urinary tract infection Urinary tract infection, site not specified Breast cancer screening by mammogram Lumbar spondylosis Lumbosacral spondylosis without myelopathy [facility] Diagnosis Recurrent UTI- Primary Urinary tract infection, site not specified Lumbar spondylosis Lumbosacral spondylosis without myelopathy [facility] Diagnosis Recurrent UTI- Primary Urinary tract infection, site not specified Screening for genitourinary condition Screening for other and unspecified genitourinary condition [facility] Diagnosis Osteoporosis, post menopausal Encounter for long-term (current) use of medications Encounter for long-term (current) use of other medications [facility] Diagnosis Function kidney decreased Unspecified disorder of kidney and ureter [facility] cancer screening by [facility] Diagnosis Lumbar spondylosis- Primary Lumbosacral spondylosis without myelopathy DDD (degenerative disc disease), lumbar Degeneration of lumbar or lumbosacral intervertebral disc Spondylosis Spondylosis of unspecified site without mention of myelopathy [facility] Diagnosis Lumbar spondylosis- Primary Lumbosacral spondylosis without myelopathy Lumbar spondylosis Lumbosacral spondylosis without myelopathy [facility] Diagnosis Hypertension, unspecified type- Primary Cardiomyopathy, unspecified type (HCC) Muscle cramping Cramp of limb Recent urinary tract infection Chronic kidney disease, stage 4, severely decreased GFR (HCC) Chronic kidney disease, Stage IV (severe) Recurrent UTI Urinary tract infection, site not specified Lumbar spondylosis Lumbosacral spondylosis without myelopathy [facility] Outpatient Procedure (Routine) - Authorized Specialty Diagnoses / Procedures Referred By Pernellac t Referred To Contact [facility] Diagnoses Dyspnea on exertion Abnormal EKG Procedures ECHO ECHO TTHRC R-T 2D W/WOM-MODE COMPL SPEC&COLR D Arpita Connelly APRN.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 [address] [place] [address] [facility] [place] [address] [place] [address] Referral ID Status Reason Start Date Expiration Date Visits Requested Visits Authorized [id number] Authorized Auto-Generat ed Referral 04/20/2022 04/20/2023 1 1 * Diagnostic Procedure Only (Routine) - Authorized Specialty Diagnoses / Procedures Referred By Christina amos Referred To Contact [facility] Diagnoses Breast tenderness Decrease in breast size Acute breast pain Procedures GAUDENCIO DIAGNOSTIC BILAT DIAGNOSTIC MAMMOGRAPHY COMPUTER-AIDED DETCJ BI Arpita Connelly APRN.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 [address] [place] [address] [facility] [address] [place] [address] Referral ID Status Reason Start Date Expiration Date Visits Requested Visits Authorized [id number] Authorized Auto-Generat ed Referral 04/20/2022 05/20/2023 1 1 * Outpatient Procedure (Routine) - Authorized Specialty Diagnoses / Procedures [facility] Diagnoses Dyspnea on exertion Cardiac arrhythmia, unspecified cardiac arrhythmia type Procedures ECG COMPLETE ECG ROUTINE ECG W/LEAST 12 LDS W/I&R Arpita Connelly APRN.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 [address] [place] [address] [facility] [place] [address] [place] [employer] [place] [address] Referral ID Status Reason Start Date Expiration Date Visits Requested Visits Authorized [id number] Authorized Auto-Generat ed Referral 04/20/2022 04/20/2023 1 1 [facility] for referral (narrative)* Diagnostic Procedure Only (Routine) - Closed Specialty Diagnoses / Procedures Referred By Contac t Referred To Contact [facility] Diagnoses Breast tenderness Decrease in breast size Acute breast pain Procedures GAUDENCIO DIAGNOSTIC BILAT DIAGNOSTIC MAMMOGRAPHY COMPUTER-AIDED DETCJ BI Arpita Connelly APRN.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 [address] [place] [address] [facility] [address] [place] [address] Referral ID Status Reason Start Date Expiration Date V isits Requested Visits Authorized [id number] Closed Auto-Generate d Referral 04/20/2022 05/20/2023 1 1 [facility] for referral (narrative)* Diagnostic Procedure Only (Routine) - Authorized Specialty Diagnoses / Procedures Referred By Contac t Referred To Contact [facility] Diagnoses Breast tenderness Decrease in breast size Acute breast pain Procedures US BREAST LTD LT US BREAST UNI REAL TIME WITH IMAGE LIMITED Arpita Connelly APRN.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 [address] [place] [address] [facility] [address] [place] [address] Referral ID Status Reason Start Date Expiration Date Visits Requested Visits Authorized [id number] Authorized Auto-Generat ed Referral 05/11/2022 06/10/2023 1 1 * Diagnostic Procedure Only (Routine) - Closed Specialty Diagnoses / Procedures Referred By Contac t Referred To Contact [facility] Diagnoses Breast tenderness Decrease in breast size Acute breast pain Procedures US BREAST LTD RT US BREAST UNI REAL TIME WITH IMAGE LIMITED Arpita Connelly APRN.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 [address] [place] [address] [facility] [address] [place] [address] Referral ID Status Reason Start Date Expiration Date V isits Requested Visits Authorized [id number] Closed Auto-Generate d Referral 05/11/2022 06/10/2023 1 1 [facility] for referral (narrative)* Diagnostic Procedure Only (Routine) - Authorized Specialty Diagnoses / Procedures Referred By Contac t Referred To Contact US IMAG[facility] Diagnoses Function kidney decreased Procedures US KIDNEY/BLADDER US RETROPERITONEAL REAL TIME W/IMAGE COMPLETE Arpita Connelly APRN.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 [address] [place] [address] [facility] Referral ID Status Reason Start Date Expiration Date Visits Requested Visits Authorized [id number] Authorized Auto-Generat ed Referral 10/19/2022 11/18/2023 1 1 [facility] for referral (narrative)* Diagnostic Procedure Only (Routine) - Closed Specialty Diagnoses / Procedures Referred By Contac t Referred To Contact XR IMAGING Diagnoses DDD (degenerative disc disease), lumbar Spondylosis Chronic midline low back pain without sciatica Procedures XR LUMBAR GENERAL 3V AP/LAT/L5-S1 RADEX SPINE LUMBOSACRAL 2/3 VIEWS Arpita Connelly APRN.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 [address] [place] [address] Xr Imaging Referral ID Status Reason Start Date Expiration Date V isits Requested Visits Authorized [id number] Closed Auto-Generate d Referral 01/25/2023 02/24/2024 1 1 * Consult, Test, Treat (Routine) - Authorized Specialty Diagnoses / Procedures Referred By Contac t Referred To Contact Pain Management Diagnoses DDD (degenerative disc disease), lumbar Spondylosis Chronic midline low back pain without sciatica Procedures CONSULT TO PAIN MGT OFFICE/OUTPATIENT NEW HIGH MDM 60-74 MINUTES Older, [facility] [address] [place] [address] Referral ID Status Reason Start Date Expiration Date Visits Requested Visits Authorized [id number] Authorized PCP Requested Referral 01/25/2023 01/25/2024 1 1 * Physical Therapy (Routine) - Authorized Specialty Diagnoses / Procedures Referred By Contac t Referred To Contact [facility] Diagnoses DDD (degenerative disc disease), lumbar Spondylosis Chronic midline low back pain without sciatica Procedures CONSULT TO PHYSICAL THERAPY PHYSICAL THERAPY EVALUATION [facility] COMPLEX 45 MINS Arpita Connelly APRN.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 [address] [place] [address] [facility] [place] [address] [place] [address] Referral ID Status Reason Start Date Expiration Date Visits Requested Visits Authorized [id number] Authorized PCP Requested Referral Auto-Generate d Referral 01/25/2023 01/25/2024 99 99 [facility] for referral (narrative)* Diagnostic Procedure Only (Routine) - Pending Review Specialty Diagnoses / Procedures Referred By Contac t Referred To Contact [facility] Diagnoses Breast cancer screening by mammogram Procedures GAUDENCIO SCREENING SCREENING MAMMOGRAPHY BI 2-VIEW BREAST INC CAD Arpita Connelly APRN.CNP [address] [place] [address] [facility] [address] [place] [address] Referral ID Status Reason Start Date Expiration Date Visits Requested Visits Authorized [id number] Pending Review Auto-Generat ed Referral 04/27/2023 05/26/2024 1 1 [facility] for referral (narrative)* Diagnostic Procedure Only (Routine) - Closed Specialty Diagnoses / Procedures Referred By Contac t Referred To Contact US IMAGING Diagnoses Function kidney decreased Procedures US KIDNEY/BLADDER US RETROPERITONEAL REAL TIME W/IMAGE COMPLETE Arpita Connelly APRN.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 [address] [place] [address] [place] [address] Referral ID Status Reason Start Date Expiration Date V isits Requested Visits Authorized [id number] Closed Auto-Generate d Referral 10/19/2022 11/18/2023 1 1 [facility] for visit Narrative* Diagnostic Procedure Only (Routine) - Closed Specialty Diagnoses / Procedures Referred By Contac t Referred To Contact [facility] Diagnoses Breast tenderness Decrease in breast size Acute breast pain Procedures GAUDENCIO DIAGNOSTIC BILAT DIAGNOSTIC MAMMOGRAPHY COMPUTER-AIDED DETCJ BI Arpita Connelly APRN.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 [address] [place] [address] [facility] [address] [place] [address] Referral ID Status Reason Start Date Expiration Date V isits Requested Visits Authorized [id number] Closed Auto-Generate d Referral 04/20/2022 05/20/2023 1 1 [facility] for visit Narrative* Diagnostic Procedure Only (Routine) - Pending Review Specialty Diagnoses / Procedures Referred By Contac t Referred To Contact Pain Management / PAIN MANAGEMENT Diagnoses Spondylosis, unspecified Medial branch blocks bilateral L4-5 and L5-S1 under fluoroscopic guidance x2, RFA if positive x2 Procedures NJX DX/THER AGT PVRT FACET JT LMBR/SAC 1 LEVEL NJX DX/THER AGT PVRT FACET JT LMBR/SAC 2ND LEVEL PROCEDURE 20 Lidia Crowe MD [address] [place] [address] Lidia Crowe MD [address] [place] [address] Referral ID Status Reason Start Date Expiration Date V isits Requested Visits Authorized [id number] Pending Review 03/27/2023 06/25/2023 1 1 [facility] Diagnostic Procedure Only (Routine) - Closed Specialty Diagnoses / Procedures Referred By Contac t Referred To Contact [facility] Diagnoses Breast cancer screening by mammogram Procedures GAUDENCIO SCREENING SCREENING MAMMOGRAPHY BI 2-VIEW BREAST INC CAD Arpita Connelly, MELVIN.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 [address] [place] [address] [facility] [address] [place] [address] Referral ID Status Reason Start Date Expiration Date V isits Requested Visits Authorized [id number] Closed Auto-Generate d Referral 04/27/2023 05/26/2024 1 1 [facility] Medications Administered Section Inactive Administered Medications - up to 3 most recent administrations Medication Order MAR Action Action Date Dose Rate Site denosumab 60 mg injection (PROLIA) 60 mg, SUBCUTANEOUS, ONCE (UP TO 30 DAYS AMB), 1 dose, On Mon04/18/22 at 1300, Allow To Come To Room Temperature Before Administration. REFRIGERATE Given 04/18/2022 1:05 PM EDT 60 mg Arm, Right Inactive Administered Medications - up to 3 most recent administrations Medication Order MAR Action Action Date Dose Rate Site denosumab 60 mg injection (PROLIA) 60 mg, SUBCUTANEOUS, ONCE (UP TO 30 DAYS AMB), 1 dose, On Mon10/19/22 at 1430, Allow To Come To Room Temperature Before Administration. REFRIGERATE Given 10/19/2022 2:25 PM EST 60 mg Arm, Right Inactive Administered Medications - up to 3 most recent administrations Medication Order MAR Action Action Date Dose Rate Site bupivacaine(PF) 0.75 % (7.5 mg/mL) 7.5 mg injection (MARCAINE PF) 7.5 mg, OTHER, ONCE, 1 dose, On Mon03/27/23 at 1500 Given by LIP 03/27/2023 3:41 PM EDT 7.5 mg iohexol 300 mg IV injection (OMNIPAQUE 300) 300 mg, OTHER, ONCE, 1 dose, On Mon03/27/23 at 1500 Given by LIP 03/27/2023 3:40 PM EDT 300 mg lidocaine (PF) 10 mg/mL (1 %) 100 mg injection (XYLOCAINE) 100 mg, OTHER, ONCE, 1 dose, On Mon03/27/23 at 1500 Given by LIP 03/27/2023 3:40 PM EDT 100 mg Inactive Administered Medications - up to 3 most recent administrations Medication Order MAR Action Action Date Dose Rate Site bupivacaine(PF) 0.75 % (7.5 mg/mL) 7.5 mg injection (MARCAINE PF) 7.5 mg, OTHER, ONCE, 1 dose, On Mon04/10/23 at 1400 Given by [facility] 04/10/2023 2:19 PM EDT 7.5 mg iohexol 300 mg IV injection (OMNIPAQUE 300) 300 mg, OTHER, ONCE, 1 dose, On Mon04/10/23 at 1400 Given by [facility] 04/10/2023 2:19 PM EDT 300 mg lidocaine (PF) 10 mg/mL (1 %) 100 mg injection (XYLOCAINE) 100 mg, OTHER, ONCE, 1 dose, On Mon04/10/23 at 1400 Given by [facility] 04/10/2023 2:19 PM EDT 100 mg Inactive Administered Medications - up to 3 most recent administrations Medication Order MAR Action Action Date Dose Rate Site denosumab 60 mg injection (PROLIA) 60 mg, SUBCUTANEOUS, ONCE (UP TO 30 DAYS AMB), 1 dose, On Mon04/21/23 at 1530, Allow To Come To Room Temperature Before Administration. REFRIGERATE Given 04/21/2023 3:25 PM EDT 60 mg Arm, Right Reason for Referral Specialty Diagnoses / Procedures Referred By Contac t Referred To Contact Cardiology Diagnoses Dyspnea on exertion Abnormal echocardiogram Procedures CONSULT TO CARDIOLOGY OFFICE/OUTPATIENT [facility] 60-74 MINUTES Arpita Connelly APRN.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 [address] [place] [id number] Referral ID Status Reason Start Date Expiration Date Visits Requested Visits Authorized [id number] Authorized PCP Requested Referral 04/22/2022 04/22/2023 1 1 Specialty Diagnoses / Procedures Referred By Contac t Referred To Contact Cardiology Diagnoses Palpitations Diastolic dysfunction Shortness of breath Procedures CONSULT TO CARDIOLOGY OFFICE/OUTPATIENT [facility] 60-74 MINUTES Arpita Connelly APRN.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 [address] [place] [address] Referral ID Status Reason Start Date Expiration Date Visits Requested Visits Authorized [id number] Authorized PCP Requested Referral 05/05/2022 05/05/2023 1 1 Specialty Diagnoses / Procedures Referred By Contac t Referred To Contact Nephrology Diagnoses Function kidney decreased Procedures CONSULT TO NEPHROLOGY OFFICE/OUTPATIENT [facility] 60-74 MINUTES OlderArpita APRN.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 [address] [place] [address] Referral ID Status Reason Start Date Expiration Date Visits Requested Visits Authorized [id number] Authorized PCP Requested Referral 11/11/2022 11/11/2023 1 1 Specialty Diagnoses / Procedures Referred By Contac t Referred To Contact Urology Diagnoses Recurrent UTI Procedures CONSULT TO UROLOGY OFFICE/OUTPATIENT [facility] 60-74 MINUTES Older, MELVIN Palm.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 [address] [place] [address] Referral ID Status Reason Start Date Expiration Date Visits Requested Visits Authorized [id number] Authorized PCP Requested Referral 05/08/2023 05/07/2024 1 1 Summary Purpose Family History No Family History Records FoundNo Family History Records Found Advance Directives No Advanced Directives Records FoundDocuments on File Type Date Recorded 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 Advance Directive(s) 08/24/2023 9:19 AM Additional Source Comments Source Comments (unrecognize d section and content) In the event this informatio n is protected by the Federal Confidentiality of Alcohol and Drug Abuse Patient Records regulations: The Federal rules restrict any use of the information to criminally investigate or prosecute any alcohol or drug abuse patient.[facility] the event this information is protected by the Federal Confidentiality of Alcohol and Drug Abuse Patient Records regulations: The Federal rules restrict any use of the information to criminally investigate or prosecute any alcohol or drug abuse patient.[facility] the event this information is protected by the Federal Confidentiality of Alcohol and Drug Abuse Patient Records regulations: The Federal rules restrict any use of the information to criminally investigate or prosecute any alcohol or drug abuse patient.[facility] the event this information is protected by the Federal Confidentiality of Alcohol and Drug Abuse Patient Records regulations: The Federal rules restrict any use of the information to criminally investigate or prosecute any alcohol or drug abuse patient.[facility] the event this information is protected by the Federal Confidentiality of Alcohol and Drug Abuse Patient Records regulations: The Federal rules restrict any use of the information to criminally investigate or prosecute any alcohol or drug abuse patient.[facility] the event this information is protected by the Federal Confidentiality of Alcohol and Drug Abuse Patient Records regulations: The Federal rules restrict any use of the information to criminally investigate or prosecute any alcohol or drug abuse patient.[facility] the event this information is protected by the Federal Confidentiality of Alcohol and Drug Abuse Patient Records regulations: The Federal rules restrict any use of the information to criminally investigate or prosecute any alcohol or drug abuse patient.[facility] the event this information is protected by the Federal Confidentiality of Alcohol and Drug Abuse Patient Records regulations: The Federal rules restrict any use of the information to criminally investigate or prosecute any alcohol or drug abuse patient.[facility] the event this information is protected by the Federal Confidentiality of Alcohol and Drug Abuse Patient Records regulations: The Federal rules restrict any use of the information to criminally investigate or prosecute any alcohol or drug abuse patient.[facility] Hospital[facility] the event this information is protected by the Federal Confidentiality of Alcohol and Drug Abuse Patient Records regulations: The Federal rules restrict any use of the information to criminally investigate or prosecute any alcohol or drug abuse patient.[facility] Hospital[facility] the event this information is protected by the Federal Confidentiality of Alcohol and Drug Abuse Patient Records regulations: The Federal rules restrict any use of the information to criminally investigate or prosecute any alcohol or drug abuse patient.[facility] the event this information is protected by the Federal Confidentiality of Alcohol and Drug Abuse Patient Records regulations: The Federal rules restrict any use of the information to criminally investigate or prosecute any alcohol or drug abuse patient.[facility] HospitalIn the event this information is protected by the Federal Confidentiality of Alcohol and Drug Abuse Patient Records regulations: The Federal rules restrict any use of the information to criminally investigate or prosecute any alcohol or drug abuse patient.[facility] HospitalIn the event this information is protected by the Federal Confidentiality of Alcohol and Drug Abuse Patient Records regulations: The Federal rules restrict any use of the information to criminally investigate or prosecute any alcohol or drug abuse patient.[facility] HospitalIn the event this information is protected by the Federal Confidentiality of Alcohol and Drug Abuse Patient Records regulations: The Federal rules restrict any use of the information to criminally investigate or prosecute any alcohol or drug abuse patient.[facility] HospitalIn the event this information is protected by the Federal Confidentiality of Alcohol and Drug Abuse Patient Records regulations: The Federal rules restrict any use of the information to criminally investigate or prosecute any alcohol or drug abuse patient.[facility] HospitalIn the event this information is protected by the Federal Confidentiality of Alcohol and Drug Abuse Patient Records regulations: The Federal rules restrict any use of the information to criminally investigate or prosecute any alcohol or drug abuse patient.[facility] HospitalIn the event this information is protected by the Federal Confidentiality of Alcohol and Drug Abuse Patient Records regulations: The Federal rules restrict any use of the information to criminally investigate or prosecute any alcohol or drug abuse patient.[facility] the event this information is protected by the Federal Confidentiality of Alcohol and Drug Abuse Patient Records regulations: The Federal rules restrict any use of the information to criminally investigate or prosecute any alcohol or drug abuse patient.[facility] HospitalIn the event this information is protected by the Federal Confidentiality of Alcohol and Drug Abuse Patient Records regulations: The Federal rules restrict any use of the information to criminally investigate or prosecute any alcohol or drug abuse patient.[facility] HospitalIn the event this information is protected by the Federal Confidentiality of Alcohol and Drug Abuse Patient Records regulations: The Federal rules restrict any use of the information to criminally investigate or prosecute any alcohol or drug abuse patient.[facility] HospitalIn the event this information is protected by the Federal Confidentiality of Alcohol and Drug Abuse Patient Records regulations: The Federal rules restrict any use of the information to criminally investigate or prosecute any alcohol or drug abuse patient.[facility] HospitalIn the event this information is protected by the Federal Confidentiality of Alcohol and Drug Abuse Patient Records regulations: The Federal rules restrict any use of the information to criminally investigate or prosecute any alcohol or drug abuse patient.[facility]In the event this information is protected by the Federal Confidentiality of Alcohol and Drug Abuse Patient Records regulations: The Federal rules restrict any use of the information to criminally investigate or prosecute any alcohol or drug abuse patient.[facility] HospitalIn the event this information is protected by the Federal Confidentiality of Alcohol and Drug Abuse Patient Records regulations: The Federal rules restrict any use of the information to criminally investigate or prosecute any alcohol or drug abuse patient.[facility] HospitalIn the event this information is protected by the Federal Confidentiality of Alcohol and Drug Abuse Patient Records regulations: The Federal rules restrict any use of the information to criminally investigate or prosecute any alcohol or drug abuse patient.[facility] HospitalIn the event this information is protected by the Federal Confidentiality of Alcohol and Drug Abuse Patient Records regulations: The Federal rules restrict any use of the information to criminally investigate or prosecute any alcohol or drug abuse patient.[facility] HospitalIn the event this information is protected by the Federal Confidentiality of Alcohol and Drug Abuse Patient Records regulations: The Federal rules restrict any use of the information to criminally investigate or prosecute any alcohol or drug abuse patient.[facility] HospitalIn the event this information is protected by the Federal Confidentiality of Alcohol and Drug Abuse Patient Records regulations: The Federal rules restrict any use of the information to criminally investigate or prosecute any alcohol or drug abuse patient.[facility] HospitalIn the event this information is protected by the Federal Confidentiality of Alcohol and Drug Abuse Patient Records regulations: The Federal rules restrict any use of the information to criminally investigate or prosecute any alcohol or drug abuse patient.[facility] HospitalIn the event this information is protected by the Federal Confidentiality of Alcohol and Drug Abuse Patient Records regulations: The Federal rules restrict any use of the information to criminally investigate or prosecute any alcohol or drug abuse patient.[facility] HospitalIn the event this information is protected by the Federal Confidentiality of Alcohol and Drug Abuse Patient Records regulations: The Federal rules restrict any use of the information to criminally investigate or prosecute any alcohol or drug abuse patient.[facility] HospitalIn the event this information is protected by the Federal Confidentiality of Alcohol and Drug Abuse Patient Records regulations: The Federal rules restrict any use of the information to criminally investigate or prosecute any alcohol or drug abuse patient.[facility] HospitalIn the event this information is protected by the Federal Confidentiality of Alcohol and Drug Abuse Patient Records regulations: The Federal rules restrict any use of the information to criminally investigate or prosecute any alcohol or drug abuse patient.[facility] HospitalIn the event this information is protected by the Federal Confidentiality of Alcohol and Drug Abuse Patient Records regulations: The Federal rules restrict any use of the information to criminally investigate or prosecute any alcohol or drug abuse patient.[facility] HospitalIn the event this information is protected by the Federal Confidentiality of Alcohol and Drug Abuse Patient Records regulations: The Federal rules restrict any use of the information to criminally investigate or prosecute any alcohol or drug abuse patient.[facility] HospitalIn the event this information is protected by the Federal Confidentiality of Alcohol and Drug Abuse Patient Records regulations: The Federal rules restrict any use of the information to criminally investigate or prosecute any alcohol or drug abuse patient.[facility] HospitalIn the event this information is protected by the Federal Confidentiality of Alcohol and Drug Abuse Patient Records regulations: The Federal rules restrict any use of the information to criminally investigate or prosecute any alcohol or drug abuse patient.[facility] HospitalIn the event this information is protected by the Federal Confidentiality of Alcohol and Drug Abuse Patient Records regulations: The Federal rules restrict any use of the information to criminally investigate or prosecute any alcohol or drug abuse patient.[facility] HospitalIn the event this information is protected by the Federal Confidentiality of Alcohol and Drug Abuse Patient Records regulations: The Federal rules restrict any use of the information to criminally investigate or prosecute any alcohol or drug abuse patient.[facility] HospitalIn the event this information is protected by the Federal Confidentiality of Alcohol and Drug Abuse Patient Records regulations: The Federal rules restrict any use of the information to criminally investigate or prosecute any alcohol or drug abuse patient.[facility] HospitalIn the event this information is protected by the Federal Confidentiality of Alcohol and Drug Abuse Patient Records regulations: The Federal rules restrict any use of the information to criminally investigate or prosecute any alcohol or drug abuse patient.[facility] HospitalIn the event this information is protected by the Federal Confidentiality of Alcohol and Drug Abuse Patient Records regulations: The Federal rules restrict any use of the information to criminally investigate or prosecute any alcohol or drug abuse patient.[facility] HospitalIn the event this information is protected by the Federal Confidentiality of Alcohol and Drug Abuse Patient Records regulations: The Federal rules restrict any use of the information to criminally investigate or prosecute any alcohol or drug abuse patient.[facility] HospitalIn the event this information is protected by the Federal Confidentiality of Alcohol and Drug Abuse Patient Records regulations: The Federal rules restrict any use of the information to criminally investigate or prosecute any alcohol or drug abuse patient.[facility] HospitalIn the event this information is protected by the Federal Confidentiality of Alcohol and Drug Abuse Patient Records regulations: The Federal rules restrict any use of the information to criminally investigate or prosecute any alcohol or drug abuse patient.[facility] HospitalIn the event this information is protected by the Federal Confidentiality of Alcohol and Drug Abuse Patient Records regulations: The Federal rules restrict any use of the information to criminally investigate or prosecute any alcohol or drug abuse patient.[facility] HospitalIn the event this information is protected by the Federal Confidentiality of Alcohol and Drug Abuse Patient Records regulations: The Federal rules restrict any use of the information to criminally investigate or prosecute any alcohol or drug abuse patient.[facility] HospitalIn the event this information is protected by the Federal Confidentiality of Alcohol and Drug Abuse Patient Records regulations: The Federal rules restrict any use of the information to criminally investigate or prosecute any alcohol or drug abuse patient.[facility] HospitalIn the event this information is protected by the Federal Confidentiality of Alcohol and Drug Abuse Patient Records regulations: The Federal rules restrict any use of the information to criminally investigate or prosecute any alcohol or drug abuse patient.[facility] HospitalIn the event this information is protected by the Federal Confidentiality of Alcohol and Drug Abuse Patient Records regulations: The Federal rules restrict any use of the information to criminally investigate or prosecute any alcohol or drug abuse patient.[facility] HospitalIn the event this information is protected by the Federal Confidentiality of Alcohol and Drug Abuse Patient Records regulations: The Federal rules restrict any use of the information to criminally investigate or prosecute any alcohol or drug abuse patient.[facility] HospitalIn the event this information is protected by the Federal Confidentiality of Alcohol and Drug Abuse Patient Records regulations: The Federal rules restrict any use of the information to criminally investigate or prosecute any alcohol or drug abuse patient.[facility] HospitalIn the event this information is protected by the Federal Confidentiality of Alcohol and Drug Abuse Patient Records regulations: The Federal rules restrict any use of the information to criminally investigate or prosecute any alcohol or drug abuse patient.[facility] HospitalIn the event this information is protected by the Federal Confidentiality of Alcohol and Drug Abuse Patient Records regulations: The Federal rules restrict any use of the information to criminally investigate or prosecute any alcohol or drug abuse patient.[facility] HospitalIn the event this information is protected by the Federal Confidentiality of Alcohol and Drug Abuse Patient Records regulations: The Federal rules restrict any use of the information to criminally investigate or prosecute any alcohol or drug abuse patient.[facility] HospitalIn the event this information is protected by the Federal Confidentiality of Alcohol and Drug Abuse Patient Records regulations: The Federal rules restrict any use of the information to criminally investigate or prosecute any alcohol or drug abuse patient.[facility] HospitalIn the event this information is protected by the Federal Confidentiality of Alcohol and Drug Abuse Patient Records regulations: The Federal rules restrict any use of the information to criminally investigate or prosecute any alcohol or drug abuse patient.[facility] HospitalIn the event this information is protected by the Federal Confidentiality of Alcohol and Drug Abuse Patient Records regulations: The Federal rules restrict any use of the information to criminally investigate or prosecute any alcohol or drug abuse patient.[facility] HospitalIn the event this information is protected by the Federal Confidentiality of Alcohol and Drug Abuse Patient Records regulations: The Federal rules restrict any use of the information to criminally investigate or prosecute any alcohol or drug abuse patient.[facility] HospitalIn the event this information is protected by the Federal Confidentiality of Alcohol and Drug Abuse Patient Records regulations: The Federal rules restrict any use of the information to criminally investigate or prosecute any alcohol or drug abuse patient.[facility] HospitalIn the event this information is protected by the Federal Confidentiality of Alcohol and Drug Abuse Patient Records regulations: The Federal rules restrict any use of the information to criminally investigate or prosecute any alcohol or drug abuse patient.[facility] HospitalIn the event this information is protected by the Federal Confidentiality of Alcohol and Drug Abuse Patient Records regulations: The Federal rules restrict any use of the information to criminally investigate or prosecute any alcohol or drug abuse patient.[facility] HospitalIn the event this information is protected by the Federal Confidentiality of Alcohol and Drug Abuse Patient Records regulations: The Federal rules restrict any use of the information to criminally investigate or prosecute any alcohol or drug abuse patient.[facility] HospitalIn the event this information is protected by the Federal Confidentiality of Alcohol and Drug Abuse Patient Records regulations: The Federal rules restrict any use of the information to criminally investigate or prosecute any alcohol or drug abuse patient.[facility] HospitalIn the event this information is protected by the Federal Confidentiality of Alcohol and Drug Abuse Patient Records regulations: The Federal rules restrict any use of the information to criminally investigate or prosecute any alcohol or drug abuse patient.[facility] HospitalIn the event this information is protected by the Federal Confidentiality of Alcohol and Drug Abuse Patient Records regulations: The Federal rules restrict any use of the information to criminally investigate or prosecute any alcohol or drug abuse patient.[facility] HospitalIn the event this information is protected by the Federal Confidentiality of Alcohol and Drug Abuse Patient Records regulations: The Federal rules restrict any use of the information to criminally investigate or prosecute any alcohol or drug abuse patient.[facility] HospitalIn the event this information is protected by the Federal Confidentiality of Alcohol and Drug Abuse Patient Records regulations: The Federal rules restrict any use of the information to criminally investigate or prosecute any alcohol or drug abuse patient.[facility] HospitalIn the event this information is protected by the Federal Confidentiality of Alcohol and Drug Abuse Patient Records regulations: The Federal rules restrict any use of the information to criminally investigate or prosecute any alcohol or drug abuse patient.[facility] Reason for Visit (unrecogniz ed section and content) Reason Comments Established Patient BP 154/90 Reason Comments Recheck BP follow up Reason Comments Results Reason Onset Date Comments Refill Request 05/03/2022 Reason Comments Recheck 2 week follow up Reason Comments Radiology US Specialty Diagnoses / Procedures Referred By Contac t Referred To Contact [facility] Diagnoses Breast tenderness Decrease in breast size Acute breast pain Procedures US BREAST LTD RT US BREAST UNI REAL TIME WITH IMAGE LIMITED Arpita Connelly APRN.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 [address] [place] [address] [facility] [address] [place] [address] Referral ID Status Reason Start Date Expiration Date V isits Requested Visits Authorized [id number] Closed Auto-Generate d Referral 05/11/2022 06/10/2023 1 1 Reason Comments Referral Request Reason Comments Orders Reason Comments Results Reason Comments Rash Rash on L elbow come s and goes x 2 weeks Reason Comments DME Order Request Reason Comments questions regarding preop visit complete d Reason Comments Patient Question Reason Comments F/U HTN 3 Month Reason Comments Orders Reason Comments Fever Reason Onset Date Comments Refill Request 09/26/2022 Reason Comments Recheck Covid 09/12, still co ughing, loss of voice Reason Comments Medication clarification Reason Comments Recheck 2 week diarrhea foll ow up Reason Comments Established Patient Reason Comments Medication Problem Reason Onset Date Comments Refill Request 11/07/2022 Reason Comments Recheck Follow up, review re sults Reason Onset Date Comments Refill Request 12/12/2022 Reason Comments Recheck Discuss back pain Reason Comments New Patient Evaluation Back Pain Specialty Diagnoses / Procedures Referred By Contac t Referred To Contact Pain Management Diagnoses DDD (degenerative disc disease), lumbar Spondylosis Chronic midline low back pain without sciatica Procedures CONSULT TO PAIN MGT OFFICE/OUTPATIENT NEW HIGH MDM 60-74 MINUTES Older, MELVIN Palm.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 [address] [place] [address] Referral ID Status Reason Start Date Expiration Date V isits Requested Visits Authorized [id number] Closed PCP Requested Referral 01/25/2023 01/25/2024 1 1 Reason Comments Injection Questions Reason Comments UTI Frequency and burnin g Reason Comments Reminder Call Reason Comments Urinary Frequency With burning x3 days Reason Comments Patient Update Patient Question Reason Comments Procedure Specialty Diagnoses / Procedures Referred By Contac t Referred To Contact Pain Management / PAIN MANAGEMENT Diagnoses Spondylosis, unspecified Medial branch blocks bilateral L4-5 and L5-S1 under fluoroscopic guidance x2, RFA if positive x2 Procedures NJX DX/THER AGT PVRT FACET JT LMBR/SAC 1 LEVEL NJX DX/THER AGT PVRT FACET JT LMBR/SAC 2ND LEVEL PROCEDURE 20 Lidia Crowe MD [address] [place] [address] Lidai Crowe MD [address] [facility] [address] [place] [address] Referral ID Status Reason Start Date Expiration Date V isits Requested Visits Authorized [id number] Pending Review 04/10/2023 07/09/2023 1 1 Reason Comments Patient Update Reason Comments Low Back Pain Reason Comments Appointment Returning Patient's Call Reason Comments Returning Patient's Call Scheduling Reason Comments Recheck 3 month follow up Reason Comments Opened In Error Reason Comments Consult UTI Recurrent Specialty Diagnoses / Procedures Referred By Contac t Referred To Contact Urology Diagnoses Recurrent UTI Procedures CONSULT TO UROLOGY OFFICE/OUTPATIENT NEW HIGH MDM 60-74 MINUTES Arpita Connelly APRN.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 [address] [place] [address] Referral ID Status Reason Start Date Expiration Date V isits Requested Visits Authorized [id number] Closed PCP Requested Referral 05/08/2023 05/07/2024 1 1 Reason Comments Radiology US Specialty Diagnoses / Procedures Referred By Contac t Referred To Contact US IMAGING Diagnoses Function kidney decreased Procedures US KIDNEY/BLADDER US RETROPERITONEAL REAL TIME W/IMAGE COMPLETE Arpita Connelly APRN.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 [address] [place] [address] [place] [address] Referral ID Status Reason Start Date Expiration Date V isits Requested Visits Authorized [id number] Closed Auto-Generate d Referral 10/19/2022 11/18/2023 1 1 Reason Onset Date Comments Refill Request 07/04/2023 Reason Comments Injection Questions Reason Comments 3 month follow up Care Teams (unrecognized sec tion and content) Relay Operator Relationship Specialty Start Date End Date Sylvie Katz MD [address] [place], [place] [id number] PCP - General Internal Medicine 11/21/16 Relay Operator Relationship Specialty Start Date End Date Sylvie Katz MD [address] [place], [place] [id number] PCP - General Internal Medicine 11/21/16 Relay Operator Relationship Specialty Start Date End Date Sylvie Katz MD [address] [place] [address] PCP - General Internal Medicine 11/21/16 Relay Operator Relationship Specialty Start Date End Date Sylvie Katz MD [address] [place] [address] PCP - General Internal Medicine 11/21/16 Relay Operator Relationship Specialty Start Date End Date Sylvie Katz MD [address] [place] [address] PCP - General Internal Medicine 11/21/16 Relay Operator Relationship Specialty Start Date End Date Sylvie Katz MD [address] [place] [address] PCP - General Internal Medicine 11/21/16 Relay Operator Relationship Specialty Start Date End Date Sylvie Katz MD [address] [facility] [place] [address] PCP - General Internal Medicine 11/21/16 Relay Operator Relationship Specialty Start Date End Date Sylvie Katz MD [address] [facility] [place] [address] PCP - General Internal Medicine 11/21/16 Relay Operator Relationship Specialty Start Date End Date Sylvie Katz MD [address] [facility] [place] [address] PCP - General Internal Medicine 11/21/16 Relay Operator Relationship Specialty Start Date End Date Sylvie Katz MD [address] [facility] [place] [address] PCP - General Internal Medicine 11/21/16 Relay Operator Relationship Specialty Start Date End Date Sylvie Katz MD [address] [place] [address] PCP - General Internal Medicine 11/21/16 Relay Operator Relationship Specialty Start Date End Date Sylvie Katz MD [address] [place] [address] PCP - General Internal Medicine 11/21/16 Relay Operator Relationship Specialty Start Date End Date Sylvie Katz MD [address] [place] [address] PCP - General Internal Medicine 11/21/16 Relay Operator Relationship Specialty Start Date End Date Sylvie Katz MD [address] [place] [address] PCP - General Internal Medicine 11/21/16 Relay Operator Relationship Specialty Start Date End Date Sylvie Katz MD [address] [place] [address] PCP - General Internal Medicine 11/21/16 Relay Operator Relationship Specialty Start Date End Date Sylvie Katz MD [address] [place] [address] PCP - General Internal Medicine 11/21/16 Relay Operator Relationship Specialty Start Date End Date Sylvie Katz MD [address] [place] [address] PCP - General Internal Medicine 11/21/16 Relay Operator Relationship Specialty Start Date End Date Sylvie Katz MD [address] [place] [address] PCP - General Internal Medicine 11/21/16 Relay Operator Relationship Specialty Start Date End Date Sylvie Katz MD [address] [facility] [place] [address] PCP - General Internal Medicine 11/21/16 Relay Operator Relationship Specialty Start Date End Date Sylvie Katz MD [address] [place] [address] PCP - General Internal Medicine 11/21/16 Relay Operator Relationship Specialty Start Date End Date Sylvie Katz MD [address] [place] [address] PCP - General Internal Medicine 11/21/16 Relay Operator Relationship Specialty Start Date End Date Sylvie Katz MD [address] [place] [address] PCP - General Internal Medicine 11/21/16 Relay Operator Relationship Specialty Start Date End Date Sylvie Katz MD [address] [place] [address] PCP - General Internal Medicine 11/21/16 Relay Operator Relationship Specialty Start Date End Date Sylvie Katz MD [address] [place] [address] PCP - General Internal Medicine 11/21/16 Relay Operator Relationship Specialty Start Date End Date Sylvie Katz MD [address] [place] [address] PCP - General Internal Medicine 11/21/16 Relay Operator Relationship Specialty Start Date End Date Sylvie Katz MD [address] [place] [address] PCP - General Internal Medicine 11/21/16 Relay Operator Relationship Specialty Start Date End Date Sylvie Katz MD [address] [place] [address] PCP - General Internal Medicine 11/21/16 Relay Operator Relationship Specialty Start Date End Date Sylvie Katz MD [address] [place] [address] PCP - General Internal Medicine 11/21/16 Relay Operator Relationship Specialty Start Date End Date Sylvie Katz MD [address] [place] [address] PCP - General Internal Medicine 11/21/16 Relay Operator Relationship Specialty Start Date End Date ySlvie Katz MD [address] [place] [address] PCP - General Internal Medicine 11/21/16 Relay Operator Relationship Specialty Start Date End Date Sylvie Katz MD [address] [place] [address] PCP - General Internal Medicine 11/21/16 Relay Operator Relationship Specialty Start Date End Date Sylvie Katz MD [address] [place] [address] PCP - General Internal Medicine 11/21/16 Relay Operator Relationship Specialty Start Date End Date Sylvie Katz MD [address] [place] [address] PCP - General Internal Medicine 11/21/16 Relay Operator Relationship Specialty Start Date End Date Sylvie Katz MD [address] [place] [address] PCP - General Internal Medicine 11/21/16 Relay Operator Relationship Specialty Start Date End Date Sylvie Katz MD [address] [place] [address] PCP - General Internal Medicine 11/21/16 Relay Operator Relationship Specialty Start Date End Date Sylvie Katz MD [address] [place] [address] PCP - General Internal Medicine 11/21/16 Relay Operator Relationship Specialty Start Date End Date Sylvie Katz MD [address] [place] [address] PCP - General Internal Medicine 11/21/16 Relay Operator Relationship Specialty Start Date End Date Sylvie Katz MD [address] [place] [address] PCP - General Internal Medicine 11/21/16 Relay Operator Relationship Specialty Start Date End Date Sylvie Katz MD [address] [place] [address] PCP - General Internal Medicine 11/21/16 Relay Operator Relationship Specialty Start Date End Date Sylvie Katz MD [address] [place] [address] PCP - General Internal Medicine 11/21/16 Relay Operator Relationship Specialty Start Date End Date Sylvie Katz MD [address] [place] [address] PCP - General Internal Medicine 11/21/16 Relay Operator Relationship Specialty Start Date End Date Sylvie Katz MD [address] [place] [address] PCP - General Internal Medicine 11/21/16 Relay Operator Relationship Specialty Start Date End Date Sylvie Katz MD [address] [place] [address] PCP - General Internal Medicine 11/21/16 INFORMATION SOURCE (unrecogn ized section and content) DATE CREATED AUTHOR AUTHOR'S ORGANIZ ATION 09/04/2023 [facility] FOR RECORDS PERTAINING TO PATIENTS WHO ARE OR HAVE BEEN ENROLLED IN A CHEMICAL DEPENDENCY/SUBSTANCEABUSE PROGRAM, SOME INFORMATION MAY BE OMITTED. This clinical summary was aggregated from multiple sources. Caution should be exercised in using it in the provision of clinical care. This summary normalizes information from multiple sources, and as a consequence, information in this document may materially change the coding, format and clinical context of patient data. In addition, data may be omitted in some cases. CLINICAL DECISIONS SHOULD BE BASED ON THE PRIMARY CLINICAL RECORDS. [facility]. provides no warranty or guarantee of the accuracy or completeness of information in this document.
[2023-09-04 13:35] LABS: Albumin, Serum 3.9 g/dL (3.2-5.0); BUN 41 mg/dL (7-18); BUN/Creat Ratio 26.8 RATIO (10-20); Calcium,Total 8.6 mg/dL (8.5-10.1); Chloride 116 mmol/L (98-107); Creatinine, Serum 1.53 mg/dL (0.55-1.02); EST Glomerular Filtration Rate 35 mL/min (>60); Est Glom Filt Rate - Afr Amer 42 mL/min (>60); Glucose 110 mg/dL (74-106); Phosphorus 3.1 mg/dL (2.5-4.9); Potassium 4.7 mmol/L (3.5-5.1); Sodium Level 142 mmol/L (136-145)
== END | disposition home or self-care (01) ==
LOC: LAB 12:09
PROVIDERS: PCP Nurse Practitioner; Referring Provider Internal Medicine Nephrology; Visit Provider Internal Medicine Nephrology
DX: N18.32 Chronic kidney disease, stage 3b (principal); N17.9 Acute kidney failure, unspecified
CPT/HCPCS: 36415; 80069

== ENCOUNTER → 2023-09-13 | Outpatient (CLI) | payer MEDICARE, OTHER, SELFPAY ==
[2023-09-13 14:41] LABS: Magnesium 1.5 mg/dL (1.6-2.6)
== END | disposition home or self-care (01) ==
LOC: POLAB3 14:02
PROVIDERS: PCP Nurse Practitioner; Visit Provider Internal Medicine Nephrology
DX: E83.42 Hypomagnesemia (principal)
CPT/HCPCS: 36415; 83735

== ENCOUNTER → 2023-12-20 | Outpatient (CLI) | payer MEDICARE, OTHER, SELFPAY ==
[2023-12-20 16:28] LABS: Albumin, Serum 4.1 g/dL (3.2-5.0); BUN 51 mg/dL (7-18); BUN/Creat Ratio 28.8 RATIO (10-20); Calcium,Total 8.9 mg/dL (8.5-10.1); Chloride 112 mmol/L (98-107); Creatinine, Serum 1.77 mg/dL (0.55-1.02); EST Glomerular Filtration Rate 29 mL/min (>60); Est Glom Filt Rate - Afr Amer 35 mL/min (>60); Glucose 106 mg/dL (74-106); Potassium 4.8 mmol/L (3.5-5.1); Sodium Level 141 mmol/L (136-145)
== END | disposition home or self-care (01) ==
LOC: LAB 14:31
PROVIDERS: PCP Nurse Practitioner; Referring Provider Internal Medicine Nephrology; Visit Provider Internal Medicine Nephrology
DX: N18.32 Chronic kidney disease, stage 3b (principal)
CPT/HCPCS: 36415; 80069

== ENCOUNTER → 2024-02-06 | Outpatient (CLI) | payer MEDICARE, OTHER, SELFPAY ==
[2024-02-06 15:39] LABS: BNP,B-Type NATRIURETIC PEPTIDE 156.8 pg/mL (0-100)
== END | disposition home or self-care (01) ==
LOC: LAB 13:32
PROVIDERS: PCP Nurse Practitioner; Referring Provider Internal Medicine Cardiovascular Disease; Visit Provider Internal Medicine Cardiovascular Disease
DX: I42.9 Cardiomyopathy, unspecified (principal); R06.09 Other forms of dyspnea
CPT/HCPCS: 36415; 83880

== ENCOUNTER → 2024-07-26 | Outpatient (CLI) | payer MEDICARE, OTHER, SELFPAY ==
[2024-07-26 16:30] LABS: Albumin, Serum 4.1 g/dL (3.2-5.0); BUN 38 mg/dL (7-18); BUN/Creat Ratio 23.6 RATIO (10-20); Chloride 114 mmol/L (98-107); Creatinine, Serum 1.61 mg/dL (0.55-1.02); EST Glomerular Filtration Rate 33 mL/min (>60); Est Glom Filt Rate - Afr Amer 39 mL/min (>60); Glucose 105 mg/dL (74-106); Magnesium 1.3 mg/dL (1.6-2.6); Phosphorus 2.5 mg/dL (2.5-4.9); Potassium 4.7 mmol/L (3.5-5.1); Sodium Level 141 mmol/L (136-145); Uric Acid 5.1 mg/dL (2.6-6.0)
== END | disposition home or self-care (01) ==
LOC: LAB 14:25
PROVIDERS: PCP Nurse Practitioner; Referring Provider Internal Medicine Nephrology; Visit Provider Internal Medicine Nephrology
DX: N17.9 Acute kidney failure, unspecified (principal); M10.9 Gout, unspecified; E83.42 Hypomagnesemia
CPT/HCPCS: 36415; 80069; 83735; 84550

== ENCOUNTER → 2024-09-02 | Outpatient (CLI) | payer MEDICARE, OTHER, SELFPAY ==
[2024-09-02 10:55] LABS: ALB/GLOB Ratio 1.2 RATIO (0.9-2.4); AST(SGOT) 25 U/L (15-37); Alanine Aminotransfer ALT/SGPT 31 U/L (13-56); Albumin, Serum 3.8 g/dL (3.2-5.0); Alkaline Phosphatase 44 U/L (45-117); Anion Gap 6 (5-15); BUN 40 mg/dL (7-18); BUN/Creat Ratio 23.4 RATIO (10-20); Calcium,Total 8.5 mg/dL (8.5-10.1); Chloride 113 mmol/L (98-107); Cholesterol 122 mg/dL (200); Creatinine, Serum 1.71 mg/dL (0.55-1.02); EST Glomerular Filtration Rate 30 mL/min (>60); Est Glom Filt Rate - Afr Amer 37 mL/min (>60); Globulin 3.3 g/dL (2.2-4.2); Glucose 128 mg/dL (74-106); High Density Lipoprotein 52 mg/dL; Potassium 4.9 mmol/L (3.5-5.1); Protein, Total 7.1 g/dL (6.4-8.2); Sodium Level 140 mmol/L (136-145); Triglycerides 132 mg/dL; Very Low Density Lipoprotein 26 mg/dL (5-40)
== END | disposition home or self-care (01) ==
LOC: LAB 10:03
PROVIDERS: PCP Nurse Practitioner; Referring Provider Internal Medicine Cardiovascular Disease; Visit Provider Internal Medicine Cardiovascular Disease
DX: I10 Essential (primary) hypertension (principal); I49.49 Other premature depolarization; R00.2 Palpitations; E78.2 Mixed hyperlipidemia
CPT/HCPCS: 36415; 80053; 80061

== ENCOUNTER → 2025-03-03 | Outpatient (CLI) | payer MEDICARE, OTHER, SELFPAY ==
[2025-03-03 09:33] LABS: AST(SGOT) 26 U/L (<=31); Alanine Aminotransfer ALT/SGPT 19 U/L (<=34); Albumin, Serum 4.5 g/dL (3.4-4.8); Alkaline Phosphatase 43 U/L (35-104); Bilirubin, Direct 0.18 mg/dL (0.00-0.30); Cholesterol 113 mg/dL (<=200); Globulin 2.7 g/dL (2.2-4.2); Low Density Lipoprotein Calc. 38 mg/dL; Triglycerides 155 mg/dL; Very Low Density Lipoprotein 31 mg/dL (5-40); cholesterol:hdl ratio screen 2.54
== END | disposition home or self-care (01) ==
LOC: LAB 08:01
PROVIDERS: PCP Nurse Practitioner; Referring Provider Physician Assistant Medical; Visit Provider Physician Assistant Medical
DX: N18.32 Chronic kidney disease, stage 3b (principal)
CPT/HCPCS: 36415; 80061; 80076

== ENCOUNTER → 2025-03-05 | Outpatient (CLI) | payer MEDICARE, OTHER, SELFPAY ==
[2025-03-05 12:43] LABS: PTHIN 83 pg/mL (11-61)
== END | disposition home or self-care (01) ==
LOC: LAB 11:08
PROVIDERS: PCP Nurse Practitioner; Referring Provider Internal Medicine Nephrology; Visit Provider Internal Medicine Nephrology
DX: N18.32 Chronic kidney disease, stage 3b (principal)
CPT/HCPCS: 36415; 83970

== ENCOUNTER → 2025-03-13 | Outpatient (CLI) | payer MEDICARE, OTHER, SELFPAY ==
[2025-03-13 15:08] LABS: Albumin, Serum 4.5 g/dL (3.4-4.8); Anion Gap 16 (5-15); BUN 48 mg/dL (4-19); BUN/Creat Ratio 24.2 RATIO (10-20); Calcium,Total 9.5 mg/dL (7.6-11.0); Carbon Dioxide 17.8 mmol/L (21.0-32.0); Chloride 107 mmol/L (98-108); Glucose 104 mg/dL (70-99); Magnesium 1.6 mg/dL (1.5-2.2); Potassium 4.7 mmol/L (3.3-5.1)
== END | disposition home or self-care (01) ==
LOC: POLAB3 14:06
PROVIDERS: PCP Nurse Practitioner; Visit Provider Internal Medicine Nephrology
DX: N18.32 Chronic kidney disease, stage 3b (principal)
CPT/HCPCS: 36415; 80069; 83735

== ENCOUNTER → 2025-07-21 | Outpatient (CLI) | payer MEDICARE, OTHER, SELFPAY ==
[2025-07-21 16:41] LABS: Albumin, Serum 4.5 g/dL (3.4-4.8); Anion Gap 13 (5-15); BUN 49 mg/dL (4-19); BUN/Creat Ratio 26.4 RATIO (10-20); Calcium,Total 10.3 mg/dL (7.6-11.0); Carbon Dioxide 20.3 mmol/L (21.0-32.0); Chloride 107 mmol/L (98-108); Glucose 104 mg/dL (70-99); Magnesium 1.7 mg/dL (1.5-2.2); Potassium 5.0 mmol/L (3.3-5.1)
== END | disposition home or self-care (01) ==
LOC: LAB 14:58
PROVIDERS: PCP Nurse Practitioner; Referring Provider Internal Medicine Nephrology; Visit Provider Internal Medicine Nephrology
DX: E83.42 Hypomagnesemia (principal); N18.32 Chronic kidney disease, stage 3b
CPT/HCPCS: 36415; 80069; 83735

== ENCOUNTER → 2025-08-06 | Outpatient (CLI) | payer MEDICARE, OTHER, SELFPAY ==
[2025-08-06 11:22] LABS: AST(SGOT) 23 U/L (<=31); Alanine Aminotransfer ALT/SGPT 18 U/L (<=34); Albumin, Serum 4.5 g/dL (3.4-4.8); Alkaline Phosphatase 41 U/L (35-104); Bilirubin, Direct 0.22 mg/dL (0.00-0.30); Cholesterol 120 mg/dL (<=200); Globulin 2.9 g/dL (2.2-4.2); Low Density Lipoprotein Calc. 48 mg/dL; Triglycerides 141 mg/dL; Very Low Density Lipoprotein 28 mg/dL (5-40); cholesterol:hdl ratio screen 2.53
== END | disposition home or self-care (01) ==
LOC: LAB 09:35
PROVIDERS: PCP Internal Medicine; Referring Provider Internal Medicine Cardiovascular Disease; Visit Provider Internal Medicine Cardiovascular Disease
DX: E78.2 Mixed hyperlipidemia (principal)
CPT/HCPCS: 36415; 80061; 80076